=== PATIENT | female | born 1950 | race Caucasian/White ===

== ENCOUNTER 2017-12-19 09:08 | Outpatient (CLI) | payer MEDICARE, BC ==
[2017-12-19 14:45] LABS: BILIRUBIN,URINE NEGATIVE (NEGATIVE); GLUCOSE, URINE (UA) NEGATIVE (NEGATIVE); KETONES,URINE (UA) NEGATIVE (NEGATIVE); LEUKOCYTE ESTERASE, URINE NEGATIVE (NEGATIVE); NITRITE,URINE NEGATIVE (NEGATIVE); OCCULT BLOOD,URINE NEGATIVE (NEGATIVE); PROTEIN,URINE NEGATIVE (NEGATIVE); UROBILINOGEN,URINE 0.2 (NORMAL) E.U./dL (NORMAL)
[2017-12-19 14:47] LABS: CLARITY,URINE CLEAR (CLEAR)
== END 2017-12-19 09:09 | disposition home or self-care (01) ==
LOC: LAB 09:08
PROVIDERS: ATTEND Urology
DX: N39.0 Urinary tract infection, site not specified (principal)
CPT/HCPCS: 81001; 81003; 87086

== ENCOUNTER 2018-05-28 07:20 | Emergency (ER) | payer MEDICARE, BC ==
[2018-05-28] MEDS ORDERED: SODIUM CHLORIDE 0.9% 1,000 ML IV ONE (07:49)
--- NOTE | 2018-05-28 07:52 | ED Physician Documentation ---
PD HPI NVD - Stated complaint Stated Complaint: VOMITING - Chief complaint Chief Complaint: General - History obtained from History obtained from: Patient, Family - History of Present Illness Timing - onset: Enter time (1999), Last night Timing - duration: Hours Timing - details: Abrupt onset, Now resolved Associated symptoms: Dizzy, Near syncope / syncope Contributing factors: Bad food Improved by: Vomiting Similar symptoms before: Diagnosis (food poisoning) Recently seen: Not recently seen - Additonal information Additional information: 68-year-old female who had traveled to [place] and left [place] yesterday developed acute nausea and vomiting at about 8 PM yesterday. She had violent vomiting until about 4 AM. When she awoke at 6 AM this morning she did not have to vomit she was no longer nauseous but she feels weak and lightheaded. She has had this happen to her previously and she recalls that the last time this happened to her it took about 4 days to recover. She is on hydrochlorothiazide and she did not take her medication yesterday because she did not want to have to go to the bathroom on the plane. Review of Systems Constitutional: denies: Fever Eyes: denies: Decreased vision Ears: denies: Ear pain Nose: denies: Rhinorrhea / runny nose, Congestion Throat: denies: Sore throat Cardiac: denies: Chest pain / pressure, Palpitations Respiratory: denies: Dyspnea, Cough GI: reports: Nausea, Vomiting. denies: Abdominal Pain, Diarrhea : denies: Dysuria, Frequency Skin: denies: Rash Musculoskeletal: denies: Neck pain, Back pain, Extremity pain Neurologic: reports: Generalized weakness, Near syncope. 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 HEENT: Tonsil/Adenoidectomy - Present Medications Home Medications: Ambulatory Orders Medication Instructions Recorded Confirmed Diclofenac Sodium 1 mg PO DAILY 07/21/14 05/28/18 Gabapentin 1.5 mg PO DAILY 07/21/14 05/28/18 Levothyroxine [Synthroid] 1 mg PO DAILY 07/21/14 05/28/18 Omeprazole 2 mg PO DAILY 07/21/14 05/28/18 Oxycodone HCl/Acetaminophen 1 mg PO DAILY 07/21/14 05/28/18 [Percocet 5-325 mg Tablet] Simvastatin 1 mg PO DAILY 07/21/14 05/28/18 Triamterene/Hydrochlorothiazid 1 mg PO DAILY 07/21/14 05/28/18 [Triamterene-Hctz 37.5-25 mg Cp] Zolpidem Tartrate [Ambien] 1 mg PO DAILY 07/21/14 05/28/18 amLODIPine [Norvasc] 1 mg PO DAILY 07/21/14 05/28/18 Ondansetron Odt [Zofran] 4 mg TL Q6H PRN #10 tablet 05/28/18 - Allergies Allergies/Adverse Reactions: Allergies Allergy/AdvReac Type Severity Reaction Status Date / Time Penicillins Allergy Unknown Nausea Verified 07/21/14 22:43 - Social History Does the pt smoke?: No Smoking Status: Never smoker Does the pt drink ETOH?: No Does the pt have substance abuse?: No - Immunizations Immunizations are current?: Yes PD ED PE NORMAL - Vitals Vital signs reviewed: Yes - General General: Alert and oriented X 3, No acute distress, Well developed/nourished - HEENT HEENT: Atraumatic, PERRL, EOMI - Neck Neck: Supple, no meningeal sign - Cardiac Cardiac: No murmur, Other (tachy to 110) - Respiratory Respiratory: No respiratory distress, Clear bilaterally - Abdomen Abdomen: Soft, Other (There is some mild tenderness to the upper abdomen along the costal margin ) - Back Back: No CVA TTP, No spinal TTP - Derm Derm: Normal color, Warm and dry, No rash - Extremities Extremities: No deformity, No edema - Neuro Neuro: Alert and oriented X 3, vault worker 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, No motor deficit, No sensory deficit, Normal speech Eye Opening: Spontaneous Motor: Obeys Commands Verbal: Oriented GCS Score: 15 - Psych Psych: Normal mood, Normal affect Results - Vitals Vitals: Vital Signs - 24 hr 05/28/18 08:42 Temperature 37.5 C Heart Rate 77 Respiratory 18 Rate Blood Pressure 140/78 H O2 Saturation 92 Oxygen O2 Source Room air - Labs Labs: Laboratory Tests 05/28/18 05/28/18 05/28/18 08:15 08:25 08:25 WBC 13.6 H RBC 4.52 Hgb 13.0 Hct 38.1 MCV 84.3 MCH 28.7 MCHC 34.0 RDW 14.9 Plt Count 224 MPV 10.1 Neut # (Auto) 10.9 H Lymph # (Auto) 0.7 L [place] # (Auto) 2.0 H Eos # (Auto) 0.0 Baso # (Auto) 0.0 Absolute Nucleated RBC 0.01 Nucleated RBC % 0.0 Manual Slide Review Indicated WBC Morphology Platelet Estimate NORMAL (130-450,000) Platelet Morphology NORMAL APPEARANCE RBC Morph Micro Appear NORMAL APPEARANCE Sodium 137 Potassium 3.3 L Chloride 95 L Carbon Dioxide 29 Anion Gap 13.0 BUN 31 H Creatinine 1.2 H Estimated GFR (MDRD) 44 L Glucose 159 H Calcium 10.5 H Total Bilirubin 0.9 AST 39 ALT 30 Alkaline Phosphatase 81 Troponin I Total Protein 8.4 H Albumin 4.3 Globulin 4.1 Albumin/Globulin Ratio 1.0 Lipase 23 Urine Color YELLOW Urine Clarity CLEAR Urine pH 7.0 Ur Specific [place] 1.015 Urine Protein 30 H Urine Glucose (UA) NEGATIVE Urine Ketones NEGATIVE Urine Occult Blood NEGATIVE Urine Nitrite NEGATIVE Urine Bilirubin NEGATIVE Urine Urobilinogen 0.2 (NORMAL) Ur Leukocyte Esterase NEGATIVE Urine RBC 0-5 Urine WBC 0-3 Ur Squamous Epith Cells MOD Squamous H Urine Bacteria Few Urine Casts 0-2 Hyaline Casts Urine Mucus Few Strands Ur Microscopic Review INDICATED Urine Culture Comments NOT INDICATED 05/28/18 08:25 WBC RBC Hgb Hct MCV MCH MCHC RDW Plt Count MPV Neut # (Auto) Lymph # (Auto) [place] # (Auto) Eos # (Auto) Baso # (Auto) Absolute Nucleated RBC Nucleated RBC % Manual Slide Review WBC Morphology Platelet Estimate Platelet Morphology RBC Morph Micro Appear Sodium Potassium Chloride Carbon Dioxide Anion Gap BUN Creatinine Estimated GFR (MDRD) Glucose Calcium Total Bilirubin AST ALT Alkaline Phosphatase Troponin I < 0.04 Total Protein Albumin Globulin Albumin/Globulin Ratio Lipase Urine Color Urine Clarity Urine pH Ur Specific [place] Urine Protein Urine Glucose (UA) Urine Ketones Urine Occult Blood Urine Nitrite Urine Bilirubin Urine Urobilinogen Ur Leukocyte Esterase Urine RBC Urine WBC Ur Squamous Epith Cells Urine Bacteria Urine Casts Urine Mucus Ur Microscopic Review Urine Culture Comments Procedures - IVC sono (time) 0745 Bedside IVC sono: IVC measures (cm) (0.88), IVC collapsed c insp (cm) (complete) , Dehydration (est 2 + liters deficit.) PD MEDICAL DECISION MAKING - ED course Complexity details: reviewed old records, reviewed results, re-evaluated patient , considered differential, d/w patient, d/w family ED course: 68-year-old female with what sounds like acute staphylococcal food poisoning appears to have her symptoms resolved as far as her vomiting is concerned but she is weak and dehydrated. She is significantly dehydrated and will need about 2 L of saline for compensation. IV is begun and she is given saline. - Sepsis Event Vital Signs: Vital Signs - 24 hr 05/28/18 08:42 Temperature 37.5 C Heart Rate 77 Respiratory 18 Rate Blood Pressure 140/78 H O2 Saturation 92 Oxygen O2 Source Room air Departure - Departure Disposition: 01 Home, Self Care Clinical Impression: Dehydration Food poisoning Qualifiers: Encounter type: initial encounter Injury intent: accidental or unintentional Qualified Code(s): T62.91XA - Toxic effect of unspecified noxious substance eaten as food, accidental (unintentional), initial encounter Condition: Stable Instructions: ED Dehydration, ED Gastroenteritis Vs Food Poison Follow-Up: Deana Meneses MD [Primary Care Provider] - Prescriptions: Ondansetron Odt [Zofran] 4 mg TL Q6H PRN #10 tablet PRN Reason: Nausea / Vomiting
[2018-05-28 08:38] LABS: BILIRUBIN,URINE NEGATIVE (NEGATIVE); GLUCOSE, URINE (UA) NEGATIVE (NEGATIVE); KETONES,URINE (UA) NEGATIVE (NEGATIVE); LEUKOCYTE ESTERASE, URINE NEGATIVE (NEGATIVE); NITRITE,URINE NEGATIVE (NEGATIVE); OCCULT BLOOD,URINE NEGATIVE (NEGATIVE); PROTEIN,URINE 30 mg/dL (NEGATIVE); UROBILINOGEN,URINE 0.2 (NORMAL) E.U./dL (NORMAL)
[2018-05-28 08:40] LABS: CLARITY,URINE CLEAR (CLEAR)
[2018-05-28 08:40] LABS: BASOPHILS % (AUTO) 0.2 %; LYMPHOCYTES # (AUTO) 0.7 10^3/uL (1.5-3.5); LYMPHOCYTES % (AUTO) 5.1 %; MEAN CORPUSCULAR HEMOGLOBIN 28.7 pg (27.0-31.0); MEAN CORPUSCULAR VOLUME 84.3 fL (81.0-99.0); MEAN PLATELET VOLUME 10.1 fL (7.9-10.8); MONOCYTES % (AUTO) 14.6 %; NEUTROPHILS # (AUTO) 10.9 10^3/uL (1.5-6.6); NEUTROPHILS % (AUTO) 80.1 %; PLT - PLATELET COUNT 224 10^3/uL (130-450); RED BLOOD COUNT 4.52 10^6/uL (4.20-5.40); RED CELL DISTRIBUTION WIDTH 14.9 % (12.0-15.0); WHITE BLOOD COUNT 13.6 x10^3/uL (4.8-10.8)
[2018-05-28 08:53] LABS: ALBUMIN 4.3 g/dL (3.2-5.5); BILIRUBIN,TOTAL 0.9 mg/dL (0.2-1.0); CALCIUM 10.5 mg/dL (8.5-10.3); CREATININE 1.2 mg/dL (0.4-1.0); TOTAL PROTEIN 8.4 g/dL (6.7-8.2)
[2018-05-28] MEDS ORDERED: POTASSIUM BICARB 25 MEQ TABLET PO STA (08:54)
[2018-05-28 08:56] LABS: BACTERIA,URINE Few /HPF (None Seen); MUCUS,URINE Few Strands; RBC,URINE 0-5 /HPF (0-5); SQUAMOUS EPITHELIAL CELL,UR MOD Squamous (<= Few)
[2018-05-28 09:28] LABS: PLATELET ESTIMATE, MANUAL NORMAL (130-450,000) (NORMAL); PLATELET MORPHOLOGY NORMAL APPEARANCE (NORMAL); RBC MORPHOLOGY (MULTIPLE) NORMAL APPEARANCE (NORMAL)
[2018-05-28 11:03] VITALS: BP 154/81
== END 2018-05-28 11:04 | disposition home or self-care (01) ==
LOC: ED 07:20
DX: T62.91XA Toxic effect of unspecified noxious substance eaten as food, accidental (unintentional), initial encounter (principal); E86.0 Dehydration; R11.2 Nausea with vomiting, unspecified; I10 Essential (primary) hypertension; Y92.520 Airport as the place of occurrence of the external cause
CPT/HCPCS: 36415; 80053; 81001; 83690; 84484; 85025; 96360; 96361; 99283; 99284; A9270; 81003; 87086

== ENCOUNTER 2018-05-29 06:17 | Emergency (ER) | payer MEDICARE, BC ==
[2018-05-29] MEDS ORDERED: ONDANSETRON 4 MG/2 ML VIAL IVP STA (06:27)
[2018-05-29] MEDS ORDERED: SODIUM CHLORIDE 0.9% 1,000 ML IV ONE ×2 (06:27→07:18)
[2018-05-29 06:42] LABS: BASOPHILS % (AUTO) 0.6 %; HGB - HEMOGLOBIN 11.9 g/dL (12.0-16.0); LYMPHOCYTES % (AUTO) 8.9 %; MEAN CORPUSCULAR HEMOGLOBIN 28.3 pg (27.0-31.0); MEAN CORPUSCULAR HGB CONC 33.2 g/dL (32.0-36.0); MEAN PLATELET VOLUME 9.9 fL (7.9-10.8); MONOCYTES % (AUTO) 17.5 %; PLT - PLATELET COUNT 213 10^3/uL (130-450); RED BLOOD COUNT 4.19 10^6/uL (4.20-5.40); WHITE BLOOD COUNT 11.3 x10^3/uL (4.8-10.8)
[2018-05-29 06:46] LABS: ABNORMAL LYMPHS % (MANUAL) 0 %
[2018-05-29 06:58] LABS: ALBUMIN 4.4 g/dL (3.2-5.5); ALBUMIN/GLOBULIN RATIO 1.2 (1.0-2.2); BILIRUBIN,TOTAL 0.7 mg/dL (0.2-1.0); CALCIUM 10.2 mg/dL (8.5-10.3); CREATININE 1.2 mg/dL (0.4-1.0)
[2018-05-29 07:13] LABS: BAND NEUTROPHILS % (MANUAL) 1 %; LYMPHOCYTES # (MANUAL) 1.6 10^3/uL (1.5-3.5); LYMPHOCYTES % (MANUAL) 14 %; MONOCYTES # (MANUAL) 0.9 10^3/uL (0.0-1.0); NEUTROPHILS # (MANUAL) 8.8 10^3/uL (1.5-6.6); NEUTROPHILS % (MANUAL) 77 %; PLATELET ESTIMATE, MANUAL NORMAL (130-450,000) (NORMAL); RBC MORPHOLOGY (MULTIPLE) NORMAL APPEARANCE (NORMAL)
[2018-05-29 07:14] LABS: DIFFERENTIAL COMMENT MANUAL DIFFERENTIAL
--- NOTE | 2018-05-29 07:23 | ED Physician Documentation ---
PD HPI NVD - Stated complaint Stated Complaint: VOMITING - Chief complaint Chief Complaint: Abd Pain - History obtained from History obtained from: Patient - History of Present Illness Timing - onset: How many days ago (2) Timing - duration: Days (2) Contributing factors: Bad food, Travel Similar symptoms before: No diagnosis Recently seen: Emergency Dept (yesterday) - Additonal information Additional information: The patient is a 68-year-old female with vomiting of 2 days duration. She thinks she ate a bad turkey sandwich before leaving [place] 2 days ago. She began vomiting after her flight home. She was seen in the emergency department here yesterday and was treated for vomiting with dehydration. She felt better after 2 L of IV fluid and antiemetic. However yesterday after returning home she had 2 more episodes of vomiting, and has not been able to take her medication. Her last emesis was 9 PM last night. She denies abdominal pain currently, but reports intermittent crampy abdominal pain previously. She denies fever, diarrhea, or dysuria. She has history of similar episode 3 or 4 years ago, lasting for about 4 days. 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 Review of Systems Constitutional: denies: Fever Ears: denies: Tinnitus/ringing Nose: denies: Congestion Throat: denies: Sore throat Cardiac: denies: Chest pain / pressure, Palpitations Respiratory: denies: Dyspnea, Cough GI: reports: Abdominal Pain (occasional, cramping), Nausea, Vomiting. 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 HEENT: Tonsil/Adenoidectomy - Present Medications Home Medications: Ambulatory Orders Medication Instructions Recorded Confirmed Diclofenac Sodium 1 mg PO DAILY 07/21/14 05/28/18 Gabapentin 1.5 mg PO DAILY 07/21/14 05/28/18 Levothyroxine [Synthroid] 1 mg PO DAILY 07/21/14 05/28/18 Omeprazole 2 mg PO DAILY 07/21/14 05/28/18 Oxycodone HCl/Acetaminophen 1 mg PO DAILY 07/21/14 05/28/18 [Percocet 5-325 mg Tablet] Simvastatin 1 mg PO DAILY 07/21/14 05/28/18 Triamterene/Hydrochlorothiazid 1 mg PO DAILY 07/21/14 05/28/18 [Triamterene-Hctz 37.5-25 mg Cp] Zolpidem Tartrate [Ambien] 1 mg PO DAILY 07/21/14 05/28/18 amLODIPine [Norvasc] 1 mg PO DAILY 07/21/14 05/28/18 Ondansetron Odt [Zofran] 4 mg TL Q6H PRN #10 tablet 05/28/18 Promethazine [Phenergan] 25 - 50 mg PO Q6H PRN #10 tab 05/29/18 - Allergies Allergies/Adverse Reactions: Allergies Allergy/AdvReac Type Severity Reaction Status Date / Time Penicillins Allergy Unknown Nausea Verified 05/29/18 06:38 - Social History Does the pt smoke?: No Smoking Status: Never smoker Does the pt drink ETOH?: No Does the pt have substance abuse?: No - Immunizations Immunizations are current?: Yes - POLST Patient has POLST: No PD ED PE NORMAL - Vitals Vital signs reviewed: Yes (Initially hypertensive) - General General: Alert and oriented X 3, Well developed/nourished - HEENT HEENT: Atraumatic, Pharynx benign - Neck Neck: Supple, no meningeal sign, No adenopathy, No JVD - Cardiac Cardiac: RRR, No murmur - Respiratory Respiratory: No respiratory distress, Clear bilaterally - Abdomen Abdomen: Soft, Non tender, No organomegaly, Other (Decreased bowel tones.) - Back Back: No CVA TTP - Derm Derm: No rash - Extremities Extremities: No edema, No calf tenderness / cord - Neuro Neuro: Alert and oriented X 3, No motor deficit, Normal speech Results - Vitals Vitals: Vital Signs - 24 hr 05/29/18 05/29/18 05/29/18 06:21 06:57 08:57 Temperature 37.0 C 36.4 C L Heart Rate 76 68 71 Respiratory 18 16 18 Rate Blood Pressure 153/80 H 172/79 H 183/82 H O2 Saturation 96 98 98 Oxygen O2 Source Room air - Labs Labs: Laboratory Tests 05/29/18 05/29/18 05/29/18 06:35 06:35 08:33 WBC 11.3 H RBC 4.19 L Hgb 11.9 L Hct 35.7 L MCV 85.0 MCH 28.3 MCHC 33.2 RDW 15.0 Plt Count 213 MPV 9.9 Neut # (Auto) Not Reportable Lymph # (Auto) Not Reportable [place] # (Auto) Not Reportable Eos # (Auto) Not Reportable Baso # (Auto) Not Reportable Absolute Nucleated RBC Not Reportable Total Counted 100 Band Neuts % (Manual) 1 Abnorm Lymph % (Manual) 0 Nucleated RBC % Not Reportable Neutrophils # (Manual) 8.8 H Lymphocytes # (Manual) 1.6 Monocytes # (Manual) 0.9 Eosinophils # (Manual) 0.0 Basophils # (Manual) 0.0 Differential Comment MANUAL DIFFERENTIAL Platelet Estimate NORMAL (130-450,000) RBC Morph Micro Appear NORMAL APPEARANCE Sodium 139 Potassium 3.3 L Chloride 100 L Carbon Dioxide 29 Anion Gap 10.0 BUN 32 H Creatinine 1.2 H Estimated GFR (MDRD) 44 L Glucose 144 H Calcium 10.2 Total Bilirubin 0.7 AST 35 ALT 30 Alkaline Phosphatase 70 Total Protein 8.0 Albumin 4.4 Globulin 3.6 Albumin/Globulin Ratio 1.2 Lipase 21 L Urine Color YELLOW Urine Clarity CLEAR Urine pH 6.0 Ur Specific [place] 1.015 Urine Protein NEGATIVE Urine Glucose (UA) NEGATIVE Urine Ketones NEGATIVE Urine Occult Blood NEGATIVE Urine Nitrite NEGATIVE Urine Bilirubin NEGATIVE Urine Urobilinogen 1 (NORMAL) Ur Leukocyte Esterase NEGATIVE Ur Microscopic Review NOT INDICATED Urine Culture Comments NOT INDICATED PD MEDICAL DECISION MAKING - ED course Complexity details: reviewed old records, reviewed results, re-evaluated patient , considered differential, d/w patient ED course: The underlying cause for the patient's nausea and vomiting is uncertain, but is most consistent with gastroenteritis versus food poisoning. Her clinical examination does not suggest an acute surgical process, and there is no clinical evidence to suggest pancreatitis or biliary colic. Her white blood cell count is mildly elevated at 11.3, which is improved from yesterday when it was 13.6. Her BUN and creatinine are similar to yesterday at 33 and 1.2. Treatment in the emergency department included administration of normal saline 2 L IV, and Zofran 4 mg IV. Following this treatment she felt subjectively improved, and demonstrated ability to drink fluids without recurrent nausea. She is being discharged with a prescription for Phenergan. I discussed with her the diagnosis, symptomatic treatment and outpatient follow-up, as well as potentially worrisome signs or symptoms that should prompt reevaluation in the emergency department. - Sepsis Event Vital Signs: Vital Signs - 24 hr 05/29/18 05/29/18 05/29/18 06:21 06:57 08:57 Temperature 37.0 C 36.4 C L Heart Rate 76 68 71 Respiratory 18 16 18 Rate Blood Pressure 153/80 H 172/79 H 183/82 H O2 Saturation 96 98 98 Oxygen O2 Source Room air Departure - Departure Disposition: 01 Home, Self Care Clinical Impression: Dehydration Vomiting Qualifiers: Vomiting type: unspecified Vomiting Intractability: non-intractable Nausea presence: with nausea Qualified Code(s): R11.2 - Nausea with vomiting, unspecified Instructions: ED Nausea Vomiting Follow-Up: Deana Meneses MD [Primary Care Provider] - Prescriptions: Promethazine [Phenergan] 25 - 50 mg PO Q6H PRN #10 tab PRN Reason: Nausea / Vomiting Comments: You can use Phenergan as prescribed if needed for nausea. Drink small amounts of fluid frequently. Follow up with your primary physician within 1 week. Call to schedule appointment. Return to the emergency department if you develop increasing abdominal pain, persistent vomiting, recurrent dehydration, or otherwise worsening symptoms.
[2018-05-29 09:08] LABS: BILIRUBIN,URINE NEGATIVE (NEGATIVE); CLARITY,URINE CLEAR (CLEAR); KETONES,URINE (UA) NEGATIVE (NEGATIVE); LEUKOCYTE ESTERASE, URINE NEGATIVE (NEGATIVE); NITRITE,URINE NEGATIVE (NEGATIVE); OCCULT BLOOD,URINE NEGATIVE (NEGATIVE); PROTEIN,URINE NEGATIVE (NEGATIVE); UROBILINOGEN,URINE 1 (NORMAL) E.U./dL (NORMAL)
[2018-05-29 09:09] LABS: GLUCOSE, URINE (UA) NEGATIVE (NEGATIVE)
[2018-05-29 10:10] VITALS: BP 171/78
== END 2018-05-29 10:09 | disposition home or self-care (01) ==
LOC: ED 06:17
DX: E86.0 Dehydration (principal); R11.2 Nausea with vomiting, unspecified; I10 Essential (primary) hypertension; D72.829 Elevated white blood cell count, unspecified
CPT/HCPCS: 80053; 81001; 81003; 83690; 85025; 87086; 96361; 96374; 99284

== ENCOUNTER 2018-06-22 08:00 | Outpatient (CLI) | payer MEDICARE, BC ==
[2018-06-22 20:34] LABS: BASOPHILS % (AUTO) 0.7 %; EOSINOPHILS % (AUTO) 1.3 %; HGB - HEMOGLOBIN 9.7 g/dL (12.0-16.0); LYMPHOCYTES % (AUTO) 16.7 %; MEAN CORPUSCULAR HEMOGLOBIN 29.3 pg (27.0-31.0); MEAN CORPUSCULAR HGB CONC 33.4 g/dL (32.0-36.0); MEAN CORPUSCULAR VOLUME 87.8 fL (81.0-99.0); MEAN PLATELET VOLUME 9.1 fL (7.9-10.8); MONOCYTES % (AUTO) 33.8 %; NEUTROPHILS % (AUTO) 47.5 %; PLT - PLATELET COUNT 376 10^3/uL (130-450); RED CELL DISTRIBUTION WIDTH 15.9 % (12.0-15.0); WHITE BLOOD COUNT 14.5 x10^3/uL (4.8-10.8)
[2018-06-22 20:46] LABS: CALCIUM 9.5 mg/dL (8.5-10.3); CREATININE 1.1 mg/dL (0.4-1.0)
[2018-06-22 21:03] LABS: ABNORMAL LYMPHS % (MANUAL) 0 %
[2018-06-22 21:30] LABS: BAND NEUTROPHILS % (MANUAL) 6 %; EOSINOPHILS # (MANUAL) 0.1 10^3/uL (0-0.7); LYMPHOCYTES # (MANUAL) 3.9 10^3/uL (1.5-3.5); LYMPHOCYTES % (MANUAL) 26 %; METAMYELOCYTES % (MANUAL) 4 %; MONOCYTES # (MANUAL) 2.3 10^3/uL (0.0-1.0); NEUTROPHILS # (MANUAL) 7.5 10^3/uL (1.5-6.6); NEUTROPHILS % (MANUAL) 46 %
[2018-06-22 21:34] LABS: PLATELET MORPHOLOGY 1+ GIANT PLATELETS (NORMAL)
[2018-06-22 21:35] LABS: DIFFERENTIAL COMMENT MANUAL DIFFERENTIAL; PLATELET ESTIMATE, MANUAL NORMAL (130-450,000) (NORMAL)
== END 2018-06-22 08:01 | disposition home or self-care (01) ==
LOC: LAB.R 08:00
PROVIDERS: ATTEND Family Medicine
DX: D62 Acute posthemorrhagic anemia (principal); I10 Essential (primary) hypertension
CPT/HCPCS: 80048; 85025

== ENCOUNTER 2018-12-14 22:21 | Inpatient (IN) | payer MEDICARE, BC ==
[2018-12-14 23:08] LABS: BASOPHILS # (AUTO) 0.1 10^3/uL (0.0-0.1); BASOPHILS % (AUTO) 0.9 %; EOSINOPHILS % (AUTO) 0.4 %; HGB - HEMOGLOBIN 11.6 g/dL (12.0-16.0); LYMPHOCYTES # (AUTO) 2.3 10^3/uL (1.5-3.5); LYMPHOCYTES % (AUTO) 36.5 %; MEAN CORPUSCULAR HEMOGLOBIN 29.4 pg (27.0-31.0); MEAN CORPUSCULAR HGB CONC 33.2 g/dL (32.0-36.0); MEAN CORPUSCULAR VOLUME 88.6 fL (81.0-99.0); MEAN PLATELET VOLUME 10.6 fL (7.9-10.8); MONOCYTES # (AUTO) 2.2 10^3/uL (0.0-1.0); MONOCYTES % (AUTO) 34.5 %; NEUTROPHILS # (AUTO) 1.8 10^3/uL (1.5-6.6); NEUTROPHILS % (AUTO) 27.7 %; PLT - PLATELET COUNT 205 10^3/uL (130-450); RED BLOOD COUNT 3.94 10^6/uL (4.20-5.40); RED CELL DISTRIBUTION WIDTH 13.8 % (12.0-15.0); WHITE BLOOD COUNT 6.3 x10^3/uL (4.8-10.8)
[2018-12-14 23:15] LABS: ALBUMIN 4.6 g/dL (3.2-5.5); BILIRUBIN,TOTAL 0.5 mg/dL (0.2-1.0); CALCIUM 10.4 mg/dL (8.5-10.3); TOTAL PROTEIN 9.1 g/dL (6.7-8.2)
[2018-12-14 23:46] LABS: PLATELET ESTIMATE, MANUAL NORMAL (130-450,000) (NORMAL); PLATELET MORPHOLOGY 1+ GIANT PLATELETS (NORMAL)
[2018-12-15] MEDS ORDERED: HYDROmorphone 1 MG/ML CARPUJECT IVP STA ×3 (00:15→10:28)
[2018-12-15] MEDS ORDERED: SIMETHICONE CHEW 80 MG TABLET PO STA (00:15)
[2018-12-15] MEDS ORDERED: ONDANSETRON 4 MG/2 ML VIAL IVP STA ×2 (00:15→06:56)
[2018-12-15] MEDS ORDERED: POTASSIUM CHLOR 10 MEQ/100 ML 10 MEQ/100 ML BAG IV ONE (00:17)
--- NOTE | 2018-12-15 00:19 | ED Physician Documentation ---
PD HPI ABD PAIN - Stated complaint Stated Complaint: GAS PX - Chief complaint Chief Complaint: Abd Pain - History obtained from History obtained from: Patient - History of Present Illness Timing - onset: Enter time (2099), Today Timing - duration: Hours Timing - details: Abrupt onset, Still present Quality: Sharp, Pain Location: Epigastric Radiation: Lower back Improved by: BM Worsened by: Moving, Breathing, Position, Palpation Associated symptoms: Nausea, Constipation Similar symptoms before: Has not had sx before Recently seen: Not recently seen - Additional information Additional information: 68-year-old female was well earlier today and she had a bowl of cereal with some banana on it and shortly after she developed epigastric pain and gas. She had a lot of gas. She had significant pain and distention of her abdomen with this and eventually she was able to have a bowel movement here in the emergency department and produced a significant quantity of stool. Despite this she continues to have epigastric abdominal pain and distention. Review of Systems Constitutional: denies: Fever, Chills, Myalgias Eyes: denies: Decreased vision Ears: denies: Ear pain Nose: denies: Congestion Throat: denies: Sore throat Cardiac: denies: Chest pain / pressure, Palpitations Respiratory: denies: Dyspnea, Cough GI: reports: Abdominal Pain, Abdominal Swelling, Nausea, Constipation : denies: Dysuria, Frequency Skin: denies: Rash Musculoskeletal: denies: Neck pain, Back pain, Extremity pain PD PAST MEDICAL HISTORY - Past Medical History Cardiovascular: Hypertension, High cholesterol Respiratory: Sleep apnea Endocrine/Autoimmune: HyPOthyroidism GI: Ulcers - Past Surgical History Past Surgical History: Yes General: Cholecystectomy, Appendectomy, Other Ortho: 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, 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 HEENT: Tonsil/Adenoidectomy - Present Medications Home Medications: Ambulatory Orders Medication Instructions Recorded Confirmed Diclofenac Sodium 1 mg PO DAILY 07/21/14 05/28/18 Gabapentin 1.5 mg PO DAILY 07/21/14 05/28/18 Levothyroxine [Synthroid] 1 mg PO DAILY 07/21/14 05/28/18 Omeprazole 2 mg PO DAILY 07/21/14 05/28/18 Oxycodone HCl/Acetaminophen 1 mg PO DAILY 07/21/14 05/28/18 [Percocet 5-325 mg Tablet] Simvastatin 1 mg PO DAILY 07/21/14 05/28/18 Triamterene/Hydrochlorothiazid 1 mg PO DAILY 07/21/14 05/28/18 [Triamterene-Hctz 37.5-25 mg Cp] Zolpidem Tartrate [Ambien] 1 mg PO DAILY 07/21/14 05/28/18 amLODIPine [Norvasc] 1 mg PO DAILY 07/21/14 05/28/18 Ondansetron Odt [Zofran] 4 mg TL Q6H PRN #10 tablet 05/28/18 Promethazine [Phenergan] 25 - 50 mg PO Q6H PRN #10 tab 05/29/18 - Allergies Allergies/Adverse Reactions: Allergies Allergy/AdvReac Type Severity Reaction Status Date / Time Penicillins Allergy Unknown Nausea Verified 12/14/18 22:29 - Social History Does the pt smoke?: No Smoking Status: Never smoker Does the pt drink ETOH?: No Does the pt have substance abuse?: No - Immunizations Immunizations are current?: Yes - POLST Patient has POLST: No PD ED PE NORMAL - Vitals Vital signs reviewed: Yes (hypertensive) - General General: Alert and oriented X 3, Well developed/nourished, Other (appears to be in pain ) - HEENT HEENT: Atraumatic, PERRL, EOMI, Other (dry mucous membranes ) - Neck Neck: Supple, no meningeal sign, No bony TTP - Cardiac Cardiac: RRR, No murmur - Respiratory Respiratory: No respiratory distress, Clear bilaterally - Abdomen Abdomen: Soft, Other (epigastric distention and tenderness is without guarding ) - Back Back: No CVA TTP, No spinal TTP - Derm Derm: Normal color, Warm and dry, No rash - Extremities Extremities: No deformity, No edema - Neuro Neuro: Alert and oriented X 3, 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, No motor deficit, No sensory deficit, Normal speech Eye Opening: Spontaneous Motor: Obeys Commands Verbal: Oriented GCS Score: 15 - Psych Psych: Normal affect, Other (mood is painful ) Results - Vitals Vitals: Vital Signs - 24 hr 12/14/18 12/14/18 12/15/18 22:26 23:15 00:37 Temperature 36.3 C L 36.3 C L Heart Rate 70 70 64 Respiratory 17 17 16 Rate Blood Pressure 175/71 H 175/71 H 162/66 H O2 Saturation 100 100 94 12/15/18 12/15/18 12/15/18 00:50 01:26 02:36 Temperature Heart Rate 66 64 91 Respiratory 18 18 16 Rate Blood Pressure 161/66 H 160/69 H 125/71 O2 Saturation 99 96 100 12/15/18 12/15/18 03:06 03:50 Temperature Heart Rate 76 67 Respiratory 16 16 Rate Blood Pressure 160/70 H 142/52 H O2 Saturation 100 99 Oxygen O2 Source Room air - Labs Labs: Laboratory Tests 12/14/18 12/14/18 12/15/18 22:55 22:55 03:10 WBC 6.3 RBC 3.94 L Hgb 11.6 L Hct 34.9 L MCV 88.6 MCH 29.4 MCHC 33.2 RDW 13.8 Plt Count 205 MPV 10.6 Neut # (Auto) 1.8 Lymph # (Auto) 2.3 [place] # (Auto) 2.2 H Eos # (Auto) 0.0 Baso # (Auto) 0.1 Absolute Nucleated RBC 0.01 Nucleated RBC % 0.2 Manual Slide Review Indicated Platelet Estimate NORMAL (130-450,000) Platelet Morphology 1+ GIANT PLATELETS Sodium 134 L Potassium 3.3 L Chloride 93 L Carbon Dioxide 31 Anion Gap 10.0 BUN 36 H Creatinine 1.0 Estimated GFR (MDRD) 55 L Glucose 112 H Calcium 10.4 H Total Bilirubin 0.5 AST 44 H ALT 39 Alkaline Phosphatase 262 H Total Protein 9.1 H Albumin 4.6 Globulin 4.5 H Albumin/Globulin Ratio 1.0 Lipase 25 Urine Color YELLOW Urine Clarity CLEAR Urine pH 6.0 Ur Specific [place] 1.025 Urine Protein 100 H Urine Glucose (UA) NEGATIVE Urine Ketones 15 H Urine Occult Blood NEGATIVE Urine Nitrite NEGATIVE Urine Bilirubin NEGATIVE Urine Urobilinogen 0.2 (NORMAL) Ur Leukocyte Esterase NEGATIVE Urine RBC 0-5 Urine WBC 0-3 Ur Squamous Epith Cells FEW Squamous Urine Bacteria Rare Ur Microscopic Review INDICATED Urine Culture Comments NOT INDICATED - Rads (name of study) CT ab/pel with Radiology: Prelim report reviewed (Impression: 1. Clustered mild to moderate dilated small bowel loops are noted within the left mid and lower quadrant of the abdomen, with transition point proximally and distally. These findings are most consistent with a closed loop bowel obstruction. Configuration of the bowel raises the possibility of a potential internal hernia. There is associated severe mesenteric edema suggesting venous compromise. No pneumatosis or intra-abdominal free gas is noted at this time. 2. There is moderate to severe sigmoid diverticulosis without evidence of diverticulitis. 3. Left nephrectomy. There is a 1.7 cm left adrenal nodule, which appears relatively similar to prior studies. This may be an adenoma. 4. Large amount of retained colonic fecal matter suggest constipation. 5. Prior prior cholecystectomy.), EMP read indepedently, See rad report PD MEDICAL DECISION MAKING - ED course Complexity details: reviewed old records, reviewed results, re-evaluated patient, considered differential, d/w patient, d/w family ED course: 68-year-old female who has had a left nephrectomy in January 2018 and required surgical procedure for bowel obstruction in May 2018 has now developed a closed loop obstruction. The patient is improved after a second BM with an enema and pain medication but continues to have 8/[address] Forde is consulted in the case and comes to the ED to evaluate. Departure - Departure Disposition: 66 [facility] DC/Xfer Clinical Impression: Small bowel obstruction Condition: Serious
[2018-12-15] MEDS ORDERED: IOVERSOL 320 100 ML VIAL IVP ONE ×2 (00:57→03:38)
[2018-12-15] MEDS ORDERED: IOVERSOL 320 50 ML VIAL ONE (00:57)
[2018-12-15 03:21] LABS: BILIRUBIN,URINE NEGATIVE (NEGATIVE); GLUCOSE, URINE (UA) NEGATIVE (NEGATIVE); KETONES,URINE (UA) 15 mg/dL (NEGATIVE); LEUKOCYTE ESTERASE, URINE NEGATIVE (NEGATIVE); NITRITE,URINE NEGATIVE (NEGATIVE); OCCULT BLOOD,URINE NEGATIVE (NEGATIVE); PROTEIN,URINE 100 mg/dL (NEGATIVE); UROBILINOGEN,URINE 0.2 (NORMAL) E.U./dL (NORMAL)
[2018-12-15] MEDS ORDERED: SODIUM CHLORIDE 0.9% 1,000 ML IV ONE (03:24)
[2018-12-15 03:29] LABS: CLARITY,URINE CLEAR (CLEAR); RBC,URINE 0-5 /HPF (0-5); SQUAMOUS EPITHELIAL CELL,UR FEW Squamous (<= Few)
[2018-12-15 03:30] LABS: BACTERIA,URINE Rare /HPF (None Seen)
[2018-12-15] MEDS ORDERED: IOVERSOL 320 50 ML VIAL PO ONE (03:36)
[2018-12-15] MEDS ORDERED: MINERAL OIL ENEMA 133 ML BOTTLE RC STA (03:47)
--- NOTE | 2018-12-15 03:53 | CT Report ---
Reason: pain/distention Procedure Date: 12/15/2018 Accession Number: [id number] / [id number] Procedure: CT - Abdomen/Pelvis W CPT Code: FULL RESULT: EXAM: CT ABDOMEN AND PELVIS EXAM DATE: 12/15/2018 03:20 AM. CLINICAL HISTORY: Abdominal distention and abdominal pain. Bloating. COMPARISONS: CHEST ANGIO 07/22/2014 1:[address] THORAX W/ CONT 01/25/2013 2:38 PM. TECHNIQUE: Routine helical CT imaging was performed through the abdomen and pelvis. IV contrast: 90 mL Optiray 320. Enteric contrast: No. Reconstructions: Coronal and sagittal. In accordance with CT protocol optimization, one or more of the following dose reduction techniques were utilized for this exam: automated exposure control, adjustment of mA and/or KV based on patient size, or use of iterative reconstructive technique. FINDINGS: ABDOMEN: Liver: Nonspecific volume loss within the left hepatic lobe. Capsular retraction of segment 4 of the liver. Stomach/Distal Esophagus: Small hiatal hernia. Gallbladder: Surgically absent. Bile Ducts: Moderate intrahepatic and extrahepatic biliary dilation is noted. Pancreas: No significant abnormality. Spleen: No significant abnormality. Kidneys: Surgically absent left kidney. The right kidney is without a definite suspicious abnormality. There is no hydronephrosis. No definite suspicious left renal fossa nodule noted. Adrenals: Nodular abnormality of the left adrenal is again seen, which when accounting for differences in technique, is without significant change from the prior 01/25/2013 examination. This measures 1.7 cm (image 31 series 3). Bowel: Clustered dilated small bowel loops are noted within the left mid and lower abdomen. There is extensive surrounding mesenteric edema. The configuration of the bowel raises the possibility of an internal hernia. Transition points are seen at the proximal and distal portion. No definite intra-abdominal free gas or pneumatosis seen on this exam. There is moderate amount of retained colonic fecal matter. Moderate to severe sigmoid diverticulosis is present. Appendix: Could not be identified with certainty. Lymph Nodes: No pathologically enlarged nodes. Vasculature: Normal caliber aorta. Fluid: Small volume ascites. Abdominal Wall: No significant abnormality. Other: No significant abnormality. PELVIS: Uterus and Ovaries: No significant abnormality. Bladder: No significant abnormality. Lymph Nodes: No pathologically enlarged nodes. Fluid: No significant free fluid. Other: None. BONES: No suspicious bony lesions. Borderline enlargement of cardiac silhouette. No pulmonary venous hypertension. Severe multilevel degenerative changes noted within the spine. There is anterolisthesis of L4 relative to L5. LOWER CHEST: No significant consolidation or effusion. Interstitial type abnormalities are seen in the lung bases bilaterally, left greater than right. These are progressed from the prior chest CT. IMPRESSION: 1. Clustered mild to moderate dilated small bowel loops are noted within the left mid and lower quadrant of the abdomen, with transition point proximally and distally. These findings are most consistent with a closed loop bowel obstruction. Configuration of the bowel raises the possibility of a potential internal hernia. There is associated severe mesenteric edema suggesting venous compromise. No pneumatosis or intra-abdominal free gas noted at this time. 2. There is moderate to severe sigmoid diverticulosis without evidence of diverticulitis. 3. Left nephrectomy. There is a 1.7 cm left adrenal nodule, which appears relatively similar to the prior studies. This may be an adenoma. 4. Large amount of retained colonic fecal matter suggests constipation. 5. Prior cholecystectomy. RADIA The call report notification system was initiated by Dr. Hector Ray at 03:46 AM on 12/15/2018. The above call report findings were discussed with Guy Perrin by Dr. Hector Ray at 03:51 AM on 12/15/2018.
[2018-12-15] MEDS ORDERED: PROCHLORPERAZINE 10 MG/2 ML VIAL IVP STA (08:31)
--- NOTE | 2018-12-15 10:40 | ANESTHESIA ---
Pre-Anesthesia VS, & Labs - Diagnosis small bowel obstruction - Procedure exploratory laparotomy Vital Signs: Temp Pulse Resp BP Pulse Ox 37.4 C 83 128 H 157/81 H 93 12/15/18 10:12 12/15/18 10:12 12/15/18 10:12 12/15/18 10:12 12/15/18 10:12 Height 5 ft 5 in Weight (kg) 90.718 kg Body Mass Index 33.3 - NPO >8 hours - Is Patient ?: Not Applicable - Lab Results Current Lab Results: Laboratory Tests 12/14/18 22:55: Sodium 134 L, Potassium 3.3 L, Chloride 93 L, Carbon Dioxide 31, Anion Gap 10.0, BUN 36 H, Creatinine 1.0, Estimated GFR (MDRD) 55 L, Glucose 112 H, Calcium 10.4 H, Total Bilirubin 0.5, AST 44 H, ALT 39, Alkaline Phosphatase 262 H, Total Protein 9.1 H, Albumin 4.6, Globulin 4.5 H, Albumin/Globulin Ratio 1.0, Lipase 25 12/14/18 22:55: WBC 6.3, RBC 3.94 L, Hgb 11.6 L, Hct 34.9 L, MCV 88.6, MCH 29.4, MCHC 33.2, RDW 13.8, Plt Count 205, MPV 10.6, Neut # (Auto) 1.8, Lymph # (Auto) 2.3, [place] # (Auto) 2.2 H, Eos # (Auto) 0.0, Baso # (Auto) 0.1, Absolute Nucleated RBC 0.01, Nucleated RBC % 0.2, Manual Slide Review Indicated, Platelet Estimate NORMAL (130-450,000), Platelet Morphology 1+ GIANT PLATELETS Lab results reviewed: Yes Fish Bones: 12/14/18 22:55 12/14/18 22:55 Home Medications and Allergies Home Medications: Ambulatory Orders Baclofen 10 mg PO BID PRN 12/15/18 Diclofenac Sodium 50 mg PO DAILY 12/15/18 Fluticasone [Flonase] 2 spray NITIN QPM 12/15/18 Levothyroxine Sodium 150 mcg PO QDAC 12/15/18 Methocarbamol 1,000 mg PO BID 12/15/18 Oxycodone HCl 5 mg PO Q6H PRN 12/15/18 raNITIdine [Zantac] 150 mg PO QPM 12/15/18 Gabapentin 600 mg PO TID PRN 07/21/14 Omeprazole 20 mg PO QDAC 07/21/14 Simvastatin 20 mg PO QPM 07/21/14 Zolpidem Tartrate [Ambien] 5 mg PO QPM PRN 07/21/14 amLODIPine [Norvasc] 5 mg PO DAILY 07/21/14 Baclofen 10 mg PO BID PRN 12/15/18 Diclofenac Sodium 50 mg PO DAILY 12/15/18 Fluticasone [Flonase] 2 spray NITIN QPM 12/15/18 Levothyroxine Sodium 150 mcg PO QDAC 12/15/18 Methocarbamol 1,000 mg PO BID 12/15/18 Oxycodone HCl 5 mg PO Q6H PRN 12/15/18 raNITIdine [Zantac] 150 mg PO QPM 12/15/18 Allergies/Adverse Reactions: Allergies Allergy/AdvReac Type Severity Reaction Status Date / Time Penicillins Allergy Unknown Nausea Verified 12/14/18 22:29 Anes History & Medical History - Anesthetic History Anesthesia Complications: reports: No previous complications, Slow wake-up Family history of Anesthesia Complications: Denies Family history of Malignant Hyperthermia: Denies - Medical History Cardiovascular: reports: Hypertension, High cholesterol Pulmonary: reports: Sleep apnea Gastrointestinal: reports: Ulcers Endocrine/Autoimmune: reports: HyPOthyroidism Smoking Status: Never smoker - Surgical History General: Cholecystectomy, Appendectomy, Other Eyes Ears Nose Throat (EENT): Tonsil/Adenoidectomy Urologic: Nephrectomy Gynecologic: Hysterectomy, Mastectomy Orthopedic: Shoulder arthroplasty Exam General: Alert, Oriented x3, Cooperative, No acute distress Dental: Dentures full Upper, Dentures full Lower Mouth Openin Fingerbreadth Neck Mobility: Normal Mallampati classification: II Thyromental Distance: 4-6 cm Respiratory: Lungs clear, Normal breath sounds, No respiratory distress, No accessory muscle use Cardiovascular: Regular rate, Normal S1, Normal S2, No murmurs Mental/Cognitive Status: Alert/Oriented X3, Normal for patient Plan Anesthesia Type: General Consent for Procedure(s) Verified and Reviewed: Yes Code Status: Attempt Resuscitation ASA classification: 2-Mild systemic disease Is this case an emergency?: Yes
[2018-12-15] MEDS ORDERED: BUPIVACAINE 0.5% PF 30 ML VIAL ONE (10:41)
--- NOTE | 2018-12-15 10:58 | CONSULTATION NOTE ---
Referring Provider Name of Referring Provider:: Dr. Guy Perrin Consult Date: 12/15/18 Chief Complaint - Chief Complaint Chief Complaint: Abdominal pain History of Present Illness - Admitted From Admitted From:: [facility] Emergency Room Bed 1 - History Obtained From Records Reviewed: Yes History obtained from: Patient, caregiver, chart, and Dr. Guy Perrin Exam Limitations: None - History of Present Illness HPI Comment/Other: This very pleasant 68-year-old female presented to the emergency department here at [facility] with a complaint of abdominal pain its first started out in the epigastric region and then settled down a little bit lower associated with nausea and vomiting. This is similar to her previous bowel obstruction that she had that required adhesio lysis. Symptoms started abruptly yesterday and have not remitted since then. The patient states that her pain now is tolerable but is still present. She wonders whether or not I will use the same incision that was used previously which is in the inferior aspect of her abdomen. 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 LOCATOR: reports: Hysterectomy, Mastectomy HEENT: reports: Tonsil/Adenoidectomy - POLST Patient has POLST: No Meds/Allgy - Home Medications Home Medications: Ambulatory Orders Medication Instructions Recorded Confirmed Gabapentin 600 mg PO TID PRN 07/21/14 12/15/18 Omeprazole 20 mg PO QDAC 07/21/14 12/15/18 Simvastatin 20 mg PO QPM 07/21/14 12/15/18 Zolpidem Tartrate [Ambien] 5 mg PO QPM PRN 07/21/14 12/15/18 amLODIPine [Norvasc] 5 mg PO DAILY 07/21/14 12/15/18 Baclofen 10 mg PO BID PRN 12/15/18 12/15/18 Diclofenac Sodium 50 mg PO DAILY 12/15/18 12/15/18 Fluticasone [Flonase] 2 spray NITIN QPM 12/15/18 12/15/18 Levothyroxine Sodium 150 mcg PO QDAC 12/15/18 12/15/18 Methocarbamol 1,000 mg PO BID 12/15/18 12/15/18 Oxycodone HCl 5 mg PO Q6H PRN 12/15/18 12/15/18 raNITIdine [Zantac] 150 mg PO QPM 12/15/18 12/15/18 - Allergies Allergies/Adverse Reactions: Allergies Allergy/AdvReac Type Severity Reaction Status Date / Time Penicillins Allergy Unknown Nausea Verified 12/14/18 22:29 Review of Systems - Constitutional Constitutional: denies: Fatigue, Fever, Chills - Eyes Eyes: denies: Pain - Ears, Nose & Throat Ears, Nose & Throat: denies: Ear pain - Cardiovascular Cariovascular: denies: Irregular heart rate - Respiratory Respiratory: denies: Cough - Gastrointestinal Gastrointestinal: reports: Abdominal pain, Abdominal distention, Nausea, Vomiting - Integumentary Integumentary: denies: Rash - Neurological Neurological: reports: General weakness. denies: Focal weakness - Psychiatric Psychiatric: reports: Depression Exam - Vital Signs Reviewed Vital Signs: Yes Vital Signs: Vital Signs x48h Temp Pulse Resp BP Pulse Ox 12/15/18 10:12 37.4 C 83 128 H 157/81 H 93 12/15/18 09:03 36.2 C L 84 14 138/68 H 93 12/15/18 06:49 36.1 C L 68 14 144/69 H 97 12/15/18 05:49 73 16 136/59 H 95 12/15/18 04:47 70 16 142/52 H 95 12/15/18 03:50 67 16 142/52 H 99 12/15/18 03:06 76 16 160/70 H 100 - Physical Exam General Appearance: positive: No acute distress Eyes Bilateral: positive: No lid inflammation, Conjunctivae nml, No scleral icterus ENT: positive: Dry mucous membranes Neck: positive: Trachea midline Respiratory: positive: Chest non-tender, Breath sounds nml Cardiovascular: positive: Regular rate & rhythm Abdomen: positive: Tenderness. negative: No distention Skin: positive: Color nml Extremities: positive: Nml appearance Neurologic/Psychiatric: positive: Oriented x3 Conclusion/Plan - Diagnosis Diagnosis: Small bowel obstruction with a likelihood of a closed loop small bowel obstruction - Plan Plan: Exploratory laparotomy with adhesio lysis, possible bowel resection. The indications, procedure, alternatives (including no operation), and risks including but not limited to infection, bleeding with all of its intended risks, and were fully explained to the patient and her caregiver and all questions were answered. Verbal and written consent have been obtained. The patient preparation for this will be maintained n.p.o. She has 2 g of Ancef wr itten for for prophylactic and surgical infection. She will have teds and Venodyne's placed for prophylaxis against deep venous thrombosis. I have asked her to let us know if there is any way we can make her stay at [facility] more comfortable to please let us know. She stated she would. 45 minutes of [id number] time spent with the patient, the majority of which was spent in discussion, coordination of care, and completion of the requisite paperwork Dragon disclaimer: This document was created in part using voice recognition technology. Because of the inherent limitations of the system ([employer]'s [employer] Dictate user manual states that the licensee understands that speech recognition is a statistical process and that recognition errors are inherent in the process), occasional same sounding word substitutions and grammatical errors do occur and persist despite proofreading. Please read this document for context. - Lab Results Lab results reviewed: Yes Fish Bones: 12/14/18 22:55 12/14/18 22:55 - Diagnostic Imaging Results Diagnostic Imaging Results: positive: Final report reviewed, Read independently Diagnostic Imaging Results Comments: Findings are consistent with a small bowel obstruction and again a closed loop small bowel obstruction. There are other pertinent findings but there are not pertinent to the surgical issue above.
[2018-12-15] MEDS ORDERED: ceFAZolin 1 GM VIAL ONE (11:09)
[2018-12-15] MEDS ORDERED: BUPIVACAINE 0.5% PF 30 ML VIAL SUBQ ONE (11:53)
[2018-12-15] MEDS ORDERED: LACTATED RINGERS 1,000 ML IV ONE ×2 (11:54→13:19)
[2018-12-15] MEDS ORDERED: ceFAZolin 2 GM/50 ML 2 GM/50 ML BAG IV ONE (12:00)
[2018-12-15] MEDS ORDERED: PROPOFOL 200 MG/20 ML VIAL IVP ONE ×2 (12:00→13:05)
[2018-12-15] MEDS ORDERED: EPINEPHrine 1 MG/ML VIAL IV ONE (12:00)
[2018-12-15] MEDS ORDERED: LIDOCAINE-MPF 2% 5 ML VIAL IM ONE ×2 (12:00→13:05)
[2018-12-15] MEDS ORDERED: ROCURONIUM 50 MG/5 ML VIAL IVP ONE ×2 (12:00→13:05)
[2018-12-15] MEDS ORDERED: ePHEDrine 50 MG/ML VIAL IVP ONE (13:05)
[2018-12-15] MEDS ORDERED: ceFAZolin 1 GM VIAL IV ONE (13:05)
--- NOTE | 2018-12-15 13:11 | OPERATIVE REPORT ---
Operative Report - General Admit Date: 12/15/18 Planned Procedure: Exploratory laparotomy and adhesiolysis Pre-Op Diagnosis: Small bowel obstruction, closed loop obstruction suspected Procedure Performed: Exploratory laparotomy with adhesiolysis and primary repair of incisional hernia Post Op Diagnosis: Closed loop small bowel obstruction with the closed loop showing significan - Procedure Note Primary Surgeon: Guy Coats MD Anesthesia Provider: Guy Lacey MD Anesthesia Technique: General ET tube, Local (30 mL of half percent Marcaine) IV Fluids (mL): 900 Estimated Blood Loss (mL): 10 Urine Output (mL): 150 Drain/Tube Type: Other (None.) Complications: None. - Other Other Information/Narrative: OPERATIVE DESCRIPTION/REPORT: After verbal and written informed consent was obtained detailing the risks of infection, bleeding requiring transfusion with its risks, nerve injury, and , and after I met with the patient confirming the surgery and the site of the surgery, the patient was brought to the operative suite and placed supine on the operating table. Great care was taken to avoid pressure points to prevent pressure necrosis or nerve injury. Monitoring devices were applied along with TEDs and pneumatic compressive stockings (to prevent DVT). The patient received preoperative antibiotics for surgical prophylaxis. Dr. Guy Lacey sedated and anesthetized the patient for the entire procedure. The patient was prepped and draped in the usual sterile manner. With the patient draped my initials were clearly visible. A "time in" then confirmed that the patient was identified with 3 identifiers (name, date and medical record number), the history and physical was in the chart, the signed consent confirming the procedure was in the chart, the patient was in the correct position, the aforementioned prophylactic measures were in place or given, we had the correct personnel and equipment to complete the procedure and that anesthesia, surgery and nursing were given an opportunity to express any concerns. With the agreement of everyone in the room, we proceeded with the operation. A vertical midline incision was made tracing the previous incision and dissection was carried down to fascia using a combination of Metzenbaum scissors, scalpel, and mostly Bovie electrocautery. At the superior most aspect of the incision an incisional hernia was noted. I deferred removing the hernia sac in order to proceed with finding the cause of the bowel obstruction. Adhesions of the omentum to the anterior abdominal wall were taken using blunt dissection as well as Bovie electrocautery. In such manner I was able to reflect the greater omentum and colon superiorly and immediately encountered the closed loop bowel obstruction. Interestingly, the band holding this was very friable and was easily removed using my finger. The previously closed loop showed venous congestion and some dark discoloration but no necrosis. I placed this back in the abdomen and filled the abdomen with warm sterile saline. This was done in an effort to revitalize the closed loop. I waited 10 minutes with this in place and I looked at the previously closed loop. Although there was still some venous congestion in the mesentery the bowel was clearly peristalsing and again there was no necrosis. As such, I opted not to resect this portion of the bowel. The bowel was returned back into the abdomen and the abdomen was copiously irrigated using warm sterile saline. The hernia sac was excised using Bovie electrocautery. The fascia was then closed using running looped 0 PDS starting superiorly and inferiorly and running to meet just above the umbilicus. A Zoila fish retractor was used to ensure that the bowel was not incorporated in the closure. Please note that in closing the fascia the incisional hernia was repaired. This was tied and the knot was dunked. An additional stitch was placed just superior to the umbilicus where there was a small In the fascial closure. The subcutaneous tissues were copiously irrigated, and then the skin was approximated using skin crystal. Please note the subcutaneous tissues, the fascia, and the skin were injected with half percent Marcaine for pain control. At this point a time out was performed that confirmed that all the counts were correct, the procedure that was performed, the blood loss, the IV fluids administered, and the patients condition. Having tolerated the procedure well, the patient was subsequently extubated and taken to recovery room in good and stable condition. MePleaseon disclaimer: This document was created in part using voice recognition technology. Because of the inherent limitations of the system ([employer]'s [employer] Dictate user manual states that the licensee understands that speech recognition is a statistical process and that recognition errors are inherent in the process), occasional same sounding word substitutions and grammatical errors do occur and persist despite proofreading. Please read this document for context.
[2018-12-15] MEDS: ACETAMINOPHEN 1,000 MG/100 ML 100 ML IV SCH ×2 (13:56→19:36)
[2018-12-15] MEDS: D5NS W/20 MEQ KCL 1,000 ML IV SCH ×2 (13:56→23:40)
[2018-12-15] MEDS: PANTOPRAZOLE 40 MG VIAL IVP SCH (15:22)
[2018-12-15] MEDS: HYDROmorphone 1 MG/ML CARPUJECT IVP PRN ×2 (17:42→22:30)
[2018-12-15] MEDS: SODIUM CHLORIDE FLUSH 0.9% 10 ML SYRINGE IVP SCH (17:42)
[2018-12-16] MEDS: HYDROmorphone 1 MG/ML CARPUJECT IVP PRN ×10 (00:58→22:15)
[2018-12-16] MEDS: ACETAMINOPHEN 1,000 MG/100 ML 100 ML IV SCH ×4 (01:28→20:07)
[2018-12-16] MEDS: SODIUM CHLORIDE FLUSH 0.9% 10 ML SYRINGE IVP SCH ×3 (02:48→16:43)
[2018-12-16 05:50] LABS: BASOPHILS % (AUTO) 0.1 %; LYMPHOCYTES % (AUTO) 6.6 %; MEAN CORPUSCULAR HEMOGLOBIN 29.4 pg (27.0-31.0); MEAN CORPUSCULAR HGB CONC 32.9 g/dL (32.0-36.0); MEAN CORPUSCULAR VOLUME 89.5 fL (81.0-99.0); MEAN PLATELET VOLUME 10.7 fL (7.9-10.8); MONOCYTES # (AUTO) 5.7 10^3/uL (0.0-1.0); MONOCYTES % (AUTO) 38.8 %; NEUTROPHILS % (AUTO) 54.5 %; PLT - PLATELET COUNT 157 10^3/uL (130-450); RED BLOOD COUNT 3.41 10^6/uL (4.20-5.40); RED CELL DISTRIBUTION WIDTH 14.1 % (12.0-15.0); WHITE BLOOD COUNT 14.6 x10^3/uL (4.8-10.8)
[2018-12-16 06:00] LABS: CREATININE 0.9 mg/dL (0.4-1.0)
[2018-12-16 06:06] LABS: CALCIUM 8.6 mg/dL (8.5-10.3)
[2018-12-16] MEDS: PANTOPRAZOLE 40 MG VIAL IVP SCH (06:16)
[2018-12-16] MEDS: SODIUM CHLORIDE FLUSH 0.9% 10 ML SYRINGE IVP PRN ×8 (07:49→22:15)
[2018-12-16] MEDS: D5NS W/20 MEQ KCL 1,000 ML IV SCH ×2 (09:48→20:07)
[2018-12-16] MEDS ORDERED: SODIUM CHLORIDE INHALATION 3 ML NEB ONE (22:07)
--- NOTE | 2018-12-16 22:18 | PROVIDER PROGRESS NOTE ---
Subjective - General Admit Date: 12/15/18 Procedure Date: 12/15/18 Post Op Days: 1 Procedure Performed: Exploratory laparotomy with adhesiolysis - Review of Systems Wound/Incisions: positive: Healing well, Dressing dry and intact General: positive: No symptoms HEENT: positive: No symptoms Pulmonary: positive: No symptoms Cardiovascular: positive: No symptoms Gastrointestinal: positive: Abdominal pain (Incisional.), Other (Still no farting or bowel movement.) Genitourinary: positive: No symptoms Musculoskeletal: positive: No symptoms Skin: positive: No symptoms Psychiatric: positive: No symptoms Objective - Patient Data Reviewed Vital Signs: Yes Vital Signs: Vital Signs x48h Temp Pulse Resp BP Pulse Ox 12/16/18 16:09 37.1 C 73 18 131/58 H 99 Weight: Weight 12/14/18 12/15/18 12/16/18 23:59 23:59 23:59 Weight (kg) 90.718 kg 90.7 kg Intake & Output: Intake and Output Totals x24h 12/14/18 12/15/18 12/16/18 23:59 23:59 23:59 Intake Total 2800 3040.000 Output Total 1250 665 Balance 1550 2375.000 - Lab Results Lab Results: 12/16/18 05:38 12/16/18 05:38 Other Lab Results: Lab Results x24hrs 12/16/18 12/16/18 Range/Units 05:38 05:38 WBC 14.6 H (4.8-10.8) x10^3/uL RBC 3.41 L (4.20-5.40) 10^6/uL Hgb 10.0 L (12.0-16.0) g/dL Hct 30.5 L (37.0-47.0) % MCV 89.5 (81.0-99.0) fL MCH 29.4 (27.0-31.0) pg MCHC 32.9 (32.0-36.0) g/dL RDW 14.1 (12.0-15.0) % Plt Count 157 (130-450) 10^3/uL MPV 10.7 (7.9-10.8) fL Neut # (Auto) 8.0 H (1.5-6.6) 10^3/uL Lymph # (Auto) 1.0 L (1.5-3.5) 10^3/uL [place] # (Auto) 5.7 H (0.0-1.0) 10^3/uL Eos # (Auto) 0.0 (0.0-0.7) 10^3/uL Baso # (Auto) 0.0 (0.0-0.1) 10^3/uL Absolute Nucleated RBC 0.00 x10^3/uL Nucleated RBC % 0.0 /100WBC Sodium 139 (135-145) mmol/L Potassium 4.0 (3.5-5.0) mmol/L Chloride 103 (101-111) mmol/L Carbon Dioxide 28 (21-32) mmol/L Anion Gap 8.0 (6-13) BUN 31 H (6-20) mg/dL Creatinine 0.9 (0.4-1.0) mg/dL Estimated GFR (MDRD) 62 L (>89) Glucose 116 H (70-100) mg/dL Calcium 8.6 (8.5-10.3) mg/dL - Current Medications Current Medications: Current Medications Generic Name Dose Route Start Last Admin Trade Name Freq PRN Reason Stop Dose Admin Hydromorphone HCl 0.5 mg 12/15/18 13:03 12/16/18 20:08 Dilaudid Inj Carp IVP 0.5 mg Q2HR PRN Administration PAIN Potassium Chloride/Dextrose/Sod Cl 1,000 mls @ 100 mls/hr 12/15/18 14:00 12/16/18 20:22 IV 100 mls/hr .Q10H IRINA Infusion Acetaminophen 100 mls @ 400 mls/hr 12/15/18 14:00 12/16/18 20:22 Ofirmev IV Infused Q6H IRINA Infusion Pantoprazole Sodium 40 mg 12/15/18 14:00 12/16/18 06:16 Protonix IVP 40 mg QDAC IRINA Administration Sodium Chloride 10 ml 12/15/18 17:00 12/16/18 16:43 Normal Saline Flush 0.9% IVP Not Given 0100,0900,1700 IRINA Sodium Chloride 10 ml 12/15/18 13:03 12/16/18 20:08 Normal Saline Flush 0.9% IVP 10 ml PRN PRN Administration NEEDED PER PROVIDER ORDERS - Physical Exam Wound/Incisions: positive: Healing well, No drainage General Appearance: positive: No acute distress Eyes Bilateral: positive: No lid inflammation, Conjunctivae nml, No scleral icterus ENT: positive: Dry mucous membranes Neck: positive: Trachea midline Respiratory: positive: Chest non-tender, No respiratory distress Cardiovascular: positive: Regular rate & rhythm Abdomen: positive: Tenderness (Incisional.) Skin: positive: Color nml Extremities: positive: Non-tender, Nml appearance Neurologic/Psychiatric: positive: Oriented x3, Motor nml, Sensation nml, Mood/affect nml ABX Reporting Has patient been on IV antibiotics over the past 48 hours?: Yes Impression/Plan - Problem List Problem List: Day 1 status post exploratory laparotomy with adhesiolysis freeing a closed loop small bowel obstruction 1) FEN Continue IV fluids as well as clear liquids in anticipation of bowel function returning. 2) Activity Maximize time spent out of bed. 3) DVT prophylaxis This goes along with #2 above. Continue TEDs and Venodyne's.
[2018-12-17] MEDS: SODIUM CHLORIDE FLUSH 0.9% 10 ML SYRINGE IVP SCH ×3 (00:12→02:23)
[2018-12-17] MEDS: HYDROmorphone 1 MG/ML CARPUJECT IVP PRN ×9 (00:23→21:32)
[2018-12-17] MEDS: ACETAMINOPHEN 1,000 MG/100 ML 100 ML IV SCH ×3 (02:22→14:11)
[2018-12-17] MEDS: SODIUM CHLORIDE FLUSH 0.9% 10 ML SYRINGE IVP PRN ×3 (04:46→21:33)
[2018-12-17] MEDS: D5NS W/20 MEQ KCL 1,000 ML IV SCH ×2 (06:21→17:59)
[2018-12-17] MEDS: PANTOPRAZOLE 40 MG VIAL IVP SCH (06:21)
[2018-12-17] MEDS ORDERED: FLUTICASONE NASAL SPRAY NAS SCH (09:00)
--- NOTE | 2018-12-17 16:23 | PROVIDER PROGRESS NOTE ---
Subjective - General Admit Date: 12/16/18 Procedure Date: 12/15/18 Post Op Days: 2 Procedure Performed: Exploratory laparotomy with adhesiolysis - Review of Systems Wound/Incisions: positive: Healing well, No drainage General: positive: No symptoms HEENT: positive: No symptoms Pulmonary: positive: No symptoms Cardiovascular: positive: No symptoms Gastrointestinal: positive: Abdominal pain (Incisional and decreased.), Other (Still no farting or bowel movement.) Genitourinary: positive: No symptoms Musculoskeletal: positive: No symptoms Skin: positive: No symptoms Psychiatric: positive: No symptoms Objective - Patient Data Reviewed Vital Signs: Yes Weight: Weight 12/15/18 12/16/18 12/17/18 23:59 23:59 23:59 Weight (kg) 90.7 kg Intake & Output: Intake and Output Totals x24h 12/15/18 12/16/18 12/17/18 23:59 23:59 23:59 Intake Total 2800 3040.000 2710.000 Output Total 3072 995 7860 Balance 1550 2375.000 1660.000 - Lab Results Lab Results: 12/16/18 05:38 12/16/18 05:38 - Current Medications Current Medications: Current Medications Generic Name Dose Route Start Last Admin Trade Name Freq PRN Reason Stop Dose Admin Fluticasone Propionate 1 sprays 12/17/18 09:00 12/17/18 08:40 Flonase NITIN 1 spr DAILY IRINA Administration Hydromorphone HCl 0.5 mg 12/15/18 13:03 12/17/18 13:40 Dilaudid Inj Carp IVP 0.5 mg Q2HR PRN Administration PAIN Potassium Chloride/Dextrose/Sod Cl 1,000 mls @ 100 mls/hr 12/15/18 14:00 12/17/18 14:26 IV 100 mls/hr .Q10H IRINA Infusion Acetaminophen 100 mls @ 400 mls/hr 12/15/18 14:00 12/17/18 14:26 Ofirmev IV Infused Q6H IRINA Infusion Pantoprazole Sodium 40 mg 12/15/18 14:00 12/17/18 06:21 Protonix IVP 40 mg QDAC IRINA Administration Sodium Chloride 10 ml 12/15/18 17:00 12/17/18 02:23 Normal Saline Flush 0.9% IVP 10 ml 0100,0900,1700 IRINA Administration Sodium Chloride 10 ml 12/15/18 13:03 12/17/18 04:46 Normal Saline Flush 0.9% IVP 10 ml PRN PRN Administration NEEDED PER PROVIDER ORDERS - Physical Exam Wound/Incisions: positive: Healing well ([place] in place. Some dried blood in umbilicus.), Dressing dry and intact (Dressing removed and can stay off.) General Appearance: positive: No acute distress Eyes Bilateral: positive: No lid inflammation, Conjunctivae nml, No scleral icterus ENT: positive: No signs of dehydration Neck: positive: Trachea midline Respiratory: positive: Chest non-tender, No respiratory distress, Breath sounds nml Cardiovascular: positive: Regular rate & rhythm Abdomen: positive: Nml bowel sounds, Tenderness (Minimal incisional.) Skin: positive: Color nml Extremities: positive: Non-tender, Nml appearance Neurologic/Psychiatric: positive: Oriented x3, Sensation nml, Mood/affect nml Impression/Plan - Problem List Problem List: Day 2 status post exploratory laparotomy with adhesiolysis freeing a closed loop small bowel obstruction 1) FEN Bowel function has returned. Start general diet.. 2) Activity Maximize time spent out of bed. Shower today - has not been out of bed yet today. 3) DVT prophylaxis This goes along with #2 above. Continue TEDs and Venodyne's. Anticipate discharge tomorrow if patient tolerates general diet and po pain medication.
[2018-12-17] MEDS ORDERED: ACETAMINOPHEN 325 MG SUPP PR PRN (16:28)
[2018-12-17] MEDS: oxyCODONE 5 MG TABLET PO PRN ×2 (19:12→23:07)
[2018-12-18] MEDS: HYDROmorphone 1 MG/ML CARPUJECT IVP PRN ×2 (00:22→06:47)
[2018-12-18] MEDS: SODIUM CHLORIDE FLUSH 0.9% 10 ML SYRINGE IVP SCH ×4 (00:23→23:39)
[2018-12-18] MEDS: oxyCODONE 5 MG TABLET PO PRN ×5 (02:54→23:01)
--- NOTE | 2018-12-18 03:32 | XRAY Report ---
Reason: elevated temp Procedure Date: 12/18/2018 Accession Number: [id number] / [id number] Procedure: XR - Chest 2 View X-Ray CPT Code: 57637 FULL RESULT: EXAM: CHEST RADIOGRAPHY EXAM DATE: 12/18/2018 03:26 AM. CLINICAL HISTORY: Elevated temp. COMPARISON: 07/21/2014 11:23 PM. TECHNIQUE: 2 views. FINDINGS: Lungs/Pleura: Bilateral infiltrates or edema. Small pleural effusions. No pneumothorax. Mediastinum: Mild cardiomegaly. Other: Osteopenia. Left shoulder prosthesis. IMPRESSION: 1. Cardiomegaly with bilateral infiltrates or edema and small pleural effusions. RADIA
[2018-12-18 04:21] LABS: HGB - HEMOGLOBIN 10.5 g/dL (12.0-16.0); MEAN CORPUSCULAR HEMOGLOBIN 29.7 pg (27.0-31.0); MEAN CORPUSCULAR HGB CONC 33.4 g/dL (32.0-36.0); MEAN PLATELET VOLUME 10.7 fL (7.9-10.8); RED BLOOD COUNT 3.52 10^6/uL (4.20-5.40); RED CELL DISTRIBUTION WIDTH 13.6 % (12.0-15.0); WHITE BLOOD COUNT 17.3 x10^3/uL (4.8-10.8)
[2018-12-18 04:23] LABS: BILIRUBIN,URINE NEGATIVE (NEGATIVE); GLUCOSE, URINE (UA) NEGATIVE (NEGATIVE); KETONES,URINE (UA) NEGATIVE (NEGATIVE); LEUKOCYTE ESTERASE, URINE NEGATIVE (NEGATIVE); NITRITE,URINE NEGATIVE (NEGATIVE); OCCULT BLOOD,URINE TRACE-LYSE (NEGATIVE); PROTEIN,URINE TRACE mg/dL (NEGATIVE); UROBILINOGEN,URINE 1 (NORMAL) E.U./dL (NORMAL)
[2018-12-18 04:29] LABS: CLARITY,URINE CLEAR (CLEAR)
[2018-12-18 04:33] LABS: ALBUMIN 3.2 g/dL (3.2-5.5); ALBUMIN/GLOBULIN RATIO 0.8 (1.0-2.2); BILIRUBIN,TOTAL 0.7 mg/dL (0.2-1.0); CALCIUM 9.1 mg/dL (8.5-10.3); CREATININE 0.7 mg/dL (0.4-1.0); TOTAL PROTEIN 7.4 g/dL (6.7-8.2)
[2018-12-18] MEDS: ACETAMINOPHEN 325 MG TABLET PO PRN ×2 (06:31→16:00)
[2018-12-18] MEDS: PANTOPRAZOLE 40 MG VIAL IVP SCH (06:33)
[2018-12-18] MEDS: SODIUM CHLORIDE FLUSH 0.9% 10 ML SYRINGE IVP PRN (06:48)
--- NOTE | 2018-12-18 08:41 | PROVIDER PROGRESS NOTE ---
Subjective - General Admit Date: 12/16/18 Procedure Date: 12/15/18 Post Op Days: 3 Procedure Performed: Exploratory laparotomy with adhesiolysis - Review of Systems Wound/Incisions: positive: Healing well ([place] in place. Some dried blood in umbilicus.) General: positive: No symptoms HEENT: positive: No symptoms Pulmonary: positive: No symptoms Cardiovascular: positive: No symptoms Gastrointestinal: positive: Abdominal pain (Incisional and decreased.), Other (Farting no bowel movement.) Genitourinary: positive: No symptoms Musculoskeletal: positive: No symptoms Skin: positive: No symptoms Psychiatric: positive: No symptoms Objective - Patient Data Reviewed Vital Signs: Yes Vital Signs: Vital Signs x48h Temp Pulse Pulse Resp BP Pulse Ox 12/18/18 08:29 37.3 C 85 15 160/70 H 96 12/18/18 07:14 83 181/64 H 12/18/18 06:41 38.2 C H 96 18 202/62 H 96 12/18/18 04:00 38.7 C H 12/18/18 02:05 39.1 C H 95 16 174/59 H 92 Weight: Weight 12/16/18 12/17/18 12/18/18 23:59 23:59 23:59 Weight (kg) 90.7 kg Intake & Output: Intake and Output Totals x24h 12/16/18 12/17/18 12/18/18 23:59 23:59 23:59 Intake Total 3040.000 3148.333 Output Total 665 1650 800 Balance 2375.000 1498.333 -800 - Lab Results Lab Results: 12/18/18 04:05 12/18/18 04:05 Other Lab Results: Lab Results x24hrs 12/18/18 12/18/18 12/18/18 Range/Units 04:05 04:05 03:35 WBC 17.3 H (4.8-10.8) x10^3/uL RBC 3.52 L (4.20-5.40) 10^6/uL Hgb 10.5 L (12.0-16.0) g/dL Hct 31.4 L (37.0-47.0) % MCV 89.0 (81.0-99.0) fL MCH 29.7 (27.0-31.0) pg MCHC 33.4 (32.0-36.0) g/dL RDW 13.6 (12.0-15.0) % Plt Count 159 (130-450) 10^3/uL MPV 10.7 (7.9-10.8) fL Sodium 137 (135-145) mmol/L Potassium 3.4 L (3.5-5.0) mmol/L Chloride 100 L (101-111) mmol/L Carbon Dioxide 27 (21-32) mmol/L Anion Gap 10.0 (6-13) BUN 10 (6-20) mg/dL Creatinine 0.7 (0.4-1.0) mg/dL Estimated GFR (MDRD) 83 L (>89) Glucose 136 H (70-100) mg/dL Calcium 9.1 (8.5-10.3) mg/dL Total Bilirubin 0.7 (0.2-1.0) mg/dL AST 25 (10-42) IU/L ALT 22 (10-60) IU/L Alkaline Phosphatase 160 H (42-121) IU/L Total Protein 7.4 (6.7-8.2) g/dL Albumin 3.2 (3.2-5.5) g/dL Globulin 4.2 (2.1-4.2) g/dL Albumin/Globulin Ratio 0.8 L (1.0-2.2) Urine Color YELLOW Urine Clarity CLEAR (CLEAR) Urine pH 7.0 (5.0-7.5) PH Ur Specific [place] 1.020 (1.002-1.030) Urine Protein TRACE (NEGATIVE) mg/dL Urine Glucose (UA) NEGATIVE (NEGATIVE) mg/dL Urine Ketones NEGATIVE (NEGATIVE) mg/dL Urine Occult Blood TRACE-LYSE (NEGATIVE) Urine Nitrite NEGATIVE (NEGATIVE) Urine Bilirubin NEGATIVE (NEGATIVE) Urine Urobilinogen 1 (NORMAL) (NORMAL) E.U./dL Ur Leukocyte Esterase NEGATIVE (NEGATIVE) Ur Microscopic Review NOT INDICATED Urine Culture Comments NOT INDICATED - Current Medications Current Medications: Current Medications Generic Name Dose Route Start Last Admin Trade Name Freq PRN Reason Stop Dose Admin Acetaminophen 325 mg 12/17/18 16:28 12/18/18 00:23 Tylenol [place] 325 mg Q6HR PRN Administration Pain or Fever > 38C (100.4F) Acetaminophen 650 mg 12/18/18 02:41 12/18/18 06:31 Tylenol PO 650 mg Q4HR PRN Administration Pain or Fever > 38C (100.4F) Fluticasone Propionate 1 sprays 12/17/18 09:00 12/17/18 08:40 Flonase NITIN 1 spr DAILY IRINA Administration Hydromorphone HCl 0.5 mg 12/15/18 13:03 12/18/18 06:47 Dilaudid Inj Carp IVP 0.5 mg Q2HR PRN Administration PAIN Potassium Chloride/Dextrose/Sod Cl 1,000 mls @ 50 mls/hr 12/17/18 16:26 12/17/18 17:59 IV 50 mls/hr .Q20H IRINA Administration Oxycodone HCl 5 mg 12/17/18 16:26 12/18/18 02:54 Roxicodone PO 5 mg Q4HR PRN Administration PAIN Pantoprazole Sodium 40 mg 12/15/18 14:00 12/18/18 06:33 Protonix IVP 40 mg QDAC IRINA Administration Sodium Chloride 10 ml 12/15/18 17:00 12/18/18 06:31 Normal Saline Flush 0.9% IVP 10 ml 0100,0900,1700 IRINA Administration Sodium Chloride 10 ml 12/15/18 13:03 12/18/18 06:48 Normal Saline Flush 0.9% IVP 10 ml PRN PRN Administration NEEDED PER PROVIDER ORDERS - Physical Exam Wound/Incisions: positive: Healing well General Appearance: positive: No acute distress Eyes Bilateral: positive: No lid inflammation, Conjunctivae nml, No scleral icterus ENT: positive: No signs of dehydration Neck: positive: Trachea midline Respiratory: positive: Chest non-tender, Other (Fine crackles bilaterally laterally and posteriorly.) Cardiovascular: positive: Regular rate & rhythm Abdomen: positive: Nml bowel sounds, Tenderness (Minimal when distracted.) Skin: positive: Other (Slightly pasty.) Extremities: positive: Non-tender Neurologic/Psychiatric: positive: Oriented x3, Mood/affect nml Impression/Plan - Problem List Problem List: Day 3 status post exploratory laparotomy with adhesiolysis freeing a closed loop small bowel obstruction 1) FEN Bowel function has returned-passing gas no BM yet. Tolerating general diet. 2) Activity Maximize time spent out of bed. Shower today - has not been out of bed yet today. MUST be OOB. Get PT and OT involved. 3) DVT prophylaxis This goes along with #2 above. Continue TEDs and Venodyne's. 4) ID WBC increased to 17.3 today. Low grade temperature of 37.3 cannot really call it a fever. CXR showing infiltrates or edema with small pleural effusions. Will not discharge patient home in the face of increased WBCs and CXR showing bilateral infiltrates or edema with small pleural effusions. Patient did not get out of bed yesterday and did not have the shower that I ordered. I explained that she is at risk for pneumonia and if she gets pneumonia there is a tangible risk of . Explained that some discomfort or pain is NOT a reason to be sedentary.
[2018-12-18] MEDS: D5NS W/20 MEQ KCL 1,000 ML IV SCH (13:19)
[2018-12-18] MEDS: ONDANSETRON 4 MG/2 ML VIAL IVP PRN (17:10)
[2018-12-18] MEDS: FLUTICASONE NASAL SPRAY NAS SCH (20:00)
[2018-12-19] MEDS: ACETAMINOPHEN 325 MG TABLET PO PRN ×5 (01:28→20:34)
[2018-12-19] MEDS: oxyCODONE 5 MG TABLET PO PRN ×5 (03:07→20:33)
[2018-12-19 05:55] LABS: BASOPHILS % (AUTO) 0.3 %; EOSINOPHILS % (AUTO) 0.1 %; HGB - HEMOGLOBIN 9.3 g/dL (12.0-16.0); LYMPHOCYTES % (AUTO) 6.8 %; MEAN CORPUSCULAR HGB CONC 32.8 g/dL (32.0-36.0); MEAN CORPUSCULAR VOLUME 88.3 fL (81.0-99.0); MEAN PLATELET VOLUME 10.8 fL (7.9-10.8); MONOCYTES # (AUTO) 5.8 10^3/uL (0.0-1.0); NEUTROPHILS # (AUTO) 8.4 10^3/uL (1.5-6.6); NEUTROPHILS % (AUTO) 54.8 %; PLT - PLATELET COUNT 153 10^3/uL (130-450); RED BLOOD COUNT 3.22 10^6/uL (4.20-5.40); RED CELL DISTRIBUTION WIDTH 13.6 % (12.0-15.0); WHITE BLOOD COUNT 15.2 x10^3/uL (4.8-10.8)
[2018-12-19 05:56] LABS: ALBUMIN 2.9 g/dL (3.2-5.5); ALBUMIN/GLOBULIN RATIO 0.8 (1.0-2.2); CALCIUM 8.7 mg/dL (8.5-10.3); CREATININE 0.7 mg/dL (0.4-1.0); TOTAL PROTEIN 6.6 g/dL (6.7-8.2)
[2018-12-19 06:16] LABS: DIFFERENTIAL COMMENT MANUAL=AUTO DIFF; PLATELET ESTIMATE, MANUAL NORMAL (130-450,000) (NORMAL); RBC MORPHOLOGY (MULTIPLE) NORMAL APPEARANCE (NORMAL)
[2018-12-19] MEDS: SODIUM CHLORIDE FLUSH 0.9% 10 ML SYRINGE IVP PRN ×3 (06:24→20:34)
[2018-12-19] MEDS: PANTOPRAZOLE 40 MG VIAL IVP SCH (06:24)
[2018-12-19] MEDS: ONDANSETRON 4 MG/2 ML VIAL IVP PRN ×2 (08:05→20:34)
[2018-12-19] MEDS: SODIUM CHLORIDE FLUSH 0.9% 10 ML SYRINGE IVP SCH ×2 (08:05→17:31)
--- NOTE | 2018-12-19 08:49 | PROVIDER PROGRESS NOTE ---
Subjective - General Admit Date: 12/16/18 Procedure Date: 12/15/18 Post Op Days: 5 Procedure Performed: Exploratory laparotomy with adhesiolysis - Review of Systems Wound/Incisions: positive: Healing well General: positive: No symptoms HEENT: positive: No symptoms Pulmonary: positive: No symptoms Cardiovascular: positive: No symptoms Gastrointestinal: positive: Abdominal pain (Incisional and decreased.), Other (Farting no bowel movement.) Genitourinary: positive: No symptoms Musculoskeletal: positive: No symptoms Skin: positive: No symptoms Psychiatric: positive: No symptoms Objective - Patient Data Reviewed Vital Signs: Yes Vital Signs: Vital Signs x48h Temp Pulse Pulse Resp BP Pulse Ox 12/19/18 08:22 37.1 C 80 13 154/58 H 97 12/19/18 04:19 37.3 C 80 18 164/59 H 97 Intake & Output: Intake and Output Totals x24h 12/17/18 12/18/18 12/19/18 23:59 23:59 23:59 Intake Total 3148.333 1781.666 Output Total 1650 800 Balance 1498.333 981.666 - Lab Results Lab Results: 12/20/18 11:07 12/19/18 05:20 Other Lab Results: Lab Results x24hrs 12/19/18 12/19/18 Range/Units 05:20 05:20 WBC 15.2 H (4.8-10.8) x10^3/uL RBC 3.22 L (4.20-5.40) 10^6/uL Hgb 9.3 L (12.0-16.0) g/dL Hct 28.4 L (37.0-47.0) % MCV 88.3 (81.0-99.0) fL MCH 29.0 (27.0-31.0) pg MCHC 32.8 (32.0-36.0) g/dL RDW 13.6 (12.0-15.0) % Plt Count 153 (130-450) 10^3/uL MPV 10.8 (7.9-10.8) fL Neut # (Auto) 8.4 H (1.5-6.6) 10^3/uL Lymph # (Auto) 1.0 L (1.5-3.5) 10^3/uL [place] # (Auto) 5.8 H (0.0-1.0) 10^3/uL Eos # (Auto) 0.0 (0.0-0.7) 10^3/uL Baso # (Auto) 0.0 (0.0-0.1) 10^3/uL Absolute Nucleated RBC 0.01 x10^3/uL Band Neuts % (Manual) Not Reportable Abnorm Lymph % (Manual) Not Reportable Nucleated RBC % 0.1 /100WBC Neutrophils # (Manual) Not Reportable Lymphocytes # (Manual) Not Reportable Monocytes # (Manual) Not Reportable Eosinophils # (Manual) Not Reportable Basophils # (Manual) Not Reportable Differential Comment MANUAL=AUTO DIFF Platelet Estimate NORMAL (130-450,000) (NORMAL) RBC Morph Micro Appear NORMAL APPEARANCE (NORMAL) Sodium 136 (135-145) mmol/L Potassium 3.0 L (3.5-5.0) mmol/L Chloride 99 L (101-111) mmol/L Carbon Dioxide 27 (21-32) mmol/L Anion Gap 10.0 (6-13) BUN 12 (6-20) mg/dL Creatinine 0.7 (0.4-1.0) mg/dL Estimated GFR (MDRD) 83 L (>89) Glucose 135 H (70-100) mg/dL Calcium 8.7 (8.5-10.3) mg/dL Total Bilirubin 1.0 (0.2-1.0) mg/dL AST 19 (10-42) IU/L ALT 20 (10-60) IU/L Alkaline Phosphatase 136 H (42-121) IU/L Total Protein 6.6 L (6.7-8.2) g/dL Albumin 2.9 L (3.2-5.5) g/dL Globulin 3.7 (2.1-4.2) g/dL Albumin/Globulin Ratio 0.8 L (1.0-2.2) - Current Medications Current Medications: Current Medications Generic Name Dose Route Start Last Admin Trade Name Freq PRN Reason Stop Dose Admin Acetaminophen 325 mg 12/17/18 16:28 12/18/18 00:23 Tylenol [place] 325 mg Q6HR PRN Administration Pain or Fever > 38C (100.4F) Acetaminophen 650 mg 12/18/18 02:41 12/19/18 06:27 Tylenol PO 650 mg Q4HR PRN Administration Pain or Fever > 38C (100.4F) Fluticasone Propionate 1 sprays 12/18/18 21:00 12/18/18 20:00 Flonase NITIN 1 spr QPM IRINA Administration Hydromorphone HCl 0.5 mg 12/15/18 13:03 12/18/18 06:47 Dilaudid Inj Carp IVP 0.5 mg Q2HR PRN Administration PAIN Potassium Chloride/Dextrose/Sod Cl 1,000 mls @ 50 mls/hr 12/17/18 16:26 12/18/18 13:19 IV 50 mls/hr .Q20H IRINA Administration Ondansetron HCl 4 mg 12/15/18 13:03 12/19/18 08:05 Zofran Inj IVP 4 mg Q6H PRN Administration Nausea / Vomiting Oxycodone HCl 5 mg 12/17/18 16:26 12/19/18 08:05 Roxicodone PO 5 mg Q4HR PRN Administration PAIN Pantoprazole Sodium 40 mg 12/15/18 14:00 12/19/18 06:24 Protonix IVP 40 mg QDAC IRINA Administration Sodium Chloride 10 ml 12/15/18 17:00 12/19/18 08:05 Normal Saline Flush 0.9% IVP 10 ml 0100,0900,1700 IRINA Administration Sodium Chloride 10 ml 12/15/18 13:03 12/19/18 08:05 Normal Saline Flush 0.9% IVP 10 ml PRN PRN Administration NEEDED PER PROVIDER ORDERS - Physical Exam Wound/Incisions: positive: Healing well General Appearance: positive: No acute distress Eyes Bilateral: positive: No lid inflammation, Conjunctivae nml, No scleral icterus ENT: positive: No signs of dehydration Neck: positive: Trachea midline Respiratory: positive: Chest non-tender Cardiovascular: positive: Regular rate & rhythm Abdomen: positive: Nml bowel sounds, Tenderness (Incisional and right hand/arm.) Skin: positive: Color nml, Pallor Extremities: positive: Non-tender Neurologic/Psychiatric: positive: Oriented x3, Motor nml, Sensation nml, Depressed mood/affect ABX Reporting Has patient been on IV antibiotics over the past 48 hours?: No Impression/Plan - Problem List Problem List: Day 4 status post exploratory laparotomy with adhesiolysis freeing a closed loop small bowel obstruction 1) FEN Bowel function has returned-passing gas no BM yet. Tolerating general diet. Supplement KCl. 2) Activity Maximize time spent out of bed. Shower today - has not been out of bed yet today. MUST be OOB. Get PT and OT involved. 3) DVT prophylaxis This goes along with #2 above. Continue TEDs and Venodyne's. 4) ID WBC still increased to 15 today. Will recheck CXR. Will start therapy for HAP with Cefepine 2 gm IVPB [id number] based on clinical criteria. Lab workup not indicated and not recommended (CRP and the like). Will not discharge patient home in the face of increased WBCs and CXR showing bilateral infiltrates or edema with small pleural effusions. Patient did not get out of bed yesterday and did not have the shower that I ordered. I explained that she is at risk for pneumonia and if she gets pneumonia there is a tangible risk of . Explained that some discomfort or pain is NOT a reason to be sedentary.
[2018-12-19] MEDS: D5NS W/20 MEQ KCL 1,000 ML IV SCH (10:48)
[2018-12-19] MEDS: CEFEPIME 2 GM in SODIUM CHLORIDE 0.9% MINIBAG 100 ML IV SCH ×2 (10:49→20:34)
[2018-12-19] MEDS: POTASSIUM CHLORIDE 20 MEQ TABLET PO SCH ×2 (10:55→16:17)
[2018-12-19] MEDS: FLUTICASONE NASAL SPRAY NAS SCH (20:35)
[2018-12-20] MEDS: ACETAMINOPHEN 325 MG TABLET PO PRN ×3 (00:42→08:50)
[2018-12-20] MEDS: oxyCODONE 5 MG TABLET PO PRN ×3 (00:44→08:50)
[2018-12-20] MEDS: SODIUM CHLORIDE FLUSH 0.9% 10 ML SYRINGE IVP SCH ×2 (01:00→08:51)
[2018-12-20] MEDS: D5NS W/20 MEQ KCL 1,000 ML IV SCH (06:33)
[2018-12-20] MEDS: PANTOPRAZOLE 40 MG VIAL IVP SCH (06:35)
[2018-12-20] MEDS: POTASSIUM CHLORIDE 20 MEQ TABLET PO SCH (08:50)
[2018-12-20] MEDS: CEFEPIME 2 GM in SODIUM CHLORIDE 0.9% MINIBAG 100 ML IV SCH (08:51)
[2018-12-20 10:37] VITALS: BP 207/95
[2018-12-20 11:18] LABS: BASOPHILS % (AUTO) 0.4 %; EOSINOPHILS % (AUTO) 0.5 %; HGB - HEMOGLOBIN 8.9 g/dL (12.0-16.0); LYMPHOCYTES # (AUTO) 1.2 10^3/uL (1.5-3.5); LYMPHOCYTES % (AUTO) 12.7 %; MEAN CORPUSCULAR HEMOGLOBIN 29.8 pg (27.0-31.0); MEAN CORPUSCULAR HGB CONC 33.7 g/dL (32.0-36.0); MEAN CORPUSCULAR VOLUME 88.2 fL (81.0-99.0); MEAN PLATELET VOLUME 11.2 fL (7.9-10.8); MONOCYTES # (AUTO) 3.3 10^3/uL (0.0-1.0); MONOCYTES % (AUTO) 34.1 %; NEUTROPHILS # (AUTO) 5.1 10^3/uL (1.5-6.6); NEUTROPHILS % (AUTO) 52.3 %; PLT - PLATELET COUNT 173 10^3/uL (130-450); RED BLOOD COUNT 2.98 10^6/uL (4.20-5.40); WHITE BLOOD COUNT 9.8 x10^3/uL (4.8-10.8)
[2018-12-20 11:31] LABS: ALBUMIN 2.7 g/dL (3.2-5.5); ALBUMIN/GLOBULIN RATIO 0.7 (1.0-2.2); BILIRUBIN,TOTAL 0.6 mg/dL (0.2-1.0); CALCIUM 8.8 mg/dL (8.5-10.3); CREATININE 0.6 mg/dL (0.4-1.0); TOTAL PROTEIN 6.5 g/dL (6.7-8.2)
--- NOTE | 2018-12-20 11:38 | DISCHARGE SUMMARY ---
"Discharge Summary Admit Date: 12/15/18 Discharge Date: 12/20/18 Discharging Provider: Guy Coats MD Primary Care Provider: Deana Meneses Code Status: Attempt Resuscitation Condition at Discharge: Good Discharge Disposition: 01 Home, Self Care - DIAGNOSES Admission Diagnoses: Closed loop adhesive small bowel obstruction Discharge Diagnoses with Status of Each Condition: Resolved operatively - HPI History of Present Illness: 68 year old female with history of multiple abdominal operations including previous operations for small bowel obstruction presented emergently with an obstructive picture. - CONSULTS | PROCEDURES Consultations: Guy Coats MD Procedures: Exploratory laparotomy with adhesiolysis on 12-15-18 performed by Guy Coats - HOSPITAL COURSE Hospital Course: Slightly prolonged due to atelectasis/pneumonia due to patient's unwillingness to ambulate and get out of bed - improved with aggressive nursing intervention, reorienting the patient's priorities and some antibiotics. - ALLERGIES Allergies/Adverse Reactions: Allergies Allergy/AdvReac Type Severity Reaction Status Date / Time Penicillins Allergy Unknown Nausea Verified 12/14/18 22:29 - MEDICATIONS Home Medications: Ambulatory Orders Medication Instructions Recorded Confirmed Gabapentin 600 mg PO TID PRN 07/21/14 12/15/18 Omeprazole 20 mg PO QDAC 07/21/14 12/15/18 Simvastatin 20 mg PO QPM 07/21/14 12/15/18 Zolpidem Tartrate [Ambien] 5 mg PO QPM PRN 07/21/14 12/15/18 amLODIPine [Norvasc] 5 mg PO DAILY 07/21/14 12/15/18 Baclofen 10 mg PO BID PRN 12/15/18 12/15/18 Diclofenac Sodium 50 mg PO DAILY 12/15/18 12/15/18 Fluticasone [Flonase] 2 spray NITIN QPM 12/15/18 12/15/18 Levothyroxine Sodium 150 mcg PO QDAC 12/15/18 12/15/18 Methocarbamol 1,000 mg PO BID 12/15/18 12/15/18 Oxycodone HCl 5 mg PO Q6H PRN 12/15/18 12/15/18 raNITIdine [Zantac] 150 mg PO QPM 12/15/18 12/15/18 Home Medications Other | Comments: Patient has and takes Oxycodone at home. Patient has and takes Miralax at home. Levaquin 500 mg #7 Flagyl 250 mg TID #21 - PHYSICAL EXAM AT DISCHARGE General Appearance: positive: No acute distress Eyes Bilateral: positive: No lid inflammation, Conjunctivae nml ENT: positive: No signs of dehydration Neck: positive: Trachea midline Respiratory: positive: Chest non-tender, No respiratory distress, Breath sounds nml Cardiovascular: positive: Regular rate & rhythm Abdomen: positive: Tenderness (Mild incisional.), Other (Wound approximated with skin crystal. No erythema/ecchymosis.) Skin: positive: Color nml Extremities: positive: Nml appearance, Other (R hand painful and patient favoring it.) Neurologic/Psychiatric: positive: Oriented x3, Sensation nml, Mood/affect nml - LABS Result Diagrams: 12/20/18 11:07 12/20/18 11:07 - QUALITY (Female Hip Fx Only) Was patient sent home on osteoporosis medication?: No - FOLLOW UP Follow Up: This week in my ([facility]) office for staple removal and wound check. - TIME SPENT Time Spent in Discharge (Minutes): 45"
[2018-12-20 11:51] LABS: RBC MORPHOLOGY (MULTIPLE) 1+ ANISOCYTOSIS (NORMAL)
--- NOTE | 2018-12-20 11:54 | Discharge Plan ---
Discharge Plan Disposition: Home, Self Care Condition: Good Prescriptions: Levofloxacin [Levaquin] 500 mg PO DAILY #7 tablet metroNIDAZOLE [Flagyl] 250 mg PO Q8H #21 tablet Diet: Regular Activity Restrictions: No Restrictions Shower Restrictions: No Driving Restrictions: Yes Assistance Devices: Walker (Patient was using a walker at home and an additional one may not be needed.) Weight Bearing: Full Weight Instruction Topics: Obstruction Sm Bowel, Incentive Spirometer Dc Follow-Up Care: [facility] [place] [facility] - Wound/Ostomy (Patient has new colostomy.) No Smoking: If you smoke, Please STOP! Call for help. Follow-up with: Deana Meneses MD [Primary Care Provider] - Guy Coats MD [Provider Admit Priv/Credential] -
--- NOTE | 2018-12-30 07:31 | MISCELLANEOUS PROVIDER NOTE ---
Miscellaneous Provider Note - - Note: At the time of the patient's admission (December 15, 2018), I certify that it was my opinion that the patient would be able to go home in 96 hours or I would make a good rakel effort to transfer the patient.
== END 2018-12-20 13:40 | disposition home or self-care (01) | DRG 336 ==
LOC: ED 22:21 → SDS 12-15 10:30 → MS2 12-15 13:03 → OBS 12-16 06:37 → MS3 12-16 17:27 → OBSVTOIN 12-16 22:02
PROVIDERS: ADMIT Surgery; ATTEND Surgery
PROC: 0DN80ZZ Release Small Intestine, Open Approach (ICD-10-PCS; principal; 2018-12-15 11:00)
DX: K56.50 Intestinal adhesions [bands], unspecified as to partial versus complete obstruction (principal); J95.89 Other postprocedural complications and disorders of respiratory system, not elsewhere classified; K59.00 Constipation, unspecified; J98.11 Atelectasis; Y95 Nosocomial condition; K43.2 Incisional hernia without obstruction or gangrene; G47.30 Sleep apnea, unspecified; I10 Essential (primary) hypertension; E78.00 Pure hypercholesterolemia, unspecified; E03.9 Hypothyroidism, unspecified; K57.30 Diverticulosis of large intestine without perforation or abscess without bleeding; Z90.5 Acquired absence of kidney; Z79.891 Long term (current) use of opiate analgesic
CPT/HCPCS: 36415 ×2; 44005; 71046 ×2; 74177 ×2; 80048 ×2; 80053 ×2; 81001 ×2; 81003 ×2; 83690 ×2; 85025 ×2; 85027 ×2; 87040 ×2; 87086; 96361 ×2; 96365 ×2; 96366 ×2; 96375 ×2; 96376 ×2; 97110; 97161; 97165; 99284 ×2; 99285; A9270; G0378; J0131; J0171; J0690; J1170; J7120; Q9967

== ENCOUNTER 2019-10-16 18:49 | Emergency (ER) | payer MEDICARE, BC ==
[2019-10-16] MEDS ORDERED: METOCLOPRAMIDE 10 MG/2 ML VIAL IVP STA (19:17)
[2019-10-16] MEDS ORDERED: SODIUM CHLORIDE 0.9% 1,000 ML IV ONE (19:17)
--- NOTE | 2019-10-16 19:19 | ED Physician Documentation ---
PD HPI ABD PAIN - Stated complaint Stated Complaint: N/V - Chief complaint Chief Complaint: Abd Pain - History obtained from History obtained from: Patient - History of Present Illness Timing - onset: Other (69-year-old woman with history of breast and kidney cancer, both in remission theoretically but now with some new areas of concern on her liver, lung, and kidney presents with vomiting today. She is had epigastric discomfort after eating for about a month and a half she presumes due to hernia. Has not been able to keep down anything today. Had one very small formed soft bowel movement today though. No fevers or abdominal pain.) Review of Systems Ten Systems: 10 systems reviewed and negative Constitutional: denies: Fever, Chills Cardiac: denies: Chest pain / pressure, Palpitations Respiratory: denies: Dyspnea, Cough GI: reports: Nausea, Vomiting. 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 HEENT: Tonsil/Adenoidectomy - Present Medications Home Medications: Ambulatory Orders Medication Instructions Recorded Confirmed Gabapentin 600 mg PO TID PRN 07/21/14 12/15/18 Omeprazole 20 mg PO QDAC 07/21/14 12/15/18 Simvastatin 20 mg PO QPM 07/21/14 12/15/18 Zolpidem Tartrate [Ambien] 5 mg PO QPM PRN 07/21/14 12/15/18 amLODIPine [Norvasc] 5 mg PO DAILY 07/21/14 12/15/18 Baclofen 10 mg PO BID PRN 12/15/18 12/15/18 Diclofenac Sodium 50 mg PO DAILY 12/15/18 12/15/18 Fluticasone [Flonase] 2 spray NITIN QPM 12/15/18 12/15/18 Levothyroxine Sodium 150 mcg PO QDAC 12/15/18 12/15/18 Methocarbamol 1,000 mg PO BID 12/15/18 12/15/18 Oxycodone HCl 5 mg PO Q6H PRN 12/15/18 12/15/18 raNITIdine [Zantac] 150 mg PO QPM 12/15/18 12/15/18 Levofloxacin [Levaquin] 500 mg PO DAILY #7 tablet 12/20/18 metroNIDAZOLE [Flagyl] 250 mg PO Q8H #21 tablet 12/20/18 Metoclopramide [Reglan] 10 mg PO Q6H PRN #20 tablet 10/16/19 - Allergies Allergies/Adverse Reactions: Allergies Allergy/AdvReac Type Severity Reaction Status Date / Time Penicillins Allergy Unknown Nausea Verified 10/16/19 18:51 - Social History Does the pt smoke?: No Smoking Status: Never smoker Does the pt drink ETOH?: No Does the pt have substance abuse?: No - Immunizations Immunizations are current?: Yes - POLST Patient has POLST: No PD ED PE NORMAL - Vitals Vital signs reviewed: Yes - General General: Alert and oriented X 3, No acute distress - HEENT HEENT: PERRL, EOMI - Neck Neck: Supple, no meningeal sign, No bony TTP - Cardiac Cardiac: RRR, No murmur - Respiratory Respiratory: No respiratory distress, Clear bilaterally - Abdomen Abdomen: Other (Diminished but not absent bowel tones, multiple well-healed surgical scars, no tenderness) - Back Back: No CVA TTP, No spinal TTP - Derm Derm: Normal color, Warm and dry - Extremities Extremities: No edema, No calf tenderness / cord - Neuro Neuro: Alert and oriented X 3, Normal speech Results - Vitals Vitals: Vital Signs - 24 hr 10/16/19 10/16/19 10/16/19 18:51 21:51 22:13 Temperature 36.5 C 36.5 C Heart Rate 69 71 72 Respiratory 16 20 14 Rate Blood Pressure 145/68 H 158/78 H 155/74 H O2 Saturation 99 97 97 Oxygen O2 Source Room air - Labs Labs: Laboratory Tests 10/16/19 10/16/19 19:57 19:57 WBC 12.1 H RBC 4.00 L Hgb 11.4 L Hct 35.4 L MCV 88.5 MCH 28.5 MCHC 32.2 RDW 14.4 Plt Count 232 MPV 12.3 H Neut # (Auto) 6.7 H Lymph # (Auto) 0.8 L [place] # (Auto) 4.2 H Eos # (Auto) 0.1 Baso # (Auto) 0.0 Absolute Nucleated RBC 0.00 Band Neuts % (Manual) Not Reportable Abnorm Lymph % (Manual) Not Reportable Nucleated RBC % 0.0 Neutrophils # (Manual) Not Reportable Lymphocytes # (Manual) Not Reportable Monocytes # (Manual) Not Reportable Eosinophils # (Manual) Not Reportable Basophils # (Manual) Not Reportable Differential Comment MANUAL=AUTO DIFF Manual Slide Review Indicated Platelet Estimate NORMAL (130-450,000) Platelet Morphology 1+ LARGE PLATELETS RBC Morph Micro Appear NORMAL APPEARANCE Sodium 136 Potassium 3.2 L Chloride 95 L Carbon Dioxide 28 Anion Gap 13.0 BUN 28 H Creatinine 1.0 Estimated GFR (MDRD) 55 L Glucose 117 H Calcium 10.1 Total Bilirubin 5.2 H AST 258 H ALT 284 H Alkaline Phosphatase 564 H Total Protein 8.9 H Albumin 4.1 Globulin 4.8 H Albumin/Globulin Ratio 0.9 L Lipase 396 H PD MEDICAL DECISION MAKING - ED course ED course: 69yo F with prob recurrent metastatic CA with vomiting, Better after meds. Jaundiced, not sure of acuity, but having w/u at [facility]. Departure - Departure Disposition: 01 Home, Self Care Clinical Impression: Metastatic neoplastic disease, Obstructive jaundice due to malignant neoplasm, Nausea Condition: Good Record reviewed to determine appropriate education?: Yes Prescriptions: Metoclopramide [Reglan] 10 mg PO Q6H PRN #20 tablet PRN Reason: nausea or headache Comments: The mass in your liver is starting to block the drainage from your liver causing jaundice. I do not know if this would be accessible by ERCP at the [facility] or if they just have to wait until they start chemotherapy to address it. However will probably continue to worsen until it is addressed. Follow-up with your doctor the [facility] soon as possible with a copy of the CAT scan and labs from [facility]. Return for new or worsening symptoms. Discharge Date/Time: 10/16/19 22:15
[2019-10-16 20:06] LABS: BASOPHILS % (AUTO) 0.2 %; EOSINOPHILS # (AUTO) 0.1 10^3/uL (0.0-0.7); EOSINOPHILS % (AUTO) 0.5 %; HGB - HEMOGLOBIN 11.4 g/dL (12.0-16.0); LYMPHOCYTES # (AUTO) 0.8 10^3/uL (1.5-3.5); MEAN CORPUSCULAR HEMOGLOBIN 28.5 pg (27.0-31.0); MEAN CORPUSCULAR HGB CONC 32.2 g/dL (32.0-36.0); MEAN CORPUSCULAR VOLUME 88.5 fL (81.0-99.0); MEAN PLATELET VOLUME 12.3 fL (7.9-10.8); MONOCYTES # (AUTO) 4.2 10^3/uL (0.0-1.0); MONOCYTES % (AUTO) 35.2 %; NEUTROPHILS # (AUTO) 6.7 10^3/uL (1.5-6.6); NEUTROPHILS % (AUTO) 55.4 %; PLT - PLATELET COUNT 232 10^3/uL (130-450); RED CELL DISTRIBUTION WIDTH 14.4 % (12.0-15.0); WHITE BLOOD COUNT 12.1 x10^3/uL (4.8-10.8)
[2019-10-16 20:17] LABS: ALBUMIN 4.1 g/dL (3.2-5.5); ALBUMIN/GLOBULIN RATIO 0.9 (1.0-2.2); BILIRUBIN,TOTAL 5.2 mg/dL (0.2-1.0); CALCIUM 10.1 mg/dL (8.5-10.3); TOTAL PROTEIN 8.9 g/dL (6.7-8.2)
[2019-10-16] MEDS ORDERED: IOVERSOL 320 100 ML VIAL IVP ONE ×2 (20:19→20:50)
[2019-10-16 21:31] LABS: PLATELET MORPHOLOGY 1+ LARGE PLATELETS (NORMAL); RBC MORPHOLOGY (MULTIPLE) NORMAL APPEARANCE (NORMAL)
[2019-10-16 21:32] LABS: PLATELET ESTIMATE, MANUAL NORMAL (130-450,000) (NORMAL)
--- NOTE | 2019-10-16 21:32 | CT Report ---
Reason: IV only, vomiting Procedure Date: 10/16/2019 Accession Number: [id number] / [id number] Procedure: CT - Abdomen/Pelvis W CPT Code: Final Report FULL RESULT: EXAM: CT ABDOMEN AND PELVIS EXAM DATE: 10/16/2019 08:48 PM. CLINICAL HISTORY: Vomiting. History of renal cancer and liver biopsy. COMPARISONS: ABDOMEN/PELVIS W/ 12/15/2018 3:20 AM CHEST ANGIO 07/22/2014 1:21 AM PELVIS W/ 03/17/2013 9:16 AM. TECHNIQUE: Routine helical CT imaging was performed through the abdomen and pelvis. IV contrast: OPTI 320 100ML. Enteric contrast: No. Reconstructions: Coronal and sagittal. In accordance with CT protocol optimization, one or more of the following dose reduction techniques were utilized for this exam: automated exposure control, adjustment of mA and/or KV based on patient size, or use of iterative reconstructive technique. FINDINGS: Lung Bases: There is bilateral avidly enhancing hilar lymphadenopathy. Inferior left hilar node measures 22 x 18 mm. Inferior left hilar node measures 25 x 16 mm. Lymph nodes are new compared with 07/22/2014. There are multiple small bilateral pulmonary nodules. The largest pulmonary nodule in the medial left lower lobe measures 10 x 7 mm series 3 image 19. The nodules appear new and/or larger. Liver: There is a hypodense region within the central aspect of segment 4 and 2 of the liver. The hypodense lesion measures 69 x 62 mm on series 3 image 25. There is new moderate intrahepatic biliary dilatation within the right lobe of the liver. Left lobe bile ducts appear larger in size. The main and right portal veins appear patent. The left portal vein is not well seen. Suspicious for liver mass causing biliary and possible vascular obstruction. Gallbladder/Bile Ducts: Gallbladder is surgically absent. Spleen: Normal. Pancreas: No focal pancreatic lesion identified. Adrenal Glands: There is an indeterminant density left adrenal nodule measuring 15 x 15 mm which is unchanged. There is mild thickening of the right adrenal gland measuring 9 mm transverse unchanged. Kidneys: The left kidney is absent. There is a new mass which demonstrates avid enhancement in the left periaortic space at the level of the left renal vein. Mass measures 39 x 27 x 48 mm series 3 image 40. Right kidney appears unremarkable. Peritoneal Cavity/Bowel: There is a new moderate-sized fat-containing midline ventral hernia in the upper abdomen measuring 41 mm in diameter. There is scattered colonic stool. No convincing mechanical bowel obstruction. No free fluid or free air. Pelvic Organs: Urinary bladder appears unremarkable. Uterus not visualized. Vasculature: No aneurysms or other significant abnormality. Bones: There is a heterogeneous area of sclerosis within the intertrochanteric right proximal femur. Finding unchanged since 03/17/2013. Other: None. IMPRESSION: 1. New 48 mm solid mass in left renal fossa suspicious for recurrent/metastatic malignancy. 2. Bilateral hilar enhancing lymphadenopathy suspicious for metastatic disease. 3. Small pulmonary nodules are new, suspicious for pulmonary metastasis. 4. There is a large mass in central segment 4 of the liver causing peripheral biliary dilatation and possible left portal vein obstruction, suspicious for neoplasm. 5. 41 mm midline Fat-containing ventral hernia is new since previous [facility]
[2019-10-16 21:33] LABS: DIFFERENTIAL COMMENT MANUAL=AUTO DIFF
[2019-10-16] MEDS ORDERED: METOCLOPRAMIDE 10 MG TABLET PO STA (21:45)
[2019-10-16 22:14] VITALS: BP 155/74
== END 2019-10-16 22:15 | disposition home or self-care (01) ==
LOC: ED 18:49
DX: K83.1 Obstruction of bile duct (principal); C79.9 Secondary malignant neoplasm of unspecified site; R93.2 Abnormal findings on diagnostic imaging of liver and biliary tract; R59.0 Localized enlarged lymph nodes; R91.8 Other nonspecific abnormal finding of lung field; R93.422 Abnormal radiologic findings on diagnostic imaging of left kidney; R11.0 Nausea; I10 Essential (primary) hypertension
CPT/HCPCS: 36415; 74177; 80053; 83690; 85025; 96361; 96374; 99284; A9270; J2765; Q9967

== ENCOUNTER 2020-01-08 22:07 | Outpatient (CLI) | payer MEDICARE, BC | END 2020-01-08 23:59 | disposition critical access hospital (66) | LOC: EMS 22:07 | PROVIDERS: ATTEND Surgery | DX: R53.1 Weakness (principal); W18.39XA Other fall on same level, initial encounter; Y92.009 Unspecified place in unspecified non-institutional (private) residence as the place of occurrence of the external cause | CPT/HCPCS: A0425; A0429 ==

== ENCOUNTER 2020-01-08 22:15 | Inpatient (IN) | payer MEDICARE, BC ==
[2020-01-08] MEDS ORDERED: CEFEPIME 2 GM in SODIUM CHLORIDE 0.9% MINIBAG 100 ML IV STA (22:25)
--- NOTE | 2020-01-08 22:33 | ED Physician Documentation ---
History of Present Illness - Stated complaint Stated Complaint: WEAKNESS, SHAKY - Chief complaint Chief Complaint: General - Additonal information Additional information: This is a 69-year-old female with history of breast cancer status post mastectomy and chemotherapy and lymph node resection on the left, kidney cancer currently on chemotherapy (pembrolizumab infusion, last on 03/06/20, and axitinib, follows with Dr. Wright of [facility]), who presents with weakness. Patient states that she was feeling well earlier today, she took a nap and when she got out of her chair she felt diffusely weak to the point where her bilateral legs gave out on her. She got up and was walking using her walker but she still felt weak and actually could not maintain her weight due to her weakness. She crawled to call EMS who arrived and brought her here. She has not had any chest pain, shortness of breath, measured fever, diarrhea, vomiting. She has not had any medication changes. She is prone to dehydration. Review of Systems Constitutional: reports: Fatigue. denies: Fever, Chills Nose: denies: Rhinorrhea / runny nose Throat: denies: Sore throat Cardiac: denies: Chest pain / pressure Respiratory: denies: Dyspnea, Cough GI: denies: Abdominal Pain, Nausea, Vomiting : denies: Dysuria Musculoskeletal: denies: Extremity pain Neurologic: reports: Generalized weakness. 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 HEENT: Tonsil/Adenoidectomy - Present Medications Home Medications: Ambulatory Orders Medication Instructions Recorded Confirmed Gabapentin 600 mg PO TID PRN 07/21/14 01/08/20 Omeprazole 20 mg PO QDAC 07/21/14 01/08/20 Simvastatin 20 mg PO QPM 07/21/14 01/08/20 Zolpidem Tartrate [Ambien] 5 mg PO QPM PRN 07/21/14 01/08/20 amLODIPine [Norvasc] 5 mg PO DAILY 07/21/14 01/08/20 Baclofen 10 mg PO BID PRN 12/15/18 01/08/20 Diclofenac Sodium 50 mg PO DAILY 12/15/18 01/08/20 Fluticasone [Flonase] 2 spray NITIN QPM 12/15/18 01/08/20 Levothyroxine Sodium 150 mcg PO QDAC 12/15/18 01/08/20 Oxycodone HCl 5 mg PO Q6H PRN 12/15/18 01/08/20 methocarbamoL [Methocarbamol] 500 mg PO BID 12/15/18 01/08/20 Acetaminophen 500 mg PO QID 01/08/20 01/08/20 Aspirin [Aspirin EC] 81 mg PO DAILY 01/08/20 01/08/20 Tamsulosin HCl [Flomax] 0.4 mg PO QPM 01/08/20 01/08/20 Triamterene/Hydrochlorothiazid 37.5 mg PO DAILY 01/08/20 01/08/20 [Triamterene-Hctz 37.5-25 mg Cp] raNITIdine [Zantac] 150 mg PO QPM 01/08/20 01/08/20 - Allergies Allergies/Adverse Reactions: Allergies Allergy/AdvReac Type Severity Reaction Status Date / Time Penicillins Allergy Unknown Nausea Verified 01/08/20 22:26 - Social History Does the pt smoke?: No Smoking Status: Never smoker Does the pt drink ETOH?: No Does the pt have substance abuse?: No - Immunizations Immunizations are current?: Yes - POLST Patient has POLST: No PD ED PE NORMAL - Vitals Vital signs reviewed: Yes - General General: Alert and oriented X 3, No acute distress - HEENT HEENT: PERRL - Neck Neck: Supple, no meningeal sign - Cardiac Cardiac: RRR, No murmur - Respiratory Respiratory: No respiratory distress, Clear bilaterally - Abdomen Abdomen: Normal bowel sounds, Soft, Non tender, Non distended, Other (Midline abdominal hernia is present, nontender to palpation) - Derm Derm: Warm and dry - Extremities Extremities: No deformity, Other (Awake, alert, oriented to person, place, event. Speech fluent and articulate. CN: normal EOMI on H-testing, sensation to light touch intact and symmetric over V1,V2,V3. Face symmetric with smiling and eyebrow raise. No droop. Tongue protrudes in midline. Motor: 5-/5 strength with hand squeeze, finger abduction, elbow flexion and extension, shoulder abduction, hip flexion, ankle dorsiflexion and plantarflexion. Sensation: Intact to light touch over all extremities.Cerebellar: Normal finger to nose without dysmetria.) - Psych Psych: Normal mood, Normal affect Results - Vitals Vitals: Vital Signs - 24 hr 01/08/20 01/08/20 01/08/20 22:22 22:29 22:52 Temperature 38.4 C H Heart Rate 82 80 75 Respiratory 17 16 16 Rate Blood Pressure 134/83 H 134/83 H O2 Saturation 94 94 95 01/08/20 01/09/20 01/09/20 23:08 00:10 00:16 Temperature Heart Rate 76 77 Respiratory 17 17 16 Rate Blood Pressure 118/67 150/74 H O2 Saturation 98 Oxygen O2 Source Room air - EKG (time done) 22:29 Other comments: Other comments (Rate 78, rhythm sinus, there is probable left ventricular hypertrophy. There is 1.[address] elevation in V3, and 1mm ST elevation in V2 this is discordant with the QRS complex, and there is no other ST segment elevation, no depression, this does not appear to be a STEMI.) - Labs Labs: Laboratory Tests 01/08/20 01/08/20 01/08/20 10:30 10:30 10:30 WBC 20.9 H RBC 3.96 L Hgb 10.3 L Hct 32.9 L MCV 83.1 MCH 26.0 L MCHC 31.3 L RDW 14.7 Plt Count 181 MPV 13.0 H Neut # (Auto) 13.9 H Lymph # (Auto) 0.7 L [place] # (Auto) 5.8 H Eos # (Auto) 0.1 Baso # (Auto) 0.1 Absolute Nucleated RBC 0.00 Nucleated RBC % 0.0 Manual Slide Review Indicated Platelet Estimate NORMAL (130-450,000) Platelet Morphology NORMAL APPEARANCE RBC Morph Micro Appear NORMAL APPEARANCE Sodium 132 L Potassium 4.0 Chloride 97 L Carbon Dioxide 22 Anion Gap 13.0 BUN 49 H Creatinine 1.5 H Estimated GFR (MDRD) 34 L Glucose 120 H Lactic Acid Calcium 9.3 Magnesium 2.2 Total Bilirubin 0.4 AST 19 ALT 15 Alkaline Phosphatase 128 H Troponin I High Sens 22.2 H* B-Natriuretic Peptide Total Protein 7.5 Albumin 3.2 Globulin 4.3 H Albumin/Globulin Ratio 0.7 L TSH Free T4 Urine Color Urine Clarity Urine pH Ur Specific [place] Urine Protein Urine Glucose (UA) Urine Ketones Urine Occult Blood Urine Nitrite Urine Bilirubin Urine Urobilinogen Ur Leukocyte Esterase Urine RBC Urine WBC Ur Squamous Epith Cells Urine Bacteria Urine Culture Comments 01/08/20 01/08/20 01/08/20 10:30 10:30 10:30 WBC RBC Hgb Hct MCV MCH MCHC RDW Plt Count MPV Neut # (Auto) Lymph # (Auto) [place] # (Auto) Eos # (Auto) Baso # (Auto) Absolute Nucleated RBC Nucleated RBC % Manual Slide Review Platelet Estimate Platelet Morphology RBC Morph Micro Appear Sodium Potassium Chloride Carbon Dioxide Anion Gap BUN Creatinine Estimated GFR (MDRD) Glucose Lactic Acid 1.1 Calcium Magnesium Total Bilirubin AST ALT Alkaline Phosphatase Troponin I High Sens B-Natriuretic Peptide 278 H Total Protein Albumin Globulin Albumin/Globulin Ratio TSH 0.15 L Free T4 Urine Color Urine Clarity Urine pH Ur Specific [place] Urine Protein Urine Glucose (UA) Urine Ketones Urine Occult Blood Urine Nitrite Urine Bilirubin Urine Urobilinogen Ur Leukocyte Esterase Urine RBC Urine WBC Ur Squamous Epith Cells Urine Bacteria Urine Culture Comments 01/08/20 01/08/20 22:31 22:59 WBC RBC Hgb Hct MCV MCH MCHC RDW Plt Count MPV Neut # (Auto) Lymph # (Auto) [place] # (Auto) Eos # (Auto) Baso # (Auto) Absolute Nucleated RBC Nucleated RBC % Manual Slide Review Platelet Estimate Platelet Morphology RBC Morph Micro Appear Sodium Potassium Chloride Carbon Dioxide Anion Gap BUN Creatinine Estimated GFR (MDRD) Glucose Lactic Acid Calcium Magnesium Total Bilirubin AST ALT Alkaline Phosphatase Troponin I High Sens B-Natriuretic Peptide Total Protein Albumin Globulin Albumin/Globulin Ratio TSH Free T4 1.35 Urine Color YELLOW Urine Clarity CLEAR Urine pH 5.5 Ur Specific [place] 1.010 Urine Protein NEGATIVE Urine Glucose (UA) NEGATIVE Urine Ketones NEGATIVE Urine Occult Blood NEGATIVE Urine Nitrite POSITIVE H Urine Bilirubin NEGATIVE Urine Urobilinogen 0.2 (NORMAL) Ur Leukocyte Esterase NEGATIVE Urine RBC None Seen Urine WBC 4-5 Ur Squamous Epith Cells NONE SEEN Urine Bacteria Moderate H Urine Culture Comments INDICATED - Rads (name of study) CXR Radiology: Other (6.2 cm opacity in the right midlung which is suspicious for malignancy, pneumonia atelectasis not completely excluded but less likely.) PD MEDICAL DECISION MAKING - ED course Complexity details: considered differential (Sepsis, pneumonia, UTI, electrolyte abnormality, thyroid disturbance, ACS,) ED course: On arrival patient is febrile, hemodynamically stable. Examination is unremarkable, her abdomen is benign with no tenderness whatsoever to deep palpation all 4 quadrants. She has no cough or shortness of breath. No skin lesions seen on examination. Her neurologic exam is normal, she may have very slight weakness diffusely in all 4 extremities, but this is subtle and symmetric. No sensation changes, no back pain. IV was inserted, labs were drawn, patient was placed on the monitor. She appears dehydrated and was given a liter of normal saline. After blood cultures were drawn she was started on broad-spectrum antibiotics of cefepime and vancomycin. Her chest x-ray shows a mass in the right chest, she states this is known and is a metastatic lesion. She does not have a cough or shortness of breath or clinical signs of pneumonia at this time. Her urine is positive for infection with nitrites and white blood cells, this was a straight catheterization. She has a leukocytosis of 21, mild anemia, signs of dehydration including hyponatremia chloremia, mild KIN which appears to be prerenal, and elevated TSH but a normal free T4. Her high sensitivity troponin is 22, which is just above the upper limits of normal, but she has no chest pain and no shortness of breath. Her EKG shows slight ST elevation in V2 and V3, but these changes are discordant with the QRS, there is no ST depression, and again patient has no chest pain or shortness of breath, I highly doubt ACS. On repeat examination patient's strength has improved after fluids and antibiotics, she remains hemodynamically stable. Given that she is currently on immunotherapy, and has sepsis by white blood cell count and tempera ture, she will be admitted for broad-spectrum antibiotics and observation. Dr. Chavez accepted the patient for admission. 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
[2020-01-08 22:54] LABS: BASOPHILS # (AUTO) 0.1 10^3/uL (0.0-0.1); BASOPHILS % (AUTO) 0.3 %; EOSINOPHILS # (AUTO) 0.1 10^3/uL (0.0-0.7); EOSINOPHILS % (AUTO) 0.6 %; HGB - HEMOGLOBIN 10.3 g/dL (12.0-16.0); LYMPHOCYTES # (AUTO) 0.7 10^3/uL (1.5-3.5); LYMPHOCYTES % (AUTO) 3.2 %; MEAN CORPUSCULAR HGB CONC 31.3 g/dL (32.0-36.0); MEAN CORPUSCULAR VOLUME 83.1 fL (81.0-99.0); MONOCYTES # (AUTO) 5.8 10^3/uL (0.0-1.0); MONOCYTES % (AUTO) 27.6 %; NEUTROPHILS # (AUTO) 13.9 10^3/uL (1.5-6.6); NEUTROPHILS % (AUTO) 66.6 %; PLT - PLATELET COUNT 181 10^3/uL (130-450); RED BLOOD COUNT 3.96 10^6/uL (4.20-5.40); RED CELL DISTRIBUTION WIDTH 14.7 % (12.0-15.0); WHITE BLOOD COUNT 20.9 x10^3/uL (4.8-10.8)
[2020-01-08 23:06] LABS: ALBUMIN 3.2 g/dL (3.2-5.5); ALBUMIN/GLOBULIN RATIO 0.7 (1.0-2.2); BILIRUBIN,TOTAL 0.4 mg/dL (0.2-1.0); CALCIUM 9.3 mg/dL (8.5-10.3); CREATININE 1.5 mg/dL (0.4-1.0); MAGNESIUM 2.2 mg/dL (1.7-2.8); TOTAL PROTEIN 7.5 g/dL (6.7-8.2)
[2020-01-08 23:18] LABS: PLATELET ESTIMATE, MANUAL NORMAL (130-450,000) (NORMAL); PLATELET MORPHOLOGY NORMAL APPEARANCE (NORMAL); RBC MORPHOLOGY (MULTIPLE) NORMAL APPEARANCE (NORMAL)
[2020-01-08] MEDS ORDERED: SODIUM CHLORIDE 0.9% 1,000 ML IV ONE (23:33)
[2020-01-08] MEDS ORDERED: ACETAMINOPHEN 325 MG TABLET PO STA (23:40)
--- NOTE | 2020-01-08 23:53 | XRAY Report ---
Reason: Febrile, weak Procedure Date: 01/08/2020 Accession Number: [id number] / [id number] Procedure: XR - Chest 1 View X-Ray CPT Code: 76078 Final Report FULL RESULT: EXAM: CHEST RADIOGRAPHY EXAM DATE: 01/08/2020 10:51 PM CLINICAL HISTORY: Febrile and weak. COMPARISON: CHEST 2 VIEW 12/18/2018 2:49 AM. Report from the CT of the abdomen and pelvis from 10/16/2019. TECHNIQUE: 1 view. FINDINGS: Lungs/Pleura: 6.2 x 2.8 cm focal opacity in the right midlung. The remaining portions of the lungs are clear. No pleural effusion. No pneumothorax. Mediastinum: Within exam limitations, the cardiomediastinal contour is normal. Other: Bilateral shoulder joint replacements. Left axillary surgical clips. IMPRESSION: Although pneumonia and atelectasis may sometimes appear masslike, the 6.2 cm focal opacity in the right midlung is suspicious for malignancy, particularly given the patient has a history of renal and liver masses and hilar lymphadenopathy. [facility]
[2020-01-09 00:16] LABS: BILIRUBIN,URINE NEGATIVE (NEGATIVE); CLARITY,URINE CLEAR (CLEAR); GLUCOSE, URINE (UA) NEGATIVE (NEGATIVE); KETONES,URINE (UA) NEGATIVE (NEGATIVE); LEUKOCYTE ESTERASE, URINE NEGATIVE (NEGATIVE); NITRITE,URINE POSITIVE (NEGATIVE); OCCULT BLOOD,URINE NEGATIVE (NEGATIVE); PH,URINE 5.5 PH (5.0-7.5); PROTEIN,URINE NEGATIVE (NEGATIVE); UROBILINOGEN,URINE 0.2 (NORMAL) E.U./dL (NORMAL)
[2020-01-09 00:21] LABS: BACTERIA,URINE Moderate /HPF (None Seen); RBC,URINE None Seen /HPF (0-5); SQUAMOUS EPITHELIAL CELL,UR NONE SEEN (<= Few)
[2020-01-09] MEDS ORDERED: ONDANSETRON 4 MG/2 ML VIAL IVP PRN (00:49)
[2020-01-09] MEDS ORDERED: SODIUM CHLORIDE FLUSH 0.9% 10 ML SYRINGE IVP PRN (00:49)
[2020-01-09] MEDS ORDERED: oxyCODONE 5 MG TABLET PO PRN ×2 (00:49→07:57)
[2020-01-09] MEDS ORDERED: ONDANSETRON ODT 4 MG TABLET TL PRN (00:49)
--- NOTE | 2020-01-09 01:03 | HISTORY & PHYSICAL EXAMINATION ---
Chief Complaint - Chief Complaint Chief Complaint: sudden weakness, unable to walk History of Present Illness - Admitted From Admitted From:: Home/ER - History Obtained From Records Reviewed: [facility]. Nothing noted in [place] HIE History obtained from: Dr. Ngerete and patient Exam Limitations: none - History of Present Illness HPI Comment/Other: This unfortunate lady has a history of breast cancer and has been treated with mastectomy and chemotherapy and lymph node dissection in 2005. She then presented with left kidney cancer in 2018 that was resected. 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 Currently on pembrolizumab with last infusion January 05, 2020. She also is on axitinib. The only new thing she can report is that her blood pressure was unusually low yesterday. She takes it every day for her oncology physician to give him a report. Yesterday her blood pressure was 101. Repeating it later she was 110.She was feeling well until today, relatively speaking, and had gotten up from a nap when she started to feel weak. Legs gave out from underneath her so she tried to walk with a walker but that was not successful. She crawled to the corner of her room. Was able to get her phone. Called EMS and was brought here. On review of systems there is no fever, cough, abdominal pain, urgency, frequency, vomiting. She has a history of food poisoning in 2018 and does not feel that is happening. She does have a large ventral hernia and she feels that that is soft, not a problem. There is no new skin lesions, headaches, eustachian tube dysfunction, sore throat,Or abdominal pain. She is not short of breath. On exam temperature was 38.4, heart rate 82, respirations 17 and blood pressure was 134/83 with an O2 sat of 94% on room air. She was alert and oriented, had a clear lung exam, normal bowel sounds with a nondistended abdomen. Her midline abdominal hernia was not incarcerated. White cell count was 20.9 thousand. Hemoglobin 10.3. Platelets 181. She has acute kidney insufficiency. Baseline creatinine usually no higher than 1.0. She is 1.5. Lactic acid is 1.1. BNP is 278. Urinalysis has positive nitrites, negative for leukocyte Estrace, no red cells, white cells 4-5, no squamous epithelial cells, moderate bacteria. Chest x-ray has a 6.2 x 2.8 cm focal opacity in the right midlung. The rest of her lungs are clear. Cardiomediastinal contour normal. The patient is being admitted as an infection of unknown origin at this time. Source is most likely urine. But she will be started on empiric broad-spectrum antibiotic coverage. History - Past Medical History Cardiovascular: reports: Hypertension, High cholesterol, Deep vein thrombosis Respiratory: reports: Sleep apnea Neuro: reports: Other (Bilateral leg weakness after an epidural resulted in a blood clot in her spine for emergency SBO surgery in May 2018. Right leg weaker than left leg.) Endocrine/Autoimmune: reports: HyPOthyroidism GI: reports: Ulcers, Other (Small bowel obstruction requiring adhesio lysis 05/2018 and subsequent post op complication of epidural clot. Repeat episode requiring surgery December 15, 2018. She also has a large ventral midline hernia.) KENO ATTENDANT: reports: Ovarian cysts, Breast cancer, Other () : reports: Other (renal ca 2017 that was resected, then with w mets to lung and liver 10/2019. Has stents in liver duct and pancreatic duct.) HEENT: reports: Chronic vision loss Psych: reports: None Musculoskeletal: reports: Osteoarthritis, Chronic back pain Derm: reports: None MRSA Hx?: No - Past Surgical History General: reports: Cholecystectomy, Appendectomy, Other (lysis of adhesions twice for SBO) Ortho: reports: Shoulder arthroplasty (bilateral) /KENO ATTENDANT: reports: Hysterectomy, Mastectomy HEENT: reports: Cataracts (Removed in both eyes with lens implantation), Tonsil/Adenoidectomy - Family & Social History Family History Comment/Other: Mom in her 50s of breast cancer. Dad at 85 of congestive heart failure. One sibling, sister, of metastatic breast cancer. She has no children. Living arrangement: At home Living Situation: Alone Social History Notes: She was born and raised in [place]. Met her and they got and moved to [place]. They moved to [facility] around 1976. 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 Her June 2019. She rarely drinks. She never smoked. She has no history of recreational substance abuse. - Substance History Use: Uses substance without health or social issues: NONE Abuse: Recurrent use of substance despite neg consequences: NONE Dependence: Experiences withdrawal or developed tolerances: NONE - POLST Patient has POLST: No POLST Status: DNR (Although she does want all treatment up until the moment of her , she does not want CPR or intubation if she has no pulse, pressure, or spontaneous respiration. If we find that she is succumbed to what ever illness and is now with significant cognitive deficits, she would rather be palliative care.) Meds/Allgy - Home Medications Home Medications: Ambulatory Orders Medication Instructions Recorded Confirmed Gabapentin 600 mg PO TID PRN 07/21/14 01/08/20 Omeprazole 20 mg PO QDAC 07/21/14 01/08/20 Simvastatin 20 mg PO QPM 07/21/14 01/08/20 Zolpidem Tartrate [Ambien] 5 mg PO QPM PRN 07/21/14 01/08/20 amLODIPine [Norvasc] 5 mg PO DAILY 07/21/14 01/08/20 Baclofen 10 mg PO BID PRN 12/15/18 01/08/20 Diclofenac Sodium 50 mg PO DAILY 12/15/18 01/08/20 Fluticasone [Flonase] 2 spray NITIN QPM 12/15/18 01/08/20 Levothyroxine Sodium 150 mcg PO QDAC 12/15/18 01/08/20 Oxycodone HCl 5 mg PO Q6H PRN 12/15/18 01/08/20 methocarbamoL [Methocarbamol] 500 mg PO BID 12/15/18 01/08/20 Acetaminophen 500 mg PO QID 01/08/20 01/08/20 Aspirin [Aspirin EC] 81 mg PO DAILY 01/08/20 01/08/20 Tamsulosin HCl [Flomax] 0.4 mg PO QPM 01/08/20 01/08/20 Triamterene/Hydrochlorothiazid 37.5 mg PO DAILY 01/08/20 01/08/20 [Triamterene-Hctz 37.5-25 mg Cp] raNITIdine [Zantac] 150 mg PO QPM 01/08/20 01/08/20 - Allergies Allergies/Adverse Reactions: Allergies Allergy/AdvReac Type Severity Reaction Status Date / Time Penicillins Allergy Unknown Nausea Verified 01/08/20 22:26 Review of Systems - Constitutional Constitutional: reports: Fatigue (only today), Malaise (only today), Other (She states that she has tolerated her immunotherapy very well. Mild loss of appetite with mild weight loss but otherwise has felt well until today.) - Eyes Eyes: reports: Vision loss, Corrective lenses. denies: Pain, Irritation, Amaurosis, Blurred vision - Ears, Nose & Throat Ears, Nose & Throat: denies: Ear pain, Hearing loss, Hearing aids, Tinnitus, Nasal discharge, Nasal obstruction, Nasal congestion, Sore throat, Hoarseness - Cardiovascular Cariovascular: denies: Irregular heart rate, Palpitations, Chest pain, Edema, Exertional dyspnea, Decr. exercise tolerance - Respiratory Respiratory: reports: Snoring, Apnea. denies: Cough, Sputum production, Wheezing - Gastrointestinal Gastrointestinal: denies: Abdominal pain, Abdominal distention, Constipation, Diarrhea, Black stools, Nausea, Vomiting - Genitourinary Genitourinary: denies: Dysuria, Frequency, Urgency, Hematuria - Musculoskeletal Musculoskeletal: reports: Back pain. denies: Muscle pain, Muscle aches, Stiffness, Joint pain - Integumentary Integumentary: denies: Rash, Pruritis, Lesions - Neurological Neurological: reports: General weakness (Acute today. Resulting in her inability to walk and support her self with her legs). denies: Focal weakness, Headache, Dizziness, Memory problems, Seizures, Incoordination, Slurred speech - Psychiatric Psychiatric: reports: Depression (She misses her tremendously. He is only been gone since June 2019. They were 42 years.). denies: Anxiety, Suicidal - Endocrine Endocrine: denies: Polyuria, Polydypsia, Polyphagia - Hematologic/Lymphatic Hematologic/Lymphatic: reports: Anemia, Blood clots. denies: Bruising, Petech iae Prior Level of Functionality: She does have a caregiver that comes every day to help her. She can usually bathe her self, make light meals, but needs somebody to do the housekeeping and heavy chores. She will drive in town, occasionally drive to [place].She does have her [place] of horse friends. 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 But she really does not rely on them for care. That would be the caregiver she is hired. She has a power of terrazzo tile setter named Nay. She first met Nay when Nay was around 11 or 12. 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 She grew up to be a physician assistant accounting manager and lives in [place]. Since the patient does not have anybody but nieces and nephews, she has appointed Nay as her power of terrazzo tile setter. She has not notified Nay that she is here tonight. She will call her tomorrow morning. Exam - Vital Signs Reviewed Vital Signs: Yes Vital Signs: Vital Signs x48h Temp Pulse Resp BP Pulse Ox 01/09/20 00:16 16 01/09/20 00:10 77 17 150/74 H 98 01/08/20 23:08 76 17 118/67 01/08/20 22:52 75 16 134/83 H 95 01/08/20 22:29 80 16 94 01/08/20 22:22 38.4 C H 82 17 134/83 H 94 - Physical Exam General Appearance: positive: No acute distress, Alert, Other (She is very weak, can barely move her legs to lift them off the bed but is otherwise in no acute distress, laying comfortably, alert and speaking to me lucidly with her eyeglasses in place, occasional rueful smile at her situation.) Eyes Bilateral: positive: PERRL, EOMI ENT: positive: Pharynx nml Neck: positive: No JVD. negative: Stiff neck, Carotid bruit Respiratory: positive: Chest non-tender. negative: Wheezes, Rales, Rhonchi Cardiovascular: positive: Regular rate & rhythm. negative: Systolic murmur, Gallop/S4, Friction rub Peripheral Pulses: positive: 1+ Abdomen: positive: Non-tender, No organomegaly, Nml bowel sounds, No distention, Other (Easily reducible hernia, ventral) Back: positive: Nml inspection. negative: CVA tenderness (R), CVA tenderness (L) Skin: positive: Warm, Dry, Pallor Extremities: positive: Non-tender, Full ROM, No pedal edema Neurologic/Psychiatric: positive: Oriented x3, CN's nml (2-12), Motor nml, Weakness (Severe in the legs especially. She says that she is starting to feel better since she received antibiotics and IV fluids) Sepsis Event Note (H) - Evaluation Current Stage of Sepsis: Sepsis Possible source of Sepsis: positive: Genitourinary - Sepsis Criteria Sepsis Criteria: Recorded Temperature greater than 38.3C or Less than 36C, WBC count greater than 12,000 or less than 4000 Conclusion/Plan - Problem List (1) Sepsis Conclusion/Plan: Most likely source is urine at this time. However, we will treated with broad- spectrum antibiotics until blood cultures and urine cultures narrow down her focus. Plan: Cefepime, vancomycin, Flagyl Change antibiotics on the basis of blood or urine cultures Inpatient status. Patient is dismayed at this. I explained to her that would like to keep her for at least 48 hours with 2 midnights. That would give us time to identify blood and urine cultures and adjust antibiotics appropriately. Qualifiers: Sepsis type: sepsis due to unspecified organism Sepsis acute organ dysfunction status: without acute organ dysfunction Qualified Code(s): A41.9 - Sepsis, unspecified organism (2) UTI (urinary tract infection) Conclusion/Plan: Gram-negative coverage on board with cefepime. Await culture results. Qualifiers: Urinary tract infection type: site unspecified Hematuria presence: without hematuria Qualified Code(s): N39.0 - Urinary tract infection, site not specified (3) Dehydration Conclusion/Plan: With acute kidney injury noted as a separate problem below. She says that she has had adequate p.o. intake over the last few weeks. She is noticed a down drifting of appetite but nothing severe. She feels like she has been drinking and eating enough. Plan: IV fluids for 2 L. Push oral liquid intake (4) KIN (acute kidney injury) Conclusion/Plan: She had hypotension yesterday. She was not aware of any illness at that time. Combined with hypotension, and dehydration, she most likely has prerenal azotemia that should resolve with hydration and normalization of her blood pr essure. (5) Kidney cancer, primary, with metastasis from kidney to other site Conclusion/Plan: I have reassured her that we will notify Dr. Wright and Dr. Meneses. Qualifiers: Laterality: unspecified laterality Qualified Code(s): C64.9 - Malignant neoplasm of unspecified kidney, except renal pelvis (6) HTN (hypertension) Conclusion/Plan: Due to her hypotension yesterday, and sepsis today, I am holding off resuming her blood pressure medicines. Will reassess tomorrow and see if she needs to be put on them then. Qualifiers: Hypertension type: essential hypertension Qualified Code(s): I10 - Essential (primary) hypertension (7) Chronic back pain greater than 3 months duration Conclusion/Plan: This is a residual from her epidural clot. I will resume her baclofen, and oxycodone per her request. (8) Hypothyroid Conclusion/Plan: TSH is 0.15. FT4 is normal. no change in dose for now and will resume in am. Qualifiers: Hypothyroidism type: acquired Qualified Code(s): E03.9 - Hypothyroidism, unspecified - Lab Results Lab results reviewed: Yes Fish Bones: 01/08/20 22:30 01/08/20 22:30 - Diagnostic Imaging Results Diagnostic Imaging Results: positive: Final report reviewed Core Measures - Anticipated LOS I expect patient to be DC'd or transferred within 96 hours.: Yes - DVT/VTE - Prophylaxis VTE/DVT Device ordered at admit?: Yes
[2020-01-09] MEDS ORDERED: VANCOMYCIN INJ 1.5 GM in SODIUM CHLORIDE 0.9% 500 ML IV STA (01:30)
[2020-01-09] MEDS: SODIUM CHLORIDE 0.9% 1,000 ML IV SCH ×3 (01:58→23:36)
[2020-01-09] MEDS: SODIUM CHLORIDE FLUSH 0.9% 10 ML SYRINGE IVP SCH ×3 (02:42→17:17)
[2020-01-09] MEDS: metroNIDAZOLE 500 MG/100 ML 500 MG/100 ML BAG IV SCH ×3 (04:44→17:17)
[2020-01-09 05:35] LABS: BASOPHILS # (AUTO) 0.1 10^3/uL (0.0-0.1); BASOPHILS % (AUTO) 0.3 %; EOSINOPHILS # (AUTO) 0.1 10^3/uL (0.0-0.7); EOSINOPHILS % (AUTO) 0.3 %; HGB - HEMOGLOBIN 9.8 g/dL (12.0-16.0); LYMPHOCYTES # (AUTO) 1.2 10^3/uL (1.5-3.5); LYMPHOCYTES % (AUTO) 5.2 %; MEAN CORPUSCULAR HEMOGLOBIN 25.7 pg (27.0-31.0); MEAN CORPUSCULAR HGB CONC 30.3 g/dL (32.0-36.0); MEAN CORPUSCULAR VOLUME 84.6 fL (81.0-99.0); MEAN PLATELET VOLUME 12.8 fL (7.9-10.8); MONOCYTES # (AUTO) 7.1 10^3/uL (0.0-1.0); MONOCYTES % (AUTO) 30.6 %; NEUTROPHILS # (AUTO) 14.4 10^3/uL (1.5-6.6); PLT - PLATELET COUNT 163 10^3/uL (130-450); RED BLOOD COUNT 3.82 10^6/uL (4.20-5.40); RED CELL DISTRIBUTION WIDTH 14.8 % (12.0-15.0); WHITE BLOOD COUNT 23.2 x10^3/uL (4.8-10.8)
[2020-01-09 05:47] LABS: ALBUMIN 2.7 g/dL (3.2-5.5); ALBUMIN/GLOBULIN RATIO 0.7 (1.0-2.2); BILIRUBIN,TOTAL 0.5 mg/dL (0.2-1.0); CREATININE 1.3 mg/dL (0.4-1.0); TOTAL PROTEIN 6.7 g/dL (6.7-8.2)
[2020-01-09] MEDS ORDERED: GABAPENTIN 400 MG CAPSULE PO SCH (06:00)
[2020-01-09] MEDS ORDERED: GABAPENTIN 300 MG CAPSULE PO SCH ×2 (07:00→21:00)
[2020-01-09] MEDS ORDERED: LEVOTHYROXINE 125 MCG TABLET PO SCH (07:00)
[2020-01-09] MEDS ORDERED: LEVOTHYROXINE 25 MCG TABLET PO SCH (07:00)
[2020-01-09] MEDS ORDERED: ZOLPIDEM 5 MG TABLET PO PRN (07:57)
[2020-01-09] MEDS: ENOXAPARIN 40 MG/0.4 ML SYRINGE SUBQ SCH (08:21)
[2020-01-09] MEDS: ASPIRIN EC 81 MG TABLET PO SCH (08:21)
[2020-01-09] MEDS: amLODIPine 5 MG TABLET PO SCH (08:21)
[2020-01-09] MEDS: ACETAMINOPHEN 325 MG TABLET PO PRN ×3 (08:36→18:22)
--- NOTE | 2020-01-09 10:27 | PHARMACY PROGRESS NOTE ---
- Best Possible Medication History Admit Date and Time: 01/09/20 0049 Processed by: Nursing Medication History completed: Yes As the person ultimately responsible for medication therapy, providers are able to order a medication from an existing home medication list in [facility] via the "Reconcile Routine" prior to Confirmation of that medication by director of operations support. Such practice is discouraged except when the physician, in their clinical judgment, deems that a medical need exists for a medication without regard to previous use.
[2020-01-09] MEDS: TRIAMT/HCTZ 37.5 MG/25 MG CAPSULE PO SCH (10:56)
[2020-01-09] MEDS: CEFEPIME 2 GM in SODIUM CHLORIDE 0.9% MINIBAG 100 ML IV SCH ×2 (12:07→21:19)
[2020-01-09] MEDS: GABAPENTIN 300 MG CAPSULE PO SCH (12:09)
--- NOTE | 2020-01-09 12:43 | PHARMACY PROGRESS NOTE ---
- Therapy Status Vancomycin regimen day #: 1 Therapy status: Awaiting steady state Basis for treatment: Empirical Treatment indication: SEPSIS Trough goal: 15-20 Concurrent antibiotics: CEFEPIME AND METRONIDAZOLE - KIN Risk Risk level for Acute Kidney Injury: High Acute Kidney Injury risk factors: Other nephrotoxic agents, Goal trough >15, Chronic baseline hypertension, Sepsis - Monitoring and Recommendation Clinical response to treatment: I&O Previous 24 hours 01/07/20 01/08/20 01/09/20 23:59 23:59 23:59 Intake Total 100 1680 Output Total 1400 Balance 100 280 Lab Results 01/09/20 01/08/20 04:55 22:30 BUN 46 H 49 H Creatinine 1.3 H 1.5 H Estimated GFR (MDRD) 40 L 34 L Monitoring plan: Daily serum creatinine, Draw trough early Next trough due prior to maintenance dose #: 3 Next trough due (date/time): 01/12/2020 Areas for additional monitoring: IV to PO when appropriate, Therapy de- escalation based on culture results Pharmacy recommendation: Continue current regime
[2020-01-09] MEDS: oxyCODONE 5 MG TABLET PO PRN ×3 (13:23→22:19)
[2020-01-09] MEDS ORDERED: AXITINIB 1 MG PO SCH (13:30)
[2020-01-09] MEDS ORDERED: FLUTICASONE NASAL SPRAY NAS SCH (21:00)
[2020-01-09] MEDS ORDERED: TAMSULOSIN 0.4 MG CAPSULE PO SCH (21:00)
[2020-01-09] MEDS: BACLOFEN 10 MG TABLET PO PRN (21:05)
[2020-01-09] MEDS: AXITINIB 1 MG PO SCH (23:36)
[2020-01-10] MEDS ORDERED: VANCOMYCIN PER PHARMACY 10 GM in SODIUM CHLORIDE 0.9% 250 ML IV SCH (01:00)
[2020-01-10] MEDS: metroNIDAZOLE 500 MG/100 ML 500 MG/100 ML BAG IV SCH ×2 (01:27→08:46)
[2020-01-10] MEDS: SODIUM CHLORIDE FLUSH 0.9% 10 ML SYRINGE IVP SCH ×2 (01:28→08:46)
[2020-01-10] MEDS ORDERED: VANCOMYCIN INJ 1.25 GM in SODIUM CHLORIDE 0.9% 250 ML IV SCH (02:00)
[2020-01-10] MEDS: SODIUM CHLORIDE 0.9% 1,000 ML IV SCH (05:32)
[2020-01-10 05:33] LABS: BASOPHILS % (AUTO) 0.3 %; EOSINOPHILS % (AUTO) 0.7 %; HGB - HEMOGLOBIN 9.6 g/dL (12.0-16.0); LYMPHOCYTES % (AUTO) 9.4 %; MEAN CORPUSCULAR HEMOGLOBIN 24.8 pg (27.0-31.0); MEAN CORPUSCULAR VOLUME 85.5 fL (81.0-99.0); MEAN PLATELET VOLUME 12.8 fL (7.9-10.8); MONOCYTES % (AUTO) 25.9 %; NEUTROPHILS % (AUTO) 62.5 %; PLT - PLATELET COUNT 157 10^3/uL (130-450); RED BLOOD COUNT 3.87 10^6/uL (4.20-5.40); RED CELL DISTRIBUTION WIDTH 14.9 % (12.0-15.0); WHITE BLOOD COUNT 14.8 x10^3/uL (4.8-10.8)
[2020-01-10 05:39] LABS: ABNORMAL LYMPHS % (MANUAL) 0 %; BAND NEUTROPHILS % (MANUAL) 0 %
[2020-01-10 05:41] LABS: CALCIUM 8.6 mg/dL (8.5-10.3); CREATININE 1.3 mg/dL (0.4-1.0)
[2020-01-10 06:10] LABS: LYMPHOCYTES # (MANUAL) 1.2 10^3/uL (1.5-3.5); LYMPHOCYTES % (MANUAL) 8 %; MONOCYTES # (MANUAL) 2.4 10^3/uL (0.0-1.0)
[2020-01-10 06:11] LABS: RBC MORPHOLOGY (MULTIPLE) NORMAL APPEARANCE (NORMAL)
[2020-01-10 06:12] LABS: DIFFERENTIAL COMMENT MANUAL DIFFERENTIAL; PLATELET ESTIMATE, MANUAL NORMAL (130-450,000) (NORMAL); PLATELET MORPHOLOGY NORMAL APPEARANCE (NORMAL)
[2020-01-10] MEDS: oxyCODONE 5 MG TABLET PO PRN ×2 (06:40→10:56)
[2020-01-10] MEDS ORDERED: LEVOTHYROXINE 75 MCG TABLET PO SCH (07:00)
[2020-01-10] MEDS ORDERED: PANTOPRAZOLE 40 MG TABLET PO SCH (08:00)
[2020-01-10] MEDS ORDERED: VANCOMYCIN INJ 1 GM, VANCOMYCIN INJ 250 MG in SODIUM CHLORIDE 0.9% 250 ML IV SCH (08:00)
[2020-01-10] MEDS: TRIAMT/HCTZ 37.5 MG/25 MG CAPSULE PO SCH (08:45)
[2020-01-10] MEDS: AXITINIB 1 MG PO SCH (08:45)
[2020-01-10] MEDS: BACLOFEN 10 MG TABLET PO PRN (08:45)
[2020-01-10] MEDS: amLODIPine 5 MG TABLET PO SCH (08:45)
[2020-01-10] MEDS: GABAPENTIN 300 MG CAPSULE PO SCH (08:45)
[2020-01-10] MEDS: ASPIRIN EC 81 MG TABLET PO SCH (08:45)
[2020-01-10] MEDS: ENOXAPARIN 40 MG/0.4 ML SYRINGE SUBQ SCH ×2 (08:46→08:56)
[2020-01-10] MEDS: ACETAMINOPHEN 325 MG TABLET PO PRN (11:04)
--- NOTE | 2020-01-10 11:09 | Discharge Plan ---
Discharge Plan Problem Reviewed?: Yes Disposition: Home, Self Care Condition: Stable Prescriptions: Ciprofloxacin [Cipro] 250 mg PO BID #10 tablet Lactobacill 46/B.animal/Inulin [Probiotic-10 10 Bill Cell Cap] 1 each PO DAILY #5 capsule Levothyroxine [Synthroid] 125 mcg PO QDAC #30 tablet Diet: Regular Shower Restrictions: No Driving Restrictions: No Instruction Topics: UTI, ED Hypotension Orthostatic, ED Hypotension All Causes Health Concerns: You were admitted with sepsis that was caused by a urinary tract infection and you were also dehydrated which had caused you to have weak legs that gave out when standing, caused by a low blood pressure. The dehydration also caused some stress to your kidneys which is improving. You are being discharged to take 5 more days of oral antibiotics, with a probiotic. We also found, from blood tests that your Synthroid dose is slightly too high. A new slightly lower dose has been prescribed. The antibiotic, probiotic and Synthroid prescriptions were electronically ordered to your pharmacy. You may resume all your other prehospital medications and management. Stay well hydrated. If your standing BP is low (top number less than 110), do not take your High Blood pressure medication that day. Plan of Treatment: As above. Care Goals: Improvement in symptoms and stabilization are the goals. Assessment: The patient understands and is agreeable with the plan. Additional Instructions or Follow Up instructions: If you have new or worsening symptoms, call your PCP for advice or come to the ER. No Smoking: If you smoke, Please STOP! Call for help. Follow-up with: Deana Meneses MD [Primary Care Provider] -
--- NOTE | 2020-01-10 11:35 | DISCHARGE SUMMARY ---
Discharge Summary Admit Date: 01/09/20 Discharge Date: 01/10/20 Discharging Provider: Dr Bhavana Wellington Primary Care Provider: Dr Deana Meneses Code Status: Do Not Attempt Resuscitation Condition at Discharge: Stable Discharge Disposition: 01 Home, Self Care - HPI History of Present Illness: From the admission H&P of Dr Katherine Chavez: This unfortunate lady has a history of breast cancer and has been treated with mastectomy and chemotherapy and lymph node dissection in 2005. She then presented with left kidney cancer in 2018 that was resected. 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 Currently on pembrolizumab with last infusion January 05, 2020. She also is on axitinib. The only new thing she can report is that her blood pressure was unusually low yesterday. She takes it every day for her oncology physician to give him a report. Yesterday her blood pressure was 101. Repeating it later she was 110.She was feeling well until today, relatively speaking, and had gotten up from a nap when she started to feel weak. Legs gave out from underneath her so she tried to walk with a walker but that was not successful. She crawled to the corner of her room. Was able to get her phone. Called EMS and was brought here. On review of systems there is no fever, cough, abdominal pain, urgency, frequency, vomiting. She has a history of food poisoning in 2018 and does not feel that is happening. She does have a large ventral hernia and she feels that that is soft, not a problem. There is no new skin lesions, headaches, eustachian tube dysfunction, sore throat or abdominal pain. She is not short of breath. On exam temperature was 38.4, heart rate 82, respirations 17 and blood pressure was 134/83 with an O2 sat of 94% on room air. She was alert and oriented, had a clear lung exam, normal bowel sounds with a nondistended abdomen. Her midline abdominal hernia was not incarcerated. White cell count was 20.9 thousand. Hemoglobin 10.3. Platelets 181. She has acute kidney insufficiency. Baseline creatinine usually no higher than 1.0. Creat now is 1.5. Lactic acid is 1.1. BNP is 278. Urinalysis has positive nitrites, negative for Leukocyte Estrase, no red cells, white cells 4-5, no squamous epithelial cells, moderate bacteria. Chest x-ray has a 6.2 x 2.8 cm focal opacity in the right midlung. The rest of her lungs are clear. Cardiomediastinal contour normal. The patient is being admitted as an infection of unknown origin at this time. Source is most likely urine. But she will be started on empiric broad-spectrum iv antibiotic coverage. - HOSPITAL COURSE Hospital Course: (1) Sepsis Most likely source was the urine and she was treated with broad-spectrum antibiotics until blood cultures and urine cultures returned. She was put on iv Cefepime, Vancomycin, and Flagyl and received those for 48 hours. (2) UTI (urinary tract infection) Broad spectrum plus Gram-negative coverage was started with iv Cefepime. The blood culture results had no growth. The urine cultures grew only "urogeic suad". She was sent home to take 5 more days of Cipro plus a probiotic. (3) Dehydration Acute kidney injury noted as a separate problem below. She thought she has had adequate p.o. intake over the last few weeks but did notice a down drifting of appetite. She was rehydrated with iv fluids here and oral liquids were encouraged here and at discharge. A set of orthostatic VS was done at discharge and were normal. (4) KIN (acute kidney injury) She had hypotension the previous day but was not aware of any symptoms at that time. Combined with hypotension, and dehydration, she most likely had prerenal azotemia. The creat improved from 1.5>> 1.3>> 1.3 with hydration and normalization of her blood pressure. (5) Kidney cancer, primary, with metastasis from kidney to other site As per Hx. (6) HTN (hypertension) Due to her hypotension and sepsis at admission, we held off resuming her blood pressure medicines until discharged home. (7) Chronic back pain greater than 3 months duration This is a residual from her epidural clot. We resumed her baclofen, and oxycodone per her request. (8) Hypothyroidism TSH was 0.15. FT4 was normal. Her Synthroid dose was felt to be slightly too high and a new slightly lower dose of Synthroid 125 mcg daily was prescribed at discharge. - ALLERGIES Allergies/Adverse Reactions: Allergies Allergy/AdvReac Type Severity Reaction Status Date / Time Penicillins Allergy Unknown Nausea Verified 01/08/20 22:26 - MEDICATIONS Home Medications: Ambulatory Orders Medication Instructions Recorded Confirmed Gabapentin 600 mg PO TID PRN 07/21/14 01/08/20 Omeprazole 20 mg PO QDAC 07/21/14 01/08/20 Simvastatin 20 mg PO QPM 07/21/14 01/08/20 Zolpidem Tartrate [Ambien] 5 mg PO QPM PRN 07/21/14 01/08/20 amLODIPine [Norvasc] 5 mg PO DAILY 07/21/14 01/08/20 Baclofen 10 mg PO BID PRN 12/15/18 01/08/20 Diclofenac Sodium 50 mg PO DAILY 12/15/18 01/08/20 Fluticasone [Flonase] 2 spray NITIN QPM 12/15/18 01/08/20 Oxycodone HCl 5 mg PO Q6H PRN 12/15/18 01/08/20 methocarbamoL [Methocarbamol] 500 mg PO BID 12/15/18 01/08/20 Acetaminophen 500 mg PO QID 01/08/20 01/08/20 Aspirin [Aspirin EC] 81 mg PO DAILY 01/08/20 01/08/20 Tamsulosin HCl [Flomax] 0.4 mg PO QPM 01/08/20 01/08/20 Triamterene/Hydrochlorothiazid 1 cap PO DAILY 01/08/20 01/09/20 [Triamterene-Hctz 37.5-25 mg Cp] raNITIdine [Zantac] 150 mg PO QPM 01/08/20 01/08/20 Axitinib [Inlyta] 3 mg PO BID 01/09/20 01/09/20 Ciprofloxacin [Cipro] 250 mg PO BID #10 tablet 01/10/20 Lactobacill 46/B.animal/Inulin 1 each PO DAILY #5 capsule 01/10/20 [Probiotic-10 10 Bill Cell Cap] Levothyroxine [Synthroid] 125 mcg PO QDAC #30 tablet 01/10/20 - PHYSICAL EXAM AT DISCHARGE General Appearance: positive: No acute distress, Alert Eyes Bilateral: positive: Normal inspection, EOMI ENT: positive: ENT inspection nml, No signs of dehydration Respiratory: positive: No respiratory distress Cardiovascular: positive: Regular rate & rhythm Abdomen: positive: Non-tender, No distention Skin: positive: Color nml Extremities: positive: No pedal edema Neurologic/Psychiatric: positive: Oriented x3 (Non-focal) - LABS Result Diagrams: 01/10/20 04:50 01/10/20 04:50 - DIAGNOSTIC IMAGING Diagnostic Imaging Results: Final report reviewed - SEPSIS Current Stage of Sepsis: Sepsis Possible source of Sepsis: Genitourinary Sepsis Criteria: Recorded Temperature greater than 38.3C or Less than 36C, WBC count greater than 12,000 or less than 4000 - FOLLOW UP Follow Up: See PCP in hospital F/U in about a week was advised. - TIME SPENT Time Spent in Discharge (Minutes): 35
[2020-01-10] MEDS: CEFEPIME 2 GM in SODIUM CHLORIDE 0.9% MINIBAG 100 ML IV SCH (11:38)
[2020-01-10 13:31] VITALS: BP 150/79
== END 2020-01-10 13:40 | disposition home or self-care (01) | DRG 872 ==
LOC: EDUNIT# → ED 22:15 → MS2 01-09 00:49
PROVIDERS: ADMIT Specialist; ATTEND Internal Medicine
DX: A41.9 Sepsis, unspecified organism (principal); N39.0 Urinary tract infection, site not specified; D64.9 Anemia, unspecified; N17.9 Acute kidney failure, unspecified; R79.89 Other specified abnormal findings of blood chemistry; E87.1 Hypo-osmolality and hyponatremia; C64.2 Malignant neoplasm of left kidney, except renal pelvis; E78.00 Pure hypercholesterolemia, unspecified; C78.01 Secondary malignant neoplasm of right lung; G47.30 Sleep apnea, unspecified; C78.7 Secondary malignant neoplasm of liver and intrahepatic bile duct; E86.0 Dehydration; I10 Essential (primary) hypertension; E03.9 Hypothyroidism, unspecified; G89.29 Other chronic pain; M54.9 Dorsalgia, unspecified; K43.9 Ventral hernia without obstruction or gangrene; H54.7 Unspecified visual loss; H91.90 Unspecified hearing loss, unspecified ear; Z79.891 Long term (current) use of opiate analgesic; Z79.82 Long term (current) use of aspirin; Z79.899 Other long term (current) drug therapy; Z86.718 Personal history of other venous thrombosis and embolism; Z85.3 Personal history of malignant neoplasm of breast; Z90.10 Acquired absence of unspecified breast and nipple
CPT/HCPCS: 36415; 51701; 71045; 80048; 80053; 81001; 83605; 83615; 83735; 83880; 84439; 84443; 84484; 85025; 87040; 87086; 93005; 96361; 96365; 99284; 99285; A9270; J1650; J3370

== ENCOUNTER 2020-01-19 08:24 | Outpatient (CLI) | payer MEDICARE, BC ==
[2020-01-19 08:41] LABS: BASOPHILS % (AUTO) 0.3 %; EOSINOPHILS # (AUTO) 0.1 10^3/uL (0.0-0.7); EOSINOPHILS % (AUTO) 1.5 %; HGB - HEMOGLOBIN 9.1 g/dL (12.0-16.0); LYMPHOCYTES # (AUTO) 1.2 10^3/uL (1.5-3.5); LYMPHOCYTES % (AUTO) 13.9 %; MEAN CORPUSCULAR HEMOGLOBIN 25.9 pg (27.0-31.0); MEAN CORPUSCULAR HGB CONC 30.5 g/dL (32.0-36.0); MEAN CORPUSCULAR VOLUME 84.9 fL (81.0-99.0); MEAN PLATELET VOLUME 10.6 fL (7.9-10.8); MONOCYTES # (AUTO) 3.6 10^3/uL (0.0-1.0); MONOCYTES % (AUTO) 40.6 %; NEUTROPHILS # (AUTO) 3.7 10^3/uL (1.5-6.6); NEUTROPHILS % (AUTO) 42.1 %; PLT - PLATELET COUNT 251 10^3/uL (130-450); RED BLOOD COUNT 3.51 10^6/uL (4.20-5.40); WHITE BLOOD COUNT 8.8 x10^3/uL (4.8-10.8)
[2020-01-19 08:54] LABS: ALBUMIN 2.9 g/dL (3.2-5.5); ALBUMIN/GLOBULIN RATIO 0.7 (1.0-2.2); BILIRUBIN,TOTAL 0.6 mg/dL (0.2-1.0); CALCIUM 8.7 mg/dL (8.5-10.3)
[2020-01-19 09:18] LABS: RBC MORPHOLOGY (MULTIPLE) 3+ ANISOCYTOSIS (NORMAL)
== END 2020-01-19 08:25 | disposition home or self-care (01) ==
LOC: LAB 08:24
PROVIDERS: ATTEND Physician Assistant Medical
DX: C64.2 Malignant neoplasm of left kidney, except renal pelvis (principal)
CPT/HCPCS: 36415; 80053; 85025

== ENCOUNTER 2020-01-28 08:19 | Outpatient (CLI) | payer MEDICARE, BC ==
[2020-01-28 08:39] LABS: BASOPHILS % (AUTO) 0.3 %; HGB - HEMOGLOBIN 8.1 g/dL (12.0-16.0); LYMPHOCYTES % (AUTO) 12.5 %; MEAN CORPUSCULAR HEMOGLOBIN 26.1 pg (27.0-31.0); MEAN CORPUSCULAR HGB CONC 31.3 g/dL (32.0-36.0); MEAN CORPUSCULAR VOLUME 83.5 fL (81.0-99.0); MEAN PLATELET VOLUME 11.6 fL (7.9-10.8); MONOCYTES % (AUTO) 15.6 %; PLT - PLATELET COUNT 339 10^3/uL (130-450); WHITE BLOOD COUNT 10.4 x10^3/uL (4.8-10.8)
[2020-01-28 08:49] LABS: ABNORMAL LYMPHS % (MANUAL) 0 %
[2020-01-28 08:59] LABS: ALBUMIN/GLOBULIN RATIO 0.7 (1.0-2.2); BILIRUBIN,TOTAL 0.5 mg/dL (0.2-1.0); CALCIUM 9.7 mg/dL (8.5-10.3); CREATININE 1.9 mg/dL (0.4-1.0); TOTAL PROTEIN 7.6 g/dL (6.7-8.2)
[2020-01-28 09:29] LABS: BAND NEUTROPHILS % (MANUAL) 1 %; LYMPHOCYTES # (MANUAL) 1.6 10^3/uL (1.5-3.5); LYMPHOCYTES % (MANUAL) 14 %; MONOCYTES # (MANUAL) 0.8 10^3/uL (0.0-1.0)
[2020-01-28 09:30] LABS: DIFFERENTIAL COMMENT MANUAL DIFFERENTIAL
== END 2020-01-28 08:20 | disposition home or self-care (01) ==
LOC: LAB 08:19
PROVIDERS: ATTEND Physician Assistant Medical
DX: C64.2 Malignant neoplasm of left kidney, except renal pelvis (principal)
CPT/HCPCS: 36415; 80053; 82024; 85025

== ENCOUNTER 2020-01-29 07:00 | Outpatient (CLI) | payer MEDICARE, BC ==
[2020-01-30 08:21] LABS: THYROID STIMULATING HORMONE 0.52 uIU/mL (0.34-5.60)
[2020-01-30 08:23] LABS: FREE T4 (FREE THYROXINE) 0.9 ng/dL (0.58-1.64)
== END 2020-01-29 23:59 | disposition home or self-care (01) ==
LOC: LAB.R 07:00
PROVIDERS: ATTEND Physician Assistant Medical
DX: C64.2 Malignant neoplasm of left kidney, except renal pelvis (principal); R53.83 Other fatigue
CPT/HCPCS: 84439; 84443

== ENCOUNTER 2020-01-29 22:01 | Outpatient (CLI) | payer MEDICARE, BC | END 2020-01-29 22:02 | disposition critical access hospital (66) | LOC: EMS 22:01 | PROVIDERS: ATTEND Surgery | DX: R06.00 Dyspnea, unspecified (principal) | CPT/HCPCS: A0425; A0429 ==

== ENCOUNTER 2020-01-29 22:15 | Emergency (ER) | payer MEDICARE, BC ==
[2020-01-29 22:41] LABS: BASOPHILS % (AUTO) 0.2 %; EOSINOPHILS % (AUTO) 0.1 %; HGB - HEMOGLOBIN 8.6 g/dL (12.0-16.0); LYMPHOCYTES % (AUTO) 6.9 %; MEAN CORPUSCULAR HEMOGLOBIN 25.8 pg (27.0-31.0); MEAN CORPUSCULAR HGB CONC 31.4 g/dL (32.0-36.0); MEAN CORPUSCULAR VOLUME 82.3 fL (81.0-99.0); MEAN PLATELET VOLUME 11.5 fL (7.9-10.8); MONOCYTES % (AUTO) 4.4 %; NEUTROPHILS % (AUTO) 81.9 %; PLT - PLATELET COUNT 407 10^3/uL (130-450); RED BLOOD COUNT 3.33 10^6/uL (4.20-5.40); RED CELL DISTRIBUTION WIDTH 16.2 % (12.0-15.0); WHITE BLOOD COUNT 13.8 x10^3/uL (4.8-10.8)
[2020-01-29 22:46] LABS: ABNORMAL LYMPHS % (MANUAL) 0 %; BAND NEUTROPHILS % (MANUAL) 0 %
[2020-01-29 22:58] LABS: ALBUMIN 3.4 g/dL (3.2-5.5); ALBUMIN/GLOBULIN RATIO 0.7 (1.0-2.2); BILIRUBIN,TOTAL 0.5 mg/dL (0.2-1.0); CALCIUM 9.3 mg/dL (8.5-10.3); CREATININE 1.5 mg/dL (0.4-1.0); TOTAL PROTEIN 8.5 g/dL (6.7-8.2)
[2020-01-29 23:03] LABS: LYMPHOCYTES # (MANUAL) 1.2 10^3/uL (1.5-3.5); LYMPHOCYTES % (MANUAL) 9 %; METAMYELOCYTES % (MANUAL) 1 %; MONOCYTES # (MANUAL) 0.3 10^3/uL (0.0-1.0); MYELOCYTES % (MANUAL) 4 %
[2020-01-29 23:04] LABS: DIFFERENTIAL COMMENT MANUAL DIFFERENTIAL; PLATELET ESTIMATE, MANUAL NORMAL (130-450,000) (NORMAL); PLATELET MORPHOLOGY NORMAL APP (NORMAL); RBC MORPHOLOGY (MULTIPLE) NORMAL APPEARANCE (NORMAL)
[2020-01-29] MEDS ORDERED: oxyCODONE 5 MG TABLET PO STA (23:04)
[2020-01-29] MEDS ORDERED: IOVERSOL 320 100 ML VIAL IVP ONE (23:29)
--- NOTE | 2020-01-30 00:06 | XRAY Report ---
Reason: chest pain Procedure Date: 01/29/2020 Accession Number: [id number] / [id number] Procedure: XR - Chest 1 View X-Ray CPT Code: 78970 Final Report FULL RESULT: EXAM: CHEST RADIOGRAPHY EXAM DATE: 01/29/2020 11:13 PM. CLINICAL HISTORY: Chest pain. COMPARISON: CHEST 1 VIEW 01/08/2020 10:34 PM. TECHNIQUE: 1 view. FINDINGS: Lungs/Pleura: Bilateral interstitial and consolidative opacities, right greater than left. No pleural effusion seen. No pneumothorax. Mediastinum: Within exam limitations, the cardiomediastinal contour is stable. Other: Bilateral shoulder prostheses. Surgical clips in the left axilla. IMPRESSION: 1. Bilateral interstitial and consolidative opacities. Findings could represent infiltrate or edema. 2. As noted on the prior chest radiograph, cannot exclude mass in the right midlung. RADIA
[2020-01-30] MEDS ORDERED: IOVERSOL 320 100 ML VIAL IVP ONE (00:28)
[2020-01-30] MEDS ORDERED: oxyCODONE 5 MG TABLET PO STA (01:02)
--- NOTE | 2020-01-30 01:05 | CT Report ---
Reason: SOB, decreased sat, cancer, poss PE Procedure Date: 01/30/2020 Accession Number: [id number] / [id number] Procedure: CT - ANGIO CHEST W/WO CPT Code: Final Report FULL RESULT: EXAM: CT ANGIOGRAM CHEST EXAM DATE: 01/30/2020 12:23 AM CLINICAL HISTORY: Short of breath, decreased saturations, cancer, possible pulmonary embolus. COMPARISON: CHEST ANGIO 07/22/2014 1:21 AM, ABDOMEN/PELVIS W/ 10/16/2019 8:38 PM. TECHNIQUE: Routine helical imaging was performed through the chest in the pulmonary arterial phase. IV Contrast: 80 mL Optiray 320. Reconstructions: Coronal 3D MIP reconstructions. Sagittal and coronal. In accordance with CT protocol optimization, one or more of the following dose reduction techniques were utilized for this exam: automated exposure control, adjustment of mA and/or KV based on patient size, or use of iterative reconstructive technique. FINDINGS: Pulmonary Arteries: Diagnostic quality: Adequate through the segmental arteries. No evidence for acute or chronic pulmonary emboli. RV/LV is within normal limits. There is no interventricular septal bowing. There is no reflux of contrast material in the IVC. Lungs/Pleura: There is a very large mass with its epicenter arising from the posterior segment of the right upper lobe. In the axial plane this soft tissue mass measures 67 mm x 68 mm and is contiguous with the chest wall and the right hilum. The lesion has extended slightly into the right middle lobe. There is significant postobstructive pneumonitis in the right upper lobe. There are small bilateral pleural effusions. In addition, there is nodular thickening of the right pleura likely from metastatic disease. Mediastinum: There is large bulky mediastinal and bihilar lymphadenopathy. Right hilar lymph nodes measure up to 23 mm in short axis diameter and the large left hilar lymph nodes measure up to 17 mm in short axis diameter. There is also lymphadenopathy in the right lower neck. The heart is borderline enlarged and there is calcification of the mitral valve annulus. Thoracic Aorta: Unremarkable. Upper Abdomen: There is a common bile duct stent in place. The tumor within the liver is difficult to fully define in this nonenhanced study. There is extensive extension into the left lobe. Other: There is progressive ventral hernia now with loops of bowel within the hernia sac. IMPRESSION: 1. Large soft tissue mass in the right upper lobe as described. Postobstructive pneumonitis. 2. Extensive mediastinal and bihilar lymphadenopathy. 3. Bilateral pleural effusions and pleural nodularity on the right compatible with tumor. 4. Lymphadenopathy in the right neck. 5. Large tumor in the liver difficult to define on the present exam. Common bile duct stent in place. 6. Ventral hernia with a loop of bowel within the hernia sac. No evidence for incarceration. RADIA
[2020-01-30] MEDS ORDERED: HEPARIN 5,000 UNIT/ML VIAL IVP STA (01:28)
[2020-01-30] MEDS ORDERED: HEPARIN 25000UNITS/500ML (D5W) 25,000 UNIT/500 ML BAG IV STA (01:28)
[2020-01-30] MEDS ORDERED: ASPIRIN CHEW 81 MG TABLET PO STA (01:28)
[2020-01-30] MEDS ORDERED: METOPROLOL TARTRATE 50 MG TABLET PO STA (01:30)
--- NOTE | 2020-01-30 02:28 | ED Physician Documentation ---
PD HPI CHEST PAIN - Stated complaint Stated Complaint: SOA - Chief complaint Chief Complaint: Resp - History obtained from History obtained from: Patient - Additional information Additional information: Patient comes emergency department complaining of shortness of breath that started this Afternoon around 1700. Patient states that she had felt fine all day, and had been sitting down at her computer without symptoms. She got up to go the bathroom and suddenly felt short of breath. She states that even after coming back and sitting down, she continued to have shortness of breath. The patient went to bed and put on her CPAP machine as usual, but states that the feeling of shortness of breath just kept getting worse and worse. Patient states that she feels a little bit better now. She denies any fevers or cough. No rhinorrhea or sore throat. She denies any nausea or diaphoresis with the episode. She states that she has not had anything like this before. She has some chronic shortness of breath which is much more mild and patient states this is related to her cancer-related lung lesions. Patient has been in the midst of treatment for renal cell carcinoma and has had a left nephrectomy. She has been temporarily taken off her treatment for the cancer, due toWhat patient describes as inflammation in the right kidney, which is the only kidney she has left.Patient states she is seen a specialist at [facility], but is supposed to have her cancer treatments transferred to [facility].Patient denies any chest pain currently. She states that she still feels as though she is mildly short of breath and that her respiratory rate feels as though it is up.Patient denies any cardiac history. No history of COPD or asthma. Patient has never been a smoker and does not drink alcohol, she states. Review of Systems Ten Systems: 10 systems reviewed and negative Constitutional: reports: Reviewed and negative Eyes: reports: Reviewed and negative Ears: reports: Reviewed and negative Nose: reports: Reviewed and negative Throat: reports: Reviewed and negative Cardiac: reports: Chest pain / pressure Respiratory: reports: Dyspnea GI: reports: Reviewed and negative : reports: Reviewed and negative Skin: reports: Reviewed and negative Musculoskeletal: reports: Reviewed and negative Neurologic: reports: Reviewed and negative Psychiatric: reports: Reviewed and negative Endocrine: reports: Reviewed and negative Immunocompromised: reports: Reviewed and negative PD PAST MEDICAL HISTORY - Past Medical History Past Medical History: Yes Cardiovascular: Hypertension, High cholesterol, Deep vein thrombosis Respiratory: Sleep apnea Neuro: Other Endocrine/Autoimmune: HyPOthyroidism GI: Ulcers, Other 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 - Past Surgical History Past Surgical History: Yes General: Cholecystectomy, Appendectomy, Other Ortho: Shoulder arthroplasty /[employer]ATE[employer]: Hysterectomy, Mastectomy HEENT: Cataracts, Tonsil/Adenoidectomy - Present Medications Home Medications: Ambulatory Orders Medication Instructions Recorded Confirmed Gabapentin 600 mg PO TID PRN 07/21/14 01/30/20 Omeprazole 20 mg PO QDAC 07/21/14 01/30/20 Simvastatin 20 mg PO QPM 07/21/14 01/30/20 Zolpidem Tartrate [Ambien] 5 mg PO QPM PRN 07/21/14 01/30/20 amLODIPine [Norvasc] 5 mg PO DAILY 07/21/14 01/30/20 Baclofen 10 mg PO BID PRN 12/15/18 01/30/20 Diclofenac Sodium 50 mg PO DAILY 12/15/18 01/30/20 Fluticasone [Flonase] 2 spray NITIN QPM 12/15/18 01/30/20 Oxycodone HCl 5 mg PO Q6H PRN 12/15/18 01/30/20 methocarbamoL [Methocarbamol] 500 mg PO BID 12/15/18 01/30/20 Acetaminophen 500 mg PO QID 01/08/20 01/30/20 Tamsulosin HCl [Flomax] 0.4 mg PO QPM 01/08/20 01/30/20 Triamterene/Hydrochlorothiazid 1 cap PO DAILY 01/08/20 01/30/20 [Triamterene-Hctz 37.5-25 mg Cp] Lactobacill 46/B.animal/Inulin 1 each PO DAILY #5 capsule 01/10/20 01/30/20 [Probiotic-10 10 Bill Cell Cap] Levothyroxine [Synthroid] 125 mcg PO QDAC #30 tablet 01/10/20 01/30/20 Potassium Chloride 20 meq PO DAILY 01/30/20 01/30/20 - Allergies Allergies/Adverse Reactions: Allergies Allergy/AdvReac Type Severity Reaction Status Date / Time Penicillins Allergy Unknown Nausea Verified 01/29/20 22:23 - Social History Does the pt smoke?: No Smoking Status: Never smoker Does the pt drink ETOH?: No Does the pt have substance abuse?: No - Immunizations Immunizations are current?: Yes - POLST Patient has POLST: No POLST Status: DNR (Although she does want all treatment up until the moment of her , she does not want CPR or intubation if she has no pulse, pressure, or spontaneous respiration. If we find that she is succumbed to what ever illness and is now with significant cognitive deficits, she would rather be palliative care.) PD ED PE NORMAL - Vitals Vital signs reviewed: Yes - General General: Alert and oriented X 3, No acute distress - HEENT HEENT: PERRL - Neck Neck: Supple, no meningeal sign - Cardiac Cardiac: RRR, No murmur - Respiratory Respiratory: No respiratory distress, Clear bilaterally - Abdomen Abdomen: Soft, Non tender, Non distended - Derm Derm: Normal color, Warm and dry, No rash - Extremities Extremities: No deformity, No edema, No calf tenderness / cord - Neuro Neuro: Alert and oriented X 3, service worker helper 2-12 intact, No motor deficit, Normal speech - Psych Psych: Normal mood, Normal affect Results - Vitals Vitals: Vital Signs - 24 hr 01/29/20 01/29/20 01/29/20 22:10 22:44 23:25 Temperature 36.8 C Heart Rate 96 83 86 Respiratory 18 16 16 Rate Blood Pressure 190/109 H 200/113 H 194/115 H O2 Saturation 93 97 96 01/30/20 01/30/20 01/30/20 00:29 00:48 01:00 Temperature 36.8 C Heart Rate 95 93 114 H Respiratory 20 21 22 Rate Blood Pressure 201/115 H 189/120 H 199/104 H O2 Saturation 97 95 96 01/30/20 01/30/20 01/30/20 01:47 02:03 02:30 Temperature Heart Rate 105 H 106 H 99 Respiratory 19 24 20 Rate Blood Pressure 207/95 H 202/118 H 200/126 H O2 Saturation 96 95 01/30/20 01/30/20 01/30/20 02:47 03:00 03:10 Temperature Heart Rate 77 70 73 Respiratory 20 21 15 Rate Blood Pressure 183/105 H 161/98 H 164/105 H O2 Saturation 96 96 95 01/30/20 01/30/20 01/30/20 03:15 03:20 04:18 Temperature 37.0 C Heart Rate 96 74 68 Respiratory 18 18 20 Rate Blood Pressure 176/104 H 171/106 H 161/95 H O2 Saturation 95 95 97 01/30/20 01/30/20 01/30/20 05:03 05:28 06:00 Temperature 36.8 C Heart Rate 61 66 68 Respiratory 14 15 17 Rate Blood Pressure 161/97 H 169/93 H 170/92 H O2 Saturation 96 96 96 01/30/20 06:27 Temperature 36.8 C Heart Rate 66 Respiratory 19 Rate Blood Pressure 169/94 H O2 Saturation 98 Oxygen O2 Source Nasal cannula Oxygen Flow Rate 2 - EKG (time done) 0218 Rate: Rate (enter#) (103) Rhythm: Sinus tachycardia [place]: Normal Intervals: Normal [place] QRS: Normal Ischemia: Other (Computer reading states, "anterior ST elevation, probably due to LVH". Possible ST elevation by record systems analyst noted only in lead V2.) Compare to prior EKG: Old EKG unavailable Computer interpretation: Agree with computer - Labs Labs: Laboratory Tests 01/29/20 01/29/20 01/29/20 22:30 22:30 22:30 WBC 13.8 H RBC 3.33 L Hgb 8.6 L Hct 27.4 L MCV 82.3 MCH 25.8 L MCHC 31.4 L RDW 16.2 H Plt Count 407 MPV 11.5 H Neut # (Auto) Not Reportable Lymph # (Auto) Not Reportable [place] # (Auto) Not Reportable Eos # (Auto) Not Reportable Baso # (Auto) Not Reportable Absolute Nucleated RBC Not Reportable Total Counted 100 Band Neuts % (Manual) 0 Abnorm Lymph % (Manual) 0 Metamyelocytes % 1 H Myelocytes % 4 H Nucleated RBC % Not Reportable Neutrophils # (Manual) 11.6 H Lymphocytes # (Manual) 1.2 L Monocytes # (Manual) 0.3 Eosinophils # (Manual) 0.0 Basophils # (Manual) 0.0 Differential Comment MANUAL DIFFERENTIAL WBC Morphology NORMAL JANINA Platelet Estimate NORMAL (130-450,000) Platelet Morphology NORMAL JANINA RBC Morph Micro Appear NORMAL APPEARANCE PT INR Sodium 136 Potassium 2.9 L Chloride 103 Carbon Dioxide 23 Anion Gap 10.0 BUN 54 H Creatinine 1.5 H Estimated GFR (MDRD) 34 L Glucose 160 H Calcium 9.3 Total Bilirubin 0.5 AST 20 ALT 18 Alkaline Phosphatase 80 Troponin I High Sens 38.0 H* B-Natriuretic Peptide Total Protein 8.5 H Albumin 3.4 Globulin 5.1 H Albumin/Globulin Ratio 0.7 L Lipase 22 01/29/20 01/29/20 01/30/20 22:30 22:34 00:55 WBC RBC Hgb Hct MCV MCH MCHC RDW Plt Count MPV Neut # (Auto) Lymph # (Auto) [place] # (Auto) Eos # (Auto) Baso # (Auto) Absolute Nucleated RBC Total Counted Band Neuts % (Manual) Abnorm Lymph % (Manual) Metamyelocytes % Myelocytes % Nucleated RBC % Neutrophils # (Manual) Lymphocytes # (Manual) Monocytes # (Manual) Eosinophils # (Manual) Basophils # (Manual) Differential Comment WBC Morphology Platelet Estimate Platelet Morphology RBC Morph Micro Appear PT 12.4 INR 1.1 Sodium Potassium Chloride Carbon Dioxide Anion Gap BUN Creatinine Estimated GFR (MDRD) Glucose Calcium Total Bilirubin AST ALT Alkaline Phosphatase Troponin I High Sens 215.5 H* B-Natriuretic Peptide 2313 H Total Protein Albumin Globulin Albumin/Globulin Ratio Lipase - Rads (name of study) Chest x-ray Radiology: Final report received, EMP read indepedently, See rad report (Final radiologist interpretation: Bilateral interstitial and consolidative opacities. Findings could represent an infiltrate or edema. As noted on prior chest radiograph, cannot exclude mass in the right midlung.) CT angiogram chest Radiology: Final report received, Discussed with rads, EMP read indepedently, See rad report (Final radiologist impression: Large soft tissue mass in the right upper lobe as described. Postobstructive pneumonitis. Extensive mediastinal and bihilar lymphadenopathy. Bilateral pleural effusions and pleural nodularity on the right compatible with tumor. Lymphadenopathy in the right neck. Large tumor in the liver difficult to define on present exam. Common bile duct stent in place. Ventral hernia with a loop of bowel within the hernia sac. No evidence for incarceration.) PD MEDICAL DECISION MAKING - ED course Complexity details: reviewed results, re-evaluated patient, considered differential, d/w patient ED course: Patient was worked up with labs, EKG, and ultimately, CT angiogram of the chest. EKG Did not demonstrate obvious ischemia. The patient's troponin initially was elevated at 38, and repeat level was ordered for 2-1/2 hours later. In the meantime, CT angiogram of the chest did not show PE, but did show a likely malignancy in the right lung with enlarged lymph nodes. The patient initially did not really have any chest tightness but only the sense of dyspnea, but did begin to complain of recurrence of tightness. Her repeat troponin had drastically increased to 215. The patient was given aspirin, metoprolol, and nitroglycerin, and started on heparin drip. Nitroglycerin brought the patient's chest tightness from a 7 to a 2/10. I spoke first with the hospitalist and then with the on-call chest pain coordinator at [facility]. Tread Builder Dr. Martell recommended nitroglycerin drip since patient still had a little bit of chest pain. The hospitalist, Dr. Tobin, did accept the patient in transfer. Departure - Departure Disposition: 02 Transfer Acute Care Hosp Clinical Impression: NSTEMI (non-ST elevated myocardial infarction) Condition: Serious
[2020-01-30] MEDS ORDERED: LABETALOL 20 MG/4 ML SYRINGE IVP STA (02:33)
[2020-01-30] MEDS ORDERED: NITROGLYCERIN SL 0.4 MG TABLET SL STA (02:42)
[2020-01-30] MEDS ORDERED: NITROGLYCERIN 2% PASTE TOP STA (02:42)
[2020-01-30 02:43] LABS: INR 1.1 (0.8-1.2); PT - PROTHROMBIN TIME 12.4 secs (9.9-12.6)
[2020-01-30] MEDS ORDERED: NITROGLYCERIN 50 MG/250 ML 50 MG/250 ML BOTTLE IV SCH (04:00)
[2020-01-30 06:30] VITALS: BP 169/94
== END 2020-01-30 06:35 | disposition short-term general hospital (02) ==
LOC: EDUNIT# → ED 22:15
DX: I21.4 Non-ST elevation (NSTEMI) myocardial infarction (principal); I10 Essential (primary) hypertension; E78.00 Pure hypercholesterolemia, unspecified; G47.30 Sleep apnea, unspecified; E03.9 Hypothyroidism, unspecified; C64.2 Malignant neoplasm of left kidney, except renal pelvis; C78.00 Secondary malignant neoplasm of unspecified lung; H54.7 Unspecified visual loss; Z66 Do not resuscitate; Z79.891 Long term (current) use of opiate analgesic; Z85.3 Personal history of malignant neoplasm of breast; Z90.5 Acquired absence of kidney; Z86.718 Personal history of other venous thrombosis and embolism
CPT/HCPCS: 36415; 71045; 71275; 80053; 83690; 83880; 84484; 85025; 85610; 93005; 96365; 96366; 96368; 96375; 99285; A9270; Q9967

== ENCOUNTER 2020-02-12 09:08 | Outpatient (CLI) | payer MEDICARE, BC ==
[2020-02-12 09:47] LABS: CREATININE 0.9 mg/dL (0.4-1.0)
== END 2020-02-12 09:09 | disposition home or self-care (01) ==
LOC: LAB 09:08
PROVIDERS: ATTEND Internal Medicine Advanced Heart Failure and Transplant Cardiology
DX: I10 Essential (primary) hypertension (principal)
CPT/HCPCS: 36415; 80048

== ENCOUNTER 2020-02-16 09:50 | Outpatient (CLI) | payer MEDICARE, BC ==
[2020-02-16 10:16] LABS: BASOPHILS % (AUTO) 0.2 %; EOSINOPHILS % (AUTO) 0.2 %; HGB - HEMOGLOBIN 10.1 g/dL (12.0-16.0); LYMPHOCYTES % (AUTO) 14.7 %; MEAN CORPUSCULAR HEMOGLOBIN 26.8 pg (27.0-31.0); MEAN CORPUSCULAR HGB CONC 31.4 g/dL (32.0-36.0); MEAN CORPUSCULAR VOLUME 85.4 fL (81.0-99.0); MEAN PLATELET VOLUME 10.9 fL (7.9-10.8); MONOCYTES % (AUTO) 28.9 %; NEUTROPHILS % (AUTO) 53.4 %; PLT - PLATELET COUNT 212 10^3/uL (130-450); RED BLOOD COUNT 3.77 10^6/uL (4.20-5.40); RED CELL DISTRIBUTION WIDTH 17.8 % (12.0-15.0); WHITE BLOOD COUNT 15.9 x10^3/uL (4.8-10.8)
[2020-02-16 10:49] LABS: ABNORMAL LYMPHS % (MANUAL) 0 %; BAND NEUTROPHILS % (MANUAL) 0 %
[2020-02-16 10:50] LABS: DIFFERENTIAL COMMENT MANUAL DIFFERENTIAL; LYMPHOCYTES % (MANUAL) 19 %; MONOCYTES # (MANUAL) 3.5 10^3/uL (0.0-1.0); PLATELET ESTIMATE, MANUAL NORMAL (130-450,000) (NORMAL); PLATELET MORPHOLOGY NORMAL APPEARANCE (NORMAL); RBC MORPHOLOGY (MULTIPLE) 1+ ANISOCYTOSIS (NORMAL)
[2020-02-16 10:59] LABS: ALBUMIN 3.4 g/dL (3.2-5.5); ALBUMIN/GLOBULIN RATIO 0.8 (1.0-2.2); BILIRUBIN,TOTAL 0.6 mg/dL (0.2-1.0); CALCIUM 10.2 mg/dL (8.5-10.3); TOTAL PROTEIN 7.6 g/dL (6.7-8.2)
== END 2020-02-16 09:51 | disposition home or self-care (01) ==
LOC: LAB 09:50
PROVIDERS: ATTEND Physician Assistant Medical
DX: C64.2 Malignant neoplasm of left kidney, except renal pelvis (principal)
CPT/HCPCS: 36415; 80053; 84484; 85025

== ENCOUNTER 2020-02-23 08:30 | Outpatient (CLI) | payer MEDICARE, BC ==
[2020-02-23 08:50] LABS: BASOPHILS % (AUTO) 0.3 %; EOSINOPHILS % (AUTO) 0.2 %; HGB - HEMOGLOBIN 10.5 g/dL (12.0-16.0); LYMPHOCYTES # (AUTO) 1.8 10^3/uL (1.5-3.5); LYMPHOCYTES % (AUTO) 14.5 %; MEAN CORPUSCULAR HEMOGLOBIN 26.6 pg (27.0-31.0); MEAN CORPUSCULAR HGB CONC 30.7 g/dL (32.0-36.0); MEAN CORPUSCULAR VOLUME 86.8 fL (81.0-99.0); MEAN PLATELET VOLUME 12.1 fL (7.9-10.8); MONOCYTES % (AUTO) 33.2 %; NEUTROPHILS % (AUTO) 49.9 %; PLT - PLATELET COUNT 186 10^3/uL (130-450); RED BLOOD COUNT 3.94 10^6/uL (4.20-5.40); RED CELL DISTRIBUTION WIDTH 17.7 % (12.0-15.0); WHITE BLOOD COUNT 12.1 x10^3/uL (4.8-10.8)
[2020-02-23 09:00] LABS: ALBUMIN 3.7 g/dL (3.2-5.5); ALBUMIN/GLOBULIN RATIO 0.9 (1.0-2.2); BILIRUBIN,TOTAL 0.6 mg/dL (0.2-1.0); CALCIUM 10.4 mg/dL (8.5-10.3); CREATININE 0.8 mg/dL (0.4-1.0); TOTAL PROTEIN 7.8 g/dL (6.7-8.2)
[2020-02-23 09:19] LABS: THYROID STIMULATING HORMONE 1.42 uIU/mL (0.34-5.60)
[2020-02-23 09:21] LABS: FREE T4 (FREE THYROXINE) 1.11 ng/dL (0.58-1.64)
[2020-02-23 10:11] LABS: RBC MORPHOLOGY (MULTIPLE) 4+ ANISOCYTOSIS (NORMAL)
== END 2020-02-23 08:31 | disposition home or self-care (01) ==
LOC: LAB 08:30
PROVIDERS: ATTEND Physician Assistant Medical
DX: C64.2 Malignant neoplasm of left kidney, except renal pelvis (principal); R53.83 Other fatigue
CPT/HCPCS: 36415; 80053; 84439; 84443; 84484; 85025

== ENCOUNTER 2020-03-16 08:29 | Outpatient (CLI) | payer MEDICARE, BC ==
[2020-03-16 08:56] LABS: CALCIUM 10.5 mg/dL (8.5-10.3); CREATININE 1.1 mg/dL (0.4-1.0)
== END 2020-03-16 08:30 | disposition home or self-care (01) ==
LOC: LAB 08:29
PROVIDERS: ATTEND Nurse Practitioner
DX: N17.9 Acute kidney failure, unspecified (principal); C64.2 Malignant neoplasm of left kidney, except renal pelvis
CPT/HCPCS: 36415; 80048

== ENCOUNTER 2020-03-30 08:24 | Outpatient (CLI) | payer MEDICARE, BC ==
[2020-03-30 08:52] LABS: CALCIUM 10.1 mg/dL (8.5-10.3); CREATININE 0.8 mg/dL (0.4-1.0)
== END 2020-03-30 08:25 | disposition home or self-care (01) ==
LOC: LAB 08:24
PROVIDERS: ATTEND Nurse Practitioner
DX: N17.9 Acute kidney failure, unspecified (principal); C64.2 Malignant neoplasm of left kidney, except renal pelvis
CPT/HCPCS: 36415; 80048

== ENCOUNTER 2020-04-06 08:37 | Outpatient (CLI) | payer MEDICARE, BC ==
[2020-04-06 09:14] LABS: CALCIUM 9.9 mg/dL (8.5-10.3); CREATININE 0.8 mg/dL (0.4-1.0)
== END 2020-04-06 08:38 | disposition home or self-care (01) ==
LOC: LAB 08:37
PROVIDERS: ATTEND Nurse Practitioner
DX: N17.9 Acute kidney failure, unspecified (principal); C64.2 Malignant neoplasm of left kidney, except renal pelvis
CPT/HCPCS: 36415; 80048

== ENCOUNTER 2020-04-13 08:25 | Outpatient (CLI) | payer MEDICARE, BC ==
[2020-04-13 12:00] LABS: CREATININE 0.9 mg/dL (0.4-1.0)
[2020-04-13 12:18] LABS: CALCIUM 9.4 mg/dL (8.5-10.3)
== END 2020-04-13 08:26 | disposition home or self-care (01) ==
LOC: LAB 08:25
PROVIDERS: ATTEND Nurse Practitioner
DX: N17.9 Acute kidney failure, unspecified (principal); C64.2 Malignant neoplasm of left kidney, except renal pelvis
CPT/HCPCS: 36415; 80048

== ENCOUNTER 2020-04-15 11:01 | Outpatient (CLI) | payer MEDICARE, BC ==
[2020-04-15 11:18] LABS: BILIRUBIN,URINE NEGATIVE (NEGATIVE); GLUCOSE, URINE (UA) NEGATIVE (NEGATIVE); KETONES,URINE (UA) NEGATIVE (NEGATIVE); LEUKOCYTE ESTERASE, URINE MODERATE (NEGATIVE); NITRITE,URINE NEGATIVE (NEGATIVE); OCCULT BLOOD,URINE NEGATIVE (NEGATIVE); PROTEIN,URINE TRACE mg/dL (NEGATIVE); UROBILINOGEN,URINE 0.2 (NORMAL) E.U./dL (NORMAL)
[2020-04-15 11:19] LABS: CLARITY,URINE SL. CLOUDY (CLEAR)
[2020-04-15 11:36] LABS: CREATININE,URINE 66.4 mg/dL; PROTEIN/CREATININE RATIO,URINE 0.5 (<=0.2)
[2020-04-15 11:40] LABS: BACTERIA,URINE Moderate /HPF (None Seen); RBC,URINE 0-5 /HPF (0-5); SQUAMOUS EPITHELIAL CELL,UR FEW Squamous (<= Few); WBC CLUMPS,URINE PRESENT
== END 2020-04-15 11:02 | disposition home or self-care (01) ==
LOC: LAB 11:01
PROVIDERS: ATTEND Internal Medicine Nephrology
DX: N12 Tubulo-interstitial nephritis, not specified as acute or chronic (principal)
CPT/HCPCS: 81001; 82570; 84156

== ENCOUNTER 2020-04-27 11:57 | Outpatient (CLI) | payer MEDICARE, BC ==
[2020-04-27 12:30] LABS: CALCIUM 9.1 mg/dL (8.5-10.3)
== END 2020-04-27 11:58 | disposition home or self-care (01) ==
LOC: LAB 11:57
PROVIDERS: ATTEND Nurse Practitioner
DX: N17.9 Acute kidney failure, unspecified (principal); C64.2 Malignant neoplasm of left kidney, except renal pelvis
CPT/HCPCS: 36415; 80048

== ENCOUNTER 2020-05-04 11:44 | Outpatient (CLI) | payer MEDICARE, BC ==
[2020-05-04 12:51] LABS: CALCIUM 9.7 mg/dL (8.5-10.3)
== END 2020-05-04 11:45 | disposition home or self-care (01) ==
LOC: LAB 11:44
PROVIDERS: ATTEND Nurse Practitioner
DX: N17.9 Acute kidney failure, unspecified (principal); C64.2 Malignant neoplasm of left kidney, except renal pelvis
CPT/HCPCS: 36415; 80048

== ENCOUNTER 2020-05-28 09:31 | Outpatient (CLI) | payer MEDICARE, BC ==
[2020-05-28 10:27] LABS: THYROID STIMULATING HORMONE 6.35 uIU/mL (0.34-5.60)
[2020-05-28 10:29] LABS: FREE T4 (FREE THYROXINE) 1.22 ng/dL (0.58-1.64)
== END 2020-05-28 09:32 | disposition home or self-care (01) ==
LOC: LAB 09:31
PROVIDERS: ATTEND Physician Assistant Medical
DX: C64.2 Malignant neoplasm of left kidney, except renal pelvis (principal); E03.9 Hypothyroidism, unspecified
CPT/HCPCS: 36415; 82533; 84439; 84443

== ENCOUNTER 2020-07-28 10:38 | Outpatient (CLI) | payer MEDICARE, BC ==
[2020-07-28 10:47] LABS: BASOPHILS % (AUTO) 0.4 %; EOSINOPHILS % (AUTO) 1.5 %; HGB - HEMOGLOBIN 8.3 g/dL (12.0-16.0); LYMPHOCYTES % (AUTO) 9.4 %; MEAN CORPUSCULAR HEMOGLOBIN 28.6 pg (27.0-31.0); MEAN CORPUSCULAR HGB CONC 30.5 g/dL (32.0-36.0); MEAN CORPUSCULAR VOLUME 93.8 fL (81.0-99.0); MEAN PLATELET VOLUME 10.5 fL (7.9-10.8); NEUTROPHILS % (AUTO) 50.9 %; PLT - PLATELET COUNT 292 10^3/uL (130-450); RED CELL DISTRIBUTION WIDTH 15.3 % (12.0-15.0); WHITE BLOOD COUNT 16.5 x10^3/uL (4.8-10.8)
[2020-07-28 10:50] LABS: ABNORMAL LYMPHS % (MANUAL) 0 %
[2020-07-28 11:40] LABS: BAND NEUTROPHILS % (MANUAL) 3 %; EOSINOPHILS # (MANUAL) 0.5 10^3/uL (0-0.7); LYMPHOCYTES # (MANUAL) 1.5 10^3/uL (1.5-3.5); LYMPHOCYTES % (MANUAL) 9 %; METAMYELOCYTES % (MANUAL) 4 %; MONOCYTES # (MANUAL) 4.3 10^3/uL (0.0-1.0); MYELOCYTES % (MANUAL) 1 %
[2020-07-28 11:43] LABS: DIFFERENTIAL COMMENT MANUAL DIFFERENTIAL; PLATELET ESTIMATE, MANUAL NORMAL (130-450,000) (NORMAL); PLATELET MORPHOLOGY NORMAL APPEARANCE (NORMAL); RBC MORPHOLOGY (MULTIPLE) NORMAL APPEARANCE (NORMAL)
== END 2020-07-28 10:39 | disposition home or self-care (01) ==
LOC: LAB 10:38
PROVIDERS: ATTEND Surgery
DX: D62 Acute posthemorrhagic anemia (principal)
CPT/HCPCS: 36415; 85025

== ENCOUNTER 2020-08-05 10:12 | Outpatient (CLI) | payer MEDICARE, BC ==
[2020-08-05 10:48] LABS: CALCIUM 9.9 mg/dL (8.5-10.3); CREATININE 1.1 mg/dL (0.4-1.0)
== END 2020-08-05 10:13 | disposition home or self-care (01) ==
LOC: LAB 10:12
PROVIDERS: ATTEND Nurse Practitioner Adult Health
DX: I50.30 Unspecified diastolic (congestive) heart failure (principal); Z51.81 Encounter for therapeutic drug level monitoring; Z79.899 Other long term (current) drug therapy
CPT/HCPCS: 36415; 80048; 83880

== ENCOUNTER 2020-08-13 13:33 | Outpatient (CLI) | payer MEDICARE, BC ==
[2020-08-13 14:05] LABS: BASOPHILS # (AUTO) 0.1 10^3/uL (0.0-0.1); BASOPHILS % (AUTO) 0.7 %; EOSINOPHILS # (AUTO) 0.2 10^3/uL (0.0-0.7); EOSINOPHILS % (AUTO) 3.1 %; HGB - HEMOGLOBIN 8.8 g/dL (12.0-16.0); LYMPHOCYTES # (AUTO) 1.3 10^3/uL (1.5-3.5); LYMPHOCYTES % (AUTO) 18.4 %; MEAN CORPUSCULAR HEMOGLOBIN 29.2 pg (27.0-31.0); MEAN CORPUSCULAR HGB CONC 30.9 g/dL (32.0-36.0); MEAN CORPUSCULAR VOLUME 94.7 fL (81.0-99.0); MEAN PLATELET VOLUME 12.1 fL (7.9-10.8); MONOCYTES # (AUTO) 2.5 10^3/uL (0.0-1.0); NEUTROPHILS # (AUTO) 2.9 10^3/uL (1.5-6.6); NEUTROPHILS % (AUTO) 41.3 %; PLT - PLATELET COUNT 237 10^3/uL (130-450); RED BLOOD COUNT 3.01 10^6/uL (4.20-5.40); RED CELL DISTRIBUTION WIDTH 14.9 % (12.0-15.0); WHITE BLOOD COUNT 7.1 x10^3/uL (4.8-10.8)
[2020-08-13 14:13] LABS: BILIRUBIN,URINE NEGATIVE (NEGATIVE); GLUCOSE, URINE (UA) NEGATIVE (NEGATIVE); KETONES,URINE (UA) NEGATIVE (NEGATIVE); LEUKOCYTE ESTERASE, URINE TRACE (NEGATIVE); NITRITE,URINE POSITIVE (NEGATIVE); OCCULT BLOOD,URINE TRACE-INTA (NEGATIVE); PH,URINE 6.5 PH (5.0-7.5); PROTEIN,URINE NEGATIVE (NEGATIVE); UROBILINOGEN,URINE 0.2 (NORMAL) E.U./dL (NORMAL)
[2020-08-13 14:16] LABS: CLARITY,URINE HAZY (CLEAR)
[2020-08-13 14:21] LABS: ALBUMIN 3.2 g/dL (3.2-5.5); ALKALINE PHOSPHATASE 245 IU/L (42-121); ALT ALANINE AMINOTRANSFERASE 12 IU/L (10-60); AST ASPARTATE AMINOTRANSFERASE 18 IU/L (10-42); BILIRUBIN,TOTAL 0.7 mg/dL (0.2-1.0); BUN - BLOOD UREA NITROGEN 20 mg/dL (6-20); CALCIUM 10.6 mg/dL (8.5-10.3); CARBON DIOXIDE - CO2 26 mmol/L (21-32); CHLORIDE 99 mmol/L (101-111); CREATININE 1.3 mg/dL (0.4-1.0); GLUCOSE 124 mg/dL (70-100); SODIUM 136 mmol/L (135-145); TOTAL PROTEIN 7.6 g/dL (6.7-8.2)
[2020-08-13 14:22] LABS: BILIRUBIN,DIRECT < 0.1 mg/dL (0.1-0.5)
[2020-08-13 14:30] LABS: PLATELET MORPHOLOGY RARE GIANT PLATELETS (NORMAL)
[2020-08-13 14:51] LABS: THYROID STIMULATING HORMONE 2.54 uIU/mL (0.34-5.60)
[2020-08-13 14:53] LABS: FREE T4 (FREE THYROXINE) 1.43 ng/dL (0.58-1.64)
== END 2020-08-13 13:34 | disposition home or self-care (01) ==
LOC: LAB 13:33
PROVIDERS: ATTEND Physician Assistant Medical
DX: C64.2 Malignant neoplasm of left kidney, except renal pelvis (principal); Z79.899 Other long term (current) drug therapy
CPT/HCPCS: 36415; 80048; 80076; 81003; 84439; 84443; 85025

== ENCOUNTER 2020-08-25 12:15 | Outpatient (CLI) | payer MEDICARE, BC ==
[2020-08-25 14:47] LABS: BILIRUBIN,URINE NEGATIVE (NEGATIVE); GLUCOSE, URINE (UA) NEGATIVE (NEGATIVE); KETONES,URINE (UA) NEGATIVE (NEGATIVE); LEUKOCYTE ESTERASE, URINE TRACE (NEGATIVE); NITRITE,URINE NEGATIVE (NEGATIVE); OCCULT BLOOD,URINE MODERATE (NEGATIVE); PH,URINE 5.5 PH (5.0-7.5); PROTEIN,URINE NEGATIVE (NEGATIVE); UROBILINOGEN,URINE 0.2 (NORMAL) E.U./dL (NORMAL)
[2020-08-25 15:07] LABS: CLARITY,URINE HAZY (CLEAR)
[2020-08-25 15:10] LABS: BACTERIA,URINE Many /HPF (None Seen); RBC,URINE TNTC /HPF (0-5); SQUAMOUS EPITHELIAL CELL,UR FEW Squamous (<= Few)
== END 2020-08-25 12:16 | disposition home or self-care (01) ==
LOC: LAB.R 12:15
PROVIDERS: ATTEND Internal Medicine Medical Oncology
DX: N39.0 Urinary tract infection, site not specified (principal)
CPT/HCPCS: 81001; 81003; 87077; 87086; 87181

== ENCOUNTER 2020-09-02 07:00 | Outpatient (CLI) | payer MEDICARE, BC ==
[2020-09-02 14:49] LABS: ALBUMIN 3.5 g/dL (3.2-5.5); ALBUMIN/GLOBULIN RATIO 0.7 (1.0-2.2); ALKALINE PHOSPHATASE 174 IU/L (42-121); ALT ALANINE AMINOTRANSFERASE 14 IU/L (10-60); AST ASPARTATE AMINOTRANSFERASE 22 IU/L (10-42); BILIRUBIN,TOTAL 0.6 mg/dL (0.2-1.0); BUN - BLOOD UREA NITROGEN 23 mg/dL (6-20); CALCIUM 10.4 mg/dL (8.5-10.3); CARBON DIOXIDE - CO2 26 mmol/L (21-32); CHLORIDE 99 mmol/L (101-111); CHOL/HDL RATIO 2.7 (<4.4); CHOLESTEROL 117 mg/dL; CREATININE 1.3 mg/dL (0.4-1.0); GLUCOSE 158 mg/dL (70-100); HDL CHOLESTEROL 44 mg/dL; LDL CHOLESTEROL,CALCULATED 51 mg/dL; LDL/HDL RATIO 1.2 (<4.4); SODIUM 135 mmol/L (135-145); TOTAL PROTEIN 8.4 g/dL (6.7-8.2); VLDL CHOLESTEROL 22 mg/dL
[2020-09-02] MEDS ORDERED: IOVERSOL 320 100 ML VIAL IVP ONE ×2 (15:02→15:28)
--- NOTE | 2020-09-02 16:19 | CT Report ---
PROCEDURE: ANGIO CHEST W/WO INDICATIONS: OTHER CHEST PAIN CONTRAST: IV CONTRAST: Optiray 320 ml: 80 PO CONTRAST: *NO PO CONTRAST TECHNIQUE: After the administration of intravenous contrast, 2 mm thick sections acquired from the pulmonary api rosa isela to the posterior costophrenic angles. 3-dimensional maximum intensity projection (MIP) coronal a nd sagittal reformats were then acquired through the thorax. For radiation dose reduction, the follow ing was used: automated exposure control, adjustment of mA and/or kV according to patient size. COMPARISON: 01/29/2020 FINDINGS: Image quality: Excellent. Pulmonary arteries: Pulmonary arteries are normal in size, and demonstrate no intraluminal filling d efects to suggest central pulmonary embolism. Lungs and pleura: Previously described large right upper lobe mass has decreased in size now measurin g approximately 5.0 x 3.4 cm in transverse dimension (image 118, series 6). It previously measured ap proximately X 0.7 cm x 6.8 cm. It remains contiguous with the right hilum and right hilar adenopathy. Numerous smaller rounded likely metastatic nodules are seen scattered throughout the inferior right upper lobe and right middle lobe. Small bilateral pleural effusions. Interval increase in size of sca ttered mediastinal lymphadenopathy most pronounced in the AP window, now measuring 1.9 cm in short ax is dimension versus 1.5 cm previously. Subcarinal lymphadenopathy also more pronounced now measuring 1.8 cm in short axis dimension versus 1.3 cm previously. Diffuse patchy ground glass opacities are ag ain noted in the right upper lobe. Mild septal thickening. There is also patchy bibasilar groundglass opacities. Findings are most pronounced in the medial right lung base. Mild ground glass opacities o f the medial left upper lobe inferiorly. No pneumothorax. Central and peripheral airways are patent. Mediastinum: Heart size is normal, without pericardial effusion. No mediastinal or hilar adenopathy . Thoracic aorta is normal in caliber and enhancement. Esophagus is normal in caliber, without hiat al hernia. Bones and chest wall: No suspicious bony lesions. Healed left third through fifth rib fracture defor mities laterally. No definite osseous metastatic disease noted. Multilevel thoracic spondylitic murphy es and degenerative endplate changes seen. The thyroid is unremarkable. No axillary or supraclavicul ar adenopathy. Surgical clips noted in the left axilla. Bilateral total shoulder arthroplasty hardwa re obscures visualization of the upper chest secondary to significant beam hardening and streak artif act. Abdomen: Common bile duct stent is again noted but appears to have migrated in positioning. There is new pneumobilia. Status post cholecystectomy. Partially imaged hernia sac of known ventral abdominal hernia. Stable appearance of left adrenal nodule. Incidental splenule is again noted. Previous descr ibed liver mass is not appreciated on today's examination. There is however, stable appearance of pro minent, bulbous contour of the lateral segment of the left hepatic lobe. No definite focal enhancing mass lesion seen. IMPRESSION: No acute pulmonary emboli. Interval decrease in size of previously described large right upper lobe soft tissue mass immediately contiguous with the right hilum and right hilar adenopathy. However, there has been progression of h ilar adenopathy as described above. Additionally, numerous new metastatic nodules are seen in the ri ght upper lobe and right middle lobe consistent with disease progression. Small bilateral pleural effusions with associated compressive atelectasis. Diffuse patchy groundglass opacities of the right upper lobe and bilateral lower lobes may represent an infectious versus inflammatory process versus pulmonary hemorrhage. These have not changed signifi cantly in distribution. Clinical correlation recommended. Previous described large tumor within the liver is difficult to delineate given phase of contrast on this examination. Previously seen common bile duct stent appears to have migrated in location with new moderate scatter ed pneumobilia noted. Findings were discussed with ESTUARDO Ko at 1615hrs. Reviewed by: Ricardo Cain MD on 09/02/2020 4:18 PM PST Approved by: Ricardo Cain MD on 09/02/2020 4:18 PM PST Station ID: [id number]
== END 2020-09-02 23:59 | disposition home or self-care (01) ==
LOC: DI 07:00
PROVIDERS: ATTEND Physician Assistant Medical
DX: R91.8 Other nonspecific abnormal finding of lung field (principal); C78.01 Secondary malignant neoplasm of right lung; J90 Pleural effusion, not elsewhere classified; D49.0 Neoplasm of unspecified behavior of digestive system; K83.8 Other specified diseases of biliary tract; I50.30 Unspecified diastolic (congestive) heart failure; R06.02 Shortness of breath; R07.89 Other chest pain; Z79.899 Other long term (current) drug therapy; Z51.81 Encounter for therapeutic drug level monitoring; R59.0 Localized enlarged lymph nodes
CPT/HCPCS: 36415; 71046; 71275; 80053; 80061; 83880; 85379; Q9967; 83721

== ENCOUNTER 2020-09-02 07:00 | Outpatient (CLI) | payer MEDICARE, BC ==
--- NOTE | 2020-09-02 12:53 | XRAY Report ---
PROCEDURE: Chest 2 View X-Ray INDICATIONS: SHORTNESS OF BREATH TECHNIQUE: 2 view(s) of the chest. COMPARISON: CTA chest 01/30/2020. FINDINGS: Surgical changes and devices: Status post bilateral shoulder arthroplasties. Left axillary surgical clips. Lungs and pleura: Persistent right midlung mass and bilateral right greater than left perihilar full ness consistent with hilar adenopathy seen on comparison CT. Patchy opacities in the right upper lobe , medial left upper lobe and left lung base consistent with previously seen ground glass opacities on comparison CT. No new focal consolidations or acute airspace disease. No substantial pleural effusio ns or pneumothorax. Mediastinum: Mediastinal contours are stable. Heart size is normal. Bones and chest wall: No suspicious bony abnormalities. Soft tissues appear unremarkable. IMPRESSION: 1. Right midlung mass and bilateral hilar adenopathy as noted on prior CT. 2. Stable distribution of patchy bilateral opacities most pronounced in the right upper lobe correla ting with ground glass opacities seen on CT. Finding is nonspecific and may represent an inflammator y/infectious process or pulmonary edema. Reviewed by: Ricardo Cain MD on 09/02/2020 12:52 PM PST Approved by: Ricardo Cain MD on 09/02/2020 12:52 PM PST Station ID: [id number]
== END 2020-09-02 23:59 | disposition home or self-care (01) ==
LOC: DI.S 07:00
PROVIDERS: ATTEND Physician Assistant Medical
DX: R59.0 Localized enlarged lymph nodes (principal); R91.8 Other nonspecific abnormal finding of lung field

== ENCOUNTER 2020-09-13 11:53 | Outpatient (CLI) | payer MEDICARE, BC ==
[2020-09-13 12:17] LABS: BASOPHILS % (AUTO) 0.8 %; EOSINOPHILS % (AUTO) 1.1 %; HGB - HEMOGLOBIN 8.7 g/dL (12.0-16.0); LYMPHOCYTES % (AUTO) 19.2 %; MEAN CORPUSCULAR HEMOGLOBIN 28.1 pg (27.0-31.0); MEAN CORPUSCULAR HGB CONC 30.5 g/dL (32.0-36.0); MEAN CORPUSCULAR VOLUME 91.9 fL (81.0-99.0); MEAN PLATELET VOLUME 12.1 fL (7.9-10.8); MONOCYTES % (AUTO) 38.9 %; PLT - PLATELET COUNT 193 10^3/uL (130-450); RED CELL DISTRIBUTION WIDTH 14.1 % (12.0-15.0); WHITE BLOOD COUNT 6.2 x10^3/uL (4.8-10.8)
[2020-09-13 12:37] LABS: ALBUMIN 3.5 g/dL (3.2-5.5); ALBUMIN/GLOBULIN RATIO 0.8 (1.0-2.2); BILIRUBIN,DIRECT 0.1 mg/dL (0.1-0.5); BILIRUBIN,TOTAL 0.4 mg/dL (0.2-1.0); CALCIUM 10.4 mg/dL (8.5-10.3); CREATININE 1.3 mg/dL (0.4-1.0); TOTAL PROTEIN 7.8 g/dL (6.7-8.2)
[2020-09-13 12:48] LABS: THYROID STIMULATING HORMONE 5.47 uIU/mL (0.34-5.60)
[2020-09-13 12:50] LABS: FREE T4 (FREE THYROXINE) 1.13 ng/dL (0.58-1.64)
[2020-09-13 13:02] LABS: BILIRUBIN,URINE NEGATIVE (NEGATIVE); GLUCOSE, URINE (UA) NEGATIVE (NEGATIVE); KETONES,URINE (UA) NEGATIVE (NEGATIVE); LEUKOCYTE ESTERASE, URINE NEGATIVE (NEGATIVE); NITRITE,URINE NEGATIVE (NEGATIVE); OCCULT BLOOD,URINE NEGATIVE (NEGATIVE); PROTEIN,URINE NEGATIVE (NEGATIVE); UROBILINOGEN,URINE 0.2 (NORMAL) E.U./dL (NORMAL)
[2020-09-13 13:03] LABS: CLARITY,URINE CLEAR (CLEAR)
[2020-09-13 13:11] LABS: ABNORMAL LYMPHS % (MANUAL) 0 %; BAND NEUTROPHILS % (MANUAL) 0 %
[2020-09-13 13:27] LABS: BASOPHILS # (MANUAL) 0.2 10^3/uL (0-0.1); BASOPHILS % (MANUAL) 4 %; EOSINOPHILS # (MANUAL) 0.1 10^3/uL (0-0.7); LYMPHOCYTES # (MANUAL) 1.1 10^3/uL (1.5-3.5); LYMPHOCYTES % (MANUAL) 18 %; MONOCYTES # (MANUAL) 2.2 10^3/uL (0.0-1.0)
[2020-09-13 13:29] LABS: DIFFERENTIAL COMMENT MANUAL DIFFERENTIAL; PLATELET ESTIMATE, MANUAL NORMAL (130-450,000) (NORMAL); PLATELET MORPHOLOGY NORMAL APPEARANCE (NORMAL); RBC MORPHOLOGY (MULTIPLE) NORMAL APPEARANCE (NORMAL)
== END 2020-09-13 11:54 | disposition home or self-care (01) ==
LOC: LAB 11:53
PROVIDERS: ATTEND Physician Assistant Medical
DX: C64.2 Malignant neoplasm of left kidney, except renal pelvis (principal); Z79.899 Other long term (current) drug therapy
CPT/HCPCS: 36415; 80053; 80076; 81003; 84439; 84443; 85025

== ENCOUNTER 2020-09-23 13:32 | Outpatient (CLI) | payer MEDICARE, BC ==
--- NOTE | 2020-09-23 16:32 | Ultrasound Report ---
PROCEDURE: Ext Limited Non Vascular INDICATIONS: PALPABLE MASS IN LT LEG TECHNIQUE: Real-time scanning was performed of the left lateral/posterior mid calf, with image docum entation. COMPARISON: None. FINDINGS: Soft tissue ultrasound, grayscale and Doppler of the left lateral/posterior mid calf in th e area of palpable abnormality was performed. No abnormality is identified. IMPRESSION: No mass, fluid collection, or lipoma is identified. Reviewed by: Jorge Samano on 09/23/2020 4:31 PM [facility] Approved by: Jorge Samano on 09/23/2020 4:31 PM [facility] Station ID: [id number]
== END 2020-09-23 13:33 | disposition home or self-care (01) ==
LOC: DI 13:32
PROVIDERS: ATTEND Physician Assistant Medical
DX: R22.42 Localized swelling, mass and lump, left lower limb (principal)

== ENCOUNTER 2020-09-28 10:06 | Outpatient (CLI) | payer MEDICARE, BC ==
[2020-09-28 10:46] LABS: CALCIUM 10.9 mg/dL (8.5-10.3); CREATININE 1.4 mg/dL (0.4-1.0); MAGNESIUM 2.3 mg/dL (1.7-2.8)
== END 2020-09-28 10:07 | disposition home or self-care (01) ==
LOC: LAB 10:06
PROVIDERS: ATTEND Physician Assistant
DX: I11.0 Hypertensive heart disease with heart failure (principal); I50.30 Unspecified diastolic (congestive) heart failure; N17.0 Acute kidney failure with tubular necrosis; Z51.81 Encounter for therapeutic drug level monitoring; Z79.899 Other long term (current) drug therapy
CPT/HCPCS: 36415; 80048; 83735; 83880

== ENCOUNTER 2020-10-12 10:17 | Outpatient (CLI) | payer MEDICARE, BC ==
[2020-10-12 10:56] LABS: BASOPHILS % (AUTO) 0.8 %; EOSINOPHILS # (AUTO) 0.1 10^3/uL (0.0-0.7); EOSINOPHILS % (AUTO) 1.4 %; HGB - HEMOGLOBIN 10.8 g/dL (12.0-16.0); LYMPHOCYTES # (AUTO) 1.1 10^3/uL (1.5-3.5); LYMPHOCYTES % (AUTO) 22.8 %; MEAN CORPUSCULAR HEMOGLOBIN 26.9 pg (27.0-31.0); MEAN CORPUSCULAR HGB CONC 30.1 g/dL (32.0-36.0); MEAN CORPUSCULAR VOLUME 89.3 fL (81.0-99.0); MEAN PLATELET VOLUME 12.7 fL (7.9-10.8); MONOCYTES # (AUTO) 1.5 10^3/uL (0.0-1.0); NEUTROPHILS # (AUTO) 2.2 10^3/uL (1.5-6.6); NEUTROPHILS % (AUTO) 44.2 %; PLT - PLATELET COUNT 157 10^3/uL (130-450); RED BLOOD COUNT 4.02 10^6/uL (4.20-5.40); RED CELL DISTRIBUTION WIDTH 13.2 % (12.0-15.0); WHITE BLOOD COUNT 4.9 x10^3/uL (4.8-10.8)
[2020-10-12 11:13] LABS: ALKALINE PHOSPHATASE 153 IU/L (42-121); ALT ALANINE AMINOTRANSFERASE 17 IU/L (10-60); AST ASPARTATE AMINOTRANSFERASE 23 IU/L (10-42); BILIRUBIN,TOTAL 0.3 mg/dL (0.2-1.0); BUN - BLOOD UREA NITROGEN 43 mg/dL (6-20); CALCIUM 11.2 mg/dL (8.5-10.3); CARBON DIOXIDE - CO2 28 mmol/L (21-32); CHLORIDE 102 mmol/L (101-111); CREATININE 1.3 mg/dL (0.4-1.0); GLUCOSE 147 mg/dL (70-100); SODIUM 139 mmol/L (135-145); TOTAL PROTEIN 8.4 g/dL (6.7-8.2)
[2020-10-12 11:19] LABS: BILIRUBIN,URINE NEGATIVE (NEGATIVE); GLUCOSE, URINE (UA) NEGATIVE (NEGATIVE); KETONES,URINE (UA) NEGATIVE (NEGATIVE); LEUKOCYTE ESTERASE, URINE SMALL (NEGATIVE); NITRITE,URINE NEGATIVE (NEGATIVE); OCCULT BLOOD,URINE TRACE-INTA (NEGATIVE); PH,URINE 6.5 PH (5.0-7.5); PROTEIN,URINE NEGATIVE (NEGATIVE); UROBILINOGEN,URINE 0.2 (NORMAL) E.U./dL (NORMAL)
[2020-10-12 11:20] LABS: CLARITY,URINE HAZY (CLEAR)
[2020-10-12 11:27] LABS: BILIRUBIN,DIRECT < 0.1 mg/dL (0.1-0.5)
[2020-10-12 11:29] LABS: BACTERIA,URINE Few /HPF (None Seen); RBC,URINE 0-5 /HPF (0-5); SQUAMOUS EPITHELIAL CELL,UR FEW Squamous (<= Few); WBC CLUMPS,URINE PRESENT
[2020-10-12 11:30] LABS: THYROID STIMULATING HORMONE 2.22 uIU/mL (0.34-5.60)
[2020-10-12 11:32] LABS: FREE T4 (FREE THYROXINE) 1.5 ng/dL (0.58-1.64)
== END 2020-10-12 10:18 | disposition home or self-care (01) ==
LOC: LAB 10:17
PROVIDERS: ATTEND Internal Medicine Medical Oncology
DX: C64.2 Malignant neoplasm of left kidney, except renal pelvis (principal); Z79.899 Other long term (current) drug therapy
CPT/HCPCS: 36415; 80048; 80076; 81001; 83615; 83880; 84439; 84443; 85025; 87077; 87086; 87181

== ENCOUNTER 2020-10-27 10:31 | Outpatient (CLI) | payer MEDICARE, BC ==
--- OUTSIDE RECORDS SUMMARY | 2020-10-27 10:35 | EXTERNAL MEDICAL SUMMARY RPT | Continuity of Care Document ---
:1950 Demographics Phone Unavailable Preferred Language Malay Marital Status Unknown Mandaeism Affiliation Unknown Race Unknown Ethnic Group Unknown Author Organization [place] Address [address] [place] [address] Phone Care Team Providers Name Role Phone Blade Unavailable Unavailable PA-C Unavailable Unavailable PA-C Unavailable Unavailable MA Unavailable Unavailable Problems date description facility 2020-07-28 10:38 ACUTE POSTHEMORRHAGIC ANEMIA [facility] 2020-08-05 10:12 ENCOUNTER FOR THERAPEUTIC DRUG [facility] LEVEL MONITORING 2020-08-05 10:12 OTHER [facility] (CURRENT) DRUG [facility] THERAPY 2020-08-13 13:33 MALIGNANT NEOPLASM OF LEFT [facility], EXCEPT RENAL PELVIS 2020-08-25 00:00 URINARY TRACT INFECTION, SITE [facility] NOT SPECIFIED 2020-08-25 12:15 URINARY TRACT INFECTION, SITE [facility] NOT SPECIFIED 2020-09-02 00:00 UNSPECIFIED DIASTOLIC [facility] (CONGESTIVE) HEART FAILURE 2020-09-02 00:00 SHORTNESS OF BREATH [facility] 2020-09-02 00:00 OTHER [facility] (CURRENT) DRUG [facility] THERAPY 2020-09-02 00:00:00 CT ANGIO CHEST W/WO [facility] gical Care 2020-09-02 00:00:00 [facility] 2020-09-02 00:00:00 Other [facility] 2020-09-02 00:00:00 Details of drug misuse [facility] 2020-09-02 00:00:00 [facility] 2020-09-02 00:00:00 [facility] 2020-09-02 00:00:00 Tight chest [facility] 2020-09-02 00:00:00 Exercise [facility] 2020-09-02 00:00:00 Total score? [facility] 2020-09-02 00:00:00 X-RAY EXAM CHEST [address] [facility] h Surgical Care 2020-09-02 00:00:00 Health-related behavior [facility] Surgical Care 2020-09-02 00:00:00 Dyspnea [facility] 2020-09-02 07:00 SECONDARY MALIGNANT NEOPLASM OF [facility] RIGHT LUNG 2020-09-02 07:00 NEOPLASM OF UNSPECIFIED BEHAVIOR [facility] OF DIGESTIVE SYSTEM 2020-09-02 07:00 UNSPECIFIED DIASTOLIC [facility] (CONGESTIVE) HEART FAILURE 2020-09-02 07:00 PLEURAL EFFUSION, NOT ELSEWHERE [facility] CLASSIFIED 2020-09-02 07:00 OTHER SPECIFIED DISEASES OF [facility] BILIARY TRACT 2020-09-02 07:00 SHORTNESS OF BREATH [facility] 2020-09-02 07:00 OTHER CHEST PAIN [facility] 2020-09-02 07:00 LOCALIZED ENLARGED LYMPH NODES [facility] 2020-09-02 07:00 OTHER NONSPECIFIC ABNORMAL [facility] FINDING OF LUNG FIELD 2020-09-02 07:00 ENCOUNTER FOR THERAPEUTIC DRUG [facility] LEVEL MONITORING 2020-09-02 07:00 OTHER [facility] (CURRENT) DRUG [facility] THERAPY 2020-09-02 14:30 UNSPECIFIED DIASTOLIC [facility] (CONGESTIVE) HEART FAILURE 2020-09-02 14:30 SHORTNESS OF BREATH [facility] 2020-09-02 14:30 OTHER CHEST PAIN [facility] 2020-09-02 14:30 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 [facility] THERAPY 2020-09-13 11:53 MALIGNANT NEOPLASM OF LEFT [facility], EXCEPT RENAL PELVIS 2020-09-13 11:53 OTHER [facility] (CURRENT) DRUG [facility] THERAPY 2020-09-27 00:00:00 Impacted cerumen [facility] 2020-09-27 00:00:00 Impacted cerumen, [facility] 2020-09-27 00:00:00 Excessive cerumen in ear canal [facility] Surgical Care 2020-09-27 00:00:00 Health-related behavior [facility] Surgical Care 2020-09-27 00:00:00 Exercise [facility] ical Care 2020-09-27 00:00:00 Details of drug misuse behavior [facility] Surgical Care 2020-09-27 00:00:00 Alcohol use [facility] Care 2020-09-27 00:00:00 Total score? [facility] Surg [facility] Care 2020-09-28 10:06 HYPERTENSIVE HEART DISEASE WITH [facility] HEART FAILURE 2020-09-28 10:06 UNSPECIFIED DIASTOLIC [facility] (CONGESTIVE) HEART FAILURE 2020-09-28 10:06 ACUTE KIDNEY FAILURE WITH [facility] TUBULAR NECROSIS 2020-09-28 10:06 ENCOUNTER FOR THERAPEUTIC DRUG [facility] LEVEL MONITORING 2020-09-28 10:06 OTHER [facility] (CURRENT) DRUG [facility] THERAPY 2020-10-12 10:17 MALIGNANT NEOPLASM OF LEFT [facility], EXCEPT RENAL PELVIS 2020-10-12 10:17 OTHER [facility] (CURRENT) DRUG [facility] THERAPY Allergies date description facility ADHESIVE \T\ TAPE [facility] CIPROFLOXACIN [facility] WOUND DRESSINGS [facility] NO KNOWN ENVIRONMENTAL ALLERGIES [facility] SULFA ANTIBIOTICS [facility] TETRACYCLINES \T\ RELATED [facility] LACTOSE [facility] AMOXICILLIN [facility] [place] NEOMYCIN-POLYMYXIN [facility] NO KNOWN ALLERGIES [facility]ODINE [facility] LATEX [facility] [place] SHELLFISH-DERIVED PRODUCTS [facility] Penicillins [facility] ADHESIVE TAPE [facility] DOXAZOSIN [facility] GENTAMICIN [facility] POLYMYXINS [facility] PRAMOXINE [facility] PRILOCAINE [facility] TRIAMCINOLONE ACETONIDE (BULK) [facility] NO KNOWN ALLERGIES [facility] PROCAINE [facility] Penicillins [facility] Medications date description facility 2020-09-27 00:00:00 null [facility] 2020-09-27 00:00:00 null [facility] 2020-09-27 00:00:00 [facility] 2020-09-27 [facility]:00[facility] 2020-09-27 00:00:00 null [facility] 2020-09-27 00:00:00 null [facility] 2020-09-27 00:00:00 null [facility] 2020-09-27 00:00:00 null [facility] 2020-09-27 00:00:00 null [facility] 2020-09-27 00:00:00 [facility] 2020-09-27 00:[facility] 2020-09-27 00:00:00 null [facility] 2020-09-27 00:00:00 METOCLOPRAMIDE HCL [facility] 2020-09-27 00:00:00 ATORVASTATIN CALCIUM [facility] rgical Care 2020-09-27 00:00:00 G[facility]APENTIN [facility] 2020-09-27 00:00:00 METOPROLOL TARTRATE [facility] g[facility] Care 2020-09-27 00:00:00 TRIAMTERENE-HCTZ [facility] 2020-09-27 00:00:00 POTASSIUM CHLORIDE [facility] 2020-09-27 00:00:00 G[facility]APENTIN [facility] 2020-09-27 00:00:00 TRIAMTERENE-HCTZ [facility] ical Care 2020-09-27 00:00:00 METOCLOPRAMIDE HCL [facility] 2020-09-27 00:00:00 POTASSIUM CHLORIDE [facility] 2020-09-27 00:00:00 ATORVASTATIN CALCIUM [facility] rgical Care 2020-09-27 00:00:00 METOPROLOL TARTRATE [facility] g[facility] Care Procedures date description facility 2020-09-02 00:00:00 [facility] date description facility 2020-09-02 [facility] date description facility 2020-09-02 00:00:00 [facility] date description facility 2020-09-02 [facility] date description facility 2020-09-02 00:00:00 [facility] date description facility 2020-09-02 00:00:00 [facility] date description facility 2020-09-27 00:00:00 Ear Lavage, unilateral [facility] date description facility 2020-09-27 00:00:00 [facility] Results Social History date description facility [id number]
[2020-10-27 11:27] LABS: VBG PH 7.392 (7.31-7.41)
[2020-10-27 11:41] LABS: CREATININE 1.6 mg/dL (0.4-1.0)
== END 2020-10-27 10:32 | disposition home or self-care (01) ==
LOC: LAB 10:31
PROVIDERS: ATTEND Internal Medicine Medical Oncology
DX: C64.2 Malignant neoplasm of left kidney, except renal pelvis (principal)
CPT/HCPCS: 36415; 80048; 81599; 82306; 82330; 83519; 83970

== ENCOUNTER 2020-11-02 08:00 | Outpatient (CLI) | payer MEDICARE, BC ==
[2020-11-02 11:15] LABS: ALBUMIN 3.9 g/dL (3.2-5.5); BILIRUBIN,TOTAL 0.4 mg/dL (0.2-1.0); CALCIUM 11.9 mg/dL (8.5-10.3); CREATININE 1.5 mg/dL (0.4-1.0)
== END 2020-11-02 23:59 | disposition home or self-care (01) ==
LOC: LAB 08:00
PROVIDERS: ATTEND Internal Medicine Advanced Heart Failure and Transplant Cardiology
DX: Z51.81 Encounter for therapeutic drug level monitoring (principal); Z79.899 Other long term (current) drug therapy
CPT/HCPCS: 36415; 80053

== ENCOUNTER 2020-11-11 08:00 | Outpatient (CLI) | payer MEDICARE, BC ==
[2020-11-11 11:02] LABS: BASOPHILS % (AUTO) 0.6 %; EOSINOPHILS # (AUTO) 0.1 10^3/uL (0.0-0.7); EOSINOPHILS % (AUTO) 1.8 %; HGB - HEMOGLOBIN 10.6 g/dL (12.0-16.0); LYMPHOCYTES % (AUTO) 15.4 %; MEAN CORPUSCULAR HEMOGLOBIN 26.5 pg (27.0-31.0); MEAN CORPUSCULAR HGB CONC 30.9 g/dL (32.0-36.0); MEAN CORPUSCULAR VOLUME 85.8 fL (81.0-99.0); MEAN PLATELET VOLUME 11.9 fL (7.9-10.8); MONOCYTES # (AUTO) 1.7 10^3/uL (0.0-1.0); NEUTROPHILS # (AUTO) 3.7 10^3/uL (1.5-6.6); NEUTROPHILS % (AUTO) 55.6 %; PLT - PLATELET COUNT 148 10^3/uL (130-450); RED CELL DISTRIBUTION WIDTH 13.7 % (12.0-15.0); WHITE BLOOD COUNT 6.7 x10^3/uL (4.8-10.8)
[2020-11-11 11:13] LABS: BILIRUBIN,URINE NEGATIVE (NEGATIVE); GLUCOSE, URINE (UA) NEGATIVE (NEGATIVE); KETONES,URINE (UA) NEGATIVE (NEGATIVE); LEUKOCYTE ESTERASE, URINE TRACE (NEGATIVE); NITRITE,URINE NEGATIVE (NEGATIVE); OCCULT BLOOD,URINE MODERATE (NEGATIVE); PROTEIN,URINE 30 mg/dL (NEGATIVE); UROBILINOGEN,URINE 0.2 (NORMAL) E.U./dL (NORMAL)
[2020-11-11 11:14] LABS: CLARITY,URINE CLEAR (CLEAR)
[2020-11-11 11:21] LABS: BACTERIA,URINE Few /HPF (None Seen); SQUAMOUS EPITHELIAL CELL,UR FEW Squamous (<= Few)
[2020-11-11 11:23] LABS: ALBUMIN 3.7 g/dL (3.2-5.5); ALBUMIN/GLOBULIN RATIO 0.9 (1.0-2.2); BILIRUBIN,DIRECT 0.1 mg/dL (0.1-0.5); BILIRUBIN,TOTAL 0.4 mg/dL (0.2-1.0); CALCIUM 11.7 mg/dL (8.5-10.3); CREATININE 1.3 mg/dL (0.4-1.0); TOTAL PROTEIN 7.7 g/dL (6.7-8.2)
[2020-11-11 11:36] LABS: THYROID STIMULATING HORMONE 3.72 uIU/mL (0.34-5.60)
[2020-11-11 11:38] LABS: FREE T4 (FREE THYROXINE) 1.4 ng/dL (0.58-1.64)
[2020-11-11 11:56] LABS: RBC MORPHOLOGY (MULTIPLE) 2+ ANISOCYTOSIS (NORMAL)
== END 2020-11-11 23:59 | disposition home or self-care (01) ==
LOC: LAB 08:00
PROVIDERS: ATTEND Physician Assistant Medical
DX: C64.2 Malignant neoplasm of left kidney, except renal pelvis (principal); I50.30 Unspecified diastolic (congestive) heart failure
CPT/HCPCS: 36415; 80053; 80076; 81001; 82248; 83615; 84439; 84443; 85025; 87077; 87086

== ENCOUNTER 2020-12-30 10:16 | Outpatient (CLI) | payer MEDICARE, BC ==
[2020-12-30 11:01] LABS: ALBUMIN 3.8 g/dL (3.2-5.5); BILIRUBIN,DIRECT 0.1 mg/dL (0.1-0.5); BILIRUBIN,TOTAL 0.6 mg/dL (0.2-1.0)
--- NOTE | 2020-12-30 12:37 | Ultrasound Report ---
PROCEDURE: Abdomen Limited INDICATIONS: KIDNEY CA TECHNIQUE: Real-time scanning was performed of the abdominal and retroperitoneal organs, with image documentatio n. COMPARISON: CT pulmonary angiogram 01/29/2020. CT abdomen and pelvis 10/16/2019. FINDINGS: Exam is technically limited due to to overlying bowel, difficult with breath holds, and limited mobil ity. Liver: Appears normal size. The left lobe of liver is not well seen. Increased in echogenicity. Coars ened echotexture. Gallbladder: Surgically absent Biliary ducts: Prominent intrahepatic bile ducts. The CBD measures 5 mm. CBD stent not well seen. Pancreas: Not well seen. Kidneys: Right kidney measures 10.9 cm; cortex 1.1 cm. Lobular contours. Lower pole calcification. Up per pole simple cyst measuring 1.7 cm. The left renal fossa is not evaluated on this abdominal Limite d exam. IMPRESSION: Technically limited exam. 1. Increased echogenicity of the hepatic parenchyma. This is most commonly seen in hepatic steatosis. Other forms of hepatocellular disease could have a similar appearance. 2. Prominent intrahepatic bile ducts. 3. No right kidney hydronephrosis. Suspect nonobstructing right kidney stone. 4. Postcholecystectomy. Consider CT abdomen and pelvis with IV contrast for further evaluation. Reviewed by: Henri Dial MD on 12/30/2020 11:36 AM OLIVIER Approved by: Henri Dial MD on 12/30/2020 11:36 AM OLIVIER Station ID: [id number]
== END 2020-12-30 10:17 | disposition home or self-care (01) ==
LOC: DI 10:16
PROVIDERS: ATTEND Internal Medicine Medical Oncology
DX: C64.2 Malignant neoplasm of left kidney, except renal pelvis (principal); R74.8 Abnormal levels of other serum enzymes
CPT/HCPCS: 36415; 80076

== ENCOUNTER 2021-01-06 08:55 | Outpatient (CLI) | payer MEDICARE, BC ==
[2021-01-06 09:22] LABS: CALCIUM 10.3 mg/dL (8.5-10.3); POTASSIUM 3.8 mmol/L (3.5-5.0)
[2021-01-07 17:03] LABS: ALBUMIN 3.6 g/dL (3.2-5.5); BILIRUBIN,DIRECT 0.1 mg/dL (0.1-0.5); BILIRUBIN,TOTAL 0.3 mg/dL (0.2-1.0); TOTAL PROTEIN 7.6 g/dL (6.7-8.2)
== END 2021-01-06 08:56 | disposition home or self-care (01) ==
LOC: LAB 08:55
PROVIDERS: ATTEND Nurse Practitioner
DX: N17.9 Acute kidney failure, unspecified (principal); C64.2 Malignant neoplasm of left kidney, except renal pelvis; R79.89 Other specified abnormal findings of blood chemistry
CPT/HCPCS: 36415; 80048; 80076

== ENCOUNTER 2021-02-15 10:05 | Outpatient (CLI) | payer MEDICARE, BC ==
[2021-02-15 10:40] LABS: CALCIUM 10.9 mg/dL (8.5-10.3); CREATININE 1.2 mg/dL (0.4-1.0); POTASSIUM 3.9 mmol/L (3.5-5.0)
== END 2021-02-15 10:06 | disposition home or self-care (01) ==
LOC: LAB 10:05
PROVIDERS: ATTEND Physician Assistant Medical
DX: C64.9 Malignant neoplasm of unspecified kidney, except renal pelvis (principal)
CPT/HCPCS: 36415; 80048

== ENCOUNTER 2021-02-17 13:42 | Outpatient (CLI) | payer MEDICARE, BC ==
[2021-02-17 14:24] LABS: CALCIUM 10.6 mg/dL (8.5-10.3); CREATININE 1.2 mg/dL (0.4-1.0); POTASSIUM 3.5 mmol/L (3.5-5.0)
== END 2021-02-17 13:43 | disposition home or self-care (01) ==
LOC: LAB 13:42
PROVIDERS: ATTEND Physician Assistant
DX: I50.30 Unspecified diastolic (congestive) heart failure (principal); Z51.81 Encounter for therapeutic drug level monitoring; Z79.899 Other long term (current) drug therapy; I50.89 Other heart failure
CPT/HCPCS: 36415; 80048; 83880

== ENCOUNTER 2021-03-09 10:00 | Outpatient (CLI) | payer MEDICARE, BC ==
[2021-03-09 10:30] LABS: CALCIUM 9.5 mg/dL (8.5-10.3); CREATININE 1.3 mg/dL (0.4-1.0); POTASSIUM 4.2 mmol/L (3.5-5.0)
== END 2021-03-09 10:01 | disposition home or self-care (01) ==
LOC: LAB 10:00
PROVIDERS: ATTEND Internal Medicine Advanced Heart Failure and Transplant Cardiology
DX: I50.30 Unspecified diastolic (congestive) heart failure (principal); I50.89 Other heart failure
CPT/HCPCS: 36415; 80048; 83880

== ENCOUNTER 2021-03-10 12:11 | Emergency (ER) | payer MEDICARE, BC ==
--- OUTSIDE RECORDS SUMMARY | 2021-03-10 13:16 | EXTERNAL MEDICAL SUMMARY RPT | Continuity of Care Document ---
:1950 Demographics Phone Unavailable Preferred Language Unknown Marital Status Unknown Hindu Affiliation Unknown Race Unknown Ethnic Group Unknown Author Organization [place] Address [address] [place] [address] Phone Allergies Encounters Medications Problems Results
--- NOTE | 2021-03-10 14:18 | ED Physician Documentation ---
History of Present Illness - Stated complaint Stated Complaint: LOW BP - Chief complaint Chief Complaint: Cardiac - History obtained from History obtained from: Patient, Caregiver - History of Present Illness Timing: How many days ago (5) - Additonal information Additional information: 71-year-old female who is undergoing treatment for renal carcinoma has developed a low blood pressure without symptoms. She has been taken off of her blood pressure medication and her chemo pills have been stopped. She is on Keytruda and she indicates that she has had some improvement since adding a second agent.She denies any fever cough vomiting or dizziness. She herself states that she is not having symptoms with this feels well and yet her blood pressure was 76 this morning. 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: Ovarian cysts, Breast cancer, Other : Other HEENT: Chronic vision loss Psych: None Musculoskeletal: Osteoarthritis, Chronic back pain Derm: None Other Past Medical History: Kidney cancer - Past Surgical History Past Surgical History: Yes General: Cholecystectomy, Appendectomy, Other Ortho: Shoulder arthroplasty /CUSTOM STUDIO COORDINATOR: Hysterectomy, Mastectomy HEENT: Cataracts, Tonsil/Adenoidectomy - Present Medications Home Medications: Ambulatory Orders Medication Instructions Recorded Confirmed Gabapentin 1,200 mg PO HS 07/21/14 03/10/21 amLODIPine [Norvasc] 5 mg PO DAILY 07/21/14 03/10/21 Baclofen 10 mg PO BID PRN 12/15/18 03/10/21 Fluticasone [Flonase] 2 spray NITIN QPM 12/15/18 03/10/21 Oxycodone HCl 5 mg PO Q6H PRN 12/15/18 03/10/21 methocarbamoL [Methocarbamol] 500 mg PO BID 12/15/18 03/10/21 Lactobacill 46/B.animal/Inulin 1 each PO DAILY #5 capsule 01/10/20 03/10/21 [Probiotic-10 10 Bill Cell Cap] Levothyroxine [Synthroid] 125 mcg PO QDAC #30 tablet 01/10/20 03/10/21 Potassium Chloride 20 meq PO BID 01/30/20 03/10/21 Aspirin [[place] Aspirin] 81 mg PO DAILY 03/10/21 03/10/21 Atorvastatin Calcium 40 mg PO HS 03/10/21 03/10/21 Cholecalciferol [Vitamin D3] 1,000 unit PO DAILY 03/10/21 03/10/21 Ciprofloxacin HCl [Cipro] 500 mg PO DAILY 03/10/21 03/10/21 - Allergies Allergies/Adverse Reactions: Allergies Allergy/AdvReac Type Severity Reaction Status Date / Time Penicillins Allergy Unknown Nausea Verified 03/10/21 12:19 - Social History Does the pt smoke?: No Smoking Status: Never smoker Does the pt drink ETOH?: No Does the pt have substance abuse?: No - Immunizations Immunizations are current?: Yes - POLST Patient has POLST: No POLST Status: DNR (Although she does want all treatment up until the moment of her , she does not want CPR or intubation if she has no pulse, pressure, or spontaneous respiration. If we find that she is succumbed to what ever illness and is now with significant cognitive deficits, she would rather be palliative care.) PD ED PE NORMAL - Vitals Vital signs reviewed: Yes (Widened pulse pressure with blood pressure 100/52.) - General General: Alert and oriented X 3, No acute distress, Well developed/nourished - HEENT HEENT: Atraumatic, PERRL, EOMI - Neck Neck: Supple, no meningeal sign, No bony TTP - Cardiac Cardiac: RRR, Other (2 out of 6 holosystolic murmur at the sternal border) - Respiratory Respiratory: No respiratory distress, Clear bilaterally - Abdomen Abdomen: Soft, Non tender - Back Back: No CVA TTP, No spinal TTP - Derm Derm: Normal color, Warm and dry, No rash - Extremities Extremities: No deformity, No edema - Neuro Neuro: Alert and oriented X 3, 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 director 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, No motor deficit, No sensory deficit, Normal speech Eye Opening: Spontaneous Motor: Obeys Commands Verbal: Oriented GCS Score: 15 - Psych Psych: Normal mood, Normal affect Results - Vitals Vitals: Vital Signs - 24 hr 03/10/21 03/10/21 03/10/21 12:19 12:48 14:24 Temperature 36.5 C 36.6 C Heart Rate 74 67 60 Respiratory 16 12 12 Rate Blood Pressure 100/52 L 104/63 107/59 L O2 Saturation 97 96 100 03/10/21 03/10/21 16:00 18:00 Temperature 36.7 C 36.7 C Heart Rate 72 65 Respiratory 19 16 Rate Blood Pressure 107/68 99/61 O2 Saturation 100 100 Oxygen O2 Source Room air - EKG (time done) 1231 Rate: Rate (enter#) (73) Rhythm: NSR QRS: LVH Compare to prior EKG: Changed from prior EKG (SPT 01-30-2020 the rate has decreased, LAE has resolved and the strain pattern with the LVH has resolved. ) Computer interpretation: Agree with computer - Labs Labs: Laboratory Tests 03/10/21 03/10/21 03/10/21 14:30 14:30 14:45 WBC 9.4 RBC 3.09 L Hgb 8.8 L Hct 28.1 L MCV 90.9 MCH 28.5 MCHC 31.3 L RDW 13.9 Plt Count 156 MPV 11.6 H Neut # (Auto) Not Reportable Lymph # (Auto) Not Reportable Morgan # (Auto) Not Reportable Eos # (Auto) Not Reportable Baso # (Auto) Not Reportable Absolute Nucleated RBC Not Reportable Total Counted 100 Band Neuts % (Manual) 1 Reactive Lymphs % (Man) 4 Abnorm Lymph % (Manual) 0 Myelocytes % 1 H Nucleated RBC % Not Reportable Neutrophils # (Manual) 4.9 Lymphocytes # (Manual) 1.4 L Monocytes # (Manual) 2.8 H Eosinophils # (Manual) 0.1 Basophils # (Manual) 0.1 Differential Comment MANUAL DIFFERENTIAL Manual Slide Review Indicated Sodium 133 L Potassium 4.2 Chloride 99 L Carbon Dioxide 27 Anion Gap 7.0 BUN 18 Creatinine 1.3 H Estimated GFR (MDRD) 40 L Glucose 91 Calcium 10.0 Total Bilirubin 0.5 AST 13 ALT 10 Alkaline Phosphatase 112 Total Protein 6.8 Albumin 3.1 L Globulin 3.7 Albumin/Globulin Ratio 0.8 L Lipase 22 Urine Color YELLOW Urine Clarity CLEAR Urine pH 6.0 Ur Specific Rhodes 1.010 Urine Protein TRACE Urine Glucose (UA) NEGATIVE Urine Ketones NEGATIVE Urine Occult Blood TRACE-INTA Urine Nitrite NEGATIVE Urine Bilirubin NEGATIVE Urine Urobilinogen 0.2 (NORMAL) Ur Leukocyte Esterase NEGATIVE Ur Microscopic Review NOT INDICATED Urine Culture Comments NOT INDICATED - Rads (name of study) chest Radiology: Prelim report reviewed (Impression: Consolidation in the right suprahilar and perihilar left midlung. Given the presence of a mass on prior studies in this location, the finding is suspicious for postobstructive atelectasis or pneumonia, potentially with enlargement of the mass. CT of the chest with IV contrast recommend), EMP read indepedently, See rad report Procedures - IVC sono (time) 1400 Bedside IVC sono: IVC measures (cm) (1.33), Dehydration (est <500ml deficit) PD MEDICAL DECISION MAKING - ED course Complexity details: reviewed old records, reviewed results, re-evaluated pat ient, considered differential, d/w patient, d/w family ED course: CT chest with: Impression: 1. Enlarging right upper lobe mass lesion with internal necrosis. Bulky right hilar and mediastinal metastatic adenopathy with smaller left hilar adenopathy also enlarged from prior right upper and lower lobe pulmonary infiltrates/groundglass densities have improved compared to the prior. Differential remains infectious and inflammatory processes as well as sequelae of cancer therapy. Reposition biliary stent. Trace intrahepatic biliary ductal dilation and left hepatic pneumobilia noted. Small stable left adrenal nodule. This patient does not appear to be septic and she is mildly dehydrated. She indicates she is asymptomatic from the low blood pressure and her blood pressure returns to normal. Departure - Departure Disposition: 01 Home, Self Care Clinical Impression: Dehydration, Kidney cancer, primary, with metastasis from kidney to other site Condition: Stable Instructions: ED Dehydration Follow-Up: Deana Meneses MD [Primary Care Provider] - Discharge Date/Time: 03/10/21 19:55
--- NOTE | 2021-03-10 14:28 | XRAY Report ---
PROCEDURE: Chest 1 View X-Ray INDICATIONS: Chest pain TECHNIQUE: One view of the chest was acquired. COMPARISON: 09/02/2020 CT angiogram chest and chest radiographs FINDINGS: Surgical changes and devices: None. Lungs and pleura: Consolidative opacity in the right suprahilar midlung. Given the presence of a mass in the right hilar and perihilar region on comparison studies, this is concerning for postobstructiv e atelectasis or postobstructive pneumonia with possible enlargement of the mass. The left lung and p leural space are clear. Mediastinum: Mediastinal contours appear normal. Heart size is normal. Bones and chest wall: No suspicious bony lesions. Overlying soft tissues appear unremarkable. IMPRESSION: Consolidation in the right suprahilar and perihilar mid lung. Given the presence of a mass on prior s tudies in this location, the finding is suspicious for post obstructive atelectasis or pneumonia, pot entially with enlargement of the mass. CT of the chest with IV contrast recommended for further evalu ation. Reviewed by: Peter Colmenares MD on 03/10/2021 2:26 PM PDT Approved by: Peter Colmenares MD on 03/10/2021 2:26 PM PDT Station ID: [id number]
[2021-03-10 14:34] LABS: HGB - HEMOGLOBIN 8.8 g/dL (12.0-16.0); LYMPHOCYTES % (AUTO) 10.5 %; PLT - PLATELET COUNT 156 10^3/uL (130-450)
[2021-03-10 14:37] LABS: BASOPHILS % (AUTO) 0.5 %; EOSINOPHILS % (AUTO) 2.2 %; HCT - HEMATOCRIT 28.1 % (37.0-47.0); MEAN CORPUSCULAR HEMOGLOBIN 28.5 pg (27.0-31.0); MEAN CORPUSCULAR HGB CONC 31.3 g/dL (32.0-36.0); MEAN CORPUSCULAR VOLUME 90.9 fL (81.0-99.0); MEAN PLATELET VOLUME 11.6 fL (7.9-10.8); NEUTROPHILS % (AUTO) 39.5 %; RED BLOOD COUNT 3.09 10^6/uL (4.20-5.40); RED CELL DISTRIBUTION WIDTH 13.9 % (12.0-15.0); WHITE BLOOD COUNT 9.4 x10^3/uL (4.8-10.8)
[2021-03-10 14:41] LABS: SLIDE REVIEW? Indicated
[2021-03-10 14:42] LABS: ABNORMAL LYMPHS % (MANUAL) 0 %
[2021-03-10 14:49] LABS: ALBUMIN 3.1 g/dL (3.2-5.5); ALBUMIN/GLOBULIN RATIO 0.8 (1.0-2.2); BILIRUBIN,TOTAL 0.5 mg/dL (0.2-1.0); CREATININE 1.3 mg/dL (0.4-1.0); POTASSIUM 4.2 mmol/L (3.5-5.0); TOTAL PROTEIN 6.8 g/dL (6.7-8.2)
[2021-03-10 14:51] LABS: BILIRUBIN,URINE NEGATIVE (NEGATIVE); GLUCOSE, URINE (UA) NEGATIVE (NEGATIVE); KETONES,URINE (UA) NEGATIVE (NEGATIVE); LEUKOCYTE ESTERASE, URINE NEGATIVE (NEGATIVE); NITRITE,URINE NEGATIVE (NEGATIVE); OCCULT BLOOD,URINE TRACE-INTA (NEGATIVE); PROTEIN,URINE TRACE mg/dL (NEGATIVE); UROBILINOGEN,URINE 0.2 (NORMAL) E.U./dL (NORMAL)
[2021-03-10 14:52] LABS: CLARITY,URINE CLEAR (CLEAR)
[2021-03-10 14:53] LABS: BAND NEUTROPHILS % (MANUAL) 1 %; BASOPHILS # (MANUAL) 0.1 10^3/uL (0-0.1); BASOPHILS % (MANUAL) 1 %; DIFFERENTIAL COMMENT MANUAL DIFFERENTIAL; EOSINOPHILS # (MANUAL) 0.1 10^3/uL (0-0.7); LYMPHOCYTES # (MANUAL) 1.4 10^3/uL (1.5-3.5); LYMPHOCYTES % (MANUAL) 11 %; MONOCYTES # (MANUAL) 2.8 10^3/uL (0.0-1.0); MYELOCYTES % (MANUAL) 1 %; NEUTROPHILS # (MANUAL) 4.9 10^3/uL (1.5-6.6); REACTIVE LYMPHS % (MANUAL) 4 %
[2021-03-10] MEDS ORDERED: IOVERSOL 320 100 ML VIAL IVP ONE ×2 (16:18→23:28)
--- NOTE | 2021-03-10 18:05 | CT Report ---
PROCEDURE: CHEST W INDICATIONS: hilar mass eval for pneumonia CONTRAST: IV CONTRAST: Optiray 320 ml: 100 PO CONTRAST: *NO PO CONTRAST TECHNIQUE: After the administration of intravenous contrast, 5 mm thick sections acquired from the pulmonary api rosa isela to the posterior costophrenic angles. 7 mm thick coronal MIP reformats were acquired. For radia tion dose reduction, the following was used: automated exposure control, adjustment of mA and/or kV according to patient size. COMPARISON: None. FINDINGS: Image quality: Excellent. Bulky right upper lobe mass lesion has enlarged in size now shows decreasing internal attenuation con sistent with internal necrosis Mediastinum. Lesion now extends from the hilum to the right lateral ch est wall measures overall 4.5 x 5.9 cm axial by 4.2 cm craniocaudal. No evidence of direct chest wall and involvement. This is associated with bulky right hilar and mediastinal adenopathy which also shows evidence of int ernal necrosis. Largest conglomerate adalberto mass in the mediastinum measures 5 x 3.2 cm it. Subcarinal , peritracheal and right hilar involvement is noted. There is left hilar adalberto involvement as well wh ich appears similar to the prior exam. Right lower lobe and right upper lobe infiltrative/groundglass density noted, improved in extent but similar in attenuation to the prior exam. There is a separate right upper lobe pulmonary nodule measu ring 9 mm on the current exam, 6 mm previously. Otherwise, heart size size is normal. No pericardial effusion. No evidence of pulmonary embolism, ao rtic dissection or aneurysm. Calcification noted on the mitral annulus. Bones and chest wall: No suspicious bony lesions. No vertebral body compression fractures. No axil iman or supraclavicular adenopathy by size criteria. Bilateral shoulder arthroplasty. Abdomen: Biliary stent has been adjusted in the interval and extends from the right intrahepatic bili elana system inferiorly into the intrapancreatic bile duct. Trace intrahepatic ductal dilatation and le ft hepatic pneumobilia noted. 1.6 cm nodule involving the left adrenal gland remains unchanged. IMPRESSION: 1. Enlarging right upper lobe mass lesion with internal necrosis. Bulky right hilar and mediastinal m etastatic adenopathy with smaller left hilar adenopathy also enlarged from prior 2. Right upper and lower lobe pulmonary infiltrate/ground glass densities have improved compared to t he prior. Differential remains infectious and inflammatory processes as well as sequelae of cancer th erapy 3. Repositioned biliary stent. Trace intrahepatic biliary ductal dilatation and left hepatic pneumobi gabriel noted. 4. Stable small left adrenal nodule Reviewed by: Catrachito Celaya MD on 03/10/2021 5:03 PM AKDT Approved by: Catrachito Celaya MD on 03/10/2021 5:03 PM AKDT Station ID: [id number]
[2021-03-10 19:34] VITALS: BP 99/61
== END 2021-03-10 19:55 | disposition home or self-care (01) ==
LOC: ED 12:11
DX: C64.9 Malignant neoplasm of unspecified kidney, except renal pelvis (principal); C77.1 Secondary and unspecified malignant neoplasm of intrathoracic lymph nodes; E86.0 Dehydration; E27.9 Disorder of adrenal gland, unspecified; Z66 Do not resuscitate; I10 Essential (primary) hypertension
CPT/HCPCS: 36415; 71045; 71260; 80053; 81003; 83690; 85025; 93005; 99284; Q9967; 81001; 87086

== ENCOUNTER 2021-03-18 15:36 | Emergency (ER) | payer MEDICARE, BC ==
--- OUTSIDE RECORDS SUMMARY | 2021-03-18 15:40 | EXTERNAL MEDICAL SUMMARY RPT | Continuity of Care Document ---
:1950 Demographics Phone Unavailable Preferred Language Unknown Marital Status Unknown Yarsanism Affiliation Unknown Race Unknown Ethnic Group Unknown Author Organization [place] Address [address] [place] [address] Phone Allergies Encounters Medications Problems Results
--- OUTSIDE RECORDS SUMMARY | 2021-03-18 16:43 | EXTERNAL MEDICAL SUMMARY RPT | Continuity of Care Document ---
:1950 Demographics Phone Unavailable Preferred Language Unknown Marital Status Unknown Congregation Affiliation Unknown Race Unknown Ethnic Group Unknown Author Organization [facility] Address [address] [id number] Phone Allergies Encounters Medications Problems Results
--- NOTE | 2021-03-18 17:02 | ED Physician Documentation ---
PD HPI ABD PAIN - Stated complaint Stated Complaint: CONSTIPATION - Chief complaint Chief Complaint: Abd Pain - History obtained from History obtained from: Patient - Additional information Additional information: This is a hasmukh woman who is chronically on oxycodone for chronic pain related to kidney cancer who has not had a good bowel movement in about 14 days. She is trialed MiraLAX and enema without relief. She has no abdominal pain, rectal pain, or vomiting. She does have a history of SBO and multiple small bowel surgeries but this is very different than her prior SBO. 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, Breast cancer, Other : Other HEENT: Chronic vision loss Psych: None Musculoskeletal: Osteoarthritis, Chronic back pain Derm: None - Past Surgical History Past Surgical History: Yes General: Cholecystectomy, Appendectomy, Other Ortho: Shoulder arthroplasty /TEAM ASSEMBLER: Hysterectomy, Mastectomy HEENT: Cataracts, Tonsil/Adenoidectomy - Present Medications Home Medications: Ambulatory Orders Medication Instructions Recorded Confirmed Gabapentin 1,200 mg PO HS 07/21/14 03/10/21 amLODIPine [Norvasc] 5 mg PO DAILY 07/21/14 03/10/21 Baclofen 10 mg PO BID PRN 12/15/18 03/10/21 Fluticasone [Flonase] 2 spray NITIN QPM 12/15/18 03/10/21 Oxycodone HCl 5 mg PO Q6H PRN 12/15/18 03/10/21 methocarbamoL [Methocarbamol] 500 mg PO BID 12/15/18 03/10/21 Lactobacill 46/B.animal/Inulin 1 each PO DAILY #5 capsule 01/10/20 03/10/21 [Probiotic-10 10 Bill Cell Cap] Levothyroxine [Synthroid] 125 mcg PO QDAC #30 tablet 01/10/20 03/10/21 Potassium Chloride 20 meq PO BID 01/30/20 03/10/21 Aspirin [[place] Aspirin] 81 mg PO DAILY 03/10/21 03/10/21 Atorvastatin Calcium 40 mg PO HS 03/10/21 03/10/21 Cholecalciferol [Vitamin D3] 1,000 unit PO DAILY 03/10/21 03/10/21 Ciprofloxacin HCl [Cipro] 500 mg PO DAILY 03/10/21 03/10/21 - Allergies Allergies/Adverse Reactions: Allergies Allergy/AdvReac Type Severity Reaction Status Date / Time Penicillins Allergy Unknown Nausea Verified 03/10/21 12:19 - Social History Does the pt smoke?: No Smoking Status: Never smoker Does the pt drink ETOH?: No Does the pt have substance abuse?: No - Immunizations Immunizations are current?: Yes - POLST Patient has POLST: No POLST Status: DNR (Although she does want all treatment up until the moment of her , she does not want CPR or intubation if she has no pulse, pressure, or spontaneous respiration. If we find that she is succumbed to what ever illness and is now with significant cognitive deficits, she would rather be palliative care.) PD ED PE NORMAL - Vitals Vital signs reviewed: Yes - General General: Alert and oriented X 3, No acute distress - HEENT HEENT: PERRL, EOMI - Cardiac Cardiac: RRR, Other (Decrescendo 2 out of 6 systolic murmur which the patient says is chronic) - Abdomen Abdomen: Normal bowel sounds, Soft, Other (Normal to slightly hyperactive bowel tones, nontender abdominal examination.) - Extremities Extremities: No edema, No calf tenderness / cord - Neuro Neuro: Alert and oriented X 3, Normal speech Results - Vitals Vitals: Vital Signs - 24 hr 03/18/21 15:57 Temperature 36.6 C Heart Rate 76 Respiratory 18 Rate Blood Pressure 132/70 H O2 Saturation 98 Oxygen O2 Source Room air PD MEDICAL DECISION MAKING - ED course ED course: 71-year-old woman presents with constipation. Nothing in the history or physical to suggest obstruction or abdominal emergency. She had no output with an enema here and remained benign on exam and comfortable appearing. She was given magnesium citrate and bisacodyl and close return precautions. Departure - Departure Disposition: 01 Home, Self Care Clinical Impression: Constipation Qualifiers: Constipation type: drug induced constipation Qualified Code(s): K59.03 - Drug induced constipation Condition: Good Instructions: ED Constipation Comments: Return in 12 to 24 hours if not better, anytime for new or worsening symptoms.
[2021-03-18] MEDS ORDERED: MAGNESIUM CITRATE 296 ML BOTTLE PO STA (18:58)
[2021-03-18] MEDS ORDERED: bisacodyL 5 MG TABLET PO STA (18:58)
[2021-03-18 19:13] VITALS: BP 144/85
== END 2021-03-18 19:16 | disposition home or self-care (01) ==
LOC: ED 15:36
DX: K59.03 Drug induced constipation (principal); T40.2X5A Adverse effect of other opioids, initial encounter; Y92.009 Unspecified place in unspecified non-institutional (private) residence as the place of occurrence of the external cause; Z79.891 Long term (current) use of opiate analgesic; G89.3 Neoplasm related pain (acute) (chronic); C79.00 Secondary malignant neoplasm of unspecified kidney and renal pelvis; Z85.3 Personal history of malignant neoplasm of breast; I10 Essential (primary) hypertension; R01.1 Cardiac murmur, unspecified; Z79.82 Long term (current) use of aspirin; Z66 Do not resuscitate
CPT/HCPCS: 99282; 99283; A9270

== ENCOUNTER 2021-03-20 10:59 | Emergency (ER) | payer MEDICARE, BC ==
--- OUTSIDE RECORDS SUMMARY | 2021-03-20 11:01 | EXTERNAL MEDICAL SUMMARY RPT | Continuity of Care Document ---
:1950 Demographics Phone Unavailable Preferred Language Unknown Marital Status Unknown Restorationist Affiliation Unknown Race Unknown Ethnic Group Unknown Author Organization [facility] Address [address] [place] [address] Phone Allergies Encounters Medications Problems Results
--- OUTSIDE RECORDS SUMMARY | 2021-03-20 11:07 | EXTERNAL MEDICAL SUMMARY RPT | Continuity of Care Document ---
:1950 Demographics Phone Unavailable Preferred Language Unknown Marital Status Unknown Latter-Day Affiliation Unknown Race Unknown Ethnic Group Unknown Author Organization [facility] Address [address] [place] [address] Phone Allergies Encounters Medications Problems Results
--- NOTE | 2021-03-20 11:29 | ED Physician Documentation ---
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: Ovarian cysts, Breast cancer, Other : Other HEENT: Chronic vision loss Psych: None Musculoskeletal: Osteoarthritis, Chronic back pain Derm: None Other Past Medical History: kidney cancer - Past Surgical History Past Surgical History: Yes General: Cholecystectomy, Appendectomy, Other Ortho: Shoulder arthroplasty /HUB INVENTORY SPECIALIST: Hysterectomy, Mastectomy HEENT: Cataracts, Tonsil/Adenoidectomy - Present Medications Home Medications: Ambulatory Orders Medication Instructions Recorded Confirmed Gabapentin 1,200 mg PO HS 07/21/14 03/20/21 amLODIPine [Norvasc] 5 mg PO DAILY 07/21/14 03/20/21 Baclofen 10 mg PO BID PRN 12/15/18 03/20/21 Fluticasone [Flonase] 2 spray NITIN QPM 12/15/18 03/20/21 Oxycodone HCl 5 mg PO Q6H PRN 12/15/18 03/20/21 methocarbamoL [Methocarbamol] 500 mg PO BID PRN 12/15/18 03/20/21 Lactobacill 46/B.animal/Inulin 1 each PO DAILY #5 capsule 01/10/20 03/20/21 [Probiotic-10 10 Bill Cell Cap] Levothyroxine [Synthroid] 125 mcg PO QDAC #30 tablet 01/10/20 03/20/21 Potassium Chloride 20 meq PO TID 01/30/20 03/20/21 Aspirin [[place] Aspirin] 81 mg PO DAILY 03/10/21 03/20/21 Atorvastatin Calcium 40 mg PO HS 03/10/21 03/20/21 Cholecalciferol [Vitamin D3] 1,000 unit PO DAILY 03/10/21 03/20/21 - Allergies Allergies/Adverse Reactions: Allergies Allergy/AdvReac Type Severity Reaction Status Date / Time Penicillins Allergy Unknown Nausea Verified 03/20/21 11:07 - Social History Does the pt smoke?: No Smoking Status: Never smoker Does the pt drink ETOH?: No Does the pt have substance abuse?: No - Immunizations Immunizations are current?: Yes - POLST Patient has POLST: No POLST Status: DNR (Although she does want all treatment up until the moment of her , she does not want CPR or intubation if she has no pulse, pressure, or spontaneous respiration. If we find that she is succumbed to what ever illness and is now with significant cognitive deficits, she would rather be palliative care.) Results - Vitals Vitals: Vital Signs - 24 hr 03/20/21 11:03 Temperature 35.7 C L Heart Rate 71 Respiratory 16 Rate Blood Pressure 140/66 H O2 Saturation 98 Oxygen O2 Source Room air
--- NOTE | 2021-03-20 11:29 | ED Physician Documentation ---
PD HPI ABD PAIN - Stated complaint Stated Complaint: FEMALE - Chief complaint Chief Complaint: Abd Pain - History obtained from History obtained from: Patient - History of Present Illness Timing - onset: How many days ago (12-14) Timing - duration: Days Timing - details: Gradual onset, Still present Quality: Cramping (just the past several days), Aching Associated symptoms: Constipation. No: Fever, Nausea, Vomiting, Hematochezia, Dysuria, Near syncope / syncope Recently seen: Emergency Dept (2 days ago and had enema and added mag citrate. She states increased cramping after the mag citrate and not stool out except one single firm small ball. 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 cysts, Breast cancer, Other : Other HEENT: Chronic vision loss Psych: None Musculoskeletal: Osteoarthritis, Chronic back pain Derm: None Other Past Medical History: kidney cancer - Past Surgical History Past Surgical History: Yes General: Cholecystectomy, Appendectomy, Other Ortho: Shoulder arthroplasty /REAL ESTATE TRANSACTION COORDINATOR: Hysterectomy, Mastectomy HEENT: Cataracts, Tonsil/Adenoidectomy - Present Medications Home Medications: Ambulatory Orders Medication Instructions Recorded Confirmed Gabapentin 1,200 mg PO HS 07/21/14 03/20/21 amLODIPine [Norvasc] 5 mg PO DAILY 07/21/14 03/20/21 Baclofen 10 mg PO BID PRN 12/15/18 03/20/21 Fluticasone [Flonase] 2 spray NITIN QPM 12/15/18 03/20/21 Oxycodone HCl 5 mg PO Q6H PRN 12/15/18 03/20/21 methocarbamoL [Methocarbamol] 500 mg PO BID PRN 12/15/18 03/20/21 Lactobacill 46/B.animal/Inulin 1 each PO DAILY #5 capsule 01/10/20 03/20/21 [Probiotic-10 10 Bill Cell Cap] Levothyroxine [Synthroid] 125 mcg PO QDAC #30 tablet 01/10/20 03/20/21 Potassium Chloride 20 meq PO TID 01/30/20 03/20/21 Aspirin [[place] Aspirin] 81 mg PO DAILY 03/10/21 03/20/21 Atorvastatin Calcium 40 mg PO HS 03/10/21 03/20/21 Cholecalciferol [Vitamin D3] 1,000 unit PO DAILY 03/10/21 03/20/21 Bisacodyl Supp [Dulcolax Supp] 10 mg [place] DAILY PRN #20 supp 03/20/21 - Allergies Allergies/Adverse Reactions: Allergies Allergy/AdvReac Type Severity Reaction Status Date / Time Penicillins Allergy Unknown Nausea Verified 03/20/21 11:07 - Social History Does the pt smoke?: No Smoking Status: Never smoker Does the pt drink ETOH?: No Does the pt have substance abuse?: No - Immunizations Immunizations are current?: Yes - POLST Patient has POLST: No POLST Status: DNR (Although she does want all treatment up until the moment of her , she does not want CPR or intubation if she has no pulse, pressure, or spontaneous respiration. If we find that she is succumbed to what ever illness and is now with significant cognitive deficits, she would rather be palliative care.) PD ED PE NORMAL - Vitals Vital signs reviewed: Yes - General General: Alert and oriented X 3, Well developed/nourished - Neck Neck: Supple, no meningeal sign, No adenopathy - Cardiac Cardiac: RRR, No murmur - Respiratory Respiratory: Clear bilaterally - Abdomen Abdomen: Normal bowel sounds, Soft, Non distended, No organomegaly, Other (tender mildly without guarding nor percussion tender left lower abd and periumbilical. ) - Female Female : Deferred - Rectal Rectal: Other (vault with some stool impaction just at midlength of my finger, and I broke it up. Was just tennis ball size, so not to big. ) - Back Back: No CVA TTP - Derm Derm: Normal color, Warm and dry - Extremities Extremities: Normal ROM s pain, No edema, No calf tenderness / cord - Neuro Neuro: Alert and oriented X 3, No motor deficit, Normal speech Results - Vitals Vitals: Vital Signs - 24 hr 03/20/21 03/20/21 03/20/21 11:03 12:29 14:50 Temperature 35.7 C L Heart Rate 71 66 62 Respiratory 16 18 18 Rate Blood Pressure 140/66 H 141/75 H 158/78 H O2 Saturation 98 99 97 Oxygen O2 Source Room air - Labs Labs: Laboratory Tests 03/20/21 03/20/21 12:30 12:30 WBC 6.2 RBC 3.40 L Hgb 9.5 L Hct 30.6 L MCV 90.0 MCH 27.9 MCHC 31.0 L RDW 13.7 Plt Count 226 MPV 11.1 H Neut # (Auto) Not Reportable Lymph # (Auto) Not Reportable Cherry # (Auto) Not Reportable Eos # (Auto) Not Reportable Baso # (Auto) Not Reportable Absolute Nucleated RBC Not Reportable Total Counted 100 Band Neuts % (Manual) 0 Abnorm Lymph % (Manual) 0 Nucleated RBC % Not Reportable Neutrophils # (Manual) 3.0 Lymphocytes # (Manual) 0.8 L Monocytes # (Manual) 2.0 H Eosinophils # (Manual) 0.3 Basophils # (Manual) 0.0 Differential Comment MANUAL DIFFERENTIAL Platelet Estimate NORMAL (130-450,000) Platelet Morphology NORMAL APPEARANCE RBC Morph Micro Appear 1+ HYPOCHROMASIA Sodium 137 Potassium 4.3 Chloride 98 L Carbon Dioxide 30 Anion Gap 9.0 BUN 21 H Creatinine 1.2 H Estimated GFR (MDRD) 44 L Glucose 102 H Calcium 11.0 H Total Bilirubin 0.3 AST 19 ALT 13 Alkaline Phosphatase 126 H Total Protein 7.9 Albumin 3.4 Globulin 4.5 H Albumin/Globulin Ratio 0.8 L Lipase 19 L - Rads (name of study) abd/pelvic CT Radiology: Prelim report reviewed (no acute process), EMP read contemporaneously (large stool noted in vault/rectum. ), See rad report PD MEDICAL DECISION MAKING - ED course Complexity details: reviewed results (no acute process on CT. Stool noted in rectal vault. ), re-evaluated patient (some stool clumps out after enema and she requests second one. Given dose lactulose as well for more softening. She would like to go home. ), considered differential (abd with some lower tenderness. No output with recent meds for constipation. Consider possible confounding factor such as diverticulitis. Can work on constipation but also get labs and CT. ), d /w patient Departure - Departure Disposition: 01 Home, Self Care Clinical Impression: Bilateral lower abdominal cramping Constipation Qualifiers: Constipation type: slow transit constipation Qualified Code(s): K59.01 - Slow transit constipation Condition: Stable Record reviewed to determine appropriate education?: Yes Instructions: ED Constipation Follow-Up: Deana Meneses MD [Primary Care Provider] - Prescriptions: Bisacodyl Supp [Dulcolax Supp] 10 mg FL DAILY PRN #20 supp PRN Reason: Constipation Comments: The enemas here should help soften and loosen the stool at the rectal and. If need be you can use Dulcolax suppositories daily to further soften or stimulate at the rectal end. Later today or first thing tomorrow, I would suggest using your MiraLAX a full 17 g dose (1 capful) every 1-2 hours through the day until you are getting softer stool movements. At that point stop added doses. Continue with the daily dose as you had been after that. Stay well-hydrated. Good fiber diet with fruits and vegetables. Recheck if still not having good bowel movement over the next day or 2 and improvement in your symptoms. Your blood tests and CT scan did not show any acute other cause or contributing factor. For example no signs of diverticulitis or obstruction or such. Discharge Date/Time: 03/20/21 16:13
[2021-03-20] MEDS ORDERED: IOVERSOL 320 100 ML VIAL IVP ONE ×2 (12:16→13:52)
[2021-03-20 12:34] LABS: EOSINOPHILS % (AUTO) 3.7 %; HCT - HEMATOCRIT 30.6 % (37.0-47.0); HGB - HEMOGLOBIN 9.5 g/dL (12.0-16.0); LYMPHOCYTES % (AUTO) 14.9 %; MEAN CORPUSCULAR HEMOGLOBIN 27.9 pg (27.0-31.0); MEAN PLATELET VOLUME 11.1 fL (7.9-10.8); MONOCYTES % (AUTO) 39.3 %; PLT - PLATELET COUNT 226 10^3/uL (130-450); RED CELL DISTRIBUTION WIDTH 13.7 % (12.0-15.0); WHITE BLOOD COUNT 6.2 x10^3/uL (4.8-10.8)
[2021-03-20 12:40] LABS: ABNORMAL LYMPHS % (MANUAL) 0 %; BAND NEUTROPHILS % (MANUAL) 0 %
[2021-03-20 12:47] LABS: ALBUMIN 3.4 g/dL (3.2-5.5); ALBUMIN/GLOBULIN RATIO 0.8 (1.0-2.2); BILIRUBIN,TOTAL 0.3 mg/dL (0.2-1.0); CREATININE 1.2 mg/dL (0.4-1.0); POTASSIUM 4.3 mmol/L (3.5-5.0); TOTAL PROTEIN 7.9 g/dL (6.7-8.2)
[2021-03-20] MEDS ORDERED: MINERAL OIL ENEMA 133 ML BOTTLE RC STA ×2 (13:05→14:38)
[2021-03-20 13:06] LABS: DIFFERENTIAL COMMENT MANUAL DIFFERENTIAL; EOSINOPHILS # (MANUAL) 0.3 10^3/uL (0-0.7); LYMPHOCYTES # (MANUAL) 0.8 10^3/uL (1.5-3.5); LYMPHOCYTES % (MANUAL) 13 %; PLATELET ESTIMATE, MANUAL NORMAL (130-450,000) (NORMAL); PLATELET MORPHOLOGY NORMAL APPEARANCE (NORMAL)
[2021-03-20] MEDS ORDERED: LACTULOSE 10 GM /15 ML UDC PO STA (14:38)
[2021-03-20] MEDS ORDERED: SODIUM CHLORIDE 0.9% 1,000 ML IV STA (14:39)
--- NOTE | 2021-03-20 14:39 | CT Report ---
PROCEDURE: Abdomen/Pelvis W INDICATIONS: lower abd pain CONTRAST: IV CONTRAST: Optiray 320 ml: 100 PO CONTRAST: *NO PO CONTRAST TECHNIQUE: After the administration of nonionic contrast, 5 mm thick sections acquired from the diaphragms to th e symphysis. 5 mm thick coronal and sagittal reformats were acquired. For radiation dose reduction, the following was used: automated exposure control, adjustment of mA and/or kV according to patient size. COMPARISON: 10/16/2019 CT scanning of the abdomen/pelvis. FINDINGS: Image quality: Excellent. ABDOMEN: Lung bases: Lung bases are clear. Heart size is normal. Solid organs: Liver and spleen are normal in size and enhancement. A biliary stent has been placed extending into the intrahepatic previously dilated bile ducts, which now show mild pneumobilia and no distention. Gallbladder has been resected Biliary system is non dilated, and the biliary stent reac hes the duodenal lumen, crossing through the area of prior larger hepatic mass involving the left hep atic lobe and javier hepatis. Pancreas enhances normally. No adrenal nodules. The right kidney demonstrates normal size and enhanc ement, without hydronephrosis. The left kidney appears absent, and there is a left periaortic 2.8 x 1 .6 cm. This is currently best seen on CT series 5 image 35. The prior comparison from 10/16/[address] seen on CT series 3 image 40. Peritoneum and bowel: Bowel loops demonstrate normal wall thickness and caliber. No free fluid or a ir. Nodes and vessels: No retroperitoneal or mesenteric adenopathy by size criteria. Aorta and inferior vena cava are normal in size. Miscellaneous: No ventral hernias. PELVIS: Genitourinary: Bladder wall thickness is normal. Miscellaneous: No inguinal hernias or adenopathy. Bones: No suspicious bony lesions. No vertebral body compression fractures. IMPRESSION: Presumed prior left nephrectomy. An ovoid enhancing mass at the resection bed margin in the left para-aortic retroperitoneum was previously larger in October of last year measuring up to 2. 8 x 4.0 cm. This has diminished now to 1.6 x 2.8 cm. No new mass has developed. Prior cholecystectomy. 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 Mild associated pneumobilia. Reviewed by: Christiano Brothers MD on 03/20/2021 1:38 PM [facility] Approved by: Christiano Brothers MD on 03/20/2021 1:38 PM OLIV[facility] Station ID: [id number]
[2021-03-20] MEDS ORDERED: KETOROLAC 15 MG/ML VIAL IVP STA (14:40)
[2021-03-20 14:51] VITALS: BP 158/78
== END 2021-03-20 16:13 | disposition home or self-care (01) ==
LOC: ED 10:59
DX: K59.01 Slow transit constipation (principal); R10.31 Right lower quadrant pain; R10.32 Left lower quadrant pain; I10 Essential (primary) hypertension; Z79.82 Long term (current) use of aspirin; Z66 Do not resuscitate
CPT/HCPCS: 36415; 74177; 80053; 83690; 85025; 96361; 96374; 99283; 99284; A9270; Q9967

== ENCOUNTER 2021-03-31 10:24 | Outpatient (CLI) | payer MEDICARE, BC ==
[2021-03-31 10:49] LABS: BASOPHILS % (AUTO) 0.8 %; EOSINOPHILS % (AUTO) 3.4 %; HCT - HEMATOCRIT 30.1 % (37.0-47.0); HGB - HEMOGLOBIN 9.2 g/dL (12.0-16.0); LYMPHOCYTES % (AUTO) 14.4 %; MEAN CORPUSCULAR HEMOGLOBIN 27.8 pg (27.0-31.0); MEAN CORPUSCULAR HGB CONC 30.6 g/dL (32.0-36.0); MEAN CORPUSCULAR VOLUME 90.9 fL (81.0-99.0); MEAN PLATELET VOLUME 11.7 fL (7.9-10.8); MONOCYTES % (AUTO) 32.3 %; NEUTROPHILS % (AUTO) 48.4 %; PLT - PLATELET COUNT 211 10^3/uL (130-450); RED BLOOD COUNT 3.31 10^6/uL (4.20-5.40); WHITE BLOOD COUNT 7.6 x10^3/uL (4.8-10.8)
[2021-03-31 11:05] LABS: ABNORMAL LYMPHS % (MANUAL) 0 %; BAND NEUTROPHILS % (MANUAL) 0 %
[2021-03-31 11:09] LABS: ALBUMIN 3.2 g/dL (3.2-5.5); BILIRUBIN,DIRECT 0.1 mg/dL (0.1-0.5); BILIRUBIN,TOTAL 0.6 mg/dL (0.2-1.0); TOTAL PROTEIN 7.3 g/dL (6.7-8.2)
[2021-03-31 11:21] LABS: THYROID STIMULATING HORMONE 4.48 uIU/mL (0.34-5.60)
[2021-03-31 11:23] LABS: FREE T4 (FREE THYROXINE) 1.64 ng/dL (0.58-1.64)
[2021-03-31 11:23] LABS: BILIRUBIN,URINE NEGATIVE (NEGATIVE); GLUCOSE, URINE (UA) NEGATIVE (NEGATIVE); KETONES,URINE (UA) NEGATIVE (NEGATIVE); LEUKOCYTE ESTERASE, URINE MODERATE (NEGATIVE); NITRITE,URINE NEGATIVE (NEGATIVE); OCCULT BLOOD,URINE NEGATIVE (NEGATIVE); PH,URINE 6.5 PH (5.0-7.5); PROTEIN,URINE TRACE mg/dL (NEGATIVE); UROBILINOGEN,URINE 0.2 (NORMAL) E.U./dL (NORMAL)
[2021-03-31 11:29] LABS: CLARITY,URINE SL. CLOUDY (CLEAR)
[2021-03-31 11:37] LABS: BASOPHILS # (MANUAL) 0.1 10^3/uL (0-0.1); BASOPHILS % (MANUAL) 1 %; DIFFERENTIAL COMMENT MANUAL DIFFERENTIAL; EOSINOPHILS # (MANUAL) 0.4 10^3/uL (0-0.7); LYMPHOCYTES # (MANUAL) 1.7 10^3/uL (1.5-3.5); LYMPHOCYTES % (MANUAL) 22 %; MONOCYTES # (MANUAL) 1.1 10^3/uL (0.0-1.0); NEUTROPHILS # (MANUAL) 4.3 10^3/uL (1.5-6.6); PLATELET ESTIMATE, MANUAL NORMAL (130-450,000) (NORMAL); PLATELET MORPHOLOGY NORMAL APPEARANCE (NORMAL); RBC MORPHOLOGY (MULTIPLE) 1+ HYPOCHROMASIA (NORMAL)
[2021-03-31 11:40] LABS: BACTERIA,URINE Moderate /HPF (None Seen); RBC,URINE None Seen /HPF (0-5); SQUAMOUS EPITHELIAL CELL,UR RARE Squamous (<= Few); WBC,URINE >25 /HPF (0-5)
== END 2021-03-31 10:25 | disposition home or self-care (01) ==
LOC: LAB 10:24
PROVIDERS: ATTEND Physician Assistant Medical
DX: C64.9 Malignant neoplasm of unspecified kidney, except renal pelvis (principal)
CPT/HCPCS: 36415; 80076; 81001; 81003; 83615; 84439; 84443; 85025

== ENCOUNTER 2021-05-05 20:54 | Outpatient (CLI) | payer MEDICARE, BC | END 2021-05-05 20:55 | disposition critical access hospital (66) | LOC: EMS 20:54 | DX: I49.9 Cardiac arrhythmia, unspecified (principal) | CPT/HCPCS: A0425; A0429 ==

== ENCOUNTER 2021-05-05 21:00 | Emergency (ER) | payer MEDICARE, BC ==
[2021-05-05] MEDS ORDERED: METOPROLOL SUCCINATE 25 MG TABLET PO STA (21:59)
[2021-05-05] MEDS ORDERED: amLODIPine 5 MG TABLET PO STA (21:59)
[2021-05-05] MEDS ORDERED: oxyCODONE 5 MG TABLET PO STA (22:21)
[2021-05-05 22:39] LABS: BASOPHILS # (AUTO) 0.1 10^3/uL (0.0-0.1); EOSINOPHILS # (AUTO) 2.4 10^3/uL (0.0-0.7); EOSINOPHILS % (AUTO) 26.2 %; HGB - HEMOGLOBIN 10.3 g/dL (12.0-16.0); LYMPHOCYTES # (AUTO) 0.9 10^3/uL (1.5-3.5); LYMPHOCYTES % (AUTO) 9.9 %; MEAN CORPUSCULAR HEMOGLOBIN 26.8 pg (27.0-31.0); MEAN CORPUSCULAR HGB CONC 30.3 g/dL (32.0-36.0); MEAN CORPUSCULAR VOLUME 88.5 fL (81.0-99.0); MEAN PLATELET VOLUME 11.5 fL (7.9-10.8); MONOCYTES # (AUTO) 2.7 10^3/uL (0.0-1.0); MONOCYTES % (AUTO) 29.1 %; NEUTROPHILS % (AUTO) 33.1 %; PLT - PLATELET COUNT 201 10^3/uL (130-450); RED BLOOD COUNT 3.84 10^6/uL (4.20-5.40); RED CELL DISTRIBUTION WIDTH 14.6 % (12.0-15.0); WHITE BLOOD COUNT 9.1 x10^3/uL (4.8-10.8)
[2021-05-05 22:42] LABS: SLIDE REVIEW? Indicated
[2021-05-05 22:53] LABS: PLATELET ESTIMATE, MANUAL NORMAL (130-450,000) (NORMAL); PLATELET MORPHOLOGY NORMAL APPEARANCE (NORMAL); RBC MORPHOLOGY (MULTIPLE) NORMAL APPEARANCE (NORMAL); WBC MORPHOLOGY (MULTIPLE) NORMAL APPEARANCE (NORMAL)
[2021-05-05 22:55] LABS: ALBUMIN 3.4 g/dL (3.2-5.5); BILIRUBIN,TOTAL 0.6 mg/dL (0.2-1.0); CALCIUM 10.6 mg/dL (8.5-10.3); CREATININE 1.1 mg/dL (0.4-1.0); POTASSIUM 3.6 mmol/L (3.5-5.0); TOTAL PROTEIN 6.8 g/dL (6.7-8.2)
--- NOTE | 2021-05-05 23:49 | ED Physician Documentation ---
PD HPI CHEST PAIN - Stated complaint Stated Complaint: HIGH BP - Chief complaint Chief Complaint: Cardiac - History obtained from History obtained from: Patient, EMS - Additional information Additional information: Patient comes to the emergency department chief complaint of blood pressure running high. Patient states that she found that her blood pressure was running high tonight after she noticed her heart pounding. She denies any pressure per se, and did not have any pain or shortness of breath. She states that she has had a lot of changes to her blood pressure medications, based on changes in her cancer treatment. She states that little over a month ago, she was taken off of her longstanding oral regimen of 25 mg daily of amlodipine and 50 mg twice daily of metoprolol. This was because she was being taken off a chemotherapeutic agent with a known side effect of hypertension and her physicians did not want her blood pressure to drop too low. After several days, patient was started on a new chemotherapeutic agent and it was unclear whether this would cause any hypertension. However, as patient was on this for some days, her blood pressure began to creep up. As such, she was placed back on metoprolol 12.5 mg in the evening. Patient states that her blood pressures slowly tova through normal and that over the past few days, they have been running especially high, in the 170s to 180s systolic over 90s to low 100s diastolic. Patient states she tonight took her evening dose of metoprolol and then following this, also took the 12.5 mg dose of amlodipine. She states that it seems like this is helping her blood pressure a little. No other complaints at this time. Review of Systems Ten Systems: 10 systems reviewed and negative Constitutional: reports: Reviewed and negative Eyes: reports: Reviewed and negative Ears: reports: Reviewed and negative Nose: reports: Reviewed and negative Throat: reports: Reviewed and negative Cardiac: reports: Reviewed and negative Respiratory: reports: Reviewed and negative GI: reports: Reviewed and negative : reports: Reviewed and negative Skin: reports: Reviewed and negative Musculoskeletal: reports: Reviewed and negative Neurologic: reports: Reviewed and negative Psychiatric: reports: Reviewed and negative Endocrine: reports: Reviewed and negative Immunocompromised: reports: Reviewed and negative PD PAST MEDICAL HISTORY - Past Medical History Past Medical History: Yes Cardiovascular: Hypertension, High cholesterol Respiratory: Sleep apnea Neuro: Other Endocrine/Autoimmune: HyPOthyroidism GI: Ulcers, Other ACCESS CONTROL SPECIALIST: Ovarian cysts, Breast cancer, Other : Other HEENT: Chronic vision loss Psych: None Musculoskeletal: Osteoarthritis, Chronic back pain Derm: None - Past Surgical History Past Surgical History: Yes General: Cholecystectomy, Appendectomy, Other Ortho: Shoulder arthroplasty /ACCESS CONTROL SPECIALIST: Hysterectomy, Mastectomy HEENT: Cataracts, Tonsil/Adenoidectomy - Present Medications Home Medications: Ambulatory Orders Medication Instructions Recorded Confirmed Gabapentin 1,200 mg PO HS 07/21/14 03/20/21 amLODIPine [Norvasc] 5 mg PO DAILY 07/21/14 03/20/21 Baclofen 10 mg PO BID PRN 12/15/18 03/20/21 Fluticasone [Flonase] 2 spray NITIN QPM 12/15/18 03/20/21 Oxycodone HCl 5 mg PO Q6H PRN 12/15/18 03/20/21 methocarbamoL [Methocarbamol] 500 mg PO BID PRN 12/15/18 03/20/21 Lactobacill 46/B.animal/Inulin 1 each PO DAILY #5 capsule 01/10/20 03/20/21 [Probiotic-10 10 Bill Cell Cap] Levothyroxine [Synthroid] 125 mcg PO QDAC #30 tablet 01/10/20 03/20/21 Potassium Chloride 20 meq PO TID 01/30/20 03/20/21 Aspirin [[place] Aspirin] 81 mg PO DAILY 03/10/21 03/20/21 Atorvastatin Calcium 40 mg PO HS 03/10/21 03/20/21 Cholecalciferol [Vitamin D3] 1,000 unit PO DAILY 03/10/21 03/20/21 Bisacodyl Supp [Dulcolax Supp] 10 mg MD DAILY PRN #20 supp 03/20/21 - Allergies Allergies/Adverse Reactions: Allergies Allergy/AdvReac Type Severity Reaction Status Date / Time Penicillins Allergy Unknown Nausea Verified 05/05/21 21:15 - Social History Does the pt smoke?: No Smoking Status: Never smoker Does the pt drink ETOH?: No Does the pt have substance abuse?: No - Immunizations Immunizations are current?: Yes - POLST Patient has POLST: No POLST Status: DNR (Although she does want all treatment up until the moment of her , she does not want CPR or intubation if she has no pulse, pressure, or spontaneous respiration. If we find that she is succumbed to what ever illness and is now with significant cognitive deficits, she would rather be palliative care.) PD ED PE NORMAL - Vitals Vital signs reviewed: Yes - General General: Alert and oriented X 3, No acute distress, Well developed/nourished - HEENT HEENT: Atraumatic, PERRL, EOMI, Moist mucous membranes - Neck Neck: Supple, no meningeal sign - Cardiac Cardiac: RRR, No murmur, Strong equal pulses - Respiratory Respiratory: No respiratory distress, Clear bilaterally - Abdomen Abdomen: Soft, Non tender, Non distended - Derm Derm: Normal color, Warm and dry, No rash - Extremities Extremities: No deformity, No edema, No calf tenderness / cord - Neuro Neuro: Alert and oriented X 3, fire investigator 2-12 intact, No motor deficit, No sensory deficit, Normal speech - Psych Psych: Normal mood, Normal affect Results - Vitals Vitals: Vital Signs - 24 hr 05/05/21 05/05/21 05/05/21 21:11 22:23 23:49 Temperature 36.9 C Heart Rate 84 66 63 Respiratory 17 20 16 Rate Blood Pressure 183/95 H 162/76 H 158/79 H O2 Saturation 98 99 100 Oxygen O2 Source Room air - EKG (time done) 2223 Rate: Rate (enter#) (63) Rhythm: NSR [place]: Normal Intervals: Normal MD QRS: Normal Ischemia: ST elevation c/w repol Compare to prior EKG: Unchanged from prior EKG Computer interpretation: Agree with computer - Labs Labs: Laboratory Tests 05/05/21 05/05/21 05/05/21 22:33 22:33 22:33 WBC 9.1 RBC 3.84 L Hgb 10.3 L Hct 34.0 L MCV 88.5 MCH 26.8 L MCHC 30.3 L RDW 14.6 Plt Count 201 MPV 11.5 H Neut # (Auto) 3.0 Lymph # (Auto) 0.9 L [place] # (Auto) 2.7 H Eos # (Auto) 2.4 H Baso # (Auto) 0.1 Absolute Nucleated RBC 0.00 Nucleated RBC % 0.0 Manual Slide Review Indicated WBC Morphology NORMAL APPEARANCE Platelet Estimate NORMAL (130-450,000) Platelet Morphology NORMAL APPEARANCE RBC Morph Micro Appear NORMAL APPEARANCE Sodium 136 Potassium 3.6 Chloride 98 L Carbon Dioxide 28 Anion Gap 10.0 BUN 19 Creatinine 1.1 H Estimated GFR (MDRD) 49 L Glucose 97 Calcium 10.6 H Total Bilirubin 0.6 AST 25 ALT 22 Alkaline Phosphatase 156 H Troponin I High Sens 11.2 Total Protein 6.8 Albumin 3.4 Globulin 3.4 Albumin/Globulin Ratio 1.0 Lipase 21 L PD MEDICAL DECISION MAKING - ED course Complexity details: reviewed old records, reviewed results, re-evaluated patient, considered differential, d/w patient ED course: Upon arrival, the patient was asymptomatic and her blood pressure was slowly coming down. I initially gave her a second dose of metoprolol 12.5 mg, which should continue to bring her blood pressure lower. A twelve-lead EKG was performed initially which showed artifact through V4 through V6, And gave the appearance of ST elevation in lead V4. Leads V2 and V3 also demonstrated inverted to biphasic T waves that were not picked present on the prior EKG. I did have nursing staff repeat this because the patient was completely asymptomatic and did not have symptoms to indicate STEMI whatsoever. Nursing staff did report that leads seem to be slightly misplaced and that they have been fixed for the second EKG and put in proper placement. The second EKG did not show any ST elevation and appeared much more congruent with the patient's last EKG in February. The patient's laboratory studies, including troponin were unremarkable. The patient's blood pressure had come down to 132/75 by the end of her stay and I felt that she was stable for discharge home. I have advised her to go back up to the 25 mg of amlodipine in the morning, and check her blood pressure here and there throughout the day. If she stays normotensive, then she can just stick with the 12.5 mg dose of metoprolol in the evening. If her blood pressure creeps up throughout the day, then she can take metoprolol 25 mg instead of just 12.5. I discussed the importance of following up her primary care physician. Departure - Departure Disposition: 01 Home, Self Care Clinical Impression: Hypertension Qualifiers: Hypertension type: unspecified Qualified Code(s): I10 - Essential (primary) hypertension Chest pain Qualifiers: Chest pain type: unspecified Qualified Code(s): R07.9 - Chest pain, unspecified Condition: Stable Instructions: ED HTN Established Comments: Although you are not in hypertensive emergency tonight, your blood pressure was higher than we would like it to be. Given that you are on much higher doses of blood pressure medication just a month ago, it is most likely that you need to be on a bit higher dose than you are on now. You have responded fairly well to receiving the extra dose of metoprolol here in addition to what you took at home. Your blood pressure is not completely back to normal, but it is probably best to get on a schedule with your amlodipine and just take your morning dose. However, it is advisable that you take 25 mg of amlodipine instead of 12.5 when you take your dose in the morning. You may keep track of your blood pressure several times tomorrow and if you are still running higher than 150 for the upper number, then take 25 mg of metoprolol instead of 12.5. Please get in touch with your primary care team to discuss a good long-term plan for your blood pressure. Your repeat EKG looks very good. Your labs also showed no evidence of a heart attack or other organ damage. Discharge Date/Time: 05/06/21 00:52
[2021-05-05 23:50] VITALS: BP 158/79
== END 2021-05-06 00:52 | disposition home or self-care (01) ==
LOC: EDUNIT# → ED 21:00
DX: I10 Essential (primary) hypertension (principal); R07.9 Chest pain, unspecified; Z66 Do not resuscitate
CPT/HCPCS: 36415; 80053; 83690; 84484; 85025; 93005; 99284; A9270

== ENCOUNTER 2021-05-10 10:24 | Outpatient (CLI) | payer MEDICARE, BC ==
[2021-05-10 11:23] LABS: CALCIUM 10.4 mg/dL (8.5-10.3); CREATININE 1.2 mg/dL (0.4-1.0); POTASSIUM 4.1 mmol/L (3.5-5.0)
== END 2021-05-10 10:25 | disposition home or self-care (01) ==
LOC: LAB 10:24
PROVIDERS: ATTEND Nurse Practitioner
DX: C64.9 Malignant neoplasm of unspecified kidney, except renal pelvis (principal)
CPT/HCPCS: 36415; 80048; 81599; 83519; 83970

== ENCOUNTER 2021-05-31 10:43 | Outpatient (CLI) | payer MEDICARE, BC ==
[2021-05-31 11:06] LABS: BASOPHILS % (AUTO) 0.5 %; EOSINOPHILS % (AUTO) 40.4 %; HCT - HEMATOCRIT 30.8 % (37.0-47.0); HGB - HEMOGLOBIN 9.3 g/dL (12.0-16.0); LYMPHOCYTES % (AUTO) 13.8 %; MEAN CORPUSCULAR HEMOGLOBIN 27.5 pg (27.0-31.0); MEAN CORPUSCULAR HGB CONC 30.2 g/dL (32.0-36.0); MEAN CORPUSCULAR VOLUME 91.1 fL (81.0-99.0); MEAN PLATELET VOLUME 11.7 fL (7.9-10.8); NEUTROPHILS % (AUTO) 23.8 %; PLT - PLATELET COUNT 147 10^3/uL (130-450); RED BLOOD COUNT 3.38 10^6/uL (4.20-5.40); RED CELL DISTRIBUTION WIDTH 16.7 % (12.0-15.0); WHITE BLOOD COUNT 7.3 x10^3/uL (4.8-10.8)
[2021-05-31 11:10] LABS: ABNORMAL LYMPHS % (MANUAL) 0 %
[2021-05-31 11:21] LABS: ALBUMIN 3.4 g/dL (3.2-5.5); BILIRUBIN,TOTAL 0.4 mg/dL (0.2-1.0); CALCIUM 10.4 mg/dL (8.5-10.3); CREATININE 1.3 mg/dL (0.4-1.0); POTASSIUM 3.8 mmol/L (3.5-5.0); TOTAL PROTEIN 6.7 g/dL (6.7-8.2)
[2021-05-31 11:33] LABS: BAND NEUTROPHILS % (MANUAL) 1 %; EOSINOPHILS # (MANUAL) 3.1 10^3/uL (0-0.7); LYMPHOCYTES # (MANUAL) 1.5 10^3/uL (1.5-3.5); LYMPHOCYTES % (MANUAL) 17 %; METAMYELOCYTES % (MANUAL) 1 %; MONOCYTES # (MANUAL) 1.2 10^3/uL (0.0-1.0); NEUTROPHILS # (MANUAL) 1.5 10^3/uL (1.5-6.6); REACTIVE LYMPHS % (MANUAL) 3 %
[2021-05-31 11:36] LABS: DIFFERENTIAL COMMENT MANUAL DIFFERENTIAL; PLATELET ESTIMATE, MANUAL NORMAL (130-450,000) (NORMAL); PLATELET MORPHOLOGY NORMAL APPEARANCE (NORMAL); RBC MORPHOLOGY (MULTIPLE) NORMAL APPEARANCE (NORMAL); WBC MORPHOLOGY (MULTIPLE) NORMAL APPEARANCE (NORMAL)
[2021-05-31 11:37] LABS: THYROID STIMULATING HORMONE 6.85 uIU/mL (0.34-5.60)
[2021-05-31 11:39] LABS: FREE T4 (FREE THYROXINE) 1.45 ng/dL (0.58-1.64)
[2021-05-31 11:54] LABS: BILIRUBIN,URINE NEGATIVE (NEGATIVE); GLUCOSE, URINE (UA) NEGATIVE (NEGATIVE); KETONES,URINE (UA) NEGATIVE (NEGATIVE); LEUKOCYTE ESTERASE, URINE LARGE (NEGATIVE); NITRITE,URINE POSITIVE (NEGATIVE); OCCULT BLOOD,URINE TRACE-INTA (NEGATIVE); PROTEIN,URINE TRACE mg/dL (NEGATIVE); UROBILINOGEN,URINE 0.2 (NORMAL) E.U./dL (NORMAL)
[2021-05-31 11:58] LABS: CLARITY,URINE CLOUDY (CLEAR)
[2021-05-31 12:08] LABS: BACTERIA,URINE Many /HPF (None Seen); RBC,URINE 0-5 /HPF (0-5); SQUAMOUS EPITHELIAL CELL,UR FEW Squamous (<= Few); WBC,URINE >25 /HPF (0-5)
== END 2021-05-31 10:44 | disposition home or self-care (01) ==
LOC: LAB 10:43
PROVIDERS: ATTEND Physician Assistant
DX: I50.30 Unspecified diastolic (congestive) heart failure (principal); I50.89 Other heart failure; C64.9 Malignant neoplasm of unspecified kidney, except renal pelvis
CPT/HCPCS: 36415; 80053; 81001; 83615; 83880; 84439; 84443; 85025; 87086; 87181

== ENCOUNTER 2021-06-10 10:37 | Outpatient (CLI) | payer MEDICARE, BC ==
[2021-06-10 10:56] LABS: CALCIUM 9.9 mg/dL (8.5-10.3); CREATININE 1.5 mg/dL (0.4-1.0); POTASSIUM 3.9 mmol/L (3.5-5.0)
== END 2021-06-10 10:38 | disposition home or self-care (01) ==
LOC: LAB 10:37
PROVIDERS: ATTEND Physician Assistant
DX: I50.30 Unspecified diastolic (congestive) heart failure (principal)
CPT/HCPCS: 36415; 80048

== ENCOUNTER 2021-07-06 10:30 | Outpatient (CLI) | payer MEDICARE, BC ==
[2021-07-06 11:20] LABS: BASOPHILS % (AUTO) 0.4 %; EOSINOPHILS % (AUTO) 31.1 %; HCT - HEMATOCRIT 28.7 % (37.0-47.0); HGB - HEMOGLOBIN 8.7 g/dL (12.0-16.0); LYMPHOCYTES % (AUTO) 12.9 %; MEAN CORPUSCULAR HEMOGLOBIN 28.2 pg (27.0-31.0); MEAN CORPUSCULAR HGB CONC 30.3 g/dL (32.0-36.0); MEAN CORPUSCULAR VOLUME 92.9 fL (81.0-99.0); MEAN PLATELET VOLUME 10.8 fL (7.9-10.8); MONOCYTES % (AUTO) 27.1 %; NEUTROPHILS % (AUTO) 27.9 %; PLT - PLATELET COUNT 169 10^3/uL (130-450); RED BLOOD COUNT 3.09 10^6/uL (4.20-5.40); RED CELL DISTRIBUTION WIDTH 17.3 % (12.0-15.0); WHITE BLOOD COUNT 8.4 x10^3/uL (4.8-10.8)
[2021-07-06 11:22] LABS: ABNORMAL LYMPHS % (MANUAL) 0 %; BAND NEUTROPHILS % (MANUAL) 0 %
[2021-07-06 11:42] LABS: BASOPHILS # (MANUAL) 0.1 10^3/uL (0-0.1); BASOPHILS % (MANUAL) 1 %; EOSINOPHILS # (MANUAL) 2.9 10^3/uL (0-0.7); LYMPHOCYTES # (MANUAL) 1.3 10^3/uL (1.5-3.5); LYMPHOCYTES % (MANUAL) 15 %; NEUTROPHILS # (MANUAL) 2.2 10^3/uL (1.5-6.6)
[2021-07-06 11:45] LABS: ALKALINE PHOSPHATASE 84 IU/L (42-121); ALT ALANINE AMINOTRANSFERASE 17 IU/L (10-60); AST ASPARTATE AMINOTRANSFERASE 22 IU/L (10-42); BILIRUBIN,DIRECT 0.1 mg/dL (0.1-0.5); BILIRUBIN,TOTAL < 0.2 mg/dL (0.2-1.0); BUN - BLOOD UREA NITROGEN 23 mg/dL (6-20); CALCIUM 10.3 mg/dL (8.5-10.3); CARBON DIOXIDE - CO2 28 mmol/L (21-32); CHLORIDE 99 mmol/L (101-111); CREATININE 1.3 mg/dL (0.4-1.0); GFR - MDRD 40 (>89); GLUCOSE 133 mg/dL (70-100); PHOSPHORUS 3.3 mg/dL (2.5-4.6); POTASSIUM 3.8 mmol/L (3.5-5.0); SODIUM 137 mmol/L (135-145); TOTAL PROTEIN 6.5 g/dL (6.7-8.2)
[2021-07-06 11:54] LABS: PLATELET MORPHOLOGY 1+ GIANT PLATELETS (NORMAL)
[2021-07-06 11:55] LABS: DIFFERENTIAL COMMENT MANUAL DIFFERENTIAL; PLATELET ESTIMATE, MANUAL NORMAL (130-450,000) (NORMAL); WBC MORPHOLOGY (MULTIPLE) NORMAL APPEARANCE (NORMAL)
[2021-07-06 12:00] LABS: THYROID STIMULATING HORMONE 10.94 uIU/mL (0.34-5.60)
[2021-07-06 12:02] LABS: FREE T4 (FREE THYROXINE) 1.23 ng/dL (0.58-1.64)
[2021-07-06 13:20] LABS: BILIRUBIN,URINE NEGATIVE (NEGATIVE); GLUCOSE, URINE (UA) NEGATIVE (NEGATIVE); KETONES,URINE (UA) NEGATIVE (NEGATIVE); LEUKOCYTE ESTERASE, URINE LARGE (NEGATIVE); NITRITE,URINE POSITIVE (NEGATIVE); OCCULT BLOOD,URINE TRACE-INTA (NEGATIVE); PH,URINE 5.5 PH (5.0-7.5); PROTEIN,URINE TRACE mg/dL (NEGATIVE); UROBILINOGEN,URINE 0.2 (NORMAL) E.U./dL (NORMAL)
[2021-07-06 13:27] LABS: CLARITY,URINE CLOUDY (CLEAR)
[2021-07-06 13:33] LABS: BACTERIA,URINE Many /HPF (None Seen); RBC,URINE 0-5 /HPF (0-5); SQUAMOUS EPITHELIAL CELL,UR FEW Squamous (<= Few); WBC,URINE >25 /HPF (0-5)
== END 2021-07-06 10:31 | disposition home or self-care (01) ==
LOC: LAB 10:30
PROVIDERS: ATTEND Physician Assistant Medical
DX: C64.9 Malignant neoplasm of unspecified kidney, except renal pelvis (principal); E83.52 Hypercalcemia
CPT/HCPCS: 36415; 80048; 80069; 80076; 81001; 81599; 82306; 82784; 83615; 83883; 83970; 84075; 84100; 84155; 84165; 84439; 84443; 85025; 86334; 87086; 87181

== ENCOUNTER 2021-07-26 13:22 | Outpatient (CLI) | payer MEDICARE, BC ==
[2021-07-26 14:28] LABS: ALBUMIN 3.3 g/dL (3.2-5.5); CREATININE 1.6 mg/dL (0.4-1.0); PHOSPHORUS 3.5 mg/dL (2.5-4.6); POTASSIUM 4.4 mmol/L (3.5-5.0)
[2021-07-26 14:32] LABS: CALCIUM 13.5 mg/dL (8.5-10.3)
== END 2021-07-26 13:23 | disposition home or self-care (01) ==
LOC: LAB 13:22
PROVIDERS: ATTEND Internal Medicine Endocrinology, Diabetes & Metabolism
DX: I50.30 Unspecified diastolic (congestive) heart failure (principal); E83.52 Hypercalcemia
CPT/HCPCS: 36415; 80048; 80069; 81599; 82306; 83519; 83970; 84075

== ENCOUNTER 2021-07-27 15:46 | Outpatient (CLI) | payer MEDICARE, BC | END 2021-07-27 15:47 | disposition critical access hospital (66) | LOC: EMS 15:46 | DX: R53.1 Weakness (principal) | CPT/HCPCS: A0425; A0429 ==

== ENCOUNTER 2021-07-27 15:53 | Emergency (ER) | payer MEDICARE, BC ==
[2021-07-27 16:17] LABS: BASOPHILS # (AUTO) 0.1 10^3/uL (0.0-0.1); BASOPHILS % (AUTO) 0.7 %; EOSINOPHILS % (AUTO) 24.2 %; HCT - HEMATOCRIT 30.1 % (37.0-47.0); HGB - HEMOGLOBIN 9.1 g/dL (12.0-16.0); LYMPHOCYTES # (AUTO) 1.3 10^3/uL (1.5-3.5); LYMPHOCYTES % (AUTO) 15.5 %; MEAN CORPUSCULAR HEMOGLOBIN 29.3 pg (27.0-31.0); MEAN CORPUSCULAR HGB CONC 30.2 g/dL (32.0-36.0); MEAN CORPUSCULAR VOLUME 96.8 fL (81.0-99.0); MEAN PLATELET VOLUME 11.7 fL (7.9-10.8); MONOCYTES # (AUTO) 2.2 10^3/uL (0.0-1.0); MONOCYTES % (AUTO) 26.7 %; NEUTROPHILS # (AUTO) 2.7 10^3/uL (1.5-6.6); NEUTROPHILS % (AUTO) 32.5 %; PLT - PLATELET COUNT 172 10^3/uL (130-450); RED BLOOD COUNT 3.11 10^6/uL (4.20-5.40); WHITE BLOOD COUNT 8.2 x10^3/uL (4.8-10.8)
[2021-07-27 16:20] LABS: SLIDE REVIEW? Indicated
[2021-07-27 16:28] LABS: ALBUMIN/GLOBULIN RATIO 0.9 (1.0-2.2); BILIRUBIN,TOTAL 0.5 mg/dL (0.2-1.0); CREATININE 1.6 mg/dL (0.4-1.0); MAGNESIUM 2.5 mg/dL (1.7-2.8); PHOSPHORUS 2.9 mg/dL (2.5-4.6); POTASSIUM 3.7 mmol/L (3.5-5.0); TOTAL PROTEIN 6.5 g/dL (6.7-8.2)
--- NOTE | 2021-07-27 16:28 | ED Physician Documentation ---
History of Present Illness - Stated complaint Stated Complaint: GEN WEAKNESS - Chief complaint Chief Complaint: General - History obtained from History obtained from: Patient - History of Present Illness Timing: Yesterday Pain level max: 0 Pain level now: 0 - Additonal information Additional information: 71 year old female with hypercalcemia on outpatient lab draw. She has a history of renal cancer, she believes are metastases, does not know if there are mets to the bone or not. She has been feeling tired and weak over the past few days. She states that her oncologist called her and told her to come to the emergency department as her calcium was high. Patient does not have any significant pain. No vomiting. No constipation or diarrhea. She just feels tired. 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: Ovarian cysts, Breast cancer, Other : Other HEENT: Chronic vision loss Psych: None Musculoskeletal: Osteoarthritis, Chronic back pain Derm: None - Past Surgical History Past Surgical History: Yes General: Cholecystectomy, Appendectomy, Other Ortho: Shoulder arthroplasty /MEDICAL TECHNOLOGIST MICROBIOLOGY: Hysterectomy, Mastectomy HEENT: Cataracts, Tonsil/Adenoidectomy - Present Medications Home Medications: Ambulatory Orders Medication Instructions Recorded Confirmed Gabapentin 1,200 mg PO HS 07/21/14 03/20/21 amLODIPine [Norvasc] 5 mg PO DAILY 07/21/14 03/20/21 Baclofen 10 mg PO BID PRN 12/15/18 03/20/21 Fluticasone [Flonase] 2 spray NITIN QPM 12/15/18 03/20/21 Oxycodone HCl 5 mg PO Q6H PRN 12/15/18 03/20/21 methocarbamoL [Methocarbamol] 500 mg PO BID PRN 12/15/18 03/20/21 Lactobacill 46/B.animal/Inulin 1 each PO DAILY #5 capsule 01/10/20 03/20/21 [Probiotic-10 10 Bill Cell Cap] Levothyroxine [Synthroid] 125 mcg PO QDAC #30 tablet 01/10/20 03/20/21 Potassium Chloride 20 meq PO TID 01/30/20 03/20/21 Aspirin [[place] Aspirin] 81 mg PO DAILY 03/10/21 03/20/21 Atorvastatin Calcium 40 mg PO HS 03/10/21 03/20/21 Cholecalciferol [Vitamin D3] 1,000 unit PO DAILY 03/10/21 03/20/21 Bisacodyl Supp [Dulcolax Supp] 10 mg DE DAILY PRN #20 supp 03/20/21 - Allergies Allergies/Adverse Reactions: Allergies Allergy/AdvReac Type Severity Reaction Status Date / Time Penicillins Allergy Unknown Nausea Verified 05/05/21 21:15 - Social History Does the pt smoke?: No Smoking Status: Never smoker Does the pt drink ETOH?: No Does the pt have substance abuse?: No - Immunizations Immunizations are current?: Yes - POLST Patient has POLST: No POLST Status: DNR (Although she does want all treatment up until the moment of her , she does not want CPR or intubation if she has no pulse, pressure, or spontaneous respiration. If we find that she is succumbed to what ever illness and is now with significant cognitive deficits, she would rather be palliative care.) PD ED PE NORMAL - Vitals Vital signs reviewed: Yes - General General: Alert and oriented X 3, No acute distress, Well developed/nourished - HEENT HEENT: PERRL, Moist mucous membranes - Neck Neck: Supple, no meningeal sign - Cardiac Cardiac: RRR, Strong equal pulses - Respiratory Respiratory: No respiratory distress, Clear bilaterally - Abdomen Abdomen: Soft, Non tender, Non distended - Derm Derm: Warm and dry - Extremities Extremities: No edema - Neuro Neuro: Alert and oriented X 3 - Psych Psych: Normal mood, Normal affect Results - Vitals Vitals: Vital Signs - 24 hr 07/27/21 07/27/21 07/27/21 15:55 16:59 18:35 Temperature 37 C Heart Rate 64 59 L 61 Respiratory 18 14 12 Rate Blood Pressure 130/70 124/62 108/58 L O2 Saturation 94 94 95 Oxygen O2 Source Room air - Labs Labs: Laboratory Tests 07/27/21 07/27/21 07/27/21 16:08 16:08 16:50 WBC 8.2 RBC 3.11 L Hgb 9.1 L Hct 30.1 L MCV 96.8 MCH 29.3 MCHC 30.2 L RDW 17.0 H Plt Count 172 MPV 11.7 H Neut # (Auto) 2.7 Lymph # (Auto) 1.3 L [place] # (Auto) 2.2 H Eos # (Auto) 2.0 H Baso # (Auto) 0.1 Absolute Nucleated RBC 0.00 Band Neuts % (Manual) Not Reportable Abnorm Lymph % (Manual) Not Reportable Nucleated RBC % 0.0 Neutrophils # (Manual) Not Reportable Lymphocytes # (Manual) Not Reportable Monocytes # (Manual) Not Reportable Eosinophils # (Manual) Not Reportable Basophils # (Manual) Not Reportable Differential Comment MANUAL=AUTO DIFF Manual Slide Review Indicated WBC Morphology NORMAL APPEARANCE Platelet Estimate NORMAL (130-450,000) Platelet Morphology NORMAL APPEARANCE RBC Morph Micro Appear 1+ SCHISTOCYTES VBG pH 7.408 Ionized Calcium 1.71 H* Sodium 136 Potassium 3.7 Chloride 97 L Carbon Dioxide 34 H Anion Gap 5.0 L BUN 23 H Creatinine 1.6 H Estimated GFR (MDRD) 32 L Glucose 137 H Calcium 12.9 H* Phosphorus 2.9 Magnesium 2.5 Total Bilirubin 0.5 AST 22 ALT 16 Alkaline Phosphatase 86 Total Protein 6.5 L Albumin 3.0 L Globulin 3.5 Albumin/Globulin Ratio 0.9 L PD MEDICAL DECISION MAKING - ED course Complexity details: reviewed results, re-evaluated patient, considered differential, d/w patient ED course: 71-year-old female with chronic hypercalcemia, her serum calcium is in the mild to moderate elevated range today. She is minimally symptomatic. She was given zoledronic acid. She was given IV fluids. Her weakness resolved. Able to sit and stand and walk without any difficulty. No indication for further inpatient management. Patient will follow up with her doctor for further care. Patient counseled regarding signs and symptoms for which I believe and urgent re-evalu ation would be necessary. Patient with good understanding of and agreement to plan and is comfortable going home at this time This document was made in part using voice recognition software. While efforts are made to proofread this document, sound alike and grammatical errors may occur. Departure - Departure Disposition: 01 Home, Self Care Clinical Impression: Hypercalcemia Condition: Good Instructions: Zoledronic Acid injection Hypercalcemia Oncology, Hypercalcemia Dc Follow-Up: Deana Meneses MD [Primary Care Provider] - Within 3 Days Comments: You should have your calcium levels rechecked in 3 to 4 days with your doctor. Please return if you worsen. Please follow-up with your doctor for further care. Discharge Date/Time: 07/27/21 19:10
[2021-07-27 16:29] LABS: CALCIUM 12.9 mg/dL (8.5-10.3)
[2021-07-27] MEDS ORDERED: ZOLEDRONIC ACID 3 MG in SODIUM CHLORIDE 0.9% 100ML 100 ML IV STA (16:36)
[2021-07-27 17:13] LABS: DIFFERENTIAL COMMENT MANUAL=AUTO DIFF; PLATELET ESTIMATE, MANUAL NORMAL (130-450,000) (NORMAL); PLATELET MORPHOLOGY NORMAL APPEARANCE (NORMAL); WBC MORPHOLOGY (MULTIPLE) NORMAL APPEARANCE (NORMAL)
[2021-07-27 17:33] LABS: VBG PH 7.408 (7.31-7.41)
[2021-07-27 17:35] LABS: CALCIUM, IONIZED 1.71 mmol/L (1.15-1.33)
[2021-07-27 18:36] VITALS: BP 108/58
== END 2021-07-27 19:10 | disposition home or self-care (01) ==
LOC: EDUNIT# → ED 15:53
DX: E83.52 Hypercalcemia (principal); R53.1 Weakness; C79.00 Secondary malignant neoplasm of unspecified kidney and renal pelvis; Z08 Encounter for follow-up examination after completed treatment for malignant neoplasm; Z85.3 Personal history of malignant neoplasm of breast; I10 Essential (primary) hypertension; Z79.82 Long term (current) use of aspirin; Z66 Do not resuscitate
CPT/HCPCS: 36415; 80053; 82330; 83735; 84100; 85025; 96365; 99282; 99284; J3489

== ENCOUNTER 2021-08-18 09:55 | Outpatient (CLI) | payer MEDICARE, BC | END 2021-08-18 09:56 | disposition critical access hospital (66) | LOC: EMS 09:55 | DX: R53.1 Weakness (principal) | CPT/HCPCS: A0425; A0429 ==

== ENCOUNTER 2021-08-18 10:03 | Inpatient (IN) | payer MEDICARE, BC ==
[2021-08-18] MEDS ORDERED: SODIUM CHLORIDE 0.9% 1,000 ML IV STA ×2 (10:16→11:03)
[2021-08-18 10:44] LABS: VBG PH 7.434 (7.31-7.41)
[2021-08-18 10:45] LABS: VBG BASE EXCESS 7.7 mmol/L (-2 - +2); VBG HCO3 32.9 mmol/L (23-28); VBG OXYGEN SATURATION 86.4 % (60-80); VBG PCO2 50.3 mmHg (41-51); VBG PO2 50.6 mmHg (25-47); VBG TOTAL CO2 34.5 mmol/L (24-29)
[2021-08-18 10:51] LABS: BASOPHILS # (AUTO) 0.1 10^3/uL (0.0-0.1); BASOPHILS % (AUTO) 0.7 %; EOSINOPHILS # (AUTO) 0.3 10^3/uL (0.0-0.7); EOSINOPHILS % (AUTO) 2.3 %; HGB - HEMOGLOBIN 8.4 g/dL (12.0-16.0); LYMPHOCYTES % (AUTO) 8.5 %; MEAN CORPUSCULAR HEMOGLOBIN 28.9 pg (27.0-31.0); MEAN CORPUSCULAR VOLUME 96.2 fL (81.0-99.0); MEAN PLATELET VOLUME 11.3 fL (7.9-10.8); MONOCYTES # (AUTO) 5.5 10^3/uL (0.0-1.0); MONOCYTES % (AUTO) 46.8 %; NEUTROPHILS # (AUTO) 4.7 10^3/uL (1.5-6.6); NEUTROPHILS % (AUTO) 39.5 %; PLT - PLATELET COUNT 265 10^3/uL (130-450); RED BLOOD COUNT 2.91 10^6/uL (4.20-5.40); RED CELL DISTRIBUTION WIDTH 14.3 % (12.0-15.0); WHITE BLOOD COUNT 11.8 x10^3/uL (4.8-10.8)
[2021-08-18 10:52] LABS: INR 1.2 (0.8-1.2); PT - PROTHROMBIN TIME 13.7 secs (9.9-12.6)
[2021-08-18 10:56] LABS: SLIDE REVIEW? Indicated
[2021-08-18 10:57] LABS: ALBUMIN/GLOBULIN RATIO 0.8 (1.0-2.2); BILIRUBIN,TOTAL 0.4 mg/dL (0.2-1.0); MAGNESIUM 2.3 mg/dL (1.7-2.8); TOTAL PROTEIN 6.7 g/dL (6.7-8.2)
[2021-08-18 10:59] LABS: CALCIUM 15.7 mg/dL (8.5-10.3)
[2021-08-18 11:14] LABS: RBC MORPHOLOGY (MULTIPLE) 2+ ANISOCYTOSIS (NORMAL)
[2021-08-18 11:16] LABS: BILIRUBIN,URINE NEGATIVE (NEGATIVE); GLUCOSE, URINE (UA) NEGATIVE (NEGATIVE); KETONES,URINE (UA) NEGATIVE (NEGATIVE); LEUKOCYTE ESTERASE, URINE SMALL (NEGATIVE); NITRITE,URINE NEGATIVE (NEGATIVE); OCCULT BLOOD,URINE TRACE-LYSE (NEGATIVE); PROTEIN,URINE NEGATIVE (NEGATIVE); UROBILINOGEN,URINE 0.2 (NORMAL) E.U./dL (NORMAL)
[2021-08-18 11:18] LABS: CLARITY,URINE HAZY (CLEAR)
[2021-08-18 11:41] LABS: BACTERIA,URINE Few /HPF (None Seen); RBC,URINE 0-5 /HPF (0-5); SQUAMOUS EPITHELIAL CELL,UR RARE Squamous (<= Few); YEAST,URINE PRESENT
[2021-08-18] MEDS ORDERED: oxyCODONE 5 MG TABLET PO STA (12:16)
--- NOTE | 2021-08-18 13:57 | CT Report ---
PROCEDURE: CHEST WO INDICATIONS: Hypoxia TECHNIQUE: Noncontrast 1mm axial images were acquired from the pulmonary apices to the posterior costophrenic an gles. Axial 5 mm soft tissue kernel reconstructions were performed as well as 8 mm axial MIP and cor onal and sagittal 5 mm reformations. For radiation dose reduction, the following was used: automate d exposure control, adjustment of mA and/or kV according to patient size. COMPARISON: Reference is made to the CT chest report dated March 10, 2021. FINDINGS: Thyroid: Not well visualized. Vasculature: Normal size and contour. Mild calcified edematous change of the aorta. Heart: Cardiomegaly without pericardial effusion. Coarse calcification of the mitral annulus with enl argement of the left atrium. Coronary artery calcifications are seen. Mediastinum/rito: Increased pathologic lymphadenopathy, largest conglomerate measures 6.7 x 4.7 cm. Lung/pleura: Redemonstrated bilateral pulmonary nodules and masses, compatible with metastatic diseas e. The largest mass is seen in the in the right upper lobe along the fissure, measuring 6.7 x 4.6 cm. No large pleural effusion or appreciable pneumothorax. Tracheobronchial tree: The trachea is patent. Narrowing of the right mainstem and lobar bronchi. 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 A CBD stent is seen. Bones: Lytic lesions are seen, largest measuring up to 1.6 cm in the T10 vertebral body. Chest wall: No significant abnormality. IMPRESSION: 1.Interval progression of the patient's metastatic disease as detailed above. Reviewed by: Chema Ruiz MD on 08/18/2021 1:56 PM PDT Approved by: Chema Ruiz MD on 08/18/2021 1:56 PM PDT Station ID: [id number]
[2021-08-18] MEDS ORDERED: ZOLEDRONIC ACID 3 MG in SODIUM CHLORIDE 0.9% 100ML 100 ML IV ONE (14:00)
--- NOTE | 2021-08-18 14:16 | ED Physician Documentation ---
History of Present Illness - Stated complaint Stated Complaint: WEAKNESS/VOMITING - Chief complaint Chief Complaint: General - Additonal information Additional information: 80-year-old female presenting to the emergency department with generalized weakness as well as report of nausea vomiting at home. 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 EMS reported hypoxia in the field and she has required 5 L in order to maintain oxygen saturations greater than 90%. EMS report a recent hospitalization at the [facility] for UTI and pneumonia. Patient does not have baseline oxygen demand. Reports feeling generally weak but denies any chest pain redness of breath or abdominal pain. Review of Systems Ten Systems: 10 systems reviewed and negative Constitutional: denies: Fever Eyes: denies: Loss of vision Cardiac: denies: Chest pain / pressure Respiratory: denies: Dyspnea, Cough GI: reports: Nausea, Vomiting. 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 SAMPLER: Ovarian cysts, Breast cancer, Other : Other HEENT: Chronic vision loss Psych: None Musculoskeletal: Osteoarthritis, Chronic back pain Derm: None Other Past Medical History: kidney cancer - Past Surgical History Past Surgical History: Yes General: Cholecystectomy, Appendectomy, Other Ortho: Shoulder arthroplasty /SOIL SAMPLER: Hysterectomy, Mastectomy HEENT: Cataracts, Tonsil/Adenoidectomy - Present Medications Home Medications: Ambulatory Orders Medication Instructions Recorded Confirmed Gabapentin 1,200 mg PO HS 07/21/14 08/18/21 amLODIPine [Norvasc] 5 mg PO DAILY 07/21/14 08/18/21 Baclofen 10 mg PO BID PRN 12/15/18 08/18/21 Fluticasone [Flonase] 2 spray NITIN QPM 12/15/18 08/18/21 Oxycodone HCl 5 mg PO Q4H PRN 12/15/18 08/18/21 Lactobacill 46/B.animal/Inulin 1 each PO DAILY #5 capsule 01/10/20 08/18/21 [Probiotic-10 10 Bill Cell Cap] Levothyroxine [Synthroid] 125 mcg PO QDAC #30 tablet 01/10/20 08/18/21 Potassium Chloride 20 meq PO TID 01/30/20 08/18/21 Aspirin [[place] Aspirin] 81 mg PO DAILY 03/10/21 08/18/21 Atorvastatin Calcium 40 mg PO HS 03/10/21 08/18/21 Bisacodyl Supp [Dulcolax Supp] 10 mg GA DAILY PRN #20 supp 03/20/21 08/18/21 Furosemide [Lasix] 80 mg PO DAILY 08/18/21 08/18/21 Ondansetron HCl [Zofran] 4 mg SL Q6HR PRN 08/18/21 08/18/21 - Allergies Allergies/Adverse Reactions: Allergies Allergy/AdvReac Type Severity Reaction Status Date / Time Penicillins Allergy Unknown Nausea Verified 08/18/21 10:11 - Social History Does the pt smoke?: No Smoking Status: Never smoker Does the pt drink ETOH?: No Does the pt have substance abuse?: No - Immunizations Immunizations are current?: Yes - POLST Patient has POLST: No POLST Status: DNR (Although she does want all treatment up until the moment of her , she does not want CPR or intubation if she has no pulse, pressure, or spontaneous respiration. If we find that she is succumbed to what ever illness and is now with significant cognitive deficits, she would rather be palliative care.) PD ED PE NORMAL - Vitals Vital signs reviewed: Yes - General General: Alert and oriented X 3 - HEENT HEENT: Atraumatic - Neck Neck: Supple, no meningeal sign, No JVD - Cardiac Cardiac: RRR, No murmur, No gallop, No rub - Respiratory Respiratory: No respiratory distress - Abdomen Abdomen: Normal bowel sounds, Soft - Female Female : Deferred - Rectal Rectal: Deferred - Derm Derm: Normal color - Extremities Extremities: No deformity, No tenderness to palpate - Neuro Neuro: Alert and oriented X 3, button maker 2-12 intact Results - Vitals Vitals: Vital Signs - 24 hr 08/18/21 08/18/21 08/18/21 10:09 10:15 10:21 Temperature 37.3 C 36.7 C Heart Rate 63 57 L Respiratory 16 18 Rate Blood Pressure 116/53 L 116/53 L O2 Saturation 83 L 98 100 08/18/21 13:00 Temperature 37.2 C Heart Rate 57 L Respiratory 14 Rate Blood Pressure 107/59 L O2 Saturation 97 Oxygen O2 Source Nasal cannula - EKG (time done) No standard instances Rate: Jame Rhythm: NSR [place]: Normal Intervals: Normal GA QRS: Normal Ischemia: Normal ST segments Computer interpretation: Disagree with computer - Labs Labs: Laboratory Tests 08/18/21 08/18/21 08/18/21 10:33 10:33 10:33 WBC 11.8 H RBC 2.91 L Hgb 8.4 L Hct 28.0 L MCV 96.2 MCH 28.9 MCHC 30.0 L RDW 14.3 Plt Count 265 MPV 11.3 H Neut # (Auto) 4.7 Lymph # (Auto) 1.0 L [place] # (Auto) 5.5 H Eos # (Auto) 0.3 Baso # (Auto) 0.1 Absolute Nucleated RBC 0.00 Nucleated RBC % 0.0 Manual Slide Review Indicated RBC Morph Micro Appear 2+ ANISOCYTOSIS PT 13.7 H INR 1.2 VBG pH VBG pCO2 VBG pO2 VBG HCO3 VBG Total CO2 VBG O2 Saturation VBG Base Excess Sodium 134 L Potassium 4.0 Chloride 94 L Carbon Dioxide 32 Anion Gap 8.0 BUN 34 H Creatinine 2.0 H Estimated GFR (MDRD) 24 L Glucose 89 Lactic Acid Calcium 15.7 H* Magnesium 2.3 Total Bilirubin 0.4 AST 16 ALT 11 Alkaline Phosphatase 74 Total Creatine Kinase 14 L Troponin I High Sens B-Natriuretic Peptide Total Protein 6.7 Albumin 3.0 L Globulin 3.7 Albumin/Globulin Ratio 0.8 L Lipase 27 Urine Color Urine Clarity Urine pH Ur Specific [place] Urine Protein Urine Glucose (UA) Urine Ketones Urine Occult Blood Urine Nitrite Urine Bilirubin Urine Urobilinogen Ur Leukocyte Esterase Urine RBC Urine WBC Ur Squamous Epith Cells Urine Bacteria Urine Yeast Ur Microscopic Review Urine Culture Comments Influenza A (Rapid) Influenza B (Rapid) SARS-CoV-2 (PCR) 08/18/21 08/18/21 08/18/21 10:33 10:33 10:33 WBC RBC Hgb Hct MCV MCH MCHC RDW Plt Count MPV Neut # (Auto) Lymph # (Auto) [place] # (Auto) Eos # (Auto) Baso # (Auto) Absolute Nucleated RBC Nucleated RBC % Manual Slide Review RBC Morph Micro Appear PT INR VBG pH VBG pCO2 VBG pO2 VBG HCO3 VBG Total CO2 VBG O2 Saturation VBG Base Excess Sodium Potassium Chloride Carbon Dioxide Anion Gap BUN Creatinine Estimated GFR (MDRD) Glucose Lactic Acid 1.1 Calcium Magnesium Total Bilirubin AST ALT Alkaline Phosphatase Total Creatine Kinase Troponin I High Sens 13.1 B-Natriuretic Peptide 385 H Total Protein Albumin Globulin Albumin/Globulin Ratio Lipase Urine Color Urine Clarity Urine pH Ur Specific [place] Urine Protein Urine Glucose (UA) Urine Ketones Urine Occult Blood Urine Nitrite Urine Bilirubin Urine Urobilinogen Ur Leukocyte Esterase Urine RBC Urine WBC Ur Squamous Epith Cells Urine Bacteria Urine Yeast Ur Microscopic Review Urine Culture Comments Influenza A (Rapid) Influenza B (Rapid) SARS-CoV-2 (PCR) 08/18/21 08/18/21 08/18/21 10:33 10:40 10:40 WBC RBC Hgb Hct MCV MCH MCHC RDW Plt Count MPV Neut # (Auto) Lymph # (Auto) [place] # (Auto) Eos # (Auto) Baso # (Auto) Absolute Nucleated RBC Nucleated RBC % Manual Slide Review RBC Morph Micro Appear PT INR VBG pH 7.434 H VBG pCO2 50.3 VBG pO2 50.6 H VBG HCO3 32.9 H VBG Total CO2 34.5 H VBG O2 Saturation 86.4 H VBG Base Excess 7.7 H Sodium Potassium Chloride Carbon Dioxide Anion Gap BUN Creatinine Estimated GFR (MDRD) Glucose Lactic Acid Calcium Magnesium Total Bilirubin AST ALT Alkaline Phosphatase Total Creatine Kinase Troponin I High Sens B-Natriuretic Peptide Total Protein Albumin Globulin Albumin/Globulin Ratio Lipase Urine Color Urine Clarity Urine pH Ur Specific [place] Urine Protein Urine Glucose (UA) Urine Ketones Urine Occult Blood Urine Nitrite Urine Bilirubin Urine Urobilinogen Ur Leukocyte Esterase Urine RBC Urine WBC Ur Squamous Epith Cells Urine Bacteria Urine Yeast Ur Microscopic Review Urine Culture Comments Influenza A (Rapid) Negative Influenza B (Rapid) Negative SARS-CoV-2 (PCR) NOT DETECTED 08/18/21 10:50 WBC RBC Hgb Hct MCV MCH MCHC RDW Plt Count MPV Neut # (Auto) Lymph # (Auto) [place] # (Auto) Eos # (Auto) Baso # (Auto) Absolute Nucleated RBC Nucleated RBC % Manual Slide Review RBC Morph Micro Appear PT INR VBG pH VBG pCO2 VBG pO2 VBG HCO3 VBG Total CO2 VBG O2 Saturation VBG Base Excess Sodium Potassium Chloride Carbon Dioxide Anion Gap BUN Creatinine Estimated GFR (MDRD) Glucose Lactic Acid Calcium Magnesium Total Bilirubin AST ALT Alkaline Phosphatase Total Creatine Kinase Troponin I High Sens B-Natriuretic Peptide Total Protein Albumin Globulin Albumin/Globulin Ratio Lipase Urine Color YELLOW Urine Clarity HAZY Urine pH 7.0 Ur Specific [place] 1.010 Urine Protein NEGATIVE Urine Glucose (UA) NEGATIVE Urine Ketones NEGATIVE Urine Occult Blood TRACE-LYSE Urine Nitrite NEGATIVE Urine Bilirubin NEGATIVE Urine Urobilinogen 0.2 (NORMAL) Ur Leukocyte Esterase SMALL H Urine RBC 0-5 Urine WBC 6-10 H Ur Squamous Epith Cells RARE Squamous Urine Bacteria Few Urine Yeast PRESENT Ur Microscopic Review INDICATED Urine Culture Comments INDICATED Influenza A (Rapid) Influenza B (Rapid) SARS-CoV-2 (PCR) PD MEDICAL DECISION MAKING - ED course Complexity details: reviewed old records, reviewed results, re-evaluated patient, considered differential, d/w patient ED course: Patient is 71-year-old female known stage IV renal cell carcinoma presenting to the emergency department with hypoxic respiratory failure. Hypoxic on arrival requiring increased oxygen demand of 5 L. Otherwise afebrile and hemodynamically stable. EKG is on above was negative for indications of acute cardiac ischemia dysrhythmia and was essentially unchanged from baseline. Comprehensive labs obtained demonstrated a severe hypercalcemia. Patient was given 2 L IV fluid and a 3 mg dose of zoledronic acid. I did obtain noncontrast scan of her chest which demonstrated progressive in of her previous known metastatic disease but was otherwise negative for acute intrathoracic pathology. The remainder of her labs and imaging were generally within normal limits are nonactionable for this patient. On reevaluation she did report feeling somewhat better. Her care was discussed with the hospitalist service. At this time she will be hospitalized for further evaluation and treatment. Departure - Departure Disposition: 66 [facility] DC/Xfer Clinical Impression: Generalized weakness, Hypercalcemia, Respiratory failure
[2021-08-18 14:31] LABS: B. PARAPERTUSSIS- RESP PCR PAN NOT DETECTED; B. PERTUSSIS- RESP PCR PANEL NOT DETECTED; C. PNEUMONIAE- RESP PCR PANEL NOT DETECTED; CORONAVIRUS 229E-RESP PCR NOT DETECTED; CORONAVIRUS HKU1-RESP PCR NOT DETECTED; CORONAVIRUS NL63-RESP PCR NOT DETECTED; CORONAVIRUS OC43-RESP PCR NOT DETECTED; HUMAN METAPNEUMOVIRUS NOT DETECTED; INFLUENZA A- RESP PCR PANEL NOT DETECTED; INFLUENZA B - RESP PCR PANEL NOT DETECTED; M. PNEUMONIAE- RESP PCR PANEL NOT DETECTED; PARAINFLUENZA VIRUS 1 NOT DETECTED; PARAINFLUENZA VIRUS 2 NOT DETECTED; PARAINFLUENZA VIRUS 3 NOT DETECTED; PARAINFLUENZA VIRUS 4 NOT DETECTED; RHINOVIRUS/ENTEROVIRUS NOT DETECTED; RSV- RESP PCR PANEL NOT DETECTED; SARS-CoV-2 -RESP PCR PANEL NOT DETECTED
--- NOTE | 2021-08-18 14:46 | HISTORY & PHYSICAL EXAMINATION ---
Chief Complaint - Chief Complaint Chief Complaint: Weakness History of Present Illness - Admitted From Admitted From:: ED - History Obtained From History obtained from: ED provider and the patient - History of Present Illness HPI Comment/Other: This is a 71 y/o WF with history of DAMON on CPAP, breast cancer and has been treated with mastectomy and chemotherapy and lymph node dissection in 2004. She then presented with left renal cell cancer in 2018 that was resected. 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 She was in our ER 1 month ago with hypercalcemia, treated with iv fluids and Zoledronic acid and was released. She presented to the emergency department, brought in by ambulance, with generalized weakness as well as complaint of nausea and vomiting at home, but denies any chest pain, shortness of breath, abdominal pain, fever or diarrhea. EMS reported hypoxia in the field with saturation of 80%. In the ED, first O2 sat was 83% on room air and she has required 5 L in order to maintain oxygen saturations greater than 90%. EMS report a recent hospitalization at the [facility] for UTI and pneumonia, but no old records are available yet. Patient does not usually have a baseline oxygen demand. She reports that N/V is common and she takes Reglan before meals and prn Zofran and her meals are [id number] consistency. She has been bed to wheelchair bound since coming home from the hospitalization and she has 24/7 caregivers at home. Her w/u in ED showed COVID neg by PCR, a normal troponin of 13, BNP mildly increased at 385, CT scan of chest was without infiltrates but larger mets were reported. Her serum Calcium is 15.7. Patient was given 2 L IV fluid and a 3 mg dose of Zoledronic acid. The ED provider reached out to the Hospitalist team for admission. She is a DNR/DNI per documentation by the ED provider. 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 SUPERVISOR: reports: Ovarian cysts, Breast cancer, Other : reports: Other HEENT: reports: Chronic vision loss Psych: reports: None Musculoskeletal: reports: Osteoarthritis, Chronic back pain Derm: reports: None MRSA Hx?: No Other Past Medical History: kidney cancer - Past Surgical History General: reports: Cholecystectomy, Appendectomy, Other Ortho: reports: Shoulder arthroplasty /VISUAL SUPERVISOR: reports: Hysterectomy, Mastectomy HEENT: reports: Cataracts, Tonsil/Adenoidectomy - Family & Social History Family History: Mother: , Father: , Sister: Family History Comment/Other: Mom in her 50s of breast cancer. Dad at 85 of congestive heart failure. One sibling, sister, of metastatic breast cancer. She has no children. Living arrangement: At home Living Situation: With caregiver(s) Social History Notes: She was born and raised in [place]. Met her and they got and moved to [place]. They moved to [facility] a round 1976. 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 Her June 2019. She rarely drinks (wine). She never smoked. She has no history of recreational substance abuse. - Substance History Use: Uses substance without health or social issues: NONE - POLST Patient has POLST: No POLST Status: DNR (Although she does want all treatment up until the moment of her , she does not want CPR or intubation if she has no pulse, pressure, or spontaneous respiration. If we find that she is succumbed to what ever illness and is now with significant cognitive deficits, she would rather be palliative care.) Meds/Allgy - Home Medications Home Medications: Ambulatory Orders Medication Instructions Recorded Confirmed Gabapentin 1,200 mg PO HS 07/21/14 08/18/21 amLODIPine [Norvasc] 5 mg PO DAILY 07/21/14 08/18/21 Baclofen 10 mg PO BID PRN 12/15/18 08/18/21 Fluticasone [Flonase] 2 spray NITIN QPM 12/15/18 08/18/21 Oxycodone HCl 5 mg PO Q4H PRN 12/15/18 08/18/21 Lactobacill 46/B.animal/Inulin 1 each PO DAILY #5 capsule 01/10/20 08/18/21 [Probiotic-10 10 Bill Cell Cap] Potassium Chloride 20 meq PO TID 01/30/20 08/18/21 Aspirin [[place] Aspirin] 81 mg PO DAILY 03/10/21 08/18/21 Atorvastatin Calcium 40 mg PO HS 03/10/21 08/18/21 Bisacodyl Supp [Dulcolax Supp] 10 mg [place] DAILY PRN #20 supp 03/20/21 08/18/21 Everolimus [Afinitor] 5 mg PO DAILY 08/18/21 08/18/21 Furosemide [Lasix] 80 mg PO DAILY 08/18/21 08/18/21 Lenvatinib Mesylate [Lenvima] 14 mg PO DAILY 08/18/21 08/18/21 Levothyroxine Sodium [Synthroid] 150 mcg PO QDAC 08/18/21 08/18/21 Metoprolol Tartrate [Lopressor] 12.5 mg PO DAILY 08/18/21 08/18/21 Ondansetron HCl [Zofran] 4 mg SL Q6HR PRN 08/18/21 08/18/21 - Allergies Allergies/Adverse Reactions: Allergies Allergy/AdvReac Type Severity Reaction Status Date / Time Penicillins Allergy Unknown Nausea Verified 08/18/21 10:11 Review of Systems - Constitutional Constitutional: reports: Weakness - Respiratory Respiratory: reports: SOB with exertion (She herself thinks it is from the lung mets) - Gastrointestinal Gastrointestinal: reports: Nausea, Vomiting - Neurological Neurological: reports: General weakness - All Other Systems All Other Systems: reports: Reviewed and negative Exam - Vital Signs Reviewed Vital Signs: Yes Vital Signs: Vital Signs x48h Temp Pulse Resp BP Pulse Ox 08/18/21 13:00 37.2 C 57 L 14 107/59 L 97 08/18/21 10:21 36.7 C 57 L 18 116/53 L 100 08/18/21 10:15 98 08/18/21 10:09 37.3 C 63 16 116/53 L 83 L - Physical Exam General Appearance: positive: No acute distress, Alert Eyes Bilateral: positive: Normal inspection, EOMI ENT: positive: Dry mucous membranes Neck: positive: Nml inspection, No JVD Respiratory: positive: No respiratory distress (is on O2 by n.c.), Breath sounds nml Cardiovascular: positive: Regular rate & rhythm, No murmur Abdomen: positive: Non-tender, Nml bowel sounds, No distention Skin: positive: Warm, Dry Extremities: positive: Non-tender, No pedal edema Neurologic/Psychiatric: positive: Oriented x3 (Non-focal) Conclusion/Plan - Problem List (1) Acute respiratory failure with hypoxia Conclusion/Plan: Her O2 sat at presentation in the ED on room air was 83%. She herself thinks that she is short of breath from her lung metastases. The mets are reported to be bigger on today's CT imaging of the chest. Continue with supplemental oxygen. Will obtain Echo to eval for CHF. Requested records from recent hospitalization. Wean down oxygen to lowest that is clinically safe, keeping sats greater than 90%. May need to go home with new home O2 order when ready for [facility]. (2) Hypercalcemia Conclusion/Plan: She had this a month ago and needed saline and specific meds. It is likely related to her bony metastasis. We will place her on IV saline. She received zoledronic acid x1 in the ED. Follow calcium daily (3) DAMON on CPAP Conclusion/Plan: Will order her home CPAP device to use here at at bedtime (4) Generalized weakness Conclusion/Plan: She reports only being bedbound and wheelchair-bound since the recent hospitaliz ation at . I have requested discharge summary from where she apparently had pneumonia and UTI. Will order PT for evaluation after we see the records (5) KIN (acute kidney injury) Conclusion/Plan: Her reconciled medication list shows she is on Lasix daily plus potassium. She may have been put on Lasix to handle hypercalcemia. We are starting IV saline which is also needed to treat her hypercalcemia now and holding Lasix. Avoid nephrotoxins. Follow BMP daily (6) Hypothyroid Conclusion/Plan: Will obtain TSH, resume her thyroid dose Qualifiers: Hypothyroidism type: acquired Qualified Code(s): E03.9 - Hypothyroidism, unspecified (7) HTN (hypertension) Conclusion/Plan: At home she takes amlodipine and metoprolol and the Lasix also helps hypertension. We will resume these but hold the Lasix temporarily Qualifiers: Hypertension type: unspecified Qualified Code(s): I10 - Essential (primary) hypertension (8) Kidney cancer, primary, with metastasis from kidney to other site Conclusion/Plan: As per Hx. We will resume her nonformulary cancer meds while she is here - Lab Results Fish Bones: 08/18/21 10:33 08/18/21 10:33
--- NOTE | 2021-08-18 16:54 | PHARMACY PROGRESS NOTE ---
- Best Possible Medication History Admit Date and Time: 08/18/21 1506 Processed by: Nursing Medication History completed: Yes As the person ultimately responsible for medication therapy, providers are able to order a medication from an existing home medication list in [facility] via the "Reconcile Routine" prior to Confirmation of that medication by support associate. Such practice is discouraged except when the physician, in their clinical judgment, deems that a medical need exists for a medication without regard to previous use.
[2021-08-18] MEDS: SODIUM CHLORIDE 0.9% 1,000 ML IV SCH (16:57)
[2021-08-18] MEDS: SODIUM CHLORIDE FLUSH 0.9% 10 ML SYRINGE IVP SCH (16:57)
[2021-08-18] MEDS ORDERED: BISACODYL 10 MG SUPP PR PRN (17:23)
[2021-08-18] MEDS ORDERED: ONDANSETRON ODT 4 MG TABLET TL PRN (17:48)
[2021-08-18] MEDS: oxyCODONE 5 MG TABLET PO PRN (19:49)
[2021-08-18] MEDS: ATORVASTATIN 40 MG TABLET PO SCH (22:02)
[2021-08-18] MEDS: GABAPENTIN 400 MG CAPSULE PO SCH (22:02)
[2021-08-18] MEDS: POTASSIUM CHLORIDE 20 MEQ/15 ML UDC PO SCH (22:03)
[2021-08-18] MEDS: FLUTICASONE NASAL SPRAY NAS SCH ×2 (22:06→22:16)
[2021-08-19] MEDS: SODIUM CHLORIDE FLUSH 0.9% 10 ML SYRINGE IVP SCH ×3 (01:53→18:07)
[2021-08-19] MEDS: oxyCODONE 5 MG TABLET PO PRN ×5 (01:53→21:48)
[2021-08-19] MEDS: SODIUM CHLORIDE FLUSH 0.9% 10 ML SYRINGE IVP PRN ×2 (01:54→17:30)
[2021-08-19] MEDS: SODIUM CHLORIDE 0.9% 1,000 ML IV SCH ×4 (05:03→20:25)
[2021-08-19 05:54] LABS: BASOPHILS % (AUTO) 0.7 %; EOSINOPHILS % (AUTO) 2.9 %; HCT - HEMATOCRIT 25.3 % (37.0-47.0); HGB - HEMOGLOBIN 7.5 g/dL (12.0-16.0); LYMPHOCYTES % (AUTO) 17.8 %; MEAN CORPUSCULAR HEMOGLOBIN 29.1 pg (27.0-31.0); MEAN CORPUSCULAR HGB CONC 29.6 g/dL (32.0-36.0); MEAN CORPUSCULAR VOLUME 98.1 fL (81.0-99.0); MEAN PLATELET VOLUME 11.3 fL (7.9-10.8); MONOCYTES % (AUTO) 40.2 %; NEUTROPHILS % (AUTO) 36.1 %; PLT - PLATELET COUNT 217 10^3/uL (130-450); RED BLOOD COUNT 2.58 10^6/uL (4.20-5.40); RED CELL DISTRIBUTION WIDTH 14.4 % (12.0-15.0); WHITE BLOOD COUNT 8.7 x10^3/uL (4.8-10.8)
[2021-08-19 05:57] LABS: ABNORMAL LYMPHS % (MANUAL) 0 %; BAND NEUTROPHILS % (MANUAL) 0 %
[2021-08-19 06:02] LABS: CREATININE 1.6 mg/dL (0.4-1.0)
[2021-08-19 06:16] LABS: DIFFERENTIAL COMMENT MANUAL DIFFERENTIAL; EOSINOPHILS # (MANUAL) 0.3 10^3/uL (0-0.7); LYMPHOCYTES # (MANUAL) 1.3 10^3/uL (1.5-3.5); LYMPHOCYTES % (MANUAL) 15 %; MONOCYTES # (MANUAL) 2.9 10^3/uL (0.0-1.0); NEUTROPHILS # (MANUAL) 4.2 10^3/uL (1.5-6.6); PLATELET ESTIMATE, MANUAL NORMAL (130-450,000) (NORMAL); PLATELET MORPHOLOGY NORMAL APPEARANCE (NORMAL); RBC MORPHOLOGY (MULTIPLE) NORMAL APPEARANCE (NORMAL); WBC MORPHOLOGY (MULTIPLE) NORMAL APPEARANCE (NORMAL)
[2021-08-19 06:19] LABS: POTASSIUM 4.2 mmol/L (3.5-5.0)
[2021-08-19] MEDS: POTASSIUM CHLORIDE 20 MEQ/15 ML UDC PO SCH ×3 (06:21→21:52)
[2021-08-19] MEDS: LEVOTHYROXINE 75 MCG TABLET PO SCH (06:21)
[2021-08-19 06:28] LABS: CALCIUM 13.4 mg/dL (8.5-10.3)
--- NOTE | 2021-08-19 07:40 | PROVIDER PROGRESS NOTE ---
Subjective - Prog Note Date Prog Note Date: 08/19/21 - Subjective Subjective: She feels better compared to yesterday. Less tired. Still feels short of breath without her CPAP. Current Medications - Current Medications Current Medications: Active Medications Acetaminophen (Acetaminophen 325 Mg Tablet) 650 mg PO Q4HR PRN PRN Reason: Pain or Fever > 38C (100.4F) Amlodipine Besylate (Amlodipine 5 Mg Tablet) 5 mg PO DAILY [facility] Aspirin (Aspirin Chew 81 Mg Tablet) 81 mg PO DAILY [facility] Atorvastatin Calcium (Atorvastatin 40 Mg Tablet) 40 mg PO [facility] Last Admin: 08/18/21 22:02 Dose: 40 mg Documented by: Baclofen (Baclofen 10 Mg Tablet) 10 mg PO BID PRN PRN Reason: Spasms Bisacodyl (Bisacodyl 10 Mg Supp) 10 mg [place] DAILY PRN PRN Reason: Constipation Fluticasone Propionate (Fluticasone Nasal [place]) 2 sprays NITIN QPM [facility] Last Admin: 08/18/21 22:16 Dose: Not Given Documented by: Gabapentin (Gabapentin 400 Mg Capsule) 1,200 mg PO [facility] Last Admin: 08/18/21 22:02 Dose: 1,200 mg Documented by: Sodium Chloride (Normal Saline 0.9%) 1,000 mls @ 83.333 mls/hr IV .Q12H [facility] Last Admin: 08/19/21 05:03 Dose: 83.333 mls/hr Documented by: Lactobacillus Rhamnosus (Lactobacillus Rhamnosus Gg Capsule) 1 cap PO DAILY [facility] Levothyroxine Sodium (Levothyroxine 75 Mcg Tablet) 150 mcg PO QDAC [facility] Last Admin: 08/19/21 06:21 Dose: 150 mcg Documented by: Metoprolol Tartrate (Metoprolol Tartrate 25 Mg Tablet) 12.5 mg PO DAILY [facility] Non-Formulary Medication (Everolimus [Afinitor]) 5 mg PO DAILY [facility] Non-Formulary Medication (Lenvatinib Mesylate [Lenvima]) 14 mg PO DAILY [facility] Ondansetron HCl (Ondansetron 4 Mg/2 Ml Vial) 4 mg IVP Q6HR PRN PRN Reason: Nausea / Vomiting Ondansetron HCl (Ondansetron Odt 4 Mg Tablet) 4 mg TL Q6HR PRN PRN Reason: Nausea / Vomiting Oxycodone HCl (Oxycodone 5 Mg Tablet) 5 mg PO Q4H PRN PRN Reason: PAIN Last Admin: 08/19/21 06:21 Dose: 5 mg Documented by: Potassium Chloride (Potassium Chloride 20 Meq/15 Ml Udc) 20 meq PO TID [facility] Last Admin: 08/19/21 06:21 Dose: 20 meq Documented by: Sodium Chloride (Sodium Chloride Flush 0.9% 10 Ml Syringe) 10 ml IVP PRN PRN PRN Reason: NEEDED PER PROVIDER ORDERS Last Admin: 08/19/21 01:54 Dose: 10 ml Documented by: Sodium Chloride (Sodium Chloride Flush 0.9% 10 Ml Syringe) 10 ml IVP 0100,0900,1700 [facility] Last Admin: 08/19/21 01:53 Dose: Not Given Documented by: Gabapentin 1,200 mg PO HS 07/21/14 amLODIPine [Norvasc] 5 mg PO DAILY 07/21/14 Baclofen 10 mg PO BID PRN 12/15/18 Fluticasone [Flonase] 2 spray NITIN QPM 12/15/18 Oxycodone HCl 5 mg PO Q4H PRN 12/15/18 Potassium Chloride 20 meq PO TID 01/30/20 Aspirin [B[place] Aspirin] 81 mg PO DAILY 03/10/21 Atorvastatin Calcium 40 mg PO HS 03/10/21 Everolimus [Afinitor] 5 mg PO DAILY 08/18/21 Furosemide [Lasix] 80 mg PO DAILY 08/18/21 Lenvatinib Mesylate [Lenvima] 14 mg PO DAILY 08/18/21 Levothyroxine Sodium [Synthroid] 150 mcg PO QDAC 08/18/21 Metoprolol Tartrate [Lopressor] 12.5 mg PO DAILY 08/18/21 Ondansetron HCl [Zofran] 4 mg SL Q6HR PRN 08/18/21 Objective - Vital Signs/Intake & Output Reviewed Vital Signs: Yes Vital Signs: Vital Signs x48h Temp Pulse Pulse Pulse Resp BP BP 08/19/21 05:26 36.4 C L 55 L 20 08/19/21 04:49 36.4 C L 55 L 20 93/49 L 08/19/21 01:00 37.0 C 61 14 95/48 L Pulse Ox 08/19/21 05:26 94 08/19/21 04:49 94 08/19/21 01:00 93 Intake & Output: Intake & Output 08/16/21 08/17/21 08/18/21 08/19/21 23:59 23:59 23:59 23:59 Intake Total 3003.75 1050 Output Total 50 Balance 3003.75 1000 - Objective General Appearance: positive: No acute distress, Alert Eyes Bilateral: positive: Normal inspection ENT: positive: ENT inspection nml Respiratory: positive: No respiratory distress, Wheezes, Rhonchi Cardiovascular: positive: Regular rate & rhythm. negative: Tachycardia Abdomen: positive: Non-tender, No distention Skin: positive: Warm, Dry Extremities: positive: Pedal edema (Trace pitting edema bilateral lower extremity) Neurologic/Psychiatric: negative: Disoriented to person, Disoriented to place - Lab Results Fish Bones: 08/19/21 05:07 08/19/21 05:07 Other Labs: Lab Results x24hrs 08/19/21 08/19/21 08/18/21 Range/Units 05:07 05:07 10:50 WBC 8.7 (4.8-10.8) x10^3/uL RBC 2.58 L (4.20-5.40) 10^6/uL Hgb 7.5 L (12.0-16.0) g/dL Hct 25.3 L (37.0-47.0) % MCV 98.1 (81.0-99.0) fL MCH 29.1 (27.0-31.0) pg MCHC 29.6 L (32.0-36.0) g/dL RDW 14.4 (12.0-15.0) % Plt Count 217 (130-450) 10^3/uL MPV 11.3 H (7.9-10.8) fL Neut # (Auto) Not Reportable (1.5-6.6) 10^3/uL Lymph # (Auto) Not Reportable (1.5-3.5) 10^3/uL [place] # (Auto) Not Reportable (0.0-1.0) 10^3/uL Eos # (Auto) Not Reportable (0.0-0.7) 10^3/uL Baso # (Auto) Not Reportable (0.0-0.1) 10^3/uL Absolute Nucleated RBC Not Reportable x10^3/uL Total Counted 100 Band Neuts % (Manual) 0 (0 - 10) % Abnorm Lymph % (Manual) 0 % Nucleated RBC % Not Reportable /100WBC Neutrophils # (Manual) 4.2 (1.5-6.6) 10^3/uL Lymphocytes # (Manual) 1.3 L (1.5-3.5) 10^3/uL Monocytes # (Manual) 2.9 H (0.0-1.0) 10^3/uL Eosinophils # (Manual) 0.3 (0-0.7) 10^3/uL Basophils # (Manual) 0.0 (0-0.1) 10^3/uL Differential Comment MANUAL DIFFERENTIAL Manual Slide Review WBC Morphology NORMAL APPEARANCE (NORMAL) Platelet Estimate NORMAL (130-450,000) (NORMAL) Platelet Morphology NORMAL APPEARANCE (NORMAL) RBC Morph Micro Appear NORMAL APPEARANCE (NORMAL) PT (9.9-12.6) secs INR (0.8-1.2) VBG pH (7.31-7.41) VBG pCO2 (41-51) mmHg VBG pO2 (25-47) mmHg VBG HCO3 (23-28) mmol/L VBG Total CO2 (24-29) mmol/L VBG O2 Saturation (60-80) % VBG Base Excess (-2 - +2) mmol/L Sodium 136 (135-145) mmol/L Potassium 4.2 (3.5-5.0) mmol/L Chloride 100 L (101-111) mmol/L Carbon Dioxide 28 (21-32) mmol/L Anion Gap 8.0 (6-13) BUN 32 H (6-20) mg/dL Creatinine 1.6 H (0.4-1.0) mg/dL Estimated GFR (MDRD) 32 L (>89) Glucose 77 (70-100) mg/dL Lactic Acid (0.5-2.2) mmol/L Calcium 13.4 H* (8.5-10.3) mg/dL Magnesium (1.7-2.8) mg/dL Total Bilirubin (0.2-1.0) mg/dL AST (10-42) IU/L ALT (10-60) IU/L Alkaline Phosphatase (42-121) IU/L Total Creatine Kinase (22-269) IU/L Troponin I High Sens (2.3-14.8) ng/L B-Natriuretic Peptide (5-100) pg/mL Total Protein (6.7-8.2) g/dL Albumin (3.2-5.5) g/dL Globulin (2.1-4.2) g/dL Albumin/Globulin Ratio (1.0-2.2) Lipase (22-51) U/L Urine Color YELLOW Urine Clarity HAZY (CLEAR) Urine pH 7.0 (5.0-7.5) PH Ur Specific [place] 1.010 (1.002-1.030) Urine Protein NEGATIVE (NEGATIVE) mg/dL Urine Glucose (UA) NEGATIVE (NEGATIVE) mg/dL Urine Ketones NEGATIVE (NEGATIVE) mg/dL Urine Occult Blood TRACE-LYSE (NEGATIVE) Urine Nitrite NEGATIVE (NEGATIVE) Urine Bilirubin NEGATIVE (NEGATIVE) Urine Urobilinogen 0.2 (NORMAL) (NORMAL) E.U./dL Ur Leukocyte Esterase SMALL H (NEGATIVE) Urine RBC 0-5 (0-5) /HPF Urine WBC 6-10 H (0-5) /HPF Ur Squamous Epith Cells RARE Squamous (<= Few) Urine Bacteria Few (None Seen) /HPF Urine Yeast PRESENT Ur Microscopic Review INDICATED Urine Culture Comments INDICATED Nasal Adenovirus (PCR) Nasal B. parapertussis DNA (PCR) Nasal Coronavir 229E PCR Nasal Coronavir HKU1 PCR Nasal Coronavir NL63 PCR Nasal Coronavir OC43 PCR Nasal Enterovir/Rhinovir PCR Nasal Influenza B PCR Nasal Influenza A PCR Nasal Parainfluen 1 PCR Nasal Parainfluen 2 PCR Nasal Parainfluen 3 PCR Nasal Parainfluen 4 PCR Nasal RSV (PCR) Nasal B.pertussis DNA PCR Nasal C.pneumoniae (PCR) Nitin Human Metapneumo PCR Nasal M.pneumoniae (PCR) Nasal SARS-CoV-2 (PCR) Influenza A (Rapid) (Negative) Influenza B (Rapid) (Negative) SARS-CoV-2 (PCR) 08/18/21 08/18/21 08/18/21 Range/Units 10:40 10:40 10:40 WBC (4.8-10.8) x10^3/uL RBC (4.20-5.40) 10^6/uL Hgb (12.0-16.0) g/dL Hct (37.0-47.0) % MCV (81.0-99.0) fL MCH (27.0-31.0) pg MCHC (32.0-36.0) g/dL RDW (12.0-15.0) % Plt Count (130-450) 10^3/uL MPV (7.9-10.8) fL Neut # (Auto) (1.5-6.6) 10^3/uL Lymph # (Auto) (1.5-3.5) 10^3/uL [place] # (Auto) (0.0-1.0) 10^3/uL Eos # (Auto) (0.0-0.7) 10^3/uL Baso # (Auto) (0.0-0.1) 10^3/uL Absolute Nucleated RBC x10^3/uL Total Counted Band Neuts % (Manual) (0 - 10) % Abnorm Lymph % (Manual) % Nucleated RBC % /100WBC Neutrophils # (Manual) (1.5-6.6) 10^3/uL Lymphocytes # (Manual) (1.5-3.5) 10^3/uL Monocytes # (Manual) (0.0-1.0) 10^3/uL Eosinophils # (Manual) (0-0.7) 10^3/uL Basophils # (Manual) (0-0.1) 10^3/uL Differential Comment Manual Slide Review WBC Morphology (NORMAL) Platelet Estimate (NORMAL) Platelet Morphology (NORMAL) RBC Morph Micro Appear (NORMAL) PT (9.9-12.6) secs INR (0.8-1.2) VBG pH (7.31-7.41) VBG pCO2 (41-51) mmHg VBG pO2 (25-47) mmHg VBG HCO3 (23-28) mmol/L VBG Total CO2 (24-29) mmol/L VBG O2 Saturation (60-80) % VBG Base Excess (-2 - +2) mmol/L Sodium (135-145) mmol/L Potassium (3.5-5.0) mmol/L Chloride (101-111) mmol/L Carbon Dioxide (21-32) mmol/L Anion Gap (6-13) BUN (6-20) mg/dL Creatinine (0.4-1.0) mg/dL Estimated GFR (MDRD) (>89) Glucose (70-100) mg/dL Lactic Acid (0.5-2.2) mmol/L Calcium (8.5-10.3) mg/dL Magnesium (1.7-2.8) mg/dL Total Bilirubin (0.2-1.0) mg/dL AST (10-42) IU/L ALT (10-60) IU/L Alkaline Phosphatase (42-121) IU/L Total Creatine Kinase (22-269) IU/L Troponin I High Sens (2.3-14.8) ng/L B-Natriuretic Peptide (5-100) pg/mL Total Protein (6.7-8.2) g/dL Albumin (3.2-5.5) g/dL Globulin (2.1-4.2) g/dL Albumin/Globulin Ratio (1.0-2.2) Lipase (22-51) U/L Urine Color Urine Clarity (CLEAR) Urine pH (5.0-7.5) PH Ur Specific [place] (1.002-1.030) Urine Protein (NEGATIVE) mg/dL Urine Glucose (UA) (NEGATIVE) mg/dL Urine Ketones (NEGATIVE) mg/dL Urine Occult Blood (NEGATIVE) Urine Nitrite (NEGATIVE) Urine Bilirubin (NEGATIVE) Urine Urobilinogen (NORMAL) E.U./dL Ur Leukocyte Esterase (NEGATIVE) Urine RBC (0-5) /HPF Urine WBC (0-5) /HPF Ur Squamous Epith Cells (<= Few) Urine Bacteria (None Seen) /HPF Urine Yeast Ur Microscopic Review Urine Culture Comments Nasal Adenovirus (PCR) NOT DETECTED Nasal B. parapertussis DNA (PCR) NOT DETECTED Nasal Coronavir 229E PCR NOT DETECTED Nasal Coronavir HKU1 PCR NOT DETECTED Nasal Coronavir NL63 PCR NOT DETECTED Nasal Coronavir OC43 PCR NOT DETECTED Nasal Enterovir/Rhinovir PCR NOT DETECTED Nasal Influenza B PCR NOT DETECTED Nasal Influenza A PCR NOT DETECTED Nasal Parainfluen 1 PCR NOT DETECTED Nasal Parainfluen 2 PCR NOT DETECTED Nasal Parainfluen 3 PCR NOT DETECTED Nasal Parainfluen 4 PCR NOT DETECTED Nasal RSV (PCR) NOT DETECTED Nasal B.pertussis DNA PCR NOT DETECTED Nasal C.pneumoniae (PCR) NOT DETECTED Nitin Human Metapneumo PCR NOT DETECTED Nasal M.pneumoniae (PCR) NOT DETECTED Nasal SARS-CoV-2 (PCR) NOT DETECTED Influenza A (Rapid) Negative (Negative) Influenza B (Rapid) Negative (Negative) SARS-CoV-2 (PCR) NOT DETECTED 08/18/21 08/18/21 08/18/21 Range/Units 10:33 10:33 10:33 WBC (4.8-10.8) x10^3/uL RBC (4.20-5.40) 10^6/uL Hgb (12.0-16.0) g/dL Hct (37.0-47.0) % MCV (81.0-99.0) fL MCH (27.0-31.0) pg MCHC (32.0-36.0) g/dL RDW (12.0-15.0) % Plt Count (130-450) 10^3/uL MPV (7.9-10.8) fL Neut # (Auto) (1.5-6.6) 10^3/uL Lymph # (Auto) (1.5-3.5) 10^3/uL [place] # (Auto) (0.0-1.0) 10^3/uL Eos # (Auto) (0.0-0.7) 10^3/uL Baso # (Auto) (0.0-0.1) 10^3/uL Absolute Nucleated RBC x10^3/uL Total Counted Band Neuts % (Manual) (0 - 10) % Abnorm Lymph % (Manual) % Nucleated RBC % /100WBC Neutrophils # (Manual) (1.5-6.6) 10^3/uL Lymphocytes # (Manual) (1.5-3.5) 10^3/uL Monocytes # (Manual) (0.0-1.0) 10^3/uL Eosinophils # (Manual) (0-0.7) 10^3/uL Basophils # (Manual) (0-0.1) 10^3/uL Differential Comment Manual Slide Review WBC Morphology (NORMAL) Platelet Estimate (NORMAL) Platelet Morphology (NORMAL) RBC Morph Micro Appear (NORMAL) PT (9.9-12.6) secs INR (0.8-1.2) VBG pH 7.434 H (7.31-7.41) VBG pCO2 50.3 (41-51) mmHg VBG pO2 50.6 H (25-47) mmHg VBG HCO3 32.9 H (23-28) mmol/L VBG Total CO2 34.5 H (24-29) mmol/L VBG O2 Saturation 86.4 H (60-80) % VBG Base Excess 7.7 H (-2 - +2) mmol/L Sodium (135-145) mmol/L Potassium (3.5-5.0) mmol/L Chloride (101-111) mmol/L Carbon Dioxide (21-32) mmol/L Anion Gap (6-13) BUN (6-20) mg/dL Creatinine (0.4-1.0) mg/dL Estimated GFR (MDRD) (>89) Glucose (70-100) mg/dL Lactic Acid 1.1 (0.5-2.2) mmol/L Calcium (8.5-10.3) mg/dL Magnesium (1.7-2.8) mg/dL Total Bilirubin (0.2-1.0) mg/dL AST (10-42) IU/L ALT (10-60) IU/L Alkaline Phosphatase (42-121) IU/L Total Creatine Kinase (22-269) IU/L Troponin I High Sens 13.1 (2.3-14.8) ng/L B-Natriuretic Peptide (5-100) pg/mL Total Protein (6.7-8.2) g/dL Albumin (3.2-5.5) g/dL Globulin (2.1-4.2) g/dL Albumin/Globulin Ratio (1.0-2.2) Lipase (22-51) U/L Urine Color Urine Clarity (CLEAR) Urine pH (5.0-7.5) PH Ur Specific [place] (1.002-1.030) Urine Protein (NEGATIVE) mg/dL Urine Glucose (UA) (NEGATIVE) mg/dL Urine Ketones (NEGATIVE) mg/dL Urine Occult Blood (NEGATIVE) Urine Nitrite (NEGATIVE) Urine Bilirubin (NEGATIVE) Urine Urobilinogen (NORMAL) E.U./dL Ur Leukocyte Esterase (NEGATIVE) Urine RBC (0-5) /HPF Urine WBC (0-5) /HPF Ur Squamous Epith Cells (<= Few) Urine Bacteria (None Seen) /HPF Urine Yeast Ur Microscopic Review Urine Culture Comments Nasal Adenovirus (PCR) Nasal B. parapertussis DNA (PCR) Nasal Coronavir 229E PCR Nasal Coronavir HKU1 PCR Nasal Coronavir NL63 PCR Nasal Coronavir OC43 PCR Nasal Enterovir/Rhinovir PCR Nasal Influenza B PCR Nasal Influenza A PCR Nasal Parainfluen 1 PCR Nasal Parainfluen 2 PCR Nasal Parainfluen 3 PCR Nasal Parainfluen 4 PCR Nasal RSV (PCR) Nasal B.pertussis DNA PCR Nasal C.pneumoniae (PCR) [place] Human Metapneumo PCR Nasal M.pneumoniae (PCR) Nasal SARS-CoV-2 (PCR) Influenza A (Rapid) (Negative) Influenza B (Rapid) (Negative) SARS-CoV-2 (PCR) 08/18/21 08/18/21 08/18/21 Range/Units 10:33 10:33 10:33 WBC (4.8-10.8) x10^3/uL RBC (4.20-5.40) 10^6/uL Hgb (12.0-16.0) g/dL Hct (37.0-47.0) % MCV (81.0-99.0) fL MCH (27.0-31.0) pg MCHC (32.0-36.0) g/dL RDW (12.0-15.0) % Plt Count (130-450) 10^3/uL MPV (7.9-10.8) fL Neut # (Auto) (1.5-6.6) 10^3/uL Lymph # (Auto) (1.5-3.5) 10^3/uL [place] # (Auto) (0.0-1.0) 10^3/uL Eos # (Auto) (0.0-0.7) 10^3/uL Baso # (Auto) (0.0-0.1) 10^3/uL Absolute Nucleated RBC x10^3/uL Total Counted Band Neuts % (Manual) (0 - 10) % Abnorm Lymph % (Manual) % Nucleated RBC % /100WBC Neutrophils # (Manual) (1.5-6.6) 10^3/uL Lymphocytes # (Manual) (1.5-3.5) 10^3/uL Monocytes # (Manual) (0.0-1.0) 10^3/uL Eosinophils # (Manual) (0-0.7) 10^3/uL Basophils # (Manual) (0-0.1) 10^3/uL Differential Comment Manual Slide Review WBC Morphology (NORMAL) Platelet Estimate (NORMAL) Platelet Morphology (NORMAL) RBC Morph Micro Appear (NORMAL) PT 13.7 H (9.9-12.6) secs INR 1.2 (0.8-1.2) VBG pH (7.31-7.41) VBG pCO2 (41-51) mmHg VBG pO2 (25-47) mmHg VBG HCO3 (23-28) mmol/L VBG Total CO2 (24-29) mmol/L VBG O2 Saturation (60-80) % VBG Base Excess (-2 - +2) mmol/L Sodium 134 L (135-145) mmol/L Potassium 4.0 (3.5-5.0) mmol/L Chloride 94 L (101-111) mmol/L Carbon Dioxide 32 (21-32) mmol/L Anion Gap 8.0 (6-13) BUN 34 H (6-20) mg/dL Creatinine 2.0 H (0.4-1.0) mg/dL Estimated GFR (MDRD) 24 L (>89) Glucose 89 (70-100) mg/dL Lactic Acid (0.5-2.2) mmol/L Calcium 15.7 H* (8.5-10.3) mg/dL Magnesium 2.3 (1.7-2.8) mg/dL Total Bilirubin 0.4 (0.2-1.0) mg/dL AST 16 (10-42) IU/L ALT 11 (10-60) IU/L Alkaline Phosphatase 74 (42-121) IU/L Total Creatine Kinase 14 L (22-269) IU/L Troponin I High Sens (2.3-14.8) ng/L B-Natriuretic Peptide 385 H (5-100) pg/mL Total Protein 6.7 (6.7-8.2) g/dL Albumin 3.0 L (3.2-5.5) g/dL Globulin 3.7 (2.1-4.2) g/dL Albumin/Globulin Ratio 0.8 L (1.0-2.2) Lipase 27 (22-51) U/L Urine Color Urine Clarity (CLEAR) Urine pH (5.0-7.5) PH Ur Specific [place] (1.002-1.030) Urine Protein (NEGATIVE) mg/dL Urine Glucose (UA) (NEGATIVE) mg/dL Urine Ketones (NEGATIVE) mg/dL Urine Occult Blood (NEGATIVE) Urine Nitrite (NEGATIVE) Urine Bilirubin (NEGATIVE) Urine Urobilinogen (NORMAL) E.U./dL Ur Leukocyte Esterase (NEGATIVE) Urine RBC (0-5) /HPF Urine WBC (0-5) /HPF Ur Squamous Epith Cells (<= Few) Urine Bacteria (None Seen) /HPF Urine Yeast Ur Microscopic Review Urine Culture Comments Nasal Adenovirus (PCR) Nasal B. parapertussis DNA (PCR) Nasal Coronavir 229E PCR Nasal Coronavir HKU1 PCR Nasal Coronavir NL63 PCR Nasal Coronavir OC43 PCR Nasal Enterovir/Rhinovir PCR Nasal Influenza B PCR Nasal Influenza A PCR Nasal Parainfluen 1 PCR Nasal Parainfluen 2 PCR Nasal Parainfluen 3 PCR Nasal Parainfluen 4 PCR Nasal RSV (PCR) Nasal B.pertussis DNA PCR Nasal C.pneumoniae (PCR) Nitin Human Metapneumo PCR Nasal M.pneumoniae (PCR) Nasal SARS-CoV-2 (PCR) Influenza A (Rapid) (Negative) Influenza B (Rapid) (Negative) SARS-CoV-2 (PCR) 08/18/21 Range/Units 10:33 WBC 11.8 H (4.8-10.8) x10^3/uL RBC 2.91 L (4.20-5.40) 10^6/uL Hgb 8.4 L (12.0-16.0) g/dL Hct 28.0 L (37.0-47.0) % MCV 96.2 (81.0-99.0) fL MCH 28.9 (27.0-31.0) pg MCHC 30.0 L (32.0-36.0) g/dL RDW 14.3 (12.0-15.0) % Plt Count 265 (130-450) 10^3/uL MPV 11.3 H (7.9-10.8) fL Neut # (Auto) 4.7 (1.5-6.6) 10^3/uL Lymph # (Auto) 1.0 L (1.5-3.5) 10^3/uL [place] # (Auto) 5.5 H (0.0-1.0) 10^3/uL Eos # (Auto) 0.3 (0.0-0.7) 10^3/uL Baso # (Auto) 0.1 (0.0-0.1) 10^3/uL Absolute Nucleated RBC 0.00 x10^3/uL Total Counted Band Neuts % (Manual) (0 - 10) % Abnorm Lymph % (Manual) % Nucleated RBC % 0.0 /100WBC Neutrophils # (Manual) (1.5-6.6) 10^3/uL Lymphocytes # (Manual) (1.5-3.5) 10^3/uL Monocytes # (Manual) (0.0-1.0) 10^3/uL Eosinophils # (Manual) (0-0.7) 10^3/uL Basophils # (Manual) (0-0.1) 10^3/uL Differential Comment Manual Slide Review Indicated WBC Morphology (NORMAL) Platelet Estimate (NORMAL) Platelet Morphology (NORMAL) RBC Morph Micro Appear 2+ ANISOCYTOSIS (NORMAL) PT (9.9-12.6) secs INR (0.8-1.2) VBG pH (7.31-7.41) VBG pCO2 (41-51) mmHg VBG pO2 (25-47) mmHg VBG HCO3 (23-28) mmol/L VBG Total CO2 (24-29) mmol/L VBG O2 Saturation (60-80) % VBG Base Excess (-2 - +2) mmol/L Sodium (135-145) mmol/L Potassium (3.5-5.0) mmol/L Chloride (101-111) mmol/L Carbon Dioxide (21-32) mmol/L Anion Gap (6-13) BUN (6-20) mg/dL Creatinine (0.4-1.0) mg/dL Estimated GFR (MDRD) (>89) Glucose (70-100) mg/dL Lactic Acid (0.5-2.2) mmol/L Calcium (8.5-10.3) mg/dL Magnesium (1.7-2.8) mg/dL Total Bilirubin (0.2-1.0) mg/dL AST (10-42) IU/L ALT (10-60) IU/L Alkaline Phosphatase (42-121) IU/L Total Creatine Kinase (22-269) IU/L Troponin I High Sens (2.3-14.8) ng/L B-Natriuretic Peptide (5-100) pg/mL Total Protein (6.7-8.2) g/dL Albumin (3.2-5.5) g/dL Globulin (2.1-4.2) g/dL Albumin/Globulin Ratio (1.0-2.2) Lipase (22-51) U/L Urine Color Urine Clarity (CLEAR) Urine pH (5.0-7.5) PH Ur Specific [place] (1.002-1.030) Urine Protein (NEGATIVE) mg/dL Urine Glucose (UA) (NEGATIVE) mg/dL Urine Ketones (NEGATIVE) mg/dL Urine Occult Blood (NEGATIVE) Urine Nitrite (NEGATIVE) Urine Bilirubin (NEGATIVE) Urine Urobilinogen (NORMAL) E.U./dL Ur Leukocyte Esterase (NEGATIVE) Urine RBC (0-5) /HPF Urine WBC (0-5) /HPF Ur Squamous Epith Cells (<= Few) Urine Bacteria (None Seen) /HPF Urine Yeast Ur Microscopic Review Urine Culture Comments Nasal Adenovirus (PCR) Nasal B. parapertussis DNA (PCR) Nasal Coronavir 229E PCR Nasal Coronavir HKU1 PCR Nasal Coronavir NL63 PCR Nasal Coronavir OC43 PCR Nasal Enterovir/Rhinovir PCR Nasal Influenza B PCR Nasal Influenza A PCR Nasal Parainfluen 1 PCR Nasal Parainfluen 2 PCR Nasal Parainfluen 3 PCR Nasal Parainfluen 4 PCR Nasal RSV (PCR) Nasal B.pertussis DNA PCR Nasal C.pneumoniae (PCR) Nitin Human Metapneumo PCR Nasal M.pneumoniae (PCR) Nasal SARS-CoV-2 (PCR) Influenza A (Rapid) (Negative) Influenza B (Rapid) (Negative) SARS-CoV-2 (PCR) Assessment/Plan - Problem List (1) Acute respiratory failure with hypoxia Impression: This is unfortunately likely due to pulmonary metastasis. Prior imaging revealed worsening metastasis and CT this admission confirms this. There is no obvious edema or pneumonia. She will likely need supplemental oxygen on discharge and I reviewed her discharge summary from the [facility] and the plan at that time was to refer her to radiation oncology for radiation. We will continue supplemental oxygen for goal saturation greater than 88% (2) Hypercalcemia Impression: Her calcium is improved to 13.4 today. This is likely related to her malignancy and metastasis. We will continue IV fluids and increase the rate to 175 mL/hr. She has already received zoledronic acid and unfortunately not have calcitonin here. We will continue to monitor her calcium closely and ultimately she will need treatment of underlying malignancy. We will continue to hold her home Lasix. (3) KIN (acute kidney injury) Impression: Likely secondary to volume depletion and dehydration. Her creatinine is improved to 1.6 today from 2.0. Her baseline is approximately 1.1. We will continue IV hydration and monitor renal function closely. Avoid nephrotoxins. 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 This was diagnosed in 2018 and she is status post nephrectomy. She is on Lenvima and Afinitor which she is receiving. She will need outpatient follow-up with her oncologist. (5) Anemia Impression: She has chronic anemia and her hemoglobin today is 7.5. Suspect the decrease since admission is due to hemodilution. Evidence of bleeding. This may be related to her underlying malignancy and the therapy she is receiving. We will check iron studies and ferritin. We will also check folate and B12. Will transfuse for goal hemoglobin greater than 7. (6) (HFpEF) heart failure with preserved ejection fraction Impression: This is chronic and not in exacerbation. We are holding her home Lasix given hypercalcemia as we are hydrating her. We will monitor her closely for evidence of heart failure given the increased her IV fluid rate. Qualifiers: Heart failure chronicity: chronic Qualified Code(s): I50.32 - Chronic diastolic (congestive) heart failure (7) DAMON on CPAP Impression: Stable. Continue home CPAP. (8) Hypothyroid Impression: Stable. Continue home Synthroid. Qualifiers: Hypothyroidism type: acquired Qualified Code(s): E03.9 - Hypothyroidism, unspecified
[2021-08-19] MEDS ORDERED: SODIUM CHLORIDE 0.9% 1,000 ML IV SCH (08:26)
[2021-08-19] MEDS: LACTOBACILLUS RHAMNOSUS GG CAPSULE PO SCH (08:28)
[2021-08-19] MEDS: METOPROLOL TARTRATE 25 MG TABLET PO SCH (08:28)
[2021-08-19 08:29] LABS: % IRON SATURATION 11 % (20-50); FERRITIN 106.5 ng/mL (11.0-306.8); IRON 28 ug/dL (28-170); TOTAL IRON BINDING CAPACITY 246 ug/dL (250-450); TRANSFERRIN 176 mg/dL (192-382)
[2021-08-19] MEDS: ASPIRIN CHEW 81 MG TABLET PO SCH (08:29)
[2021-08-19 08:33] LABS: FOLATE 20.19 ng/mL (5.90 - >24.8)
[2021-08-19] MEDS ORDERED: amLODIPine 5 MG TABLET PO SCH (09:00)
[2021-08-19] MEDS: EVEROLIMUS 5 MG PO SCH (11:23)
[2021-08-19] MEDS: LENVATINIB MESYLATE PO SCH (11:24)
[2021-08-19] MEDS: ACETAMINOPHEN 325 MG TABLET PO PRN (16:07)
[2021-08-19] MEDS: ONDANSETRON 4 MG/2 ML VIAL IVP PRN (17:30)
[2021-08-19] MEDS ORDERED: METOCLOPRAMIDE 10 MG/2 ML VIAL IVP PRN (19:20)
[2021-08-19] MEDS ORDERED: MORPHINE 2 MG/ML CARPUJECT IVP PRN (19:21)
[2021-08-19] MEDS: ATORVASTATIN 40 MG TABLET PO SCH (21:47)
[2021-08-19] MEDS: GABAPENTIN 400 MG CAPSULE PO SCH (21:48)
[2021-08-19] MEDS: FLUTICASONE NASAL SPRAY NAS SCH (21:57)
[2021-08-20] MEDS: SODIUM CHLORIDE 0.9% 1,000 ML IV SCH ×2 (02:22→14:31)
[2021-08-20] MEDS: oxyCODONE 5 MG TABLET PO PRN ×5 (03:18→20:44)
[2021-08-20] MEDS: ACETAMINOPHEN 325 MG TABLET PO PRN ×2 (03:18→07:40)
[2021-08-20] MEDS: SODIUM CHLORIDE FLUSH 0.9% 10 ML SYRINGE IVP SCH ×3 (03:29→15:57)
[2021-08-20] MEDS: ONDANSETRON 4 MG/2 ML VIAL IVP PRN (05:37)
[2021-08-20] MEDS: LEVOTHYROXINE 75 MCG TABLET PO SCH (05:40)
[2021-08-20 05:46] LABS: BASOPHILS % (AUTO) 0.7 %; EOSINOPHILS % (AUTO) 2.9 %; HCT - HEMATOCRIT 27.7 % (37.0-47.0); LYMPHOCYTES % (AUTO) 10.5 %; MEAN CORPUSCULAR HEMOGLOBIN 28.3 pg (27.0-31.0); MEAN CORPUSCULAR HGB CONC 28.9 g/dL (32.0-36.0); MEAN CORPUSCULAR VOLUME 97.9 fL (81.0-99.0); MEAN PLATELET VOLUME 11.2 fL (7.9-10.8); MONOCYTES % (AUTO) 47.1 %; NEUTROPHILS % (AUTO) 36.5 %; PLT - PLATELET COUNT 217 10^3/uL (130-450); RED BLOOD COUNT 2.83 10^6/uL (4.20-5.40); RED CELL DISTRIBUTION WIDTH 14.3 % (12.0-15.0); WHITE BLOOD COUNT 8.7 x10^3/uL (4.8-10.8)
[2021-08-20] MEDS: POTASSIUM CHLORIDE 20 MEQ/15 ML UDC PO SCH (05:49)
[2021-08-20 05:51] LABS: ABNORMAL LYMPHS % (MANUAL) 0 %; BAND NEUTROPHILS % (MANUAL) 0 %
[2021-08-20 06:06] LABS: BASOPHILS # (MANUAL) 0.2 10^3/uL (0-0.1); BASOPHILS % (MANUAL) 2 %; EOSINOPHILS # (MANUAL) 0.2 10^3/uL (0-0.7); LYMPHOCYTES # (MANUAL) 1.7 10^3/uL (1.5-3.5); LYMPHOCYTES % (MANUAL) 20 %; MONOCYTES # (MANUAL) 3.1 10^3/uL (0.0-1.0); NEUTROPHILS # (MANUAL) 3.5 10^3/uL (1.5-6.6); RBC MORPHOLOGY (MULTIPLE) 2+ HYPOCHROMASIA (NORMAL)
[2021-08-20 06:07] LABS: DIFFERENTIAL COMMENT MANUAL DIFFERENTIAL; PLATELET ESTIMATE, MANUAL NORMAL (130-450,000) (NORMAL); PLATELET MORPHOLOGY NORMAL APPEARANCE (NORMAL); WBC MORPHOLOGY (MULTIPLE) NORMAL APPEARANCE (NORMAL)
[2021-08-20 06:12] LABS: CREATININE 1.4 mg/dL (0.4-1.0); POTASSIUM 4.2 mmol/L (3.5-5.0)
--- NOTE | 2021-08-20 07:59 | PROVIDER PROGRESS NOTE ---
Subjective - Prog Note Date Prog Note Date: 08/20/21 - Subjective Subjective: She reports feeling a little better overall. Has been coughing up blood-tinged sputum today which she states is not unusual for her but this is the first time it has happened since she is hospitalized. This does cause a bit of chest discomfort when she is coughing. Reports no abdominal pain. Current Medications - Current Medications Current Medications: Active Medications Acetaminophen (Acetaminophen 325 Mg Tablet) 650 mg PO Q4HR PRN PRN Reason: Pain or Fever > 38C (100.4F) Last Admin: 08/20/21 07:40 Dose: 650 mg Documented by: Aspirin (Aspirin Chew 81 Mg Tablet) 81 mg PO DAILY [facility] Last Admin: 08/19/21 08:29 Dose: 81 mg Documented by: Atorvastatin Calcium (Atorvastatin 40 Mg Tablet) 40 mg PO HS [facility] Last Admin: 08/19/21 21:47 Dose: 40 mg Documented by: Baclofen (Baclofen 10 Mg Tablet) 10 mg PO BID PRN PRN Reason: Spasms Bisacodyl (Bisacodyl 10 Mg Supp) 10 mg [place] DAILY PRN PRN Reason: Constipation Fluticasone Propionate (Fluticasone Nasal [place]) 2 sprays NITIN QPM [facility] Last Admin: 08/19/21 21:57 Dose: 2 spray Documented by: Gabapentin (Gabapentin 400 Mg Capsule) 1,200 mg PO HS [facility] Last Admin: 08/19/21 21:48 Dose: 1,200 mg Documented by: Lactobacillus Rhamnosus (Lactobacillus Rhamnosus Gg Capsule) 1 cap PO DAILY [facility] Last Admin: 08/19/21 08:28 Dose: 1 cap Documented by: Levothyroxine Sodium (Levothyroxine 75 Mcg Tablet) 150 mcg PO QDAC [facility] Last Admin: 08/20/21 05:40 Dose: 150 mcg Documented by: Metoclopramide HCl (Metoclopramide 10 Mg/2 Ml Vial) 5 mg IVP Q6HR PRN PRN Reason: Nausea / Vomiting Last Admin: 08/20/21 03:27 Dose: 5 mg Documented by: Metoprolol Tartrate (Metoprolol Tartrate 25 Mg Tablet) 12.5 mg PO DAILY [facility] Last Admin: 08/19/21 08:28 Dose: Not Given Documented by: Morphine Sulfate (Morphine 2 Mg/Ml Carpuject) 2 mg IVP Q4HR PRN PRN Reason: PAIN Pt Own Med ( Everolimus [Afinitor ] 5 Mg Tablet) 5 mg PO DAILY [facility] Last Admin: 08/19/21 11:23 Dose: Not Given Documented by: Pt Own Med ( Lenvatinib Mesylate [Lenvima] 1 Each Capsule) 14 mg PO DAILY [facility] Last Admin: 08/19/21 11:24 Dose: Not Given Documented by: Ondansetron HCl (Ondansetron 4 Mg/2 Ml Vial) 4 mg IVP Q6HR PRN PRN Reason: Nausea / Vomiting Last Admin: 08/20/21 05:37 Dose: 4 mg Documented by: Ondansetron HCl (Ondansetron Odt 4 Mg Tablet) 4 mg TL Q6HR PRN PRN Reason: Nausea / Vomiting Last Admin: 08/19/21 11:52 Dose: 4 mg Documented by: Oxycodone HCl (Oxycodone 5 Mg Tablet) 5 mg PO Q4H PRN PRN Reason: PAIN Last Admin: 08/20/21 07:40 Dose: 5 mg Documented by: Potassium Chloride (Potassium Chloride 20 Meq/15 Ml Udc) 20 meq PO TID [facility] Last Admin: 08/20/21 05:49 Dose: 20 meq Documented by: Sodium Chloride (Sodium Chloride Flush 0.9% 10 Ml Syringe) 10 ml IVP PRN PRN PRN Reason: NEEDED PER PROVIDER ORDERS Last Admin: 08/19/21 17:30 Dose: 10 ml Documented by: Sodium Chloride (Sodium Chloride Flush 0.9% 10 Ml Syringe) 10 ml IVP 0100,0900,1700 [facility] Last Admin: 08/20/21 03:29 Dose: 10 ml Documented by: Gabapentin 1,200 mg PO HS 07/21/14 amLODIPine [Norvasc] 5 mg PO DAILY 07/21/14 Baclofen 10 mg PO BID PRN 12/15/18 Fluticasone [Flonase] 2 spray NITIN QPM 12/15/18 Oxycodone HCl 5 mg PO Q4H PRN 12/15/18 Potassium Chloride 20 meq PO TID 01/30/20 Aspirin [[place] Aspirin] 81 mg PO DAILY 03/10/21 Atorvastatin Calcium 40 mg PO HS 03/10/21 Everolimus [Afinitor] 5 mg PO DAILY 08/18/21 Furosemide [Lasix] 80 mg PO DAILY 08/18/21 Lenvatinib Mesylate [Lenvima] 14 mg PO DAILY 08/18/21 Levothyroxine Sodium [Synthroid] 150 mcg PO QDAC 08/18/21 Metoprolol Tartrate [Lopressor] 12.5 mg PO DAILY 08/18/21 Ondansetron HCl [Zofran] 4 mg SL Q6HR PRN 08/18/21 Objective - Vital Signs/Intake & Output Reviewed Vital Signs: Yes Vital Signs: Vital Signs x48h Temp Pulse Resp BP BP Pulse Ox 08/20/21 05:40 37.1 C 68 16 122/51 L 89 L 08/20/21 00:24 36.4 C L 53 L 17 85/42 L 93 Intake & Output: Intake & Output 08/17/21 08/18/21 08/19/21 08/20/21 23:59 23:59 23:59 23:59 Intake Total 3003.75 4383.610 1075 Output Total 900 100 Balance 3003.75 3483.610 975 - Objective General Appearance: positive: No acute distress, Alert Eyes Bilateral: positive: Normal inspection, Conjunctivae nml ENT: positive: ENT inspection nml Neck: positive: Nml inspection Respiratory: positive: No respiratory distress. negative: Wheezes, Rales Cardiovascular: positive: Systolic murmur. negative: No murmur, Tachycardia Abdomen: positive: Non-tender, No distention. negative: Tenderness Skin: positive: Warm, Dry, Pallor Extremities: positive: No pedal edema Neurologic/Psychiatric: negative: Disoriented to person, Disoriented to place - Lab Results Fish Bones: 08/21/21 04:48 08/21/21 04:48 Other Labs: Lab Results x24hrs 08/20/21 08/20/21 08/19/21 Range/Units 05:09 05:09 05:48 WBC 8.7 (4.8-10.8) x10^3/uL RBC 2.83 L (4.20-5.40) 10^6/uL Hgb 8.0 L (12.0-16.0) g/dL Hct 27.7 L (37.0-47.0) % MCV 97.9 (81.0-99.0) fL MCH 28.3 (27.0-31.0) pg MCHC 28.9 L (32.0-36.0) g/dL RDW 14.3 (12.0-15.0) % Plt Count 217 (130-450) 10^3/uL MPV 11.2 H (7.9-10.8) fL Neut # (Auto) Not Reportable Lymph # (Auto) Not Reportable [place] # (Auto) Not Reportable Eos # (Auto) Not Reportable Baso # (Auto) Not Reportable Absolute Nucleated RBC Not Reportable Total Counted 100 Band Neuts % (Manual) 0 (0 - 10) % Abnorm Lymph % (Manual) 0 % Nucleated RBC % Not Reportable Neutrophils # (Manual) 3.5 (1.5-6.6) 10^3/uL Lymphocytes # (Manual) 1.7 (1.5-3.5) 10^3/uL Monocytes # (Manual) 3.1 H (0.0-1.0) 10^3/uL Eosinophils # (Manual) 0.2 (0-0.7) 10^3/uL Basophils # (Manual) 0.2 H (0-0.1) 10^3/uL Differential Comment MANUAL DIFFERENTIAL WBC Morphology NORMAL APPEARANCE (NORMAL) Platelet Estimate NORMAL (130-450,000) (NORMAL) Platelet Morphology NORMAL APPEARANCE (NORMAL) RBC Morph Micro Appear 2+ HYPOCHROMASIA (NORMAL) Sodium 137 (135-145) mmol/L Potassium 4.2 (3.5-5.0) mmol/L Chloride 104 (101-111) mmol/L Carbon Dioxide 27 (21-32) mmol/L Anion Gap 6.0 (6-13) BUN 22 H (6-20) mg/dL Creatinine 1.4 H (0.4-1.0) mg/dL Estimated GFR (MDRD) 37 L (>89) Glucose 86 (70-100) mg/dL Calcium 12.0 H* (8.5-10.3) mg/dL Iron (28-170) ug/dL TIBC (250-450) ug/dL % Saturation (20-50) % Transferrin (192-382) mg/dL Ferritin 106.5 (11.0-306.8) ng/mL Vitamin B12 739 (180-914) pg/mL Folate 20.19 (5.90 - >24.8) ng/mL 11/05/21 Range/Units 05:48 WBC (4.8-10.8) x10^3/uL RBC (4.20-5.40) 10^6/uL Hgb (12.0-16.0) g/dL Hct (37.0-47.0) % MCV (81.0-99.0) fL MCH (27.0-31.0) pg MCHC (32.0-36.0) g/dL RDW (12.0-15.0) % Plt Count (130-450) 10^3/uL MPV (7.9-10.8) fL Neut # (Auto) Lymph # (Auto) [place] # (Auto) Eos # (Auto) Baso # (Auto) Absolute Nucleated RBC Total Counted Band Neuts % (Manual) (0 - 10) % Abnorm Lymph % (Manual) % Nucleated RBC % Neutrophils # (Manual) (1.5-6.6) 10^3/uL Lymphocytes # (Manual) (1.5-3.5) 10^3/uL Monocytes # (Manual) (0.0-1.0) 10^3/uL Eosinophils # (Manual) (0-0.7) 10^3/uL Basophils # (Manual) (0-0.1) 10^3/uL Differential Comment WBC Morphology (NORMAL) Platelet Estimate (NORMAL) Platelet Morphology (NORMAL) RBC Morph Micro Appear (NORMAL) Sodium (135-145) mmol/L Potassium (3.5-5.0) mmol/L Chloride (101-111) mmol/L Carbon Dioxide (21-32) mmol/L Anion Gap (6-13) BUN (6-20) mg/dL Creatinine (0.4-1.0) mg/dL Estimated GFR (MDRD) (>89) Glucose (70-100) mg/dL Calcium (8.5-10.3) mg/dL Iron 28 (28-170) ug/dL TIBC 246 L (250-450) ug/dL % Saturation 11 L (20-50) % Transferrin 176 L (192-382) mg/dL Ferritin (11.0-306.8) ng/mL Vitamin B12 (180-914) pg/mL Folate (5.90 - >24.8) ng/mL Assessment/Plan - Problem List (1) Hypercalcemia Impression: This is improved and likely secondary to her malignancy. Her calcium today is down to 12. She has already received zoledronic acid and IV fluids. Given her improvement, will discontinue IV fluids and recheck labs this afternoon. If they continue to improve I suspect may be ready for discharge tomorrow. If her calcium still remains elevated without improvement then we will resume IV fluids. (2) Acute respiratory failure with hypoxia Impression: This is secondary to the pulmonary mets. This is still ongoing as she is requiring 4-5L of oxygen via nasal cannula. She will need an exercise desaturation test prior to discharge as she will likely need supplemental oxygen at home. She will be following up with her radiation oncologist for consideration of radiation therapy. (3) KIN (acute kidney injury) Impression: Her creatinine is now down to 1.4 which is her baseline. We will continue to monitor her renal function closely. 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 This was diag nosed in 2018 and she is status post nephrectomy. She is on Lenvima and Afinitor which she is receiving. She will need outpatient follow-up with her oncologist. (5) Anemia Impression: Her anemia appears to be of chronic disease. Her iron studies did not suggest iron deficiency. Her hemoglobin is improved today and is close to her baseline. We will continue to monitor and transfuse as needed for hemoglobin greater than 7. (6) (HFpEF) heart failure with preserved ejection fraction Impression: This is chronic and not in exacerbation. We have been holding her Lasix given the hypercalcemia as we have been hydrating her. We will likely discontinue the Lasix on discharge as I am concerned she becomes hypovolemic which can exacerbate the hypercalcemia. I will most likely asked her to discontinue Lasix until she follows up with her primary care physician to have repeat labs and at that time, resumption of Lasix can be considered. Qualifiers: Heart failure chronicity: chronic Qualified Code(s): I50.32 - Chronic diastolic (congestive) heart failure (7) DAMON on CPAP Impression: Stable. Continue home CPAP. (8) Hypothyroid Impression: Stable. Continue home Synthroid. Qualifiers: Hypothyroidism type: acquired Qualified Code(s): E03.9 - Hypothyroidism, unspecified
[2021-08-20] MEDS: LACTOBACILLUS RHAMNOSUS GG CAPSULE PO SCH (09:08)
[2021-08-20] MEDS: ASPIRIN CHEW 81 MG TABLET PO SCH (09:08)
[2021-08-20] MEDS: METOPROLOL TARTRATE 25 MG TABLET PO SCH (09:09)
[2021-08-20] MEDS: EVEROLIMUS 5 MG PO SCH (10:11)
[2021-08-20] MEDS: LENVATINIB MESYLATE PO SCH (10:12)
[2021-08-20 13:24] LABS: CREATININE 1.3 mg/dL (0.4-1.0); POTASSIUM 4.2 mmol/L (3.5-5.0)
[2021-08-20 13:25] LABS: CALCIUM 12.4 mg/dL (8.5-10.3)
[2021-08-20] MEDS: GABAPENTIN 400 MG CAPSULE PO SCH (20:43)
[2021-08-20] MEDS: ATORVASTATIN 40 MG TABLET PO SCH (20:44)
[2021-08-20] MEDS: FLUTICASONE NASAL SPRAY NAS SCH (20:44)
[2021-08-21] MEDS: ONDANSETRON 4 MG/2 ML VIAL IVP PRN (01:02)
[2021-08-21] MEDS: ACETAMINOPHEN 325 MG TABLET PO PRN ×4 (01:32→18:42)
[2021-08-21] MEDS: oxyCODONE 5 MG TABLET PO PRN ×4 (01:32→18:42)
[2021-08-21] MEDS: SODIUM CHLORIDE 0.9% 1,000 ML IV SCH (01:33)
[2021-08-21] MEDS: BACLOFEN 10 MG TABLET PO PRN (01:52)
[2021-08-21 06:10] LABS: BASOPHILS % (AUTO) 0.6 %; HCT - HEMATOCRIT 27.4 % (37.0-47.0); LYMPHOCYTES % (AUTO) 10.3 %; MEAN CORPUSCULAR HEMOGLOBIN 28.5 pg (27.0-31.0); MEAN CORPUSCULAR HGB CONC 29.2 g/dL (32.0-36.0); MEAN CORPUSCULAR VOLUME 97.5 fL (81.0-99.0); MEAN PLATELET VOLUME 11.5 fL (7.9-10.8); MONOCYTES % (AUTO) 42.5 %; NEUTROPHILS % (AUTO) 41.6 %; PLT - PLATELET COUNT 248 10^3/uL (130-450); RED BLOOD COUNT 2.81 10^6/uL (4.20-5.40); RED CELL DISTRIBUTION WIDTH 14.2 % (12.0-15.0); WHITE BLOOD COUNT 10.4 x10^3/uL (4.8-10.8)
[2021-08-21 06:17] LABS: ABNORMAL LYMPHS % (MANUAL) 0 %; BAND NEUTROPHILS % (MANUAL) 0 %
[2021-08-21 06:18] LABS: CALCIUM 11.5 mg/dL (8.5-10.3); CREATININE 1.2 mg/dL (0.4-1.0); POTASSIUM 3.8 mmol/L (3.5-5.0)
[2021-08-21 06:25] LABS: EOSINOPHILS # (MANUAL) 0.3 10^3/uL (0-0.7); LYMPHOCYTES # (MANUAL) 0.9 10^3/uL (1.5-3.5); LYMPHOCYTES % (MANUAL) 9 %; MONOCYTES # (MANUAL) 3.4 10^3/uL (0.0-1.0); NEUTROPHILS # (MANUAL) 5.7 10^3/uL (1.5-6.6); RBC MORPHOLOGY (MULTIPLE) 1+ HYPOCHROMASIA (NORMAL)
[2021-08-21 06:26] LABS: DIFFERENTIAL COMMENT MANUAL DIFFERENTIAL; PLATELET ESTIMATE, MANUAL NORMAL (130-450,000) (NORMAL); PLATELET MORPHOLOGY NORMAL APPEARANCE (NORMAL); WBC MORPHOLOGY (MULTIPLE) NORMAL APPEARANCE (NORMAL)
[2021-08-21] MEDS: SODIUM CHLORIDE FLUSH 0.9% 10 ML SYRINGE IVP SCH ×3 (07:01→16:03)
[2021-08-21] MEDS: LEVOTHYROXINE 75 MCG TABLET PO SCH (07:22)
[2021-08-21] MEDS: METOPROLOL TARTRATE 25 MG TABLET PO SCH (08:34)
[2021-08-21] MEDS: ASPIRIN CHEW 81 MG TABLET PO SCH (08:34)
[2021-08-21] MEDS: LACTOBACILLUS RHAMNOSUS GG CAPSULE PO SCH (08:34)
[2021-08-21] MEDS: polyethylene glycoL 3350 17 GM PACKET PO SCH (08:35)
[2021-08-21] MEDS: LENVATINIB MESYLATE PO SCH (08:35)
[2021-08-21] MEDS: EVEROLIMUS 5 MG PO SCH (08:36)
[2021-08-21] MEDS: FLUCONAZOLE 100 MG TABLET PO SCH (08:38)
--- NOTE | 2021-08-21 10:47 | PROVIDER PROGRESS NOTE ---
Subjective - Prog Note Date Prog Note Date: 08/21/21 - Subjective Subjective: She reports feeling okay overall. Still has been coughing up blood-tinged sputum. She does feel occasionally short of breath. Reports no abdominal pain at this time. Current Medications - Current Medications Current Medications: Active Medications Acetaminophen (Acetaminophen 325 Mg Tablet) 650 mg PO Q4HR PRN PRN Reason: Pain or Fever > 38C (100.4F) Last Admin: 08/21/21 07:22 Dose: 650 mg Documented by: Aspirin (Aspirin Chew 81 Mg Tablet) 81 mg PO DAILY [facility] Last Admin: 08/21/21 08:34 Dose: 81 mg Documented by: Atorvastatin Calcium (Atorvastatin 40 Mg Tablet) 40 mg PO [facility] Last Admin: 08/20/21 20:44 Dose: 40 mg Documented by: Baclofen (Baclofen 10 Mg Tablet) 10 mg PO BID PRN PRN Reason: Spasms Last Admin: 08/21/21 01:52 PDT Dose: 10 mg Documented by: Bisacodyl (Bisacodyl 10 Mg Supp) 10 mg [place] DAILY PRN PRN Reason: Constipation Last Admin: 08/20/21 18:02 Dose: 10 mg Documented by: Fluconazole (Fluconazole 100 Mg Tablet) 150 mg PO DAILY [facility] Last Admin: 08/21/21 08:38 Dose: 150 mg Documented by: Fluticasone Propionate (Fluticasone Nasal [place]) 2 sprays NITIN QPM [facility] Last Admin: 08/20/21 20:44 Dose: 2 spray Documented by: Gabapentin (Gabapentin 400 Mg Capsule) 1,200 mg PO HS [facility] Last Admin: 08/20/21 20:43 Dose: 1,200 mg Documented by: Lactobacillus Rhamnosus (Lactobacillus Rhamnosus Gg Capsule) 1 cap PO DAILY [facility] Last Admin: 08/21/21 08:34 Dose: 1 cap Documented by: Levothyroxine Sodium (Levothyroxine 75 Mcg Tablet) 150 mcg PO QDAC [facility] Last Admin: 08/21/21 07:22 Dose: 150 mcg Documented by: Metoclopramide HCl (Metoclopramide 10 Mg/2 Ml Vial) 5 mg IVP Q6HR PRN PRN Reason: Nausea / Vomiting Last Admin: 08/20/21 03:27 Dose: 5 mg Documented by: Metoprolol Tartrate (Metoprolol Tartrate 25 Mg Tablet) 12.5 mg PO DAILY [facility] Last Admin: 08/21/21 08:34 Dose: 12.5 mg Documented by: Morphine Sulfate (Morphine 2 Mg/Ml Carpuject) 2 mg IVP Q4HR PRN PRN Reason: PAIN Last Admin: 08/20/21 18:02 Dose: 2 mg Documented by: Pt Own Med ( Everolimus [Afinitor ] 5 Mg Tablet) 5 mg PO DAILY [facility] Last Admin: 08/21/21 08:36 Dose: Not Given Documented by: Pt Own Med ( Lenvatinib Mesylate [Lenvima] 1 Each Capsule) 14 mg PO DAILY [facility] Last Admin: 08/21/21 08:35 Dose: Not Given Documented by: Ondansetron HCl (Ondansetron 4 Mg/2 Ml Vial) 4 mg IVP Q6HR PRN PRN Reason: Nausea / Vomiting Last Admin: 08/21/21 01:02 PST Dose: 4 mg Documented by: Ondansetron HCl (Ondansetron Odt 4 Mg Tablet) 4 mg TL Q6HR PRN PRN Reason: Nausea / Vomiting Last Admin: 08/19/21 11:52 Dose: 4 mg Documented by: Oxycodone HCl (Oxycodone 5 Mg Tablet) 5 mg PO Q4H PRN PRN Reason: PAIN Last Admin: 08/21/21 07:22 Dose: 5 mg Documented by: Polyethylene Glycol (Polyethylene Glycol 3350 17 Gm Packet) 17 gm PO DAILY [facility] Last Admin: 08/21/21 08:35 Dose: Not Given Documented by: Sodium Chloride (Sodium Chloride Flush 0.9% 10 Ml Syringe) 10 ml IVP PRN PRN PRN Reason: NEEDED PER PROVIDER ORDERS Last Admin: 08/19/21 17:30 Dose: 10 ml Documented by: Sodium Chloride (Sodium Chloride Flush 0.9% 10 Ml Syringe) 10 ml IVP 0100,0900,1700 [facility] Last Admin: 08/21/21 08:35 Dose: 10 ml Documented by: Gabapentin 1,200 mg PO HS 07/21/14 amLODIPine [Norvasc] 5 mg PO DAILY 07/21/14 Baclofen 10 mg PO BID PRN 12/15/18 Fluticasone [Flonase] 2 spray NITIN QPM 12/15/18 Oxycodone HCl 5 mg PO Q4H PRN 12/15/18 Potassium Chloride 20 meq PO TID 01/30/20 Aspirin [[place] Aspirin] 81 mg PO DAILY 03/10/21 Atorvastatin Calcium 40 mg PO HS 03/10/21 Everolimus [Afinitor] 5 mg PO DAILY 08/18/21 Furosemide [Lasix] 80 mg PO DAILY 08/18/21 Lenvatinib Mesylate [Lenvima] 14 mg PO DAILY 08/18/21 Levothyroxine Sodium [Synthroid] 150 mcg PO QDAC 08/18/21 Metoprolol Tartrate [Lopressor] 12.5 mg PO DAILY 08/18/21 Ondansetron HCl [Zofran] 4 mg SL Q6HR PRN 08/18/21 Objective - Vital Signs/Intake & Output Reviewed Vital Signs: Yes Vital Signs: Vital Signs x48h Temp Pulse Resp BP Pulse Ox 08/21/21 07:53 36.4 C L 66 16 104/52 L 94 08/21/21 05:00 37.1 C 65 14 106/53 L 96 Intake & Output: Intake & Output 08/18/21 08/19/21 08/20/21 08/21/21 23:59 23:59 23:59 22:59 Intake Total 3003.75 4383.610 3195 2280 Output Total 900 1200 500 Balance 3003.75 3483.610 1994 1780 - Objective General Appearance: positive: No acute distress, Alert Eyes Bilateral: positive: Normal inspection, Conjunctivae nml ENT: positive: ENT inspection nml Respiratory: positive: No respiratory distress, Rales, Rhonchi Cardiovascular: positive: Regular rate & rhythm. negative: Tachycardia, Systolic murmur Abdomen: positive: Non-tender, No distention. negative: Tenderness Skin: positive: Warm, Dry, Pallor Extremities: positive: No pedal edema Neurologic/Psychiatric: negative: Disoriented to person, Disoriented to place - Lab Results Fish Bones: 08/21/21 04:48 08/21/21 04:48 Other Labs: Lab Results x24hrs 08/21/21 08/21/21 08/21/21 Range/Units 04:48 04:48 04:48 WBC 10.4 (4.8-10.8) x10^3/uL RBC 2.81 L (4.20-5.40) 10^6/uL Hgb 8.0 L (12.0-16.0) g/dL Hct 27.4 L (37.0-47.0) % MCV 97.5 (81.0-99.0) fL MCH 28.5 (27.0-31.0) pg MCHC 29.2 L (32.0-36.0) g/dL RDW 14.2 (12.0-15.0) % Plt Count 248 (130-450) 10^3/uL MPV 11.5 H (7.9-10.8) fL Neut # (Auto) Not Reportable Lymph # (Auto) Not Reportable [place] # (Auto) Not Reportable Eos # (Auto) Not Reportable Baso # (Auto) Not Reportable Absolute Nucleated RBC Not Reportable Total Counted 100 Band Neuts % (Manual) 0 (0 - 10) % Abnorm Lymph % (Manual) 0 % Nucleated RBC % Not Reportable Neutrophils # (Manual) 5.7 (1.5-6.6) 10^3/uL Lymphocytes # (Manual) 0.9 L (1.5-3.5) 10^3/uL Monocytes # (Manual) 3.4 H (0.0-1.0) 10^3/uL Eosinophils # (Manual) 0.3 (0-0.7) 10^3/uL Basophils # (Manual) 0.0 (0-0.1) 10^3/uL Differential Comment MANUAL DIFFERENTIAL WBC Morphology NORMAL APPEARANCE (NORMAL) Platelet Estimate NORMAL (130-450,000) (NORMAL) Platelet Morphology NORMAL APPEARANCE (NORMAL) RBC Morph Micro Appear 1+ HYPOCHROMASIA (NORMAL) Sodium 138 (135-145) mmol/L Potassium 3.8 (3.5-5.0) mmol/L Chloride 106 (101-111) mmol/L Carbon Dioxide 24 (21-32) mmol/L Anion Gap 8.0 (6-13) BUN 17 (6-20) mg/dL Creatinine 1.2 H (0.4-1.0) mg/dL Estimated GFR (MDRD) 44 L (>89) Glucose 85 (70-100) mg/dL Calcium 11.5 H (8.5-10.3) mg/dL B-Natriuretic Peptide 741 H (5-100) pg/mL 08/20/21 Range/Units 13:08 WBC (4.8-10.8) x10^3/uL RBC (4.20-5.40) 10^6/uL Hgb (12.0-16.0) g/dL Hct (37.0-47.0) % MCV (81.0-99.0) fL MCH (27.0-31.0) pg MCHC (32.0-36.0) g/dL RDW (12.0-15.0) % Plt Count (130-450) 10^3/uL MPV (7.9-10.8) fL Neut # (Auto) Lymph # (Auto) [place] # (Auto) Eos # (Auto) Baso # (Auto) Absolute Nucleated RBC Total Counted Band Neuts % (Manual) (0 - 10) % Abnorm Lymph % (Manual) % Nucleated RBC % Neutrophils # (Manual) (1.5-6.6) 10^3/uL Lymphocytes # (Manual) (1.5-3.5) 10^3/uL Monocytes # (Manual) (0.0-1.0) 10^3/uL Eosinophils # (Manual) (0-0.7) 10^3/uL Basophils # (Manual) (0-0.1) 10^3/uL Differential Comment WBC Morphology (NORMAL) Platelet Estimate (NORMAL) Platelet Morphology (NORMAL) RBC Morph Micro Appear (NORMAL) Sodium 137 (135-145) mmol/L Potassium 4.2 (3.5-5.0) mmol/L Chloride 106 (101-111) mmol/L Carbon Dioxide 26 (21-32) mmol/L Anion Gap 5.0 L (6-13) BUN 21 H (6-20) mg/dL Creatinine 1.3 H (0.4-1.0) mg/dL Estimated GFR (MDRD) 40 L (>89) Glucose 103 H (70-100) mg/dL Calcium 12.4 H* (8.5-10.3) mg/dL B-Natriuretic Peptide (5-100) pg/mL Assessment/Plan - Problem List (1) Acute respiratory failure with hypoxia Impression: This is improved. She is now down to 2 L of oxygen nasal cannula and I was later able to wean her to room air. This appears to secondary to the pulmonary mets. A BNP was checked and it is close to her baseline. She also does not appear edematous so do not suspect she is in heart failure. We will continue to monitor her today and if she remains stable can be discharged home tomorrow. She is scheduled to follow-up with her radiation oncologist this week. (2) Hypercalcemia Impression: This is improved and down to 11.5 now. This is likely secondary to her malignancy. She has already received zoledronic acid and IV fluids. We will discontinue the IV fluids and as long as her calcium is relatively stable then she can be discharged home tomorrow. (3) KIN (acute kidney injury) Impression: Her creatinine is down to 1.2 which is her baseline. Suspect her acute kidney injury related to hypovolemia and has responded to IV fluids. 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 This was diagnosed in 2018 and she is status post nephrectomy. She will be following up with radiation oncology this week and with her oncologist discuss further treatment including radiation and chemotherapy. (5) Anemia Impression: Her anemia appears to be of chronic disease. Her iron studies did not suggest iron deficiency. Her hemoglobin has remained stable despite the blood-tinged sputum.We will continue to monitor and transfuse as needed for hemoglobin greater than 7. (6) (HFpEF) heart failure with preserved ejection fraction Impression: Chronic and not in exacerbation. A BNP was checked and it is close to her baseline. We have been holding her Lasix given we have been hydrating her. We discussed today that we will hold her Lasix on discharge until she follows up with her primary care physician as I am concerned she would become hypovolemic and exacerbate the hypercalcemia. Qualifiers: Heart failure chronicity: chronic Qualified Code(s): I50.32 - Chronic diastolic (congestive) heart failure (7) DAMON on CPAP Impression: Stable. Continue home CPAP. (8) Hypothyroid Impression: Stable. Continue home Synthroid.
[2021-08-21] MEDS: ATORVASTATIN 40 MG TABLET PO SCH (20:23)
[2021-08-21] MEDS: GABAPENTIN 400 MG CAPSULE PO SCH (20:23)
[2021-08-21] MEDS: FLUTICASONE NASAL SPRAY NAS SCH (20:23)
[2021-08-22] MEDS: SODIUM CHLORIDE FLUSH 0.9% 10 ML SYRINGE IVP SCH ×2 (00:17→08:26)
[2021-08-22] MEDS: oxyCODONE 5 MG TABLET PO PRN ×2 (02:19→06:43)
[2021-08-22] MEDS: BACLOFEN 10 MG TABLET PO PRN (02:47)
[2021-08-22] MEDS ORDERED: MIN OIL/DIMETHICON/COCONUT OIL 92 GM TUBE TOP PRN (03:24)
[2021-08-22 06:03] LABS: BASOPHILS % (AUTO) 0.5 %; EOSINOPHILS % (AUTO) 2.6 %; HCT - HEMATOCRIT 26.8 % (37.0-47.0); LYMPHOCYTES % (AUTO) 8.2 %; MEAN CORPUSCULAR HGB CONC 29.9 g/dL (32.0-36.0); MEAN CORPUSCULAR VOLUME 97.1 fL (81.0-99.0); MEAN PLATELET VOLUME 11.6 fL (7.9-10.8); MONOCYTES % (AUTO) 41.6 %; PLT - PLATELET COUNT 223 10^3/uL (130-450); RED BLOOD COUNT 2.76 10^6/uL (4.20-5.40); RED CELL DISTRIBUTION WIDTH 14.2 % (12.0-15.0); WHITE BLOOD COUNT 10.8 x10^3/uL (4.8-10.8)
[2021-08-22 06:05] LABS: ABNORMAL LYMPHS % (MANUAL) 0 %; BAND NEUTROPHILS % (MANUAL) 0 %
[2021-08-22 06:12] LABS: CALCIUM 11.4 mg/dL (8.5-10.3); CREATININE 1.2 mg/dL (0.4-1.0); POTASSIUM 3.3 mmol/L (3.5-5.0)
[2021-08-22 06:24] LABS: DIFFERENTIAL COMMENT MANUAL DIFFERENTIAL; EOSINOPHILS # (MANUAL) 0.1 10^3/uL (0-0.7); LYMPHOCYTES # (MANUAL) 1.2 10^3/uL (1.5-3.5); LYMPHOCYTES % (MANUAL) 11 %; MONOCYTES # (MANUAL) 3.9 10^3/uL (0.0-1.0); NEUTROPHILS # (MANUAL) 5.6 10^3/uL (1.5-6.6); PLATELET ESTIMATE, MANUAL NORMAL (130-450,000) (NORMAL); PLATELET MORPHOLOGY NORMAL APPEARANCE (NORMAL); RBC MORPHOLOGY (MULTIPLE) 1+ HYPOCHROMASIA (NORMAL); WBC MORPHOLOGY (MULTIPLE) NORMAL APPEARANCE (NORMAL)
[2021-08-22] MEDS: LEVOTHYROXINE 75 MCG TABLET PO SCH (06:43)
[2021-08-22] MEDS: ACETAMINOPHEN 325 MG TABLET PO PRN (06:43)
[2021-08-22] MEDS ORDERED: POTASSIUM CHLORIDE 20 MEQ TABLET PO ONE ×2 (08:00→10:32)
[2021-08-22] MEDS: METOPROLOL TARTRATE 25 MG TABLET PO SCH (08:24)
[2021-08-22] MEDS: LACTOBACILLUS RHAMNOSUS GG CAPSULE PO SCH (08:24)
[2021-08-22] MEDS: ASPIRIN CHEW 81 MG TABLET PO SCH (08:25)
[2021-08-22] MEDS: FLUCONAZOLE 100 MG TABLET PO SCH (08:25)
[2021-08-22] MEDS: EVEROLIMUS 5 MG PO SCH (08:26)
[2021-08-22] MEDS: polyethylene glycoL 3350 17 GM PACKET PO SCH (08:26)
[2021-08-22] MEDS: LENVATINIB MESYLATE PO SCH (08:26)
--- NOTE | 2021-08-22 09:10 | Discharge Plan ---
Discharge Plan Problem Reviewed?: Yes Disposition: Home Health Service Condition: Poor Diet: Regular Activity Restrictions: Activity as Tolerated Assistance Devices: Wheelchair Health Concerns: You were admitted to the hospital because of high calcium in your blood which is due to the cancer. You were treated with IV fluids and a medication called zoledronic acid which helps decrease the calcium in your blood. Your numbers are significantly improved although still slightly elevated. We have recommended you stop taking your Lasix and to increase your oral intake at home. Your oxygen numbers were initially low and this was thought to be secondary to the cancer in your lungs. There is no evidence of pneumonia or exacerbation of your congestive heart failure. You are now breathing well without oxygen. Plan of Treatment: Please stop taking amlodipine as your blood pressure has been stable without it. Please take potassium once a day instead of 3 times a day since we stopped your Lasix. You should have blood work obtained in 1 week to ensure your calcium numbers as well as potassium are stable. You should stop taking your Lasix until you are seen by your primary care physician. Please also stop taking aspirin as this can increase your risk of bleeding given you have been coughing up some blood due to the cancer in your lung. Please continue to follow-up with your oncologist and the radiation oncologist. Please talk to your primary care physician about a referral to palliative care. They can help manage your symptoms and pain. I have spoken to them and they will be expecting a consult. Care Goals: The goals prevent further hospitalizations and to ensure your calcium does not rise again. Assessment: The patient expressed understanding of the treatment plan. Additional Instructions or Follow Up instructions: Please follow-up with your primary care physician in 1 week. Please follow-up with your radiation oncologist in 5 days as scheduled. Follow-Up Care: Home Health - PT, Home Health - OT No Smoking: If you smoke, Please STOP! Call for help. Follow-up with: Deana Meneses MD [Primary Care Provider] -
--- NOTE | 2021-08-22 09:18 | DISCHARGE SUMMARY ---
"Discharge Summary Admit Date: 08/18/21 Discharge Date: 08/22/21 Discharging Provider: Marcos Oconnell Primary Care Provider: Deana Meneses Code Status: Do Not Attempt Resuscitation Condition at Discharge: Poor Discharge Disposition: Home Health Service - DIAGNOSES Admission Diagnoses: Acute respiratory failure with hypoxia Hypercalcemia DAMON on CPAP Generalized weakness Acute kidney injury Hypothyroid Hypertension Kidney cancer, primary, with metastasis from kidney to other site Discharge Diagnoses with Status of Each Condition: Acute respiratory failure with hypoxia Hypercalcemia KIN Kidney cancer, primary with metastasis from kidney to other site Anemia Heart failure with preserved ejection fraction DAMON on CPAP Hypothyroid - HPI History of Present Illness: H&P per Dr. Wellington: This is a 71 y/o WF with history of DAMON on CPAP, breast cancer and has been treated with mastectomy and chemotherapy and lymph node dissection in 2004. She then presented with left renal cell cancer in 2017 that was resected. 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 She was in our ER 1 month ago with hypercalcemia, treated with iv fluids and Zoledronic acid and was released. She presented to the emergency department, brought in by ambulance, with generalized weakness as well as complaint of nausea and vomiting at home, but denies any chest pain, shortness of breath, abdominal pain, fever or diarrhea. EMS reported hypoxia in the field with saturation of 80%. In the ED, first O2 sat was 83% on room air and she has required 5 L in order to maintain oxygen saturations greater than 90%. EMS report a recent hospitalization at the [facility] for UTI and pneumonia, but no old records are available yet. Patient does not usually have a baseline oxygen demand. She reports that N /V is common and she takes Reglan before meals and prn Zofran and her meals are [id number] consistency. She has been bed to wheelchair bound since coming home from the hospitalization and she has 24/7 caregivers at home. Her w/u in ED showed COVID neg by PCR, a normal troponin of 13, BNP mildly increased at 385, CT scan of chest was without infiltrates but larger mets were reported. Her serum Calcium is 15.7. Patient was given 2 L IV fluid and a 3 mg dose of Zoledronic acid. The ED provider reached out to the Hospitalist team for admission. She is a DNR/DNI per documentation by the ED provider. - CONSULTS | PROCEDURES Consultations: PT - HOSPITAL COURSE Hospital Course: She was admitted for acute hypoxic respiratory failure secondary to her pulmonary metastasis and hypercalcemia. She was treated with zoledronic acid and IV fluids. She had acute kidney injury that resolved with the IV hydration. Her hypercalcemia also improved and it was down to 11.4 on day of discharge. She was also able to be weaned off of oxygen and an exercise desaturation test revealed that she did not need any oxygen at home. It was felt her hypoxia related to her pulmonary mets. There is no evidence of pneumonia or heart failure. Her calcium remained stable even after discontinuation of the IV fluids. Given she is on room air and her calcium improved, she was discharged home with home health. I asked her to start taking her amlodipine as her blood pressure had been stable without the use of it. I also asked her to discontinue Lasix until she follows up with her primary care provider and to decrease her potassium to once a day from 3 times a day. She will be following up with her radiation oncologist in 4 days. We discussed an outpatient palliative care referral and she was agreeable to this and so I spoke with Martha Lloyd who will be expecting a consult from her primary care physician. - ALLERGIES Allergies/Adverse Reactions: Allergies Allergy/AdvReac Type Severity Reaction Status Date / Time Penicillins Allergy Unknown Nausea Verified 08/18/21 10:11 - MEDICATIONS Home Medications: Ambulatory Orders Medication Instructions Recorded Confirmed Gabapentin 1,200 mg PO HS 07/21/14 08/18/21 Baclofen 10 mg PO BID PRN 12/15/18 08/18/21 Fluticasone [Flonase] 2 spray NITIN QPM 12/15/18 08/18/21 Oxycodone HCl 5 mg PO Q4H PRN 12/15/18 08/18/21 Lactobacill 46/B.animal/Inulin 1 each PO DAILY #5 capsule 01/10/20 08/18/21 [Probiotic-10 10 Bill Cell Cap] Potassium Chloride 20 meq PO TID 01/30/20 08/18/21 Atorvastatin Calcium 40 mg PO HS 03/10/21 08/18/21 Bisacodyl Supp [Dulcolax Supp] 10 mg VA DAILY PRN #20 supp 03/20/21 08/18/21 Everolimus [Afinitor] 5 mg PO DAILY 08/18/21 08/18/21 Lenvatinib Mesylate [Lenvima] 14 mg PO DAILY 08/18/21 08/18/21 Levothyroxine Sodium [Synthroid] 150 mcg PO QDAC 08/18/21 08/18/21 Metoprolol Tartrate [Lopressor] 12.5 mg PO DAILY 08/18/21 08/18/21 Ondansetron HCl [Zofran] 4 mg SL Q6HR PRN 08/18/21 08/18/21 - PHYSICAL EXAM AT DISCHARGE General Appearance: positive: No acute distress, Alert Eyes Bilateral: positive: Normal inspection, Conjunctivae nml ENT: positive: ENT inspection nml Neck: positive: Nml inspection Respiratory: positive: No respiratory distress, Rales, Rhonchi Cardiovascular: positive: Regular rate & rhythm, No murmur Abdomen: positive: Non-tender, No distention. negative: Tenderness Skin: positive: Warm, Dry, Pallor Extremities: positive: No pedal edema Neurologic/Psychiatric: negative: Disoriented to person, Disoriented to place Physical Exam Other/Comments: Vital Signs - 24 hr 08/21/21 08/22/21 08/22/21 20:31 00:11 04:38 Temperature 36.8 C 36.7 C 36.9 C Heart Rate [ 65 62 78 Brachial] Heart Rate [ Monitoring electrodes] Respiratory 20 19 18 Rate Blood Pressure [Left Brachial artery] Blood Pressure 106/50 L 107/63 [Right Brachial artery] Blood Pressure 136/55 H [Right Radial artery] O2 Saturation 92 96 92 08/22/21 09:00 Temperature 37.2 C Heart Rate [ Brachial] Heart Rate [ 64 Monitoring electrodes] Respiratory 16 Rate Blood Pressure 112/51 L [Left Brachial artery] Blood Pressure [Right Brachial artery] Blood Pressure [Right Radial artery] O2 Saturation 97 Oxygen O2 Source Nasal cannula - LABS Result Diagrams: 08/22/21 05:05 08/22/21 05:05 - DIAGNOSTIC IMAGING Diagnostic Imaging Results: Final report reviewed - FOLLOW UP Follow Up: She was asked to follow-up with her primary care physician in 1 week and to have a BMP obtained to ensure her potassium and calcium are stable. She was also asked to follow-up with her radiation oncologist as scheduled in 5 days. I encouraged her to follow-up with palliative care and I spoke with Martha Lloyd of the palliative care service and she will be expecting an outpatient consult. - TIME SPENT Time Spent in Discharge (Minutes): 36"
[2021-08-22 09:21] VITALS: BP 112/51
== END 2021-08-22 12:59 | disposition home health service (06) | DRG 189 ==
LOC: EDUNIT# → ED 10:03 → MS2 15:06
PROVIDERS: ADMIT Internal Medicine; ATTEND Internal Medicine
DX: J96.91 Respiratory failure, unspecified with hypoxia (principal); J96.01 Acute respiratory failure with hypoxia; N17.9 Acute kidney failure, unspecified; C78.02 Secondary malignant neoplasm of left lung; C78.01 Secondary malignant neoplasm of right lung; C64.9 Malignant neoplasm of unspecified kidney, except renal pelvis; C78.7 Secondary malignant neoplasm of liver and intrahepatic bile duct; C78.00 Secondary malignant neoplasm of unspecified lung; I50.32 Chronic diastolic (congestive) heart failure; E83.52 Hypercalcemia; Z20.822 Contact with and (suspected) exposure to COVID-19; I10 Essential (primary) hypertension; G47.30 Sleep apnea, unspecified; E86.0 Dehydration; I11.0 Hypertensive heart disease with heart failure; G47.33 Obstructive sleep apnea (adult) (pediatric); E03.9 Hypothyroidism, unspecified; Z87.01 Personal history of pneumonia (recurrent); Z87.440 Personal history of urinary (tract) infections; R11.2 Nausea with vomiting, unspecified; Z66 Do not resuscitate; Z79.899 Other long term (current) drug therapy; Z85.3 Personal history of malignant neoplasm of breast; R53.1 Weakness; Z74.01 Bed confinement status; Z99.3 Dependence on wheelchair; D63.0 Anemia in neoplastic disease
CPT/HCPCS: 36415; 51701; 71250; 80048; 80053; 81001; 82550; 82607; 82728; 82746; 82803; 83540; 83605; 83690; 83735; 83880; 84466; 84484; 85025; 85610; 87040; 87086; 87275; 87276; 87631; 87635; 93005; 93306; 96361; 96365; 97162; 97530; 99283; 99285; A6250; A9270; J2765; J3489; Q0162; 0202U; 81003

== ENCOUNTER 2021-08-24 12:30 | Outpatient (CLI) | payer MEDICARE, BC | END 2021-08-24 12:31 | disposition EMS.NT | LOC: EMS 12:30 | DX: R09.02 Hypoxemia (principal) | CPT/HCPCS: A0425; A0429 ==

== ENCOUNTER 2021-08-24 12:35 | Emergency (ER) | payer MEDICARE, BC ==
[2021-08-24] MEDS ORDERED: FUROSEMIDE 40 MG/4 ML VIAL IVP STA (13:18)
--- NOTE | 2021-08-24 13:20 | ED Physician Documentation ---
PD HPI DYSPNEA - Stated complaint Stated Complaint: LOW O2 - Chief complaint Chief Complaint: Resp - History obtained from History obtained from: Patient, EMS - History of Present Illness Timing - onset: Today Timing - onset during: Rest Timing - duration: Hours Timing - details: Gradual onset, Still present Inciting event(s): Other (returned from hospitalization) Worsened by: Exertion, Coughing Associated symptoms: Cough. No: Fever Similar symptoms before: Diagnosis (CHF, pneumonia, mets to lung) Recently seen: Admitted - Additional information Additional information: 71-year-old female with a history of breast cancer followed by renal cancer with mets to the lungs has undergone some treatment for elevated calcium last week in the hospital. She was hypoxic at that time as well had a normal echocardiogram and she was taken off of her Lasix. Today she was in her home and home health came to visit her found her oxygen saturation to be 80% she improved to 95% with 3 L nasal cannula. Patient denies any current illness other than what she has been dealing with she has not had a new cough or sputum production. She has not had a fever. She has been into the hospital she has had some medication changes including discontinuation of her Lasix. She does have exertional dyspnea. She would like to set up home oxygen. Review of Systems Constitutional: denies: Fever Ears: denies: Ear pain, Reviewed and negative Throat: denies: Sore throat Cardiac: denies: Chest pain / pressure, Palpitations, Pedal edema Respiratory: reports: Dyspnea, Cough PD PAST MEDICAL HISTORY - Past Medical History Cardiovascular: Hypertension, High cholesterol Respiratory: Sleep apnea Neuro: Other Endocrine/Autoimmune: HyPOthyroidism GI: Ulcers, Other HEALTH UNIT COORDINATOR: Ovarian cysts, Breast cancer, Other : Other HEENT: Chronic vision loss Psych: None Musculoskeletal: Osteoarthritis, Chronic back pain Derm: None - Past Surgical History Past Surgical History: Yes General: Cholecystectomy, Appendectomy, Other Ortho: Shoulder arthroplasty /HEALTH UNIT COORDINATOR: Hysterectomy, Mastectomy HEENT: Cataracts, Tonsil/Adenoidectomy - Present Medications Home Medications: Ambulatory Orders Medication Instructions Recorded Confirmed Gabapentin 1,200 mg PO HS 07/21/14 08/18/21 Baclofen 10 mg PO BID PRN 12/15/18 08/18/21 Fluticasone [Flonase] 2 spray NITIN QPM 12/15/18 08/18/21 Oxycodone HCl 5 mg PO Q4H PRN 12/15/18 08/18/21 Lactobacill 46/B.animal/Inulin 1 each PO DAILY #5 capsule 01/10/20 08/18/21 [Probiotic-10 10 Bill Cell Cap] Potassium Chloride 20 meq PO TID 01/30/20 08/18/21 Atorvastatin Calcium 40 mg PO HS 03/10/21 08/18/21 Bisacodyl Supp [Dulcolax Supp] 10 mg UT DAILY PRN #20 supp 03/20/21 08/18/21 Everolimus [Afinitor] 5 mg PO DAILY 08/18/21 08/18/21 Lenvatinib Mesylate [Lenvima] 14 mg PO DAILY 08/18/21 08/18/21 Levothyroxine Sodium [Synthroid] 150 mcg PO QDAC 08/18/21 08/18/21 Metoprolol Tartrate [Lopressor] 12.5 mg PO DAILY 08/18/21 08/18/21 Ondansetron HCl [Zofran] 4 mg SL Q6HR PRN 08/18/21 08/18/21 - Allergies Allergies/Adverse Reactions: Allergies Allergy/AdvReac Type Severity Reaction Status Date / Time Penicillins Allergy Unknown Nausea Verified 08/24/21 12:50 - Social History Does the pt smoke?: No Smoking Status: Never smoker Does the pt drink ETOH?: No Does the pt have substance abuse?: No - Immunizations Immunizations are current?: Yes - POLST Patient has POLST: No POLST Status: DNR (Although she does want all treatment up until the moment of her , she does not want CPR or intubation if she has no pulse, pressure, or spontaneous respiration. If we find that she is succumbed to what ever illness and is now with significant cognitive deficits, she would rather be palliative care.) PD ED PE NORMAL - Vitals Vital signs reviewed: Yes (hypertensive and hypoxic on room air ) - General General: Alert and oriented X 3, No acute distress, Well developed/nourished, Other (mild speech latency sallow complexion) - HEENT HEENT: Atraumatic, PERRL, EOMI - Neck Neck: Supple, no meningeal sign, No bony TTP - Cardiac Cardiac: RRR, No murmur - Respiratory Respiratory: No respiratory distress, Other (Scattered wheezes rhonchi's and Rales bilaterally worse on the right than the left) - Abdomen Abdomen: Soft, Non tender - Back Back: No CVA TTP, No spinal TTP - Derm Derm: Normal color, Warm and dry, No rash - Extremities Extremities: No deformity, No edema - Neuro Neuro: Alert and oriented X 3, glass edger 2-12 intact, No motor deficit, No sensory deficit, Normal speech Eye Opening: Spontaneous Motor: Obeys Commands Verbal: Oriented GCS Score: 15 - Psych Psych: Normal mood, Normal affect Results - Vitals Vitals: Vital Signs - 24 hr 08/24/21 08/24/21 08/24/21 12:46 15:04 15:35 Temperature 36.6 C 37.1 C Heart Rate 77 78 Respiratory 18 22 Rate Blood Pressure 145/66 H 143/72 H 157/69 H O2 Saturation 96 82 L 08/24/21 08/24/21 08/24/21 16:08 16:59 18:10 Temperature 36.8 C Heart Rate 80 77 79 Respiratory 20 22 Rate Blood Pressure 148/67 H 159/77 H 136/84 H O2 Saturation 96 95 95 Oxygen O2 Source Nasal cannula Oxygen Flow Rate 5 - EKG (time done) 1333 Rate: Rate (enter#) (68) Rhythm: NSR QRS: LVH, Low voltage (ext leads) Ischemia: ST elevation c/w ischemia (V3/V4) Compare to prior EKG: Unchanged from prior EKG (SPT 08/18/21 accounting for lead placement no changes. ) Computer interpretation: Agree with computer - Labs Labs: Laboratory Tests 08/24/21 08/24/21 08/24/21 13:09 13:09 13:09 WBC 9.0 RBC 2.85 L Hgb 8.4 L Hct 27.5 L MCV 96.5 MCH 29.5 MCHC 30.5 L RDW 14.4 Plt Count 207 MPV 11.2 H Neut # (Auto) 4.0 Lymph # (Auto) 0.9 L Gregory # (Auto) 3.5 H Eos # (Auto) 0.3 Baso # (Auto) 0.1 Absolute Nucleated RBC 0.00 Nucleated RBC % 0.0 Manual Slide Review Indicated RBC Morph Micro Appear 3+ ANISOCYTOSIS Sodium 140 Potassium 3.5 Chloride 104 Carbon Dioxide 26 Anion Gap 10.0 BUN 15 Creatinine 1.2 H Estimated GFR (MDRD) 44 L Glucose 95 Calcium 12.3 H* Total Bilirubin 0.4 AST 15 ALT < 10 L Alkaline Phosphatase 73 Troponin I High Sens 11.9 B-Natriuretic Peptide Total Protein 6.2 L Albumin 2.8 L Globulin 3.4 Albumin/Globulin Ratio 0.8 L Lipase 22 08/24/21 13:09 WBC RBC Hgb Hct MCV MCH MCHC RDW Plt Count MPV Neut # (Auto) Lymph # (Auto) Gregory # (Auto) Eos # (Auto) Baso # (Auto) Absolute Nucleated RBC Nucleated RBC % Manual Slide Review RBC Morph Micro Appear Sodium Potassium Chloride Carbon Dioxide Anion Gap BUN Creatinine Estimated GFR (MDRD) Glucose Calcium Total Bilirubin AST ALT Alkaline Phosphatase Troponin I High Sens B-Natriuretic Peptide 616 H Total Protein Albumin Globulin Albumin/Globulin Ratio Lipase - Rads (name of study) chest Radiology: Prelim report reviewed (Impression: 1. No significant interval change.), EMP read indepedently, See rad report Procedures - IVC sono (time) 1300 Bedside IVC sono: IVC measures (cm) (2.01), IVC collapsed c insp (cm) (2.01), High CVP PD MEDICAL DECISION MAKING - ED course Complexity details: reviewed old records, reviewed results, re-evaluated patient, considered differential, d/w patient ED course: 71-year-old female with a history of renal carcinoma with mets to the lungs has recently been in the hospital for elevated calcium and respiratory failure and today she was noted by home health to have an oxygen saturation of 80% and she had improvement to 95% with 4 L nasal cannula. She arrives to the emergency department mentating normally with oxygen running. I interrogated her inferior vena cava and found it to be 2 cm in diameter without change with respiration. This appears to be consistent with a elevated central venous pressure and she is administered some Lasix intravenously. She does have elevated calcium again here today and may need further treatment of that as well. The patient wants oxygen for continuous use at home she does have an order from her oncologist however they are not able to receive the oxygen at home We were eventually able to provide oxygen for the patient after intervention with our hospitalist who spent extra time helping us here to figure out the logistics. The patient felt she was breathing easier after administration of lasix. Departure - Departure Disposition: 01 Home, Self Care Clinical Impression: Acute respiratory failure with hypoxia, Hypercalcemia, Generalized weakness Metastatic neoplastic disease Qualifiers: Area of secondary neoplastic involvement: respiratory structure Respiratory structure secondary neoplasm location: metastatic to lung Laterality: bilateral Qualified Code(s): C78.01 - Secondary malignant neoplasm of right lung Condition: Poor Instructions: Travel W Oxygen, Oxygen Use Safety, Oxygen Home Use, Hypercalcemia Dc Follow-Up: MARLENI CELAYA [Primary Care Provider] - Discharge Date/Time: 08/24/21 18:12
[2021-08-24 13:24] LABS: BASOPHILS # (AUTO) 0.1 10^3/uL (0.0-0.1); BASOPHILS % (AUTO) 0.7 %; EOSINOPHILS # (AUTO) 0.3 10^3/uL (0.0-0.7); HCT - HEMATOCRIT 27.5 % (37.0-47.0); HGB - HEMOGLOBIN 8.4 g/dL (12.0-16.0); LYMPHOCYTES # (AUTO) 0.9 10^3/uL (1.5-3.5); LYMPHOCYTES % (AUTO) 10.2 %; MEAN CORPUSCULAR HEMOGLOBIN 29.5 pg (27.0-31.0); MEAN CORPUSCULAR HGB CONC 30.5 g/dL (32.0-36.0); MEAN CORPUSCULAR VOLUME 96.5 fL (81.0-99.0); MEAN PLATELET VOLUME 11.2 fL (7.9-10.8); MONOCYTES # (AUTO) 3.5 10^3/uL (0.0-1.0); MONOCYTES % (AUTO) 39.2 %; NEUTROPHILS % (AUTO) 44.1 %; PLT - PLATELET COUNT 207 10^3/uL (130-450); RED BLOOD COUNT 2.85 10^6/uL (4.20-5.40); RED CELL DISTRIBUTION WIDTH 14.4 % (12.0-15.0)
[2021-08-24 13:27] LABS: SLIDE REVIEW? Indicated
[2021-08-24 13:38] LABS: ALBUMIN 2.8 g/dL (3.2-5.5); ALBUMIN/GLOBULIN RATIO 0.8 (1.0-2.2); ALKALINE PHOSPHATASE 73 IU/L (42-121); ALT ALANINE AMINOTRANSFERASE < 10 IU/L (10-60); AST ASPARTATE AMINOTRANSFERASE 15 IU/L (10-42); BILIRUBIN,TOTAL 0.4 mg/dL (0.2-1.0); BUN - BLOOD UREA NITROGEN 15 mg/dL (6-20); CALCIUM 12.3 mg/dL (8.5-10.3); CARBON DIOXIDE - CO2 26 mmol/L (21-32); CHLORIDE 104 mmol/L (101-111); CREATININE 1.2 mg/dL (0.4-1.0); GFR - MDRD 44 (>89); GLUCOSE 95 mg/dL (70-100); LIPASE 22 U/L (22-51); POTASSIUM 3.5 mmol/L (3.5-5.0); SODIUM 140 mmol/L (135-145); TOTAL PROTEIN 6.2 g/dL (6.7-8.2)
--- NOTE | 2021-08-24 13:41 | XRAY Report ---
PROCEDURE: Chest 1 View X-Ray INDICATIONS: Chest Pain TECHNIQUE: One view of the chest was acquired. COMPARISON: March 10, 2021 reference is made to the chest CT dated March 10, 2021. FINDINGS: SUPPORT DEVICES: Redemonstrated shoulder arthroplasties. LUNGS/PLEURA: No focal consolidation, pleural effusion or space-occupying pneumothorax. MEDIASTINUM: Redemonstrated opacity in of the right upper/midlung zone, which may reflect the patient 's known neoplastic process with associated partial lung collapse. The left lung is well aerated. BONES/SOFT TISSUES: No acute abnormality. IMPRESSION: 1.No significant interval change. Reviewed by: Chema Ruiz MD on 08/24/2021 1:39 PM PST Approved by: Chema Ruiz MD on 08/24/2021 1:39 PM [facility] Station ID: [id number]
[2021-08-24 13:47] LABS: RBC MORPHOLOGY (MULTIPLE) 3+ ANISOCYTOSIS (NORMAL)
[2021-08-24 18:12] VITALS: BP 136/84
== END 2021-08-24 18:12 | disposition home or self-care (01) ==
LOC: EDUNIT# → ED 12:35
DX: J96.01 Acute respiratory failure with hypoxia (principal); E83.52 Hypercalcemia; R53.1 Weakness; C78.01 Secondary malignant neoplasm of right lung; C64.9 Malignant neoplasm of unspecified kidney, except renal pelvis; I10 Essential (primary) hypertension; E78.00 Pure hypercholesterolemia, unspecified; E03.9 Hypothyroidism, unspecified; H54.7 Unspecified visual loss; G89.29 Other chronic pain; M54.9 Dorsalgia, unspecified; Z66 Do not resuscitate; Z79.899 Other long term (current) drug therapy; Z85.3 Personal history of malignant neoplasm of breast
CPT/HCPCS: 36415; 80053; 83690; 83880; 84484; 85025; 93005; 96374; 99284

== ENCOUNTER 2021-08-31 11:33 | Outpatient (CLI) | payer MEDICARE, BC ==
[2021-08-31 12:06] LABS: ALBUMIN 2.7 g/dL (3.2-5.5); ALBUMIN/GLOBULIN RATIO 0.7 (1.0-2.2); ALKALINE PHOSPHATASE 64 IU/L (42-121); ALT ALANINE AMINOTRANSFERASE < 10 IU/L (10-60); AST ASPARTATE AMINOTRANSFERASE 14 IU/L (10-42); BILIRUBIN,TOTAL 0.4 mg/dL (0.2-1.0); BUN - BLOOD UREA NITROGEN 17 mg/dL (6-20); CALCIUM 11.9 mg/dL (8.5-10.3); CARBON DIOXIDE - CO2 29 mmol/L (21-32); CHLORIDE 98 mmol/L (101-111); CREATININE 1.4 mg/dL (0.4-1.0); GFR - MDRD 37 (>89); GLUCOSE 176 mg/dL (70-100); POTASSIUM 2.6 mmol/L (3.5-5.0); SODIUM 135 mmol/L (135-145); TOTAL PROTEIN 6.5 g/dL (6.7-8.2)
== END 2021-08-31 11:34 | disposition home or self-care (01) ==
LOC: LAB 11:33
PROVIDERS: ATTEND Physician Assistant Medical
DX: C64.9 Malignant neoplasm of unspecified kidney, except renal pelvis (principal)
CPT/HCPCS: 36415; 80053